=== PATIENT | male | born 1940 | race Caucasian/White ===

== ENCOUNTER 2017-04-27 12:50 | Emergency (ER) | payer MEDICARE ==
[~2017-04-27] VITALS: Ht 177.8 cm; Wt 99.2 kg
[~2017-04-27 12:50] MED LIST: CARV6.252 PO; COQ150CA PO; LORA-392 PO; NIAC50TA PO; PRIL20CA PO; SIMV20 PO; Z.0.COMMODE-3:1; Z.0.CPM; Z.0.WALKERFRONT
[2017-04-27 12:54] VITALS: BP 148/74; PULSE 71; RESP 16; TEMP 98.4; O2SAT 97
[2017-04-27] MEDS ORDERED: PRIL20TA2 PO (13:08)
[2017-04-27] MEDS ORDERED: COQ-30CA2 PO (13:08)
[2017-04-27] MEDS ORDERED: CARV6.252 PO (13:08)
[2017-04-27] MEDS ORDERED: HYDR200T3 PO (13:08)
[2017-04-27] MEDS ORDERED: SIMV20TA PO (13:08)
[2017-04-27] MEDS ORDERED: MILK1TAB PO (13:08)
--- NOTE | 2017-04-27 13:35 | PD ---
HPI Chief Complaint: Musculoskeletal Complaint Time Seen by Provider: 13:00 Travel History International Travel<30 days: No Contact w/Intl Traveler<30days: No Traveled to known affect area: No History of Present Illness HPI 76-year-old male presents to the emergency room for evaluation of left thigh pain and swelling after falling last night. States he believes he pulled a thigh muscle. Patient tripped and fell in his hallway. He denies syncope, loss of consciousness, dizziness, or hitting his head. States he struck his left elbow on the wall and twisted his left hip. He had immediate pain and difficulty standing up. States overnight his pain worsened. He took oxycodone without significant relief in symptoms. It is worsened with ambulation and if he tries to extend his left hip. States he can still squat without significant pain. Patient denies paresthesias. He denies hip and knee pain. PFSH Past Medical History Blood Disorders: Yes (HEMACROMATOSIS) Cancer: Yes (PROSTATE, BASIL CELL SKIN CANCERS,FOLLICULAR LYMPHOMA) Cardiovascular Problems: No High Cholesterol: Yes Diabetes: No Diminished Hearing: No Endocrine: No Gastrointestinal Disorders: Yes (GERD) GERD: Yes Glaucoma: No Genitourinary: Yes (HX RENAL CALC., PROSTATE CANCER) Hepatitis: No Hiatal Hernia: No Hypertension: Yes Immune Disorder: No Medical other: Yes (HX RADIATION FOR PROSTATE CANCER) Musculoskeletal: Yes (ARTHRITIS) Neurologic: No Psychiatric: No Reproductive: No Respiratory: No Immunizations Current: Yes Radiation Therapy: Yes (prostate cancer) Thyroid Disease: No Past Surgical History Abdominal Surgery: Yes (CHOLYCYSTECTOMY) AICD: No Body Medical Devices: LEFT SHOULDER Eye Surgery: Yes (ERNESTO. CATARACT EXTRACTION) Genitourinary Surgery: Yes (RENAL CALCULI EXTRACTION, LITHOTRIPSY) Joint Replacement: Yes (RIGHT KNEE) Neurologic Surgery: Yes (BACK) Pacemaker: No Other Surgery: Yes Social History Alcohol Use: Yes (SOCIALLY) Tobacco Use: No Substance Use: No Allergies-Medications (Allergen,Severity, Reaction): Coded Allergies: Morphine (Verified Allergy, Severe, NAUSEA/VOMITING, 04/27/17) Nonsteroidal Anti-Inflammatory Agts (Verified Allergy, Severe, AFFECTED KIDNEYS, 04/27/17) Voltaren (Verified Allergy, Severe, AFFECTED KIDNEYS, 04/27/17) ALL NSAIDS Sulfa (Verified Allergy, Intermediate, 04/27/17) Reported Meds & Prescriptions Reported Meds & Active Scripts Active Reported Hydroxychloroquine (Hydroxychloroquine Sulfate) 200 Mg Tab 200 Mg PO DAILY Takw with food Liver Complex Tablet (Milk Thistle/Nac/Dandel/Turmer) 1 Each Tablet 1 Tab PO DAILY Coq-10 (Coenzyme Q10 (Ubidecarenone)) 30 Mg Cap Unknown Dose PO DAILY Simvastatin 20 Mg Tab 20 Mg PO HS Carvedilol 6.25 Mg Tab 6.25 Mg PO BID Prilosec (Omeprazole Magnesium) 20 Mg Tab 20 Mg PO BID Review of Systems Except as stated in HPI: all other systems reviewed are Neg Physical Exam Narrative GENERAL: Well-nourished, well-developed male in no acute distress. Afebrile. Ambulatory. SKIN: Focused skin assessment warm/dry. No erythema or ecchymosis. HEAD: Normocephalic. EYES: No scleral icterus. No injection or drainage. NECK: Supple, trachea midline. No JVD or lymphadenopathy. CARDIOVASCULAR: Regular rate and rhythm without murmurs, gallops, or rubs. RESPIRATORY: Breath sounds equal bilaterally. No accessory muscle use. MUSCULOSKELETAL: No cyanosis. Hips stable. 2+ dorsalis pedis pulse. Left thigh is significantly larger than right. No calf tenderness. Full range of motion of the left lower extremity. Pain with active range of motion of the hip. No pain with passive range of motion. Data Data Last Documented VS Vital Signs Date Time Temp Pulse Resp B/P Pulse Ox O2 Delivery O2 Flow Rate FiO2 04/27/17 12:54 98.4 71 16 148/74 97 Orders Femur (Ap & Lat/2vws) (04/27/17 ) [facility] Medical Decision Making Medical Screen Exam Complete: Yes Emergency Medical Condition: Yes Medical Record Reviewed: Yes Differential Diagnosis Muscle strain, groin sprain, fracture Narrative Course 76-year-old male presents to the emergency room for evaluation of left thigh pain after trip and fall last night. Patient denies any pain prior to falling. Patient denies hitting his head or loss of consciousness. He has been ambulatory since onset. Left lower extremity is neurovascularly intact. Patient reports extreme pain with active hip flexion but no pain with passive hip flexion. There is no bony tenderness to palpation. There is point tenderness to palpation to the left quadriceps. X-ray of the femur is negative. This is muscle strain. Patient discharged with prescription for baclofen told to follow-up with his primary care physician or return for worsening symptoms. He understands and agrees to plan. Diagnosis Primary Impression: Muscle strain of left thigh Qualified Code: S76.912A - Muscle strain of left thigh, initial encounter Referrals: Primary Care Physician Patient Instructions: General Instructions, Muscle Strain (ED) Additional Instructions: Rest and drink plenty of fluids. Take Robaxin as directed, as needed for pain. Take Tylenol as directed, as needed for pain. Apply ice to the affected area for 20 minutes at a time, as needed for pain and swelling. Follow-up with a primary care physician. Return to the emergency room for worsening symptoms. Med/Other Pt SpecificInfo: Prescription(s) given Disposition: 01 DISCHARGE HOME Condition: Stable Estelle Garcia Apr 27, 2017 13:35
--- NOTE | 2017-04-27 14:02 | RADRPT ---
EXAM DATE/TIME: 04/27/2017 13:42 [facility] COMPARISON: KNEE LEFT LTD (1 OR 2VWS), December 26, 2015, 14:16. INDICATIONS : Left mid femur pain from fall last night MEDICAL HISTORY : Carcinoma, prostatic. SURGICAL HISTORY : Total knee replacement, left. Total knee replacement, right. ENCOUNTER: Initial ACUITY: 1 day PAIN SCORE: 10/10 LOCATION: Left mid thigh FINDINGS: Total knee arthroplasty is in place. The femoral, tibial, and patellar components appear intact. Th ere are no signs of loosening or fracture. No definite fracture is seen for technique. CONCLUSION: Intact total knee arthroplasty for technique. Awa Patel MD on April 27, 2017 at 14:00 Board Certified Radiologist. This report was verified electronically.
[2017-04-27] MEDS ORDERED: BACL10TA PO (14:16)
== END 2017-04-27 14:29 | disposition home or self-care (01) ==
LOC: PHEFT 12:50
DX: S76.912A Strain of unspecified muscles, fascia and tendons at thigh level, left thigh, initial encounter (principal); I10 Essential (primary) hypertension; E78.00 Pure hypercholesterolemia, unspecified; W01.0XXA Fall on same level from slipping, tripping and stumbling without subsequent striking against object, initial encounter; Y93.89 Activity, other specified; Y92.008 Other place in unspecified non-institutional (private) residence as the place of occurrence of the external cause
CPT/HCPCS: 73552; 99283

== ENCOUNTER 2017-05-15 09:27 | Inpatient (IN) | payer MEDICARE ==
[~2017-05-15] VITALS: Ht 177.8 cm; Wt 108.5 kg
[~2017-05-15 09:27] MED LIST changes: +BACL10TA PO; +COQ-30CA2 PO; -COQ150CA PO; +HYDR200T3 PO; -LORA-392 PO; +MILK1TAB PO; -NIAC50TA PO; -PRIL20CA PO; +PRIL20TA2 PO; -SIMV20 PO; +SIMV20TA PO; -Z.0.COMMODE-3:1; -Z.0.CPM; -Z.0.WALKERFRONT
--- NOTE | 2017-05-15 13:02 | HHI.HP ---
HPI Service [facility] Hospitalists Primary Care Physician Mateusz Teran MD Admission Diagnosis femoral neck fx/hip pain Chief Complaint: hip pain Travel History International Travel<30 Days: No Contact w/Intl Traveler <30 Da: No Traveled to Known Affected Are: No History of Present Illness Pt is 77yo with chronic follicular lymphoma who had elective left tka surgery last year. I was called by his orthopedic physician Dr Lo about direct admit today for left femoral neck fx. Pt slipped and fell back around 04/27 and seen in ED. At that time a femur xray was done and pt sent home with possible muscle strain. He is now wheelchair bound over past week and having alot of pain in the hip. Dr Lo performed an MRI and he believes the pt has femoral neck fx. After walking out of the mri he apparently felt a popping sensation as well when getting into the car. Review of Systems Other left hip pain inability to ambulate Past Family Social History Past Medical History ckd stage 3 H/O prostate cancer (s/p XRT by Dr. Marie. Dr. Sierra following- noted increasing PSA.) Hypertension Inflammatory arthritis Iron overload (HFE negative.) Liver cirrhosis in 2012 Follicular lymphoma (02/11/12. Mediastinal biopsy positive for Follicular lymphoma, grade I. CTPET show disease above and below diaphragm. Last bone marrow biopsy 2005 was negative for lymphoma. Back surgery 2002 sciatica cyst Colonoscopy 2003 Iron overl load Kidney stone removed 1974, lithotripsy 2010 right tka- 2001 -left tka 2016 Left shoulder rotator cuff 2010 Lipoma removed left leg 2010 Lipotripsy - March 01, 2011 and April 19, 2011 Xrt prostate - [address] biopsy in 2011 Reported Medications Allergies: Coded Allergies: Morphine (Verified Allergy, Severe, NAUSEA/VOMITING, 04/27/17) Nonsteroidal Anti-Inflammatory Agts (Verified Allergy, Severe, AFFECTED KIDNEYS, 04/27/17) Voltaren (Verified Allergy, Severe, AFFECTED KIDNEYS, 04/27/17) ALL NSAIDS Sulfa (Verified Allergy, Intermediate, 04/27/17) Physical Exam Vital Signs heart reg lung cta abd s/nt ext left hip tender. trace edema of both ankles. 2plus distal pulses left foot/warm. Assessment and Plan Problem List: (1) Fracture of femoral neck, left Status: Acute Plan: left femoral neck fx from fall 04/27. discussed with dr Lo. MRI left hip 05/14 discussed. xray left hip due to "popping sensation" in left hip yesteday after the mri. hip surgery planned for tomorrow. no contraindications to proceed with planned surgery. pain control with oxycodone.... pt not interested in morphine or dilaudid and will avoid the nsaids/tylenol given hx ckd and cirrhosis. npo after MN with NS. resume his ppi and bp meds. scd's. post op pharmacological dvt prophylaxis and PT. (2) Lymphoma Status: Chronic Plan: follicular lymphoma stable. no rx needed. (3) Chronic kidney disease Status: Chronic Plan: ckd 3. stable. (4) Hypertension Status: Chronic Plan: cont home meds Physician Certification 2 Midnight Certification Type: Admission for Inpatient Services Order for Inpatient Services 3The services are ordered in accordance with Medicare regulations or non- Medicare payer requirements, as applicable. In the case of services not specified as inpatient-only, they are appropriately provided as inpatient services in accordance with the 2-midnight benchmark. Estimated LOS (days): 3 3 days is the estimated time the patient will need to remain in the hospital, assuming treatment plan goals are met and no additional complications. Post-Hospital Plan: Not yet determined Rogerio Syed MD May 15, 2017 13:02 Physician Certification 2 Midnight Certification Type: Admission for Inpatient Services Order for Inpatient Services 3The services are ordered in accordance with Medicare regulations or non- Medicare payer requirements, as applicable. In the case of services not specified as inpatient-only, they are appropriately provided as inpatient services in accordance with the 2-midnight benchmark. Estimated LOS (days): 3 3 days is the estimated time the patient will need to remain in the hospital, assuming treatment plan goals are met and no additional complications. Post-Hospital Plan: Not yet determined Rogerio Syed MD May 15, 2017 13:02
[2017-05-15 14:30] VITALS: BP 153/71; PULSE 66; RESP 18; TEMP 97.6; O2SAT 97
[2017-05-15] MEDS ORDERED: ACETAMINOPHEN/HYDROcodone 325 MG/5 MG TAB PO PRN ×2 (15:00)
--- NOTE | 2017-05-15 15:58 | RADRPT ---
EXAM DATE/TIME: 05/15/2017 15:35 [facility] COMPARISON: FEMUR LEFT (AP & LAT/2VWS), April 27, 2017, 13:42. INDICATIONS : Left hip increasing pain, known hip fracture. MEDICAL HISTORY : None. SURGICAL HISTORY : None. ENCOUNTER: Subsequent ACUITY: 3 weeks PAIN SCORE: 10/10 LOCATION: Left hip. FINDINGS: Examination of the left hip was performed with AP Pelvis. A nondisplaced fracture is identified throu gh the base of the left femoral neck. There is foreshortening of the neck. Femoral head remains well- seated within the acetabulum. CONCLUSION: Nondisplaced fracture of the left femoral neck. Jonatan Maciel MD on May 15, 2017 at 15:54 Board Certified Radiologist. This report was verified electronically.
[2017-05-15] MEDS ORDERED: ONDANSETRON HCL 4 MG/2 ML VIAL IV PUSH PRN (16:00)
[2017-05-15] MEDS ORDERED: TEMAZEPAM 15 MG CAP PO PRN (16:00)
[2017-05-15] MEDS ORDERED: HYDROmorphone HCL PF 1 MG/ML VIAL IV PUSH ONE (16:00)
--- NOTE | 2017-05-15 18:21 | RADRPT ---
EXAM DATE/TIME: 05/15/2017 17:38 [facility] COMPARISON: No previous studies available for comparison. INDICATIONS : Evaluate for fractures,fall three weeks ago RADIATION DOSE: 27.91 CTDIvol (mGy) MEDICAL HISTORY : Hypertension. Renal calculi. Carcinoma, prostate.lymphoma SURGICAL HISTORY : Cholecystectomy. ENCOUNTER: Initial ACUITY: 3 weeks PAIN SCALE: 8/10 LOCATION: Left Hip TECHNIQUE: Volumetric scanning of the hip was performed. Using automated exposure control and adjustment of the mA and/or kV according to patient size, radiation dose was kept as low as reasonably achievable to o btain optimal diagnostic quality images. DICOM format image data is available electronically for rev iew and comparison. FINDINGS: There is a femoral neck fracture with inferior displacement of the femoral head. There is at least 1 cm overlap. There is osteoarthritis of the hip joint. There is a 10.3 cm lipoma in the medial proxima l left thigh. CONCLUSION: 1. Displaced femoral neck fracture. 2. 10.3 cm lipoma in the medial proximal left thigh. Hunter Bautista MD on May 15, 2017 at 18:15 Board Certified Radiologist. This report was verified electronically.
[2017-05-15] MEDS: CARVEDILOL 6.25 MG TAB PO SCH (19:31)
[2017-05-15] MEDS: HYDROmorphone HCL PF 1 MG/ML VIAL IV PUSH PRN ×2 (19:32→23:28)
[2017-05-15 20:00] VITALS: BP 172/84; PULSE 76; RESP 20; TEMP 95.9; O2SAT 95
[2017-05-15 20:58] LABS: AUTOMATED NEUTROPHIL # 4.1 TH/MM3 (1.8-7.7); BASOPHIL % 0.2 % (0.0-2.0); EOSINOPHIL # 0.1 TH/MM3 (0-0.4); EOSINOPHIL % 1.4 % (0.0-4.0); HEMATOCRIT 34.3 % (39.0-51.0); HEMO FLAGS DIFF FINAL; LYMPH % 10.4 % (9.0-44.0); LYMPHOCYTE # 0.5 TH/MM3 (1.0-4.8); MEAN CELL VOLUME 86.2 FL (80.0-100.0); MEAN CORPUSCULAR HEMOGLOBIN 28.3 PG (27.0-34.0); MEAN CORPUSCULAR HGB CONC 32.8 % (32.0-36.0); MONO % 7.2 % (0.0-8.0); NEUT % 80.8 % (16.0-70.0); PLATELET COUNT 135 TH/MM3 (150-450); RED BLOOD COUNT 3.99 MIL/MM3 (4.50-5.90); RED CELL DISTRIBUTION WIDTH 14.6 % (11.6-17.2); WHITE BLOOD COUNT 5.1 TH/MM3 (4.0-11.0)
[2017-05-15 21:07] LABS: APTT (PATIENT) 27.9 SEC (24.3-30.1); INTERNATIONAL NORMALIZED RATIO 1.1 RATIO; PROTHROMBIN TIME - PATIENT 11.8 SEC (9.8-11.6)
[2017-05-15 21:20] LABS: BICARBONATE 29.9 MEQ/L (21.0-32.0); POTASSIUM 3.8 MEQ/L (3.5-5.1)
--- NOTE | 2017-05-15 21:42 | MB ---
cc: Mirta ROQUE M.D. DATE OF CONSULTATION 05/15/2017 REASON FOR CONSULTATION Displaced fracture left femoral neck. Consultation report is as follows. HISTORY OF THE PRESENT ILLNESS A pleasant 77-year-old male well-known to me seen today following a trip and fall several weeks ago for which he was seen originally in the emergency room on 04/27. X-rays and sent home with possible muscle strain. He presented yesterday to the office with severe pain and x-rays revealed a questionable fracture left femoral neck for which he was sent for an MRI. The MRI which was done on 05/14/2017 revealed probable femoral neck fracture, nondisplaced. The patient states when he was getting up from the table after the MRI and getting into the car he felt a definite pop and severe pain ensued. He was admitted to the hospital the next day on today 05/15/2017. X-rays and a CT scan revealed a displaced femoral neck fracture now. The patient is now admitted by medical service and will be undergoing a bipolar versus total hip arthroplasty in the morning. PAST MEDICAL HISTORY Other past history: 1. The patient has a history of chronic follicular lymphoma. 2. He has had a left total knee in the past. 3. And had shoulder surgery as well. 4. He also has hypertension. 5. Inflammatory arthritis. 6. Iron overload with liver cirrhosis in 2012. 7. He has had back surgery and a sciatica cyst removed. 8. Colonoscopy. 9. Kidney stone removal. 10. Right total knee in 2001. 11. Left total knee to 2015. 12. Rotator cuff surgery 2009. 13. Lipoma removed from his leg in 2010. 14. Lithotripsy in 2010. REVIEW OF SYSTEMS Noncontributory. FAMILY HISTORY Noncontributory. SOCIAL HISTORY He does not smoke or drink. ALLERGIES HE IS ALLERGIC TO MORPHINE WHICH GIVES HIM NAUSEA AND VOMITING. AND NSAIDS. HE IS ALSO ALLERGIC TO SULFA. PHYSICAL EXAMINATION GENERAL: We find a 77-year-old male well-developed, well-nourished, alert and oriented times three complaining of pain in his left hip. VITAL SIGNS: Stable and afebrile. EXTREMITIES: Examination of the left lower extremity, his left leg is shortened and externally rotated approximately 1 inch shorter than the right. He is otherwise neurovascularly intact to his toes. CT scan and x-rays done today reveal a completely displaced femoral neck fracture of the left side. IMPRESSION At this time is displaced left femoral neck fracture. The plan is that he is admitted to the medical service and will be undergoing a bipolar arthroplasty of his left hip in a.m. possible total hip. J. MD MICKY Becker/KK /7:14 PM /9:27 PM
[2017-05-15] MEDS: SODIUM CHLOR 0.9% 1000 ML INJ 1,000 ML IV SCH (23:29)
[2017-05-16] VITALS: BP 159/72; PULSE 73; RESP 16; TEMP 98.4; O2SAT 94
[2017-05-16] MEDS: HYDROmorphone HCL PF 1 MG/ML VIAL IV PUSH PRN ×4 (03:23→21:39)
[2017-05-16 04:00] VITALS: BP 148/70; PULSE 70; RESP 18; TEMP 98.8; O2SAT 94
[2017-05-16 08:00] VITALS: BP 158/71; PULSE 80; RESP 17; TEMP 97.7; O2SAT 93
[2017-05-16] MEDS: CARVEDILOL 6.25 MG TAB PO SCH ×2 (08:21→21:38)
[2017-05-16] MEDS ORDERED: SODIUM CHLORIDE 0.9% FLUSH 5 ML FLUSH IVF PRN (09:00)
[2017-05-16] MEDS ORDERED: NALOXONE HCL 0.4 MG/ML AMP IV PRN (09:00)
[2017-05-16] MEDS ORDERED: BISACODYL 10 MG SUPP RECTAL PRN (09:00)
[2017-05-16] MEDS: PANTOPRAZOLE SOD 40 MG DELAYED RELEASE TAB PO SCH (09:00)
[2017-05-16] MEDS ORDERED: Post-op Orders (for Pharmacy) MISC XX ONE (09:00)
[2017-05-16] MEDS: SODIUM CHLORIDE 0.9% FLUSH 5 ML FLUSH IVF SCH ×2 (09:00→21:38)
[2017-05-16] MEDS ORDERED: ACETAMINOPHEN 325 MG TAB PO PRN (09:00)
[2017-05-16] MEDS ORDERED: ACETAMINOPHEN/HYDROcodone 325 MG/7.5 MG TAB PO PRN ×2 (09:00)
[2017-05-16] MEDS ORDERED: MISCELLANEOUS NURSING INFORMATION XX PRN (09:00)
[2017-05-16] MEDS ORDERED: TEMAZEPAM 15 MG CAP PO PRN (09:00)
[2017-05-16] MEDS ORDERED: MAGNESIUM HYDROXIDE SUSP 30 ML CUP PO PRN (09:00)
[2017-05-16] MEDS ORDERED: GENTAMICIN SULFATE 80 MG/2 ML VIAL ONE (09:04)
[2017-05-16] MEDS ORDERED: VANCOMYCIN HCL 1000 MG VIAL ONE (09:26)
[2017-05-16] MEDS ORDERED: ceFAZolin 2 GM PREMIX 50 ML ONE (09:26)
[2017-05-16] MEDS ORDERED: TRANEXAMIC ACID IV SCH ×2 (09:45→13:00)
[2017-05-16] MEDS ORDERED: SODIUM CHLORIDE 0.9% IV SCH ×2 (09:45→13:00)
[2017-05-16] MEDS ORDERED: DO NOT ADM ANY ANTICOAGULANT DRUGS PRN (11:32)
--- NOTE | 2017-05-16 11:38 | HHI.PR ---
Immediate Post Op Note Procedure Date: May 16, 2017 Pre Op Diagnosis: Left hip displaced femoral neck fracture Post Op Diagnosis: Left hip displaced femoral neck fracture Surgeon: Mirta Lo MD Retail Agent(s): Julia DINERO Procedure: Left hip hemiarthroplasty Complications: none Specimen(s) removed: femoral neck/head Estimated blood loss: 250 Anesthesia: General Drains: None IVF Tourniquet time (min at mmHg) none Patient to: PACU Patient Condition: Good Implant/Devices: SEE IMPLANT LOG (if applicable) Date/Time of Procedure: SEE SURGICAL CARE RECORD Julia Dee May 16, 2017 11:38
[2017-05-16] MEDS ORDERED: MIDAZOLAM HCL 2 MG/2 ML VIAL ONE (11:45)
[2017-05-16] MEDS ORDERED: fentaNYL CITRATE 250 MCG/5 ML AMP ONE (11:45)
[2017-05-16] MEDS: LACTATED RINGER'S 1000 ML INJ 1,000 ML IV SCH ×2 (12:00→23:30)
[2017-05-16] MEDS ORDERED: *HYDROmorphone PF 1 MG VIAL PERIprocedural Use ONLY ONE (13:03)
--- NOTE | 2017-05-16 13:35 | RADRPT ---
EXAM DATE/TIME: 05/16/2017 12:37 [facility] COMPARISON: No previous studies available for comparison. INDICATIONS : Post op left hip replacement MEDICAL HISTORY : left hip fracture SURGICAL HISTORY : left hip replaced ENCOUNTER: Subsequent ACUITY: 2 days PAIN SCORE: 5/10 LOCATION: Left hip FINDINGS: Examination of the hip demonstrates postsurgical changes following hip replacement. Acetabular and femoral prosthetic components are well seated and satisfactorily aligned. There is no evidence of acute fracture. CONCLUSION: Satisfactory postoperative appearance of the left hip status post replacement. Jonatan Maciel MD on May 16, 2017 at 13:33 Board Certified Radiologist. This report was verified electronically.
[2017-05-16] MEDS: SODIUM CHLOR 0.9% 1000 ML INJ 1,000 ML IV SCH (14:03)
--- NOTE | 2017-05-16 15:03 | EKG ---
Date Performed: 05/15/2017 Time Performed: 16:22:25 PTAGE: 77 years EKG: Sinus rhythm WITH FIRST DEGREE AV BLOCK OR interval increased from the old tracing. ABNORMAL ECG PREVIOUS TRACING : 06/15/2013 09.42 DOCTOR: Konrad Mcnamara Interpretating Date/Time 05/16/2017 15:02:27
--- NOTE | 2017-05-16 15:41 | HHI.PR ---
Subjective Remarks doing well post op. Objective Vitals heart reg lung cta abd s/nt ext trace edema Vital Signs Date Time Temp Pulse Resp B/P Pulse Ox O2 Delivery O2 Flow Rate FiO2 05/16/17 13:00 65 16 135/61 96 Nasal Cannula 2 05/16/17 12:45 65 16 129/59 94 Nasal Cannula 2 05/16/17 12:30 63 16 129/64 95 Nasal Cannula 2 05/16/17 12:15 66 16 129/63 94 Nasal Cannula 2 05/16/17 12:00 69 16 129/65 95 Nasal Cannula 2 05/16/17 11:45 74 16 131/62 94 Nasal Cannula 2 05/16/17 11:35 99.3 75 16 125/60 95 Nasal Cannula 2 05/16/17 08:00 97.7 80 17 158/71 93 05/16/17 04:00 98.8 70 18 148/70 94 05/16/17 00:00 98.4 73 16 159/72 94 05/15/17 20:00 95.9 76 20 172/84 95 05/15/17 05/15/17 05/16/17 15:00 23:00 07:00 Intake Total 0 ml 240 ml 401 ml Output Total 200 ml 200 ml 450 ml Balance -200 ml 40 ml -49 ml Intake Oral 0 ml 240 ml 0 ml IV Total 401 ml Output Urine Total 200 ml 200 ml 450 ml # Bowel Movements 0 0 0 Result Diagram: 05/15/17200705/15/172007 A/P Problem List: (1) Fracture of femoral neck, left Status: Acute Plan: left femoral neck fx from fall 04/27. s/p bridgett left 05/15 pain control with prn oxycodone and dilaudid dvt prophylaxis PT IS will avoid the nsaids/tylenol given hx ckd and cirrhosis. resume his ppi and bp meds. (2) Lymphoma Status: Chronic Plan: follicular lymphoma stable. no rx needed. (3) Chronic kidney disease Status: Chronic Plan: ckd 3. stable. (4) Hypertension Status: Chronic Plan: cont home meds Rogerio Syed MD May 16, 2017 15:41
[2017-05-16 16:08] VITALS: BP 155/78; PULSE 71; RESP 16; TEMP 96.6; O2SAT 99
[2017-05-16 20:00] VITALS: BP 154/75; PULSE 67; RESP 16; TEMP 96.1; O2SAT 95
[2017-05-16] MEDS ORDERED: CHLORHEXIDINE GLUCONATE 2 % 1 PACK (2 CLOTHS) TOPICAL PRN (23:45)
[2017-05-16] MEDS ORDERED: POVIDONE IODINE 5% (ANTISEPSIS KIT) 4 APPLICATIONS EACH NARE PRN (23:45)
[2017-05-16] MEDS ORDERED: INSULIN HUMAN REGULAR 1,000 UNITS/10 ML VIAL SQ PRN (23:45)
[2017-05-16] MEDS ORDERED: LACTATED RINGER'S 1000 ML IV PRN (23:45)
[2017-05-17] VITALS (9 sets, daily range): BP systolic 137–171; BP diastolic 63–86; PULSE 61–93; RESP 18; TEMP 96.4–98.8; O2SAT 95–97
[2017-05-17] MEDS: HYDROmorphone HCL PF 1 MG/ML VIAL IV PUSH PRN (01:43)
[2017-05-17] MEDS: SODIUM CHLOR 0.9% 1000 ML INJ 1,000 ML IV SCH ×2 (04:21→18:39)
[2017-05-17 06:02] LABS: HEMATOCRIT 31.2 % (39.0-51.0); REVIEW FLAG FINAL
--- NOTE | 2017-05-17 08:31 | PD.ORT.PN ---
Subjective Subjective Remarks pt complaining of gas pains in lower abdomen today. Feels he needs to have a BM. Objective Vitals Vital Signs Date Time Temp Pulse Resp B/P Pulse Ox O2 Delivery O2 Flow Rate FiO2 05/17/17 07:31 18 05/17/17 04:00 97.3 70 18 149/70 95 05/17/17 02:31 18 05/17/17 02:02 Nasal Cannula 2.00 05/17/17 01:13 95 Nasal Cannula 4.00 05/17/17 00:00 96.4 61 18 137/63 96 05/16/17 20:00 96.1 67 16 154/75 95 05/16/17 16:08 96.6 71 16 155/78 99 05/16/17 13:00 65 16 135/61 96 Nasal Cannula 2 05/16/17 12:45 65 16 129/59 94 Nasal Cannula 2 05/16/17 12:30 63 16 129/64 95 Nasal Cannula 2 05/16/17 12:15 66 16 129/63 94 Nasal Cannula 2 05/16/17 12:00 69 16 129/65 95 Nasal Cannula 2 05/16/17 11:45 74 16 131/62 94 Nasal Cannula 2 05/16/17 11:35 99.3 75 16 125/60 95 Nasal Cannula 2 I/O 05/16/17 05/16/17 05/16/17 05/17/17 05/17/17 05/17/17 07:00 15:00 23:00 07:00 15:00 23:00 Intake Total 401 ml 0 ml 1081 ml 763 ml Output Total 450 ml 300 ml 300 ml Balance -49 ml 0 ml 781 ml 463 ml Intake Oral 0 ml 0 ml 480 ml 240 ml IV Total 401 ml 601 ml 523 ml Output Urine Total 450 ml 300 ml 300 ml # Voids 0 # Bowel Movements 0 0 0 0 Result Diagram: 05/17/17 0553 05/15/172007 Imaging Last 24 hours Impressions Hip X-Ray 05/16/17 0856 Signed Impressions: Service Date/Time: May 12:37 - CONCLUSION: Satisfactory postoperative appearance of the left hip status post replacement. Jonatan Maciel MD Objective Remarks NV intact to toes. Dressing intact. Assessment & Plan Ortho Post Op Day #: 1 Problem List: Assessment and Plan Bipolar left hip doing well. OOB, PT, medical management. Home vs SNF soon. Mirta Lo MD May 17, 2017 08:31
--- NOTE | 2017-05-17 08:33 | HHI.FF ---
Face to Face Verification Diagnosis: (1) Fracture of femoral neck, left Physical Therapy Gait training Hip: Hip fracture, Protocol: Left, Posterior hip precautions, Abduction pillow while in bed, Progress to weight bearing Canvas Knee Splint: When in bed & 2 pillows btw thighs Nursing RN: 3 days/week x 2 weeks Nursing: Charlie teaching Dressing Changes: Do not change dressing I have seen patient Jl Adorno on 05/17/17. My clinical findings support the need for the requested home health care services because: Limited ability to care for self High risk of falls I certify that my clinical findings support that this patient is homebound because: Unsteady gait/balance Mirta Lo MD May 17, 2017 08:32
[2017-05-17] MEDS: SODIUM CHLORIDE 0.9% FLUSH 5 ML FLUSH IVF SCH ×2 (09:00→20:10)
--- NOTE | 2017-05-17 09:14 | HHI.PR ---
Subjective Remarks eager to have bm passing gas no vomiting Objective Vitals heart reg kellee gcta abd bs/nt ext no edema Vital Signs Date Time Temp Pulse Resp B/P Pulse Ox O2 Delivery O2 Flow Rate FiO2 05/17/17 08:00 97.8 73 18 162/68 97 05/17/17 07:31 18 05/17/17 04:00 97.3 70 18 149/70 95 05/17/17 02:31 18 05/17/17 02:02 Nasal Cannula 2.00 05/17/17 01:13 95 Nasal Cannula 4.00 05/17/17 00:00 96.4 61 18 137/63 96 05/16/17 20:00 96.1 67 16 154/75 95 05/16/17 16:08 96.6 71 16 155/78 99 05/16/17 13:00 65 16 135/61 96 Nasal Cannula 2 05/16/17 12:45 65 16 129/59 94 Nasal Cannula 2 05/16/17 12:30 63 16 129/64 95 Nasal Cannula 2 05/16/17 12:15 66 16 129/63 94 Nasal Cannula 2 05/16/17 12:00 69 16 129/65 95 Nasal Cannula 2 05/16/17 11:45 74 16 131/62 94 Nasal Cannula 2 05/16/17 11:35 99.3 75 16 125/60 95 Nasal Cannula 2 05/16/17 05/16/17 05/17/17 14:59 22:59 06:59 Intake Total 0 ml 1081 ml 763 ml Output Total 300 ml 300 ml Balance 0 ml 781 ml 463 ml Intake Oral 0 ml 480 ml 240 ml IV Total 601 ml 523 ml Output Urine Total 300 ml 300 ml # Voids 0 # Bowel Movements 0 0 0 Result Diagram: 05/17/17 0553 05/15/172007 A/P Problem List: (1) Fracture of femoral neck, left Status: Acute Plan: left femoral neck fx from fall 04/27. s/p bridgett left 05/15 pain control with prn oxycodone and dilaudid laxatives/supp today. dvt prophylaxis PT IS will avoid the nsaids/tylenol given hx ckd and cirrhosis. resume his ppi and bp meds. (2) Lymphoma Status: Chronic Plan: follicular lymphoma stable. no rx needed. (3) Chronic kidney disease Status: Chronic Plan: ckd 3. stable. (4) Hypertension Status: Chronic Plan: cont home meds Rogerio Syed MD May 17, 2017 09:14
[2017-05-17] MEDS ORDERED: BISACODYL EC 5 MG TABEC PO ONE (09:15)
[2017-05-17] MEDS ORDERED: BISACODYL 10 MG SUPP RECTAL ONE (09:15)
[2017-05-17] MEDS ORDERED: LACTULOSE SYRUP 20 GM/30 ML CUP PO PRN (09:15)
[2017-05-17] MEDS: PANTOPRAZOLE SOD 40 MG DELAYED RELEASE TAB PO SCH (10:16)
[2017-05-17] MEDS: CARVEDILOL 6.25 MG TAB PO SCH ×2 (10:16→20:07)
[2017-05-17] MEDS: ENOXAPARIN SODIUM 30 MG/0.3 ML SYRINGE SQ SCH (10:17)
[2017-05-17] MEDS: ONDANSETRON HCL 4 MG/2 ML VIAL IVP PRN (11:43)
[2017-05-17] MEDS: LACTATED RINGER'S 1000 ML INJ 1,000 ML IV SCH (12:00)
--- NOTE | 2017-05-17 15:26 | MP ---
cc: Mirta ROQUE M.D. DATE OF SURGERY: 05/16/2017 PREOPERATIVE DIAGNOSIS Displaced left femoral neck fracture. POSTOPERATIVE DIAGNOSIS Displaced left femoral neck fracture. SURGERY PERFORMED Left bipolar hemiarthroplasty left hip using Aesculap components, size 54 cup, a short lateralized stem with a size 14 stem, 28-mm head. SURGEON Dr. Roque. PATENT LEGAL ASSISTANT ROSETTE Johnston ANESTHESIA General intubation. PROCEDURE The patient was brought to the Operating Room, where after successful induction of spinal anesthesia was placed on the operating room table in the lateral decubitus position. The hip, thigh and leg were prepped and draped in the usual manner. A posterolateral approach was then utilized by making an incision over the proximal portion of the femur lateral aspect, carried across the greater trochanter, carried posterior in a curved incision toward the buttock. The incision was carried down through the subcutaneous tissue, through the fibers of the tensor fascia rose and gluteus ovidio to expose the greater trochanteric bursa. This was then removed by sharp and blunt dissection. The hip was then internally rotated to expose the insertions of the short external rotators of the hip and were incised at their insertion into the greater trochanter and reflected posterior to protect the sciatic nerve. These were held with a Charnley retractor to better visualize the hip joint. The capsule was identified and removed by sharp dissection. The hip was then dislocated by internal rotation and flexion of the hip. The femoral calcar was then measured using the trial components for the appropriate length cut of the neck using an oscillating saw. After the cut was made the head was removed. The acetabulum was then approached and measured, the acetabulum reamed with the acetabular reamers. Next, the femoral calcar was approached by first inserting a canal finder followed by rigid reamers, followed by a cookie-cutter to the appropriate size, in this case being a #15. The broach was left in place and a planer used to plane the calcar to a smooth finish. The broach was then removed. The trial components were then inserted into place, the hip reduced, found to track smoothly with no evidence of subluxation or dislocation. All trial components were removed. The wound was irrigated copiously with antibiotic solution and Water Pik. The actual components were then inserted and impacted into place using the aforementioned components. No reaming was necessary as this was a bipolar. The hip was reduced, found to track smoothly with no evidence of subluxation or dislocation. The wound was irrigated copiously with antibiotic solution, meticulous hemostasis achieved. The capsule was then approximated using interrupted #1 Vicryl suture. The deep fascia was approximated with running #2 Quill, subcutaneous tissue approximated using interrupted running 2-0 and 3-0 Monocryl suture. Primapore dressing was applied, knee immobilizer, abduction pillow and splint. No drain was utilized. Estimated blood loss was 250 cc. Sponge and suture counts were correct. The patient tolerated the procedure well and left the Operating Room in satisfactory condition. ROSETTE Paiz was present during the entire procedure to include patient positioning and the procedure. The medical necessity of the nurse practitioner special event assistant was indicated in this case due to the surgical complexity of the case itself. During the surgical case the surgical resident was working the back table while my surgical instrument mechanic ROSETTE was directly assisting me. The patient tolerated the procedure well and left the operating room in satisfactory condition. JMD MICKY Garvey/PRANAY /11:47 AM /3:09 PM JENNIFER
[2017-05-17] MEDS: DOCUSATE SODIUM 100 MG CAP PO SCH (20:06)
[2017-05-17] MEDS: MULTIVITAMINS/MINERALS THERAPEUTIC TAB PO SCH (20:07)
[2017-05-18 00:11] VITALS: BP 106/53; PULSE 74; RESP 18; TEMP 98.7; O2SAT 95
[2017-05-18] MEDS: SODIUM CHLOR 0.9% 1000 ML INJ 1,000 ML IV SCH (00:11)
[2017-05-18] MEDS: LACTATED RINGER'S 1000 ML INJ 1,000 ML IV SCH (00:11)
[2017-05-18] MEDS: ENOXAPARIN SODIUM 30 MG/0.3 ML SYRINGE SQ SCH ×2 (00:11→12:15)
[2017-05-18 04:15] VITALS: BP 135/58; PULSE 78; RESP 18; TEMP 99.7; O2SAT 95
[2017-05-18 04:16] LABS: REVIEW FLAG FINAL
[2017-05-18] MEDS: ONDANSETRON HCL 4 MG/2 ML VIAL IVP PRN (06:33)
[2017-05-18 08:00] VITALS: BP 119/60; PULSE 77; RESP 18; TEMP 99.1; O2SAT 92
[2017-05-18] MEDS: CARVEDILOL 6.25 MG TAB PO SCH (08:28)
[2017-05-18] MEDS: DOCUSATE SODIUM 100 MG CAP PO SCH (08:28)
[2017-05-18] MEDS: MULTIVITAMINS/MINERALS THERAPEUTIC TAB PO SCH (08:28)
[2017-05-18] MEDS: PANTOPRAZOLE SOD 40 MG DELAYED RELEASE TAB PO SCH (08:28)
[2017-05-18] MEDS: SODIUM CHLORIDE 0.9% FLUSH 5 ML FLUSH IVF SCH (08:37)
[2017-05-18] MEDS ORDERED: OXYC-395 PO (09:05)
--- NOTE | 2017-05-18 09:08 | PD.ORT.PN ---
Subjective Subjective Remarks pt feeling better with GI and BM today. Still co post op pain. Objective Vitals Vital Signs Date Time Temp Pulse Resp B/P Pulse Ox O2 Delivery O2 Flow Rate FiO2 05/18/17 04:15 99.7 78 18 135/58 95 05/18/17 00:11 98.7 74 18 106/53 95 05/17/17 20:10 98.5 93 18 163/74 95 05/17/17 19:56 96 Nasal Cannula 4.00 05/17/17 19:20 Room Air 05/17/17 16:00 98.8 72 18 147/69 97 05/17/17 12:50 97 Nasal Cannula 2.00 05/17/17 12:00 98.5 70 18 171/86 96 I/O 05/17/17 05/17/17 05/17/17 05/18/17 05/18/17 05/18/17 06:59 14:59 22:59 06:59 14:59 22:59 Intake Total 763 ml 720 ml 240 ml Output Total 300 ml 450 ml 200 ml Balance 463 ml 270 ml 40 ml Intake Oral 240 ml 720 ml 240 ml IV Total 523 ml Output Urine Total 300 ml 450 ml 200 ml # Voids 1 1 # Bowel Movements 0 3 1 Result Diagram: 05/18/17 0354 05/15/172007 Imaging Last 24 hours Impressions Hip X-Ray 05/16/17 0856 Signed Impressions: Service Date/Time: May 12:37 - CONCLUSION: Satisfactory postoperative appearance of the left hip status post replacement. Jonatan Maciel MD Objective Remarks NV intact to toes. Dressing intact. Assessment & Plan Ortho Post Op Day #: 2 Problem List: Assessment and Plan Bipolar left hip doing well. OOB, PT, medical management. Home with [facility] when ok with medical. To office next week. Mirta Lo MD May 18, 2017 09:08
[2017-05-18] MEDS ORDERED: WALKER WHEELS/F1 MIS (09:10)
[2017-05-18] MEDS ORDERED: ADJUSTABLE COMM1 MIS (09:10)
[2017-05-18] MEDS ORDERED: APIX2.5T PO (11:58)
[2017-05-18 12:00] VITALS: BP 139/70; PULSE 73; RESP 18; TEMP 97.2; O2SAT 92
--- NOTE | 2017-05-18 12:01 | HHI.DS ---
Discharge Summary Admission Date May 15, 2017 at 14:21 Discharge Date: May 18, 2017 Admitting Diagnosis femoral neck fx/hip pain (1) Fracture of femoral neck, left Diagnosis: Principal (2) Lymphoma Diagnosis: Secondary (3) Chronic kidney disease Diagnosis: Secondary (4) Hypertension Diagnosis: Secondary Brief History Pt is 77yo with chronic follicular lymphoma who had elective left tka surgery last year. I was called by his orthopedic physician Dr Lo about direct admit today for left femoral neck fx. Pt slipped and fell back around 04/27 and seen in ED. At that time a femur xray was done and pt sent home with possible muscle strain. He is now wheelchair bound over past week and having alot of pain in the hip. Dr Lo performed an MRI and he believes the pt has femoral neck fx. After walking out of the mri he apparently felt a popping sensation as well when getting into the car. CBC/BMP: 05/18/17 0354 05/15/172007 Significant Findings Laboratory Tests Test 05/15/17 05/17/17 05/18/17 20:08 05:53 03:54 Red Blood Count 3.99 MIL/MM3 (4.50-5.90) Hemoglobin 11.3 GM/DL 10.2 GM/DL 9.5 GM/DL (13.0-17.0) (13.0-17.0) (13.0-17.0) Hematocrit 34.3 % 31.2 % 29.0 % (39.0-51.0) (39.0-51.0) (39.0-51.0) Platelet Count 135 TH/MM3 (150-450) Neutrophils (%) (Auto) 80.8 % (16.0-70.0) Lymphocytes # (Auto) 0.5 TH/MM3 (1.0-4.8) Prothrombin Time 11.8 SEC (9.8-11.6) Estimat Glomerular Filtration 83 ML/MIN (>89) Rate Hospital Course (1) Fracture of femoral neck, left Status: Acute Plan: left femoral neck fx from fall 04/27. s/p bridgett left 05/15 pain control with prn oxycodone and dilaudid laxatives/supp ..had bmp prior to d/c dvt prophylaxis. d/c home on eliquis PT and hhc ordered will avoid the nsaids/tylenol given hx ckd and cirrhosis. resume his ppi and bp meds. (2) Lymphoma Status: Chronic Plan: follicular lymphoma has been stable but now he might need chemo per his oncologist. (3) Chronic kidney disease Status: Chronic Plan: ckd 3. stable. (4) Hypertension Status: Chronic Plan: cont home meds Pt Condition on Discharge: Stable Discharge Disposition: Disch w/ Home Health Serv Discharge Instructions DIET: Follow Instructions for: Heart Healthy Diet Activities you can perform: Weight Bearing as Carmencita Follow up Referrals: SNF/KRISTIAN/HH with [facility] New Medications: Adjustable Commode 3-in-1 (Adjustable Commode 3-in-1) 1 Mis Mis 1 EA .ROUTE DIRECTED #1 EA Apixaban (Eliquis) 2.5 Mg Tab 2.5 MG PO BID Blood Clot Prevention Days 14 Ref 0 TAB Walker with Front Wheels (Walker with Front Wheels) 1 Mis Mis 1 EA .ROUTE DIRECTED #1 Ref 0 EA Oxycodone (Oxycodone) 10 Mg Tab 10 MG PO Q4H PRN pain 6-10 #60 TAB Continued Medications: Baclofen (Baclofen) 10 Mg Tab 5 MG PO Q8HR PRN MUSCLE SPASM #10 Ref 0 TAB Carvedilol (Carvedilol) 6.25 Mg Tab 6.25 MG PO BID #60 Ref 0 TAB Coenzyme Q10 (Ubidecarenone) (Coq-10) 30 Mg Cap Unknown Dose PO DAILY Hydroxychloroquine (Hydroxychloroquine) 200 Mg Tab 200 MG PO DAILY Takw with food #30 Ref 0 TAB Milk Thistle/Nac/Dandel/Turmer (Liver Complex Tablet) 1 Each Tablet 1 TAB PO DAILY Omeprazole Magnesium (Prilosec) 20 Mg Tab 20 MG PO BID Simvastatin (Simvastatin) 20 Mg Tab 20 MG PO HS Cholesterol Management #30 Ref 0 TAB Rogerio Syed MD May 18, 2017 12:01
== END 2017-05-18 16:43 | disposition home health service (06) | DRG 470 ==
LOC: N06B 14:21
PROVIDERS: ADMIT Hospitalist; ATTEND Hospitalist
PROC: 0SRS0JA Replacement of Left Hip Joint, Femoral Surface with Synthetic Substitute, Uncemented, Open Approach (ICD-10-PCS; principal; 2017-05-16 09:17)
DX: S72.042A Displaced fracture of base of neck of left femur, initial encounter for closed fracture (principal); C82.90 Follicular lymphoma, unspecified, unspecified site; K74.60 Unspecified cirrhosis of liver; N18.3 Chronic kidney disease, stage 3 (moderate); W01.0XXA Fall on same level from slipping, tripping and stumbling without subsequent striking against object, initial encounter; I12.9 Hypertensive chronic kidney disease with stage 1 through stage 4 chronic kidney disease, or unspecified chronic kidney disease; M06.4 Inflammatory polyarthropathy
CPT/HCPCS: 73501; 73502; 73700; 80048; 85014; 85018; 85025; 85610; 85730; 86850; 86900; 86901; 88305; 88311; 93005; 94150; J0690; J1170; J1580; J1650; J2250; J2405; J3010; J3370; J7030; J7120; L1830

== ENCOUNTER 2017-06-14 07:57 | Day surgery (SDC) | payer MEDICARE ==
[2017-06-13 09:40] VITALS: BP 125/72; PULSE 65; RESP 20; TEMP 98.5; O2SAT 93
[~2017-06-14] VITALS: Ht 175.3 cm; Wt 98.2 kg
[~2017-06-14 07:57] MED LIST changes: +ADJUSTABLE COMM1 MIS; +APIX2.5T PO; +OXYC-395 PO; +WALKER WHEELS/F1 MIS
[2017-06-14 08:22] VITALS: BP 143/80; PULSE 69; RESP 18; TEMP 97.9; O2SAT 96
[2017-06-14] MEDS ORDERED: LIDOCAINE HCL 1% 20 ML VIAL ONE (08:33)
[2017-06-14 08:44] LABS: AUTOMATED NEUTROPHIL # 3.3 TH/MM3 (1.8-7.7); BASOPHIL % 0.5 % (0.0-2.0); EOSINOPHIL # 0.3 TH/MM3 (0-0.4); EOSINOPHIL % 5.7 % (0.0-4.0); HEMATOCRIT 29.6 % (39.0-51.0); HEMO FLAGS DIFF FINAL; LYMPH % 14.8 % (9.0-44.0); LYMPHOCYTE # 0.7 TH/MM3 (1.0-4.8); MEAN CELL VOLUME 84.1 FL (80.0-100.0); MEAN CORPUSCULAR HEMOGLOBIN 27.3 PG (27.0-34.0); MEAN CORPUSCULAR HGB CONC 32.5 % (32.0-36.0); MONO % 7.9 % (0.0-8.0); NEUT % 71.1 % (16.0-70.0); PLATELET COUNT 150 TH/MM3 (150-450); RED BLOOD COUNT 3.52 MIL/MM3 (4.50-5.90); RED CELL DISTRIBUTION WIDTH 14.7 % (11.6-17.2); WHITE BLOOD COUNT 4.6 TH/MM3 (4.0-11.0)
[2017-06-14] MEDS ORDERED: MIDAZOLAM HCL 5 MG/5 ML VIAL ONE (08:49)
[2017-06-14 09:55] VITALS: BP 126/63; PULSE 62; RESP 20; O2SAT 96
[2017-06-14] MEDS ORDERED: SODIUM CHLOR 0.9% 1000 ML IV SCH (10:00)
[2017-06-14 10:25] VITALS: BP 131/78; PULSE 67; RESP 20; O2SAT 97
[2017-06-14 10:35] LABS: BONE MARROW PROCESSING COMPLETE; IRON STAIN DONE; JENNER GIEMSA STAIN DONE
[2017-06-14 10:55] VITALS: BP 134/72; PULSE 67; RESP 20; O2SAT 96
[2017-06-14 11:25] VITALS: BP 129/67; PULSE 70; RESP 18; O2SAT 96
--- NOTE | 2017-06-14 12:35 | RADRPT ---
EXAM DATE/TIME: 06/14/2017 09:05 [facility] COMPARISON: No previous studies available for comparison. INDICATIONS : Lymphoma. SEDATION TIME: 30 minutes BIOPSY SITE: Right iliac MEDICATION(S): 1.) 3 mg midazolam (Versed) IV 2.) 150 mcg fentanyl (Sublimaze) IV DEVICE(S): 1.) 11 gauge Bone marrow biopsy needle MEDICAL HISTORY : Carcinoma, prostate. Hypertension. SURGICAL HISTORY : None. ENCOUNTER: Initial ACUITY: 1 day PAIN SCORE: 0/10 LOCATION: Right pelvis A total of one core specimen(s) were obtained and sent to the laboratory for pathologic evaluation. PROCEDURE: 1. CT guided bone marrow biopsy. 2. Conscious sedation with continuous EKG and oximetry monitoring. Prior to the procedure informed consent was obtained. Any appropriate prior imaging studies were rev iewed. Using automated exposure control and adjustment of the mA and/or kV according to patient size , radiation dose was kept as low as reasonably achievable to obtain optimal diagnostic quality images . DICOM format image data is available electronically for review and comparison. The site was prepped in a sterile fashion. Full sterile technique was used, including cap, mask, abdullahi rile gloves and gown and a large sterile sheet. Hand hygiene and 2% chlorhexidine and/or betadine/al cohol prep was utilized per protocol for cutaneous antisepsis. The skin and subcutaneous tissues wer e infiltrated with local anesthetic solution. With CT guidance the previously identified target was localized. Biopsy was performed using the presc ribed needle as above. Following biopsy marrow aspiration was performed with repeat puncture. Adequa te hemostasis was obtained with compression at the puncture site. Follow-up CT scan reveals no hemorrhage. Conscious sedation was performed with the prescribed dosages and duration as above in the presence of an independent trained radiology nurse to assist in the monitoring of the patient. EKG and oximetry remained stable throughout the procedure. The patient tolerated the procedure well and there were no complications. The patient was sent to Radiology Outpatient Unit in stable condition. CONCLUSION: 1. Uncomplicated CT guided bone marrow aspirate. 2. Uncomplicated CT guided bone marrow biopsy. Jacob Villa MD FACR on June 14, 2017 at 12:34 Board Certified Radiologist. This report was verified electronically.
[2017-06-15] MEDS ORDERED: CLIN1CAP6 PO (13:59)
== END 2017-06-14 11:40 | disposition home or self-care (01) ==
LOC: HRAD 07:57 → HRIP 08:01 → HRAD 11:40
PROVIDERS: ATTEND Internal Medicine Hematology & Oncology
DX: D64.9 Anemia, unspecified (principal); D69.6 Thrombocytopenia, unspecified; I10 Essential (primary) hypertension; E78.00 Pure hypercholesterolemia, unspecified; K21.9 Gastro-esophageal reflux disease without esophagitis; Z85.72 Personal history of non-Hodgkin lymphomas; Z85.46 Personal history of malignant neoplasm of prostate; Z85.828 Personal history of other malignant neoplasm of skin; Z87.442 Personal history of urinary calculi
CPT/HCPCS: 38221; 77012; 85025; 85097; 88305; 88311; 88313; 99152; 99153; C1830; G0364; J2250; J3010

== ENCOUNTER 2017-06-15 09:59 | Emergency (ER) | payer MEDICARE ==
[~2017-06-15] VITALS: Ht 177.8 cm; Wt 95.0 kg
[~2017-06-15 09:59] MED LIST changes: -MILK1TAB PO
[2017-06-15 10:01] VITALS: BP 153/72; PULSE 75; RESP 20; TEMP 97.8; O2SAT 97
[2017-06-15 11:14] LABS: AUTOMATED NEUTROPHIL # 2.4 TH/MM3 (1.8-7.7); BASOPHIL % 0.5 % (0.0-2.0); EOSINOPHIL # 0.2 TH/MM3 (0-0.4); EOSINOPHIL % 5.5 % (0.0-4.0); HEMATOCRIT 27.8 % (39.0-51.0); HEMO FLAGS DIFF FINAL; LYMPH % 18.4 % (9.0-44.0); LYMPHOCYTE # 0.7 TH/MM3 (1.0-4.8); MEAN CELL VOLUME 84.1 FL (80.0-100.0); MEAN CORPUSCULAR HEMOGLOBIN 27.8 PG (27.0-34.0); MEAN CORPUSCULAR HGB CONC 33.1 % (32.0-36.0); MONO % 8.2 % (0.0-8.0); NEUT % 67.4 % (16.0-70.0); PLATELET COUNT 123 TH/MM3 (150-450); RED BLOOD COUNT 3.31 MIL/MM3 (4.50-5.90); RED CELL DISTRIBUTION WIDTH 14.9 % (11.6-17.2); WHITE BLOOD COUNT 3.6 TH/MM3 (4.0-11.0)
[2017-06-15 11:34] LABS: ALT (GPT) 18 U/L (12-78); ANION GAP 7 MEQ/L (5-15); AST (GOT) 20 U/L (15-37); BLOOD UREA NITROGEN 10 MG/DL (7-18); CHLORIDE 105 MEQ/L (98-107); GLOMERULAR FILTRATION RATE 76 ML/MIN (>89); POTASSIUM 3.9 MEQ/L (3.5-5.1); SODIUM (NA) 142 MEQ/L (136-145)
[2017-06-15 11:37] LABS: ALKALINE PHOSPHATASE 96 U/L (45-117); TOTAL BILIRUBIN ADULT 0.4 MG/DL (0.2-1.0)
[2017-06-15] MEDS ORDERED: IOHEXOL 350 MG/ML 10 ML VIAL (for RAD DIAG) IV PUSH ONE (13:22)
--- NOTE | 2017-06-15 13:48 | RADRPT ---
EXAM DATE/TIME: 06/15/2017 13:00 [facility] COMPARISON: No previous studies available for comparison. INDICATIONS : Left neck swelling. IV CONTRAST: 100 cc Omnipaque 350 (iohexol) IV RADIATION DOSE: 15.8 CTDIvol (mGy) MEDICAL HISTORY : Lymphoma. SURGICAL HISTORY : Hip. ENCOUNTER: Initial ACUITY: 1 day PAIN SCALE: 5/10 LOCATION: Left neck TECHNIQUE: Volumetric scanning of the neck was performed. Using automated exposure control and adjustment of th e mA and/or kV according to patient size, radiation dose was kept as low as reasonably achievable to obtain optimal diagnostic quality images. DICOM format image data is available electronically for r eview and comparison. FINDINGS: NASOPHARYNX: The nasopharyngeal airway has a normal configuration. No mucosal thickening or mass is seen. OROPHARYNX: There is some soft tissue fullness and mild mass effect in the region of the left tonsillar pillar. D ental artifact partially obscures this region. LARYNX: The supraglottic, glottic, and infraglottic structures are intact. PARAPHARYNGEAL: The parapharyngeal space is intact. SALIVARY GLANDS: The parotid and submandibular glands are intact. LYMPH NODES: There is a large confluent solid soft tissue mass centered deep to the left sternocleidomastoid muscl e and lateral to the carotid and internal jugular vessels. It measures 8.7 x 5.1 cm. There is no charo r fat plane with the adjacent sternocleidomastoid muscle THYROID: 2.2 cm solid nodule at the posterior margin of the left lobe of the thyroid. BONES: Multilevel degenerative findings of the cervical spine. Mild central canal narrowing at C6-7. CONCLUSION: 1. 9 cm confluent soft tissue mass in the left side of the neck. This finding is highly suspicious fo r malignancy. Most likely etiology would be multiple enlarged confluent matted lymph nodes. 2. Soft tissue fullness and mass effect of the left tonsillar pillar without discretely defined mass. 3. 2 cm nodule at the posterior aspect of the left lobe of the thyroid. 4. Prominent multilevel degenerative findings of the cervical spine. Raul Strong MD on June 15, 2017 at 13:37 Board Certified Radiologist. This report was verified electronically.
[2017-06-15] MEDS ORDERED: CLIN1CAP6 PO (13:59)
[2017-06-15] MEDS ORDERED: CLINDAMYCIN INJ 600 MG in SODIUM CHLORIDE 0.9% INJ 100 ML IV ONE (14:00)
--- NOTE | 2017-06-15 14:00 | PD ---
HPI Chief Complaint: Skin Problem Time Seen by Provider: 10:35 Travel History International Travel<30 days: No Contact w/Intl Traveler<30days: No Traveled to known affect area: No History of Present Illness HPI Patient is a 77-year-old male with history of lymphoma who comes in because there is draining from the swelling on the left side of his neck. He says that it suddenly became larger last week and just in the past day or so has started draining. He was told if it starts draining to come to the emergency department. He denies fever or chills. He says it is very tender to palpation. He is supposed to start chemotherapy on Saturday. He denies any difficulty swallowing or breathing. PFSH Past Medical History Blood Disorders: Yes (HEMACROMATOSIS) Cancer: Yes (PROSTATE, BASIL CELL SKIN CANCERS,FOLLICULAR LYMPHOMA) Cardiovascular Problems: No High Cholesterol: Yes Diabetes: No Diminished Hearing: Yes (HEARING AIDS BOTH ) Endocrine: No Gastrointestinal Disorders: Yes (GERD) GERD: Yes Glaucoma: No Genitourinary: Yes (HX RENAL CALC., PROSTATE CANCER) Hepatitis: No Hiatal Hernia: No Hypertension: Yes Immune Disorder: No Medical other: Yes (HX RADIATION FOR PROSTATE CANCER) Musculoskeletal: Yes (ARTHRITIS) Neurologic: No Psychiatric: No Reproductive: No Respiratory: No Immunizations Current: Yes Radiation Therapy: Yes (prostate cancer) Thyroid Disease: No ?: Not Past Surgical History Abdominal Surgery: Yes (CHOLYCYSTECTOMY) AICD: No Body Medical Devices: LEFT SHOULDER Eye Surgery: Yes (ERNESTO. CATARACT EXTRACTION) Genitourinary Surgery: Yes (RENAL CALCULI EXTRACTION, LITHOTRIPSY) Joint Replacement: Yes (RIGHT KNEE) Neurologic Surgery: Yes (BACK) Pacemaker: No Other Surgery: Yes Social History Alcohol Use: Yes (SOCIALLY) Tobacco Use: No Substance Use: No Allergies-Medications (Allergen,Severity, Reaction): Coded Allergies: diclofenac (Unverified Allergy, Severe, AFFECTED KIDNEYS, 06/15/17) ALL NSAIDS etodolac (Unverified Allergy, Severe, AFFECTED KIDNEYS, 06/15/17) flurbiprofen (Unverified Allergy, Severe, AFFECTED KIDNEYS, 06/15/17) ibuprofen (Unverified Allergy, Severe, AFFECTED KIDNEYS, 06/15/17) indomethacin (Unverified Allergy, Severe, AFFECTED KIDNEYS, 06/15/17) ketoprofen (Unverified Allergy, Severe, AFFECTED KIDNEYS, 06/15/17) ketorolac (Unverified Allergy, Severe, AFFECTED KIDNEYS, 06/15/17) morphine (Unverified Allergy, Severe, NAUSEA/VOMITING, 06/15/17) naproxen (Unverified Allergy, Severe, AFFECTED KIDNEYS, 06/15/17) oxaprozin (Unverified Allergy, Severe, AFFECTED KIDNEYS, 06/15/17) Sulfa (Sulfonamide Antibiotics) (Unverified Allergy, Intermediate, Rash, ) apixaban (Verified Allergy, Intermediate, Hives, 06/15/17) Reported Meds & Prescriptions Reported Meds & Active Scripts Active Clindamycin (Clindamycin HCl) 300 Mg Cap 600 Mg PO Q8H 7 Days Adjustable Commode 3-in-1 (Device) 1 Mis Mis 1 Ea .ROUTE DIRECTED Walker with Front Wheels (Device) 1 Mis Mis 1 Ea .ROUTE DIRECTED Oxycodone (Oxycodone HCl) 10 Mg Tab 10 Mg PO Q4H PRN Reported Coq-10 (Coenzyme Q10 (Ubidecarenone)) 30 Mg Cap Unknown Dose PO DAILY Simvastatin 20 Mg Tab 20 Mg PO HS Carvedilol 6.25 Mg Tab 6.25 Mg PO BID Prilosec (Omeprazole Magnesium) 20 Mg Tab 20 Mg PO BID Review of Systems Except as stated in HPI: all other systems reviewed are Neg General / Constitutional: No: Fever, Chills HENT: No: Headaches, Lightheadedness Cardiovascular: No: Chest Pain or Discomfort Respiratory: No: Shortness of Breath Gastrointestinal: No: Nausea, Vomiting Genitourinary: No: Dysuria Skin: Positive Lesions Neurologic: No: Weakness, Dizziness Physical Exam Narrative GENERAL: Awake and alert, in no acute distress. SKIN: Large mass to the left side of the neck, soft, tender to palpation. Minimal draining of pus. HEAD: Atraumatic. Normocephalic. EYES: Pupils equal and round. No scleral icterus. No injection or drainage. ENT: Mucous membranes pink and moist. NECK: Trachea midline. No JVD. CARDIOVASCULAR: Regular rate and rhythm. No murmur appreciated. RESPIRATORY: No accessory muscle use. Clear to auscultation. Breath sounds equal bilaterally. MUSCULOSKELETAL: No obvious deformities. No clubbing. No cyanosis. No edema. NEUROLOGICAL: Awake and alert. No obvious cranial nerve deficits. Motor grossly within normal limits. Normal speech. PSYCHIATRIC: Appropriate mood and affect; insight and judgment normal. Data Data Last Documented VS Vital Signs Date Time Temp Pulse Resp B/P (MAP) Pulse Ox O2 Delivery O2 Flow Rate FiO2 06/15/17 10:01 97.8 75 20 153/72 (99) 97 Room Air Orders Orders Iv Access Insert/Monitor (06/15/17 10:44) Complete Blood Count With Diff (06/15/17 10:44) Comprehensive Metabolic Panel (06/15/17 10:44) Ct Soft Tiss Neck W Iv Cont (06/15/17 ) Iohexol 350 Inj (Omnipaque 350 Inj) (06/15/17 13:22) Clindamycin Inj (Cleocin Inj) (06/15/17 14:00) Oxycodone (Roxicodone) (06/15/17 14:00) Labs Laboratory Tests Test 06/15/17 10:45 White Blood Count 3.6 TH/MM3 Red Blood Count 3.31 MIL/MM3 Hemoglobin 9.2 GM/DL Hematocrit 27.8 % Mean Corpuscular Volume 84.1 FL Mean Corpuscular Hemoglobin 27.8 PG Mean Corpuscular Hemoglobin Concent 33.1 % Red Cell Distribution Width 14.9 % Platelet Count 123 TH/MM3 Mean Platelet Volume 8.0 FL Neutrophils (%) (Auto) 67.4 % Lymphocytes (%) (Auto) 18.4 % Monocytes (%) (Auto) 8.2 % Eosinophils (%) (Auto) 5.5 % Basophils (%) (Auto) 0.5 % Neutrophils # (Auto) 2.4 TH/MM3 Lymphocytes # (Auto) 0.7 TH/MM3 Monocytes # (Auto) 0.3 TH/MM3 Eosinophils # (Auto) 0.2 TH/MM3 Basophils # (Auto) 0.0 TH/MM3 CBC Comment DIFF FINAL Differential Comment Blood Urea Nitrogen 10 MG/DL Creatinine 0.96 MG/DL Random Glucose 112 MG/DL Total Protein 6.5 GM/DL Albumin 2.8 GM/DL Calcium Level 9.6 MG/DL Alkaline Phosphatase 96 U/L Aspartate Amino Transf (AST/SGOT) 20 U/L Alanine Aminotransferase (ALT/SGPT) 18 U/L Total Bilirubin 0.4 MG/DL Sodium Level 142 MEQ/L Potassium Level 3.9 MEQ/L Chloride Level 105 MEQ/L Carbon Dioxide Level 30.0 MEQ/L Anion Gap 7 MEQ/L Estimat Glomerular Filtration Rate 76 ML/MIN MDM Medical Decision Making Medical Screen Exam Complete: Yes Emergency Medical Condition: Yes Medical Record Reviewed: Yes Differential Diagnosis abscess versus cellulitis versus cancer Narrative Course Patient is a 77-year-old male who comes in because of pain and drainage from the mass in the left side of his neck. Exam shows a soft, tender mass with sanguinous fluid draining from it. IV established, labs sent. Labs show no acute abnormalities other than a hemoglobin of 9.2, which is basically his baseline. CT of the neck shows large mass, suspicious for malignancy. There is no evidence of abscess or fluid collection. Patient given clindamycin for possible overlying infection. He'll be discharged with clindamycin by mouth. She has an appointment with the oncologist this week. He is advised to keep that appointment. Advised to return any time for any worsening symptoms. Diagnosis Primary Impression: Lymphoma Qualified Codes: C85.91 - Non-Hodgkin lymphoma, unspecified, lymph nodes of head, face, and neck Additional Impression: Cellulitis Qualified Codes: L03.221 - Cellulitis of neck Patient Instructions: Cellulitis (ED), General Instructions, Lymphadenopathy ( ED) Scripts Clindamycin (Clindamycin) 300 Mg Cap 600 MG PO Q8H for Infection for 7 Days, CAP 0 Refills Prov: Anu Gómez MD 06/15/17 Disposition: 01 DISCHARGE HOME Condition: Stable Anu Gómez MD Jun 15, 2017 14:00
== END 2017-06-15 15:51 | disposition home or self-care (01) ==
LOC: NEPC 09:59
DX: C85.91 Non-Hodgkin lymphoma, unspecified, lymph nodes of head, face, and neck (principal); L03.221 Cellulitis of neck
CPT/HCPCS: 70491; 80053; 85025; 96365; 99285; Q9967

== ENCOUNTER 2017-09-02 19:43 | Emergency (ER) | payer MEDICARE ==
[~2017-09-02 19:43] MED LIST changes: -APIX2.5T PO; -BACL10TA PO; +CLIN300C5 PO; -HYDR200T3 PO
[2017-09-02 19:45] VITALS: BP 182/88; PULSE 87; RESP 16; TEMP 97.9; O2SAT 96
[2017-09-02] MEDS ORDERED: LIDOCAINE 1%/EPINEPHrine 1:100,000 SOLN 50 ML VIAL INFIL ONE (22:00)
[2017-09-02] MEDS ORDERED: GELATIN 12 MM/7 MM FOAM TOPICAL ONE ×2 (22:15→22:30)
--- NOTE | 2017-09-02 22:36 | PD ---
HPI Chief Complaint: Bleeding Time Seen by Provider: 21:44 Travel History International Travel<30 days: No Contact w/Intl Traveler<30days: No Traveled to known affect area: No History of Present Illness HPI 77-year-old white male presents to emergency Department with complaints of a bleeding metastatic lymph node to the left neck. Patient has a history of follicular lymphoma. The lymph node interrupted to the skin several months ago and the patient has been undergoing chemotherapy since then. The lymph node has considerably shrunk down but is still significant in size. It is very friable and bleeds spontaneously at times. He is been going to wound care and hopes to aid in the healing. He states that he had at least 2 or 3 episodes today of bleeding that was not controlled with direct pressure. He states that it does bleed periodically and is able to be maintained with direct pressure. Patient has had a history of anemia and was concerned that he may have lost a significant amount of blood. Patient also has a history of hemachromatosis and cirrhosis patient denies any direct trauma. He denies any dizziness or focal weakness. Symptoms are moderate. No alleviating factor. PFSH Past Medical History Blood Disorders: Yes (HEMACROMATOSIS) Cancer: Yes (PROSTATE, BASIL CELL SKIN CANCERS,FOLLICULAR LYMPHOMA) Cardiovascular Problems: No High Cholesterol: Yes Chemotherapy: Yes Diabetes: No Diminished Hearing: Yes (HEARING AIDS BOTH ) Endocrine: No Gastrointestinal Disorders: Yes (GERD) GERD: Yes Glaucoma: No Genitourinary: Yes (HX RENAL CALC., PROSTATE CANCER) Hepatitis: No Hiatal Hernia: No Hypertension: Yes Immune Disorder: No Musculoskeletal: Yes (ARTHRITIS) Neurologic: No Psychiatric: No Reproductive: No Respiratory: No Immunizations Current: Yes Radiation Therapy: Yes (prostate cancer) Thyroid Disease: No Past Surgical History Abdominal Surgery: Yes (CHOLYCYSTECTOMY) AICD: No Body Medical Devices: LEFT SHOULDER Eye Surgery: Yes (ERNESTO. CATARACT EXTRACTION) Genitourinary Surgery: Yes (RENAL CALCULI EXTRACTION, LITHOTRIPSY) Joint Replacement: Yes (RIGHT KNEE) Neurologic Surgery: Yes (BACK) Pacemaker: No Other Surgery: Yes Social History Alcohol Use: Yes (SOCIALLY) Tobacco Use: No Substance Use: No Allergies-Medications (Allergen,Severity, Reaction): Coded Allergies: diclofenac (Unverified Allergy, Severe, AFFECTED KIDNEYS, 06/15/17) ALL NSAIDS etodolac (Unverified Allergy, Severe, AFFECTED KIDNEYS, 06/15/17) flurbiprofen (Unverified Allergy, Severe, AFFECTED KIDNEYS, 06/15/17) ibuprofen (Unverified Allergy, Severe, AFFECTED KIDNEYS, 06/15/17) indomethacin (Unverified Allergy, Severe, AFFECTED KIDNEYS, 06/15/17) ketoprofen (Unverified Allergy, Severe, AFFECTED KIDNEYS, 06/15/17) ketorolac (Unverified Allergy, Severe, AFFECTED KIDNEYS, 06/15/17) morphine (Unverified Allergy, Severe, NAUSEA/VOMITING, 06/15/17) naproxen (Unverified Allergy, Severe, AFFECTED KIDNEYS, 06/15/17) oxaprozin (Unverified Allergy, Severe, AFFECTED KIDNEYS, 06/15/17) Sulfa (Sulfonamide Antibiotics) (Unverified Allergy, Intermediate, Rash, ) apixaban (Verified Allergy, Intermediate, Hives, 06/15/17) Reported Meds & Prescriptions Reported Meds & Active Scripts Active Clindamycin (Clindamycin HCl) 300 Mg Cap 600 Mg PO Q8H 7 Days Adjustable Commode 3-in-1 (Device) 1 Mis Mis 1 Ea .ROUTE DIRECTED Walker with Front Wheels (Device) 1 Mis Mis 1 Ea .ROUTE DIRECTED Oxycodone (Oxycodone HCl) 10 Mg Tab 10 Mg PO Q4H PRN Reported Coq-10 (Coenzyme Q10 (Ubidecarenone)) 30 Mg Cap Unknown Dose PO DAILY Simvastatin 20 Mg Tab 20 Mg PO HS Carvedilol 6.25 Mg Tab 6.25 Mg PO BID Prilosec (Omeprazole Magnesium) 20 Mg Tab 20 Mg PO BID Review of Systems General / Constitutional: No: Fever Eyes: No: Visual changes HENT: No: Headaches Cardiovascular: No: Chest Pain or Discomfort Respiratory: No: Shortness of Breath Gastrointestinal: No: Abdominal Pain Genitourinary: No: Dysuria Musculoskeletal: No: Pain Skin: Positive Rash, Positive Lesions (with easy bleeding) Neurologic: No: Weakness Psychiatric: No: Depression Endocrine: No: Polydipsia Hematologic/Lymphatic: No: Easy Bruising Physical Exam Narrative GENERAL: This is a well-nourished, well-developed patient, in no apparent distress. SKIN: No rashes, ecchymoses or lesions. Warm and dry. HEAD: Atraumatic. Normocephalic. EYES: PERRL, EOMI, no discharge or injection. No scleral icterus. EARS: Clear NOSE: Nasal turbinates appear normal. THROAT: Mucosa pink and moist. Airway patent. NECK: Trachea midline. supple, moves head freely. Patient has a large friable mass to the left base of the neck just above the clavicle. This measures approximately 4 x 7 cm. It bleeds easily. LUNGS: Clear to auscultation. CV: Regular in rhythm. ABDOMEN: Soft nontender. EXT: No clubbing cyanosis or edema. Data Data Last Documented VS Vital Signs Date Time Temp Pulse Resp B/P (MAP) Pulse Ox O2 Delivery O2 Flow Rate FiO2 09/02/17 19:45 97.9 87 16 182/88 (119) 96 Room Air Orders Orders Lidocai-Epi 1%-1:100,000 Inj (Xylocaine- (09/02/17 22:00) Gelatin 12 Mm/7 Mm Top (Gelfoam 12 Mm/7 (09/02/17 22:15) Gelatin 12 Mm/7 Mm Top (Gelfoam 12 Mm/7 (09/02/17 22:30) MDM Medical Decision Making Medical Screen Exam Complete: Yes Emergency Medical Condition: Yes Medical Record Reviewed: Yes Interpretation(s) I reviewed the patient's laboratory tests from 08/13/17. He has some mild anemia and some mild low platelets but not significant enough to require intervention. Differential Diagnosis Differential diagnosis: Metastatic follicular lymph node. Arterial bleeding, venous bleeding, anemia, hematoma Narrative Course The patient has a metastatic follicular lymphoma noted to the left neck. It is friable and bleeding. It has bled several times today and has been treated at wound care without success. Patient was advised to come to the ER for definitive care. Patient was also seen by Dr. Gould in the office. At that time it was not bleeding. He advised not to have any interventions until he was done with his chemotherapy. Procedures Procedure Narrative Left neck bleeding lymph node. The area is anesthetized using 1% lidocaine with epinephrine. Chemical hemostat was applied directly to the areas of bleeding. Bleeding has significantly improved. We will apply Gelfoam and a nonadherent pressure dressing. The dressing appears dry. Diagnosis Primary Impression: bleeding left neck lymph node Patient Instructions: General Instructions Additional Instructions: Rest. The dressing intact in place for at least the next 2 days. Follow-up with wound care for dressing change. Return to the ER if bleeding persists. Disposition: 01 DISCHARGE HOME Condition: Stable Hunter Willard Sep 02, 2017 22:36
[2017-09-02 23:26] VITALS: BP 185/82; PULSE 68; RESP 18; O2SAT 98
== END 2017-09-03 00:04 | disposition home or self-care (01) ==
LOC: NEPD 19:43
DX: S11.90XA Unspecified open wound of unspecified part of neck, initial encounter (principal); C82.91 Follicular lymphoma, unspecified, lymph nodes of head, face, and neck; D64.9 Anemia, unspecified; D69.6 Thrombocytopenia, unspecified; E78.00 Pure hypercholesterolemia, unspecified; K21.9 Gastro-esophageal reflux disease without esophagitis; I10 Essential (primary) hypertension; Z79.899 Other long term (current) drug therapy; X58.XXXA Exposure to other specified factors, initial encounter
CPT/HCPCS: 12002

== ENCOUNTER 2017-09-03 08:12 | Emergency (ER) | payer MEDICARE ==
[2017-09-03 08:13] VITALS: BP 175/81; PULSE 71; RESP 17; TEMP 98.1; O2SAT 97
--- NOTE | 2017-09-03 08:52 | PD ---
HPI Chief Complaint: Bleeding Time Seen by Provider: 08:42 Travel History International Travel<30 days: No Contact w/Intl Traveler<30days: No Traveled to known affect area: No History of Present Illness HPI 77-year-old male patient with history of lymphoma and a large friable left neck mass that has been followed by wound care, was seen yesterday for bleeding from the mass, had Surgicel placed in the area, presents back today because he states that it started bleeding overnight. He states that the front of his shirt was all bloody. He denies chest pains, shortness of breath, or any other symptoms. Modifying Factors: None Associated Signs & Symptoms: Bleeding from left neck mass Risk Factors: None PFSH Past Medical History Blood Disorders: Yes (HEMACROMATOSIS) Cancer: Yes (PROSTATE, BASIL CELL SKIN CANCERS,FOLLICULAR LYMPHOMA) Cardiovascular Problems: No High Cholesterol: Yes Chemotherapy: Yes Diabetes: No Diminished Hearing: Yes (HEARING AIDS BOTH ) Endocrine: No Gastrointestinal Disorders: Yes (GERD) GERD: Yes Glaucoma: No Genitourinary: Yes (HX RENAL CALC., PROSTATE CANCER) Hepatitis: No Hiatal Hernia: No Hypertension: Yes Immune Disorder: No Musculoskeletal: Yes (ARTHRITIS) Neurologic: No Psychiatric: No Reproductive: No Respiratory: No Immunizations Current: Yes Radiation Therapy: Yes (prostate cancer) Thyroid Disease: No Past Surgical History Abdominal Surgery: Yes (CHOLYCYSTECTOMY) AICD: No Body Medical Devices: LEFT SHOULDER Eye Surgery: Yes (ERNESTO. CATARACT EXTRACTION) Genitourinary Surgery: Yes (RENAL CALCULI EXTRACTION, LITHOTRIPSY) Joint Replacement: Yes (BILATERAL KNEES, LEFT HIP) Neurologic Surgery: Yes (BACK) Pacemaker: No Other Surgery: Yes Social History Alcohol Use: Yes (SOCIALLY) Tobacco Use: No Substance Use: No Allergies-Medications (Allergen,Severity, Reaction): Coded Allergies: diclofenac (Unverified Allergy, Severe, AFFECTED KIDNEYS, 09/03/17) ALL NSAIDS etodolac (Unverified Allergy, Severe, AFFECTED KIDNEYS, 09/03/17) flurbiprofen (Unverified Allergy, Severe, AFFECTED KIDNEYS, 09/03/17) ibuprofen (Unverified Allergy, Severe, AFFECTED KIDNEYS, 09/03/17) indomethacin (Unverified Allergy, Severe, AFFECTED KIDNEYS, 09/03/17) ketoprofen (Unverified Allergy, Severe, AFFECTED KIDNEYS, 09/03/17) ketorolac (Unverified Allergy, Severe, AFFECTED KIDNEYS, 09/03/17) morphine (Unverified Allergy, Severe, NAUSEA/VOMITING, 09/03/17) naproxen (Unverified Allergy, Severe, AFFECTED KIDNEYS, 09/03/17) oxaprozin (Unverified Allergy, Severe, AFFECTED KIDNEYS, 09/03/17) Sulfa (Sulfonamide Antibiotics) (Unverified Allergy, Intermediate, Rash, 09/03/17) apixaban (Verified Allergy, Intermediate, Hives, 09/03/17) Reported Meds & Prescriptions Reported Meds & Active Scripts Active Oxycodone (Oxycodone HCl) 10 Mg Tab 10 Mg PO Q4H PRN Reported Coq-10 (Coenzyme Q10 (Ubidecarenone)) 30 Mg Cap Unknown Dose PO DAILY Simvastatin 20 Mg Tab 20 Mg PO HS Carvedilol 6.25 Mg Tab 6.25 Mg PO BID Prilosec (Omeprazole Magnesium) 20 Mg Tab 20 Mg PO DAILY PRN Review of Systems Except as stated in HPI: all other systems reviewed are Neg Physical Exam Narrative GENERAL: Well-developed elderly white male patient currently in mild distress. Awake and oriented 3. SKIN: Focused skin assessment warm/dry. There is a large left neck mass with covering bandages, bleeding appears to have stopped currently. HEAD: Atraumatic. Normocephalic. EYES: Pupils equal and round. No scleral icterus. No injection or drainage. ENT: No nasal bleeding or discharge. Mucous membranes pink and moist. NECK: Trachea midline. No JVD. CARDIOVASCULAR: Regular rate and rhythm. No murmur appreciated. RESPIRATORY: No accessory muscle use. Clear to auscultation. Breath sounds equal bilaterally. GASTROINTESTINAL: Abdomen soft, non-tender, nondistended. Hepatic and splenic margins not palpable. MUSCULOSKELETAL: No obvious deformities. No clubbing. No cyanosis. No edema. NEUROLOGICAL: Awake and alert. No obvious cranial nerve deficits. Motor grossly within normal limits. Normal speech. PSYCHIATRIC: Appropriate mood and affect; insight and judgment normal. Data Data Last Documented VS Vital Signs Date Time Temp Pulse Resp B/P (MAP) Pulse Ox O2 Delivery O2 Flow Rate FiO2 09/03/17 08:13 98.1 71 17 175/81 (112) 97 Room Air Orders Orders Complete Blood Count With Diff (09/03/17 08:42) Prothrombin Time / Inr (Pt) (09/03/17 08:42) Act Partial Throm Time (Ptt) (09/03/17 08:42) Type And Screen (09/03/17 08:42) Ed Discharge Order (09/03/17 09:34) Labs Laboratory Tests Test 09/03/17 08:45 White Blood Count 3.7 TH/MM3 Red Blood Count 3.66 MIL/MM3 Hemoglobin 10.5 GM/DL Hematocrit 32.3 % Mean Corpuscular Volume 88.1 FL Mean Corpuscular Hemoglobin 28.7 PG Mean Corpuscular Hemoglobin Concent 32.5 % Red Cell Distribution Width 17.8 % Platelet Count 98 TH/MM3 Mean Platelet Volume 8.1 FL Neutrophils (%) (Auto) 76.8 % Lymphocytes (%) (Auto) 10.5 % Monocytes (%) (Auto) 8.8 % Eosinophils (%) (Auto) 3.6 % Basophils (%) (Auto) 0.3 % Neutrophils # (Auto) 2.9 TH/MM3 Lymphocytes # (Auto) 0.4 TH/MM3 Monocytes # (Auto) 0.3 TH/MM3 Eosinophils # (Auto) 0.1 TH/MM3 Basophils # (Auto) 0.0 TH/MM3 CBC Comment AUTO DIFF Prothrombin Time 11.4 SEC Prothromb Time International Ratio 1.0 RATIO Activated Partial Thromboplast Time 25.5 SEC MDM Medical Decision Making Medical Screen Exam Complete: Yes Emergency Medical Condition: Yes Medical Record Reviewed: Yes Interpretation(s) Laboratory Tests Test 09/03/17 08:45 White Blood Count 3.7 TH/MM3 (4.0-11.0) Red Blood Count 3.66 MIL/MM3 (4.50-5.90) Hemoglobin 10.5 GM/DL (13.0-17.0) Hematocrit 32.3 % (39.0-51.0) Red Cell Distribution Width 17.8 % (11.6-17.2) Platelet Count 98 TH/MM3 (150-450) Neutrophils (%) (Auto) 76.8 % (16.0-70.0) Monocytes (%) (Auto) 8.8 % (0.0-8.0) Lymphocytes # (Auto) 0.4 TH/MM3 (1.0-4.8) Differential Diagnosis Bleeding from left neck mass Narrative Course Considering that the bleeding has stopped currently, I have chosen not to disturb the friable tissues again. Apparently, it bleeds fairly easily. According to the patient, the plan with Dr. Moe, his oncologist, and Dr. Gould, surgeon who had seen him yesterday, was to avoid surgical treatment of the mass until full chemotherapy has been done. Lab work did not indicate any significant anemia. Platelet count is 98. Case was discussed with Dr. Moe who states that she will see him in follow-up. She would not recommend any further treatment at this time. Return for any worsening in bleeding or new symptoms as needed. The plan has been discussed with the patient and he states understanding. Diagnosis Primary Impression: Lymphoma Additional Impressions: Mass of left side of neck Bleeding Additional Instructions: Return for any worsening in bleeding. Follow-up with Dr. Moe. Disposition: 01 DISCHARGE HOME Condition: Stable Kaity Venegas MD Sep 03, 2017 08:52
[2017-09-03 09:03] LABS: AUTOMATED NEUTROPHIL # 2.9 TH/MM3 (1.8-7.7); BASOPHIL % 0.3 % (0.0-2.0); EOSINOPHIL # 0.1 TH/MM3 (0-0.4); EOSINOPHIL % 3.6 % (0.0-4.0); HEMATOCRIT 32.3 % (39.0-51.0); LYMPH % 10.5 % (9.0-44.0); LYMPHOCYTE # 0.4 TH/MM3 (1.0-4.8); MEAN CELL VOLUME 88.1 FL (80.0-100.0); MEAN CORPUSCULAR HEMOGLOBIN 28.7 PG (27.0-34.0); MEAN CORPUSCULAR HGB CONC 32.5 % (32.0-36.0); MONO % 8.8 % (0.0-8.0); NEUT % 76.8 % (16.0-70.0); PLATELET COUNT 98 TH/MM3 (150-450); RED BLOOD COUNT 3.66 MIL/MM3 (4.50-5.90); RED CELL DISTRIBUTION WIDTH 17.8 % (11.6-17.2); WHITE BLOOD COUNT 3.7 TH/MM3 (4.0-11.0)
[2017-09-03 09:04] LABS: HEMO FLAGS AUTO DIFF
[2017-09-03 09:13] LABS: APTT (PATIENT) 25.5 SEC (24.3-30.1); PROTHROMBIN TIME - PATIENT 11.4 SEC (9.8-11.6)
[2017-09-03 09:38] LABS: BANDS 19 % (0-6); NEUTROPHIL # MANUAL DIFF 3.3 TH/MM3 (1.8-7.7); PLATELET ESTIMATE SMEAR LOW (NORMAL); PLATELET MORPHOLOGY NORMAL (NORMAL); POLYS (SEG NEUTROPHILS) 71 % (16-70); SCAN/DIFF FINAL DIFF MANUAL; TOXIC GRANULATION 1+ (NORMAL); WBC DIFF SAMPLE 100
== END 2017-09-03 10:13 | disposition home or self-care (01) ==
LOC: NEPE 08:12
DX: C82.90 Follicular lymphoma, unspecified, unspecified site (principal); R58 Hemorrhage, not elsewhere classified; E78.00 Pure hypercholesterolemia, unspecified; I10 Essential (primary) hypertension; Z79.899 Other long term (current) drug therapy
CPT/HCPCS: 85007; 85027; 85610; 85730; 86850; 86900; 86901; 99284

== ENCOUNTER 2017-09-27 10:26 | Day surgery (SDC) | payer MEDICARE ==
[~2017-09-27] VITALS: Ht 175.3 cm; Wt 99.0 kg
[~2017-09-27 10:26] MED LIST changes: -ADJUSTABLE COMM1 MIS; -CLIN300C5 PO; -WALKER WHEELS/F1 MIS
[2017-09-27 10:40] VITALS: BP 140/76; PULSE 73; RESP 20; TEMP 97.8; O2SAT 97
[2017-09-27] MEDS ORDERED: HYDR200T3 PO (10:47)
[2017-09-27] MEDS ORDERED: SODIUM CHLOR 0.9% 1000 ML IV SCH (11:00)
[2017-09-27 11:14] LABS: APTT (PATIENT) 23.7 SEC (24.3-30.1); INTERNATIONAL NORMALIZED RATIO 1.1 RATIO; PROTHROMBIN TIME - PATIENT 10.8 SEC (9.8-11.6)
[2017-09-27] MEDS ORDERED: MIDAZOLAM HCL 2 MG/2 ML VIAL ONE ×2 (12:25→13:47)
[2017-09-27] MEDS ORDERED: LIDOCAINE HCL 1% 20 ML VIAL ONE (12:33)
[2017-09-27 14:20] VITALS: BP 121/69; PULSE 70; RESP 16; TEMP 97.5; O2SAT 93
--- NOTE | 2017-09-27 14:27 | RADRPT ---
EXAM DATE/TIME: 09/27/2017 12:59 [facility] COMPARISON: No previous studies available for comparison. INDICATIONS : Left neck mass. BIOPSY SITE: Left DEVICE(S): 1.) 18 gauge Temno core biopsy needle MEDICAL HISTORY : Lymphoma. Hypertension. SURGICAL HISTORY : Cholecystectomy ENCOUNTER: Initial ACUITY: 1 day PAIN SCORE: 0/10 LOCATION: Left neck A total of six core specimen(s) were obtained and sent to the laboratory for pathologic evaluation. PROCEDURE: 1. CT guided neck biopsy. I reviewed the patient's prior CT scan of the neck. Prior to the procedure informed consent was obtai bubba. Any appropriate prior imaging studies were reviewed. Using automated exposure control and adjustment of the mA and/or kV according to patient size, radiat ion dose was kept as low as reasonably achievable to obtain optimal diagnostic quality images. DICOM format image data is available electronically for review and comparison. The site was prepped in a sterile fashion. Full sterile technique was used, including cap, mask, abdullahi rile gloves and gown and a large sterile sheet. Hand hygiene and 2% chlorhexidine and/or betadine/al cohol prep was utilized per protocol for cutaneous antisepsis. The skin and subcutaneous tissues wer e infiltrated with local anesthetic solution. With CT guidance the left neck mass was localized. Core biopsy was performed using the prescribed nee dle as above. Samples were placed in formalin as well as RPMI fluid. Adequate hemostasis was obtained with compression at the puncture site. The patient tolerated the procedure well and there were no complications. The patient was returned to the Radiology Outpatient Unit in stable condition. CONCLUSION: Uncomplicated CT guided core biopsy of a large left neck mass. Jones Bailey Jr., MD on September 27, 2017 at 14:23 Board Certified Radiologist. This report was verified electronically.
[2017-09-27 14:35] VITALS: BP 121/69; PULSE 70; RESP 16; O2SAT 93
[2017-09-27 14:37] LABS: BONE MARROW PROCESSING COMPLETE; IRON STAIN DONE; JENNER GIEMSA STAIN DONE
--- NOTE | 2017-09-27 14:41 | RADRPT ---
EXAM DATE/TIME: 09/27/2017 13:37 [facility] COMPARISON: CT NEEDLE BIOPSY BONE MARROW, June 14, 2017, 9:05. INDICATIONS : Lymphoma, bone marrow biopsy. SEDATION TIME: 20 minutes BIOPSY SITE: Left iliac. MEDICATION(S): 1.) 3 mg midazolam (Versed) IV 2.) 150 mcg fentanyl (Sublimaze) IV DEVICE(S): 1.) 11 gauge On-Control needle MEDICAL HISTORY : Hypertension. Lymphoma. SURGICAL HISTORY : Cholecystectomy ENCOUNTER: Initial ACUITY: 1 day PAIN SCORE: 0/10 LOCATION: Left pelvis A total of one core specimen(s) were obtained and sent to the laboratory for pathologic evaluation. PROCEDURE: 1. CT guided pelvic biopsy. 2. Conscious sedation with continuous monitoring. Prior to the procedure informed consent was obtained. Any appropriate prior imaging studies were rev iewed. Using automated exposure control and adjustment of the mA and/or kV according to patient size , radiation dose was kept as low as reasonably achievable to obtain optimal diagnostic quality images . DICOM format image data is available electronically for review and comparison. The site was prepped in a sterile fashion. Full sterile technique was used, including cap, mask, abdullahi rile gloves and gown and a large sterile sheet. Hand hygiene and 2% chlorhexidine and/or betadine/al cohol prep was utilized per protocol for cutaneous antisepsis. The skin and subcutaneous tissues wer e infiltrated with local anesthetic solution. With CT guidance the previously identified target was localized. Biopsy was performed using the presc ribed needle as above. Following biopsy marrow aspiration was performed with repeat puncture. Adequa te hemostasis was obtained with compression at the puncture site. Follow-up CT scan reveals no hemorrhage. Conscious sedation was performed with the prescribed dosages and duration as above in the presence of an independent trained radiology nurse to assist in the monitoring of the patient. EKG and oximetry remained stable throughout the procedure. The patient tolerated the procedure well and there were no complications. The patient was sent to Radiology Outpatient Unit in stable condition. CONCLUSION: 1. Uncomplicated CT guided bone marrow aspirate. 2. Uncomplicated CT guided bone marrow biopsy. Jones Bailey Jr., MD on September 27, 2017 at 14:25 Board Certified Radiologist. This report was verified electronically.
[2017-09-27 14:50] VITALS: BP 121/69; PULSE 70; RESP 16; O2SAT 93
[2017-09-27 15:20] VITALS: BP 129/75; PULSE 70; RESP 16; O2SAT 93
[2017-09-27 16:00] VITALS: BP 123/75; PULSE 75; RESP 16; O2SAT 96
== END 2017-09-27 16:20 | disposition home or self-care (01) ==
LOC: HRAD 10:26 → HRIP 10:30 → HRAD 16:20
PROVIDERS: ATTEND Internal Medicine Hematology & Oncology
DX: R22.1 Localized swelling, mass and lump, neck (principal); C82.90 Follicular lymphoma, unspecified, unspecified site; D61.818 Other pancytopenia; I10 Essential (primary) hypertension
CPT/HCPCS: 38221; 38505; 77012; 85097; 85610; 85730; 88305; 88307; 88311; 88313; 88341; 88342; 99152; 99153; C1830; G0364; J2250; J3010

== ENCOUNTER 2017-10-03 09:43 | Inpatient (IN) | payer MEDICARE ==
[~2017-10-03] VITALS: Ht 176.5 cm; Wt 100.0 kg
[~2017-10-03 09:43] MED LIST changes: +HYDR200T3 PO; -OXYC-395 PO
[2017-10-03] MEDS ORDERED: SODIUM CHLORIDE 0.9% FLUSH 10 ML FLUSH IV FLUSH PRN (11:30)
--- NOTE | 2017-10-03 13:10 | PD.CONS ---
HPI Service [facility] Hospitalists Consult Requested By Dr. Marie Moe Reason for Consult Medical Management Primary Care Physician Mateusz Teran MD Diagnoses: Past Family Social History Past Medical History Follicular lymphoma, dx in 2011 Left hypopharynx mass and supraclavicular LN mass (dx in 04/2017) Hx of prostate cancer s/p XRT with Dr. Marie HTN Inflammatory arthritis Iron deficiency anemia CKD Liver cirrhosis Past Surgical History Kidney stone removal in 1974 Knee surgery in 2001 Back surgery for cyst removal in 2002 Prostate XRT in 2005 Lithotripsy in [address] biopsy in 2011 Reported Medications Hydroxychloroquine (Hydroxychloroquine Sulfate) 200 Mg Tab 200 Mg PO DAILY Take with food Coq-10 (Coenzyme Q10 (Ubidecarenone)) 30 Mg Cap Unknown Dose PO DAILY Simvastatin 20 Mg Tab 20 Mg PO HS Carvedilol 6.25 Mg Tab 6.25 Mg PO BID Prilosec (Omeprazole Magnesium) 20 Mg Tab 20 Mg PO DAILY PRN Allergies: Coded Allergies: diclofenac (Verified Allergy, Severe, AFFECTED KIDNEYS, 09/27/17) ALL NSAIDS etodolac (Verified Allergy, Severe, AFFECTED KIDNEYS, 09/27/17) flurbiprofen (Verified Allergy, Severe, AFFECTED KIDNEYS, 09/27/17) ibuprofen (Verified Allergy, Severe, AFFECTED KIDNEYS, 09/27/17) indomethacin (Verified Allergy, Severe, AFFECTED KIDNEYS, 09/27/17) ketoprofen (Verified Allergy, Severe, AFFECTED KIDNEYS, 09/27/17) ketorolac (Verified Allergy, Severe, AFFECTED KIDNEYS, 09/27/17) morphine (Verified Allergy, Severe, NAUSEA/VOMITING, 09/27/17) naproxen (Verified Allergy, Severe, AFFECTED KIDNEYS, 09/27/17) oxaprozin (Verified Allergy, Severe, AFFECTED KIDNEYS, 09/27/17) Sulfa (Sulfonamide Antibiotics) (Verified Allergy, Intermediate, Rash, ) apixaban (Verified Allergy, Intermediate, Hives, 09/03/17) Physical Exam Physical Exam GENERAL: This is a well-nourished, well-developed patient, in no apparent distress. SKIN: No rashes, ecchymoses or lesions. Cool and dry. HEAD: Atraumatic. Normocephalic. No temporal or scalp tenderness. EYES: Pupils equal round and reactive. Extraocular motions intact. No scleral icterus. No injection or drainage. ENT: Nose without bleeding, purulent drainage or septal hematoma. Throat without erythema, tonsillar hypertrophy or exudate. Uvula midline. Airway patent. NECK: Trachea midline. No JVD or lymphadenopathy. Supple, nontender, no meningeal signs. CARDIOVASCULAR: Regular rate and rhythm without murmurs, gallops, or rubs. RESPIRATORY: Clear to auscultation. Breath sounds equal bilaterally. No wheezes , rales, or rhonchi. GASTROINTESTINAL: Abdomen soft, non-tender, nondistended. No hepato-splenomegaly , or palpable masses. No guarding. MUSCULOSKELETAL: Extremities without clubbing, cyanosis, or edema. No joint tenderness, effusion, or edema noted. No calf tenderness. Negative Homans sign bilaterally. NEUROLOGICAL: Awake and alert. Cranial nerves II through XII intact. Motor and sensory grossly within normal limits. Five out of 5 muscle strength in all muscle groups. Normal speech. Camila Troncoso Oct 03, 2017 13:10
[2017-10-03 13:21] VITALS: BP 125/76; PULSE 67; RESP 16; TEMP 98.5; O2SAT 98
[2017-10-03 13:36] LABS: AUTOMATED NEUTROPHIL # 0.8 TH/MM3 (1.8-7.7); BASOPHIL % 0.5 % (0.0-2.0); EOSINOPHIL # 0.2 TH/MM3 (0-0.4); EOSINOPHIL % 10.1 % (0.0-4.0); HEMATOCRIT 29.9 % (39.0-51.0); LYMPH % 20.7 % (9.0-44.0); LYMPHOCYTE # 0.3 TH/MM3 (1.0-4.8); MEAN CELL VOLUME 87.1 FL (80.0-100.0); MEAN CORPUSCULAR HGB CONC 33.4 % (32.0-36.0); MEAN PLATELET VOLUME 7.8 FL (7.0-11.0); MONO % 15.5 % (0.0-8.0); MONOCYTE # 0.2 TH/MM3 (0-0.9); NEUT % 53.2 % (16.0-70.0); PLATELET COUNT 105 TH/MM3 (150-450); RED BLOOD COUNT 3.43 MIL/MM3 (4.50-5.90); RED CELL DISTRIBUTION WIDTH 14.7 % (11.6-17.2); WHITE BLOOD COUNT 1.5 TH/MM3 (4.0-11.0)
[2017-10-03 13:47] LABS: ALBUMIN 3.1 GM/DL (3.4-5.0); ALT (GPT) 23 U/L (12-78); AST (GOT) 27 U/L (15-37); BICARBONATE 31.4 MEQ/L (21.0-32.0); BLOOD UREA NITROGEN 10 MG/DL (7-18); CALCIUM 10.6 MG/DL (8.5-10.1); CHLORIDE 104 MEQ/L (98-107); CREATININE 0.87 MG/DL (0.60-1.30); GLOMERULAR FILTRATION RATE 85 ML/MIN (>89); GLUCOSE,RANDOM 84 MG/DL (74-106); SODIUM (NA) 142 MEQ/L (136-145)
[2017-10-03 13:49] LABS: INTERNATIONAL NORMALIZED RATIO 1.1 RATIO; PROTHROMBIN TIME - PATIENT 11.2 SEC (9.8-11.6)
[2017-10-03 13:50] LABS: ALKALINE PHOSPHATASE 135 U/L (45-117); LDH SERUM 239 U/L (87-241); TOTAL BILIRUBIN ADULT 0.5 MG/DL (0.2-1.0); TOTAL PROTEIN 6.3 GM/DL (6.4-8.2)
[2017-10-03] MEDS ORDERED: predniSONE 10 MG TAB PO SCH (14:00)
[2017-10-03] MEDS ORDERED: predniSONE 50 MG TAB PO SCH (14:00)
[2017-10-03] MEDS ORDERED: ONDANSETRON INJ 8 MG in DEXTROSE 5% IN WATER INJ 50 ML IV PRN ×2 (14:00)
[2017-10-03] MEDS ORDERED: LORazepam 0.5 MG TAB PO PRN (14:00)
[2017-10-03 14:24] LABS: BANDS 19 % (0-6); BASOPHILS 2 % (0-2); BLASTS 1 % (0-0); CORRECTED NUCLEATED RBC 1 /100 WBC (0-0); LYMPHOCYTES 22 % (9-44); MONOCYTES 15 % (0-8); NEUTROPHIL # MANUAL DIFF 0.8 TH/MM3 (1.8-7.7); NUCLEATED RED BLOOD CELL 1 (0-0); POLYS (SEG NEUTROPHILS) 34 % (16-70)
--- NOTE | 2017-10-03 14:43 | MH ---
cc: ARIN MART M.D. DATE OF ADMISSION: 10/03/2017 1939 ADMISSION DIAGNOSIS Refractory large cell lymphoma. SECONDARY DIAGNOSIS 1. Stage IIIA, grade 1 follicular lymphoma. 2. Left neck wound and ulceration. 3. Chronic renal insufficiency. 4. Inflammatory arthritis. HISTORY OF PRESENT ILLNESS Mr. Tijerina is a 77-year-old man with a grade 1 follicular lymphoma with progressive neck mass which ulcerated. He was started on chemotherapy with Bendamustine and Rituxan with initial response. After his third cycle he developed bleeding of the neck and was seen in the emergency room on 09/03/2017. When he came in for followup the neck mass had increased in size. Repeat bone marrow biopsy evaluation and biopsy of the soft tissue of the neck mass was performed. The left neck mass biopsy showed malignant lymphoma, large cell type on September 27, 2017. The bone marrow biopsy for staging was negative for malignant lymphoma. He had his Rituxan therapy in clinic on October 01. He is admitted for the large cell lymphoma of the left neck. Mr. Tijerina has had increasing symptom in the left neck mass. He denies any radiculopathy. The ulceration bleeds intermittently. He denies any problems swallowing, no fevers, chills or night sweats. No urinary complaints. His CBC on 10/01/2017, white blood cell count is 2.3, hemoglobin 10.1, platelet count 143, ANC of 1300. He was advised to come in for admission for his lymphoma treatment. PAST MEDICAL HISTORY 1. Chronic anemia. 2. Chronic renal insufficiency. 3. Grade 3 follicular lymphoma. 4. Hypertension. 5. Iron overload. 6. Liver cirrhosis. 7. Follicular lymphoma. PAST SURGICAL HISTORY 1. Back surgery. 2. Left hip arthroplasty. 3. Colonoscopy. 4. Lithotripsy. 5. Knee surgery. 6. Left rotator cuff surgery. 7. Lipoma removal left leg. 8. Radiation to prostate. 9. Mediastinoscopy and lymph node biopsy in 2011. ALLERGIES MORPHINE AND SULFASALAZINE. FAMILY HISTORY No family history of cancer. SOCIAL HISTORY He is , lives with his . Denies any tobacco, alcohol or illicit drug use. PHYSICAL EXAMINATION VITAL SIGNS: Temperature 98.5, heart rate 67, respiratory rate 16, blood pressure 124/76, saturation 98%. GENERAL: Mr. Tijerina is a well-developed, well-nourished man, in no acute distress. He has a left neck mass and dry dressing in place. There is a maceration around the skin. LUNGS: Clear. CARDIOVASCULAR: Exam reveals normal rate, rhythm. ABDOMEN: Abdomen is benign. EXTREMITIES: Lower extremity asymmetry left leg, more prominent than the right which is chronic. NEUROLOGIC: Exam is nonfocal. LABORATORY DATA Labs from today shows white blood cell count 1.5, hemoglobin 10.0, platelet count 105,000. Chemistry is normal. LDH is 239. ASSESSMENT AND PLAN Mr. Tijerina is a 77-year-old man with large cell lymphoma transformation follicular lymphoma. He is admitted for EPOCH chemotherapy. Chemotherapy will need to be placed on hold in light of the cytopenias. His ANC is only 800. Chemo will be held. Risks and benefits of EPOCH chemotherapy had been discussed previously and went over again today. Unfortunately, his cytopenias will not allow us to treat him today safely. He is noted to have history of liver cirrhosis and may contribute to the cytopenias. We discussed his case with the hospitalist team to provide their support. Arin Mart MD RAD/TLL /1:50 PM /2:04 PM
--- NOTE | 2017-10-03 16:17 | PD.WCN.NOT ---
Wound Consult Description: Wound consult ordered by for Left neck wound Communicated with: , Recommendation: 1) Cleanse wound with normal saline only 2) Apply Maxsorb ll AG cut to fit wound base 3) Cover with Optifoam gentle boarder Change daily or as needed for exudate management 4) Follow up with outpatient wound care. Additional Information: Patient was seen today on 2ed floor by fha underwriter. present with patient as well as spouse.Dressing removed from left neck to reveal full thickness progressive neck mass which ulcerated wound measuring 5.2cm x 3.1cm x 0.2cm.Wound base is 75% pink tissue 10% beefy red and 15% yellow slough.Large amount of serosanguineous drainage noted.Patient had been dressing wound with gauze and Tegaderm 2-3 times a day due to drainage.Wound cleansed with normal saline skin prep applied to periwound.Maxsorb ll AG cut to fit wound base covered with Optifoam gentle.Patient tolerated wound care well.Patient/spouse verbalized understanding of exudate management. Justo Elkins [facility] Oct 03, 2017 16:17
[2017-10-03] MEDS ORDERED: GRANISETRON HCL 1 MG/ML VIAL IV SCH (16:30)
[2017-10-03] MEDS ORDERED: VINCRISTINE IV SCH (17:00)
[2017-10-03] MEDS ORDERED: [UNRECOGNIZED DRUG - OTHER] IV SCH (17:00)
[2017-10-03] MEDS ORDERED: DOXORUBICIN IV SCH (17:00)
[2017-10-03] MEDS ORDERED: ETOPOSIDE IV SCH (17:00)
[2017-10-03] MEDS ORDERED: TEMAZEPAM 15 MG CAP PO PRN (21:00)
[2017-10-03] MEDS ORDERED: CARVEDILOL 6.25 MG TAB PO SCH (21:00)
[2017-10-03] MEDS ORDERED: PRAVASTATIN SOD 40 MG TAB PO SCH (21:00)
[2017-10-04] MEDS ORDERED: HYDROXYCHLOROQUINE SULFATE 200 MG TAB PO SCH (09:00)
[2017-10-07] MEDS ORDERED: CYCLOPHOSPHAMIDE IV ONE (17:00)
[2017-10-07] MEDS ORDERED: SODIUM CHLORID 0.9% IV ONE (17:00)
== END 2017-10-03 16:00 | disposition home or self-care (01) | DRG 842 ==
LOC: HCIN 09:43
PROVIDERS: ADMIT Internal Medicine Hematology & Oncology; ATTEND Internal Medicine Hematology & Oncology
DX: C82.01 Follicular lymphoma grade I, lymph nodes of head, face, and neck (principal); K74.60 Unspecified cirrhosis of liver; I12.9 Hypertensive chronic kidney disease with stage 1 through stage 4 chronic kidney disease, or unspecified chronic kidney disease; Z53.09 Procedure and treatment not carried out because of other contraindication; N18.9 Chronic kidney disease, unspecified; D50.9 Iron deficiency anemia, unspecified; D75.9 Disease of blood and blood-forming organs, unspecified; M06.4 Inflammatory polyarthropathy; Z96.642 Presence of left artificial hip joint; Z85.46 Personal history of malignant neoplasm of prostate; Z92.3 Personal history of irradiation
CPT/HCPCS: 80053; 83615; 84550; 85007; 85027; 85610; 85730

== ENCOUNTER 2017-10-09 11:07 | Inpatient (IN) | payer MEDICARE ==
[~2017-10-09] VITALS: Ht 175.3 cm; Wt 101.0 kg
[2017-10-09 11:44] VITALS: BP 158/72; PULSE 72; RESP 18; TEMP 97.9; O2SAT 98
[2017-10-09] MEDS ORDERED: ENOXAPARIN SODIUM 40 MG/0.4 ML SYRINGE SQ SCH (13:00)
[2017-10-09] MEDS ORDERED: LORazepam 0.5 MG TAB PO PRN (13:30)
[2017-10-09] MEDS ORDERED: PROCHLORPERAZINE INJ 10 MG/2 ML VIAL IV PUSH PRN (13:30)
[2017-10-09] MEDS ORDERED: ONDANSETRON INJ 8 MG in DEXTROSE 5% IN WATER INJ 50 ML IV PRN ×2 (14:00)
[2017-10-09 14:54] VITALS: PULSE 74
[2017-10-09 17:05] VITALS: BP 160/72; PULSE 70; RESP 18; TEMP 97.9; O2SAT 97
--- NOTE | 2017-10-09 18:26 | RADRPT ---
EXAM DATE/TIME: 10/09/2017 18:05 [place] COMPARISON: No previous studies available for comparison. INDICATIONS : Post PICC line placement MEDICAL HISTORY : Hypertension. Lymphoma SURGICAL HISTORY : None. ENCOUNTER: Initial ACUITY: 1 day PAIN SCORE: 0/10 LOCATION: Bilateral chest FINDINGS: The lungs are clear without infiltrate, nodule, or mass. There is no appreciable pleural effusion fo r technique. Heart and mediastinum are unremarkable. Right subclavian PICC line is present with tip overlapping the expected region of the SVC. CONCLUSION: No acute cardiopulmonary disease. Awa Patel MD on October 09, 2017 at 18:23 Board Certified Radiologist. This report was verified electronically.
--- NOTE | 2017-10-09 18:59 | MH ---
cc: ARIN MART M.D. DATE OF ADMISSION: 10/09/2017 DATE OF : 1940 ADMISSION DIAGNOSIS 1. 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 SECONDARY DIAGNOSIS: 2. Stage III-A follicular lymphoma. 3. Leukopenia / neutropenia. 4. Left neck wound and ulceration. 5. Chronic renal insufficiency. 6. Chronic inflammatory arthritis. 7. Mild thrombocytopenia. 8. Chronic anemia. ASSESSMENT AND PLAN: Mr. Tijerina is a 77 year-old man with a history of grade 1 follicular lymphoma with progressive enlargement of left neck mass that finally ulcerated. He was started on bendamustine and rituxan with initial response. After the third cycle he developed increasing bleeding of the neck mass and ulcer. The mass increased in size and a repeat biopsy of the neck mass was performed that showed a large cell type lymphoma on September 27, 2017. Bone marrow biopsy for staging was negative for malignant lymphoma. He was treated with rituxan October 01, 2017. He was admitted on October 03, 2017, for attempted cycle one of epoch chemotherapy which is infusional. He is high-risk for bleeding in the left neck ulcer. Unfortunately he was too neutropenic. He was sent home. His blood counts were repeated on October 08. His white blood cell count was 2.2. His ANC was only 1300. Admission was deferred, and finally on October 09, 2017, today, his white blood cell count is 2.8. His ANC is 1900. His hemoglobin is improved to 10.6, and platelet count 144,000. He was admitted for infusional epoch chemotherapy. He is scheduled for port placement by Dr. Gould at the end of the week. In light of infusional chemotherapy at present, he will need PICC line which was discussed. Mr. Tijerina is admitted for infusional chemotherapy for his Almodovar's transformation, refractory large cell lymphoma. He denies any fevers, chills or night sweats. He has no acute bleeding in the left neck mass. He is managing better with a new dressing from wound care. He denies any chest pain or shortness of breath. He has chronic inflammatory arthritis. He tries to avoid using NSAIDs since his renal insufficiency. The rest of his review of systems is negative. PAST MEDICAL HISTORY 1. Pancytopenia. 2. Grade 1 follicular lymphoma. 3. Hypertension. 4. Liver cirrhosis. 5. Follicular lymphoma. 6. Left neck ulcer mass. 7. Large cell lymphoma. 8. Almodovar's transformation. PAST SURGICAL HISTORY 1. Back surgery. 2. Left hip arthroplasty. 3. Colonoscopy. 4. Lithotripsy. 5. Knee surgery. 6. Left rotator cuff surgery. 7. Lipoma removal, left leg. 8. Radiation to prostate. 9. Mediastinoscopy. 10. Lymph node biopsy. FAMILY HISTORY: No family history of cancer. SOCIAL HISTORY: He is , lives with his . Denies any alcohol, tobacco or illicit drug use. ALLERGIES: MORPHINE. NSAIDS SULFASALAZINE CURRENT MEDICATIONS: 1. Lorazepam p.r.n. 2. Hydrochlooquin. 3. Simvastatin. 4. Carvedilol 5. Omeprazole 6. CO Q10. PHYSICAL EXAMINATION VITAL SIGNS: Temperature 97.9, heart rate 70, respiratory rate 18, blood pressure 160/72. GENERAL: Mr. Tijerina is a well-developed, well-nourished jovial elderly man. HEENT: Pupils are round, reactive to light and accommodation. Oropharynx is clear. Neck: Supple. There is a left neck mass with a dry dressing in place. Lungs: Lungs were clear. Cardiovascular: Exam reveals normal rate, rhythm. Abdomen: Benign. Lower extremities: No edema. There is mild asymmetry. The left leg is more prominent than the right chronically. Neurological: Exam is nonfocal. LABORATORY DATA Significant for pancytopenia. White blood cell count 2.8, hemoglobin 10.6, platelet count 144, BUN of 10, creatinine 0.98, calcium is 10.3 which is elevated, alkaline phosphatase 243, last LDH was normal at 239. ASSESSMENT/PLAN Mr. Tijerina is a 77 year-old man with history of stage III-A, grade 1 follicular lymphoma with transformation to refractory large cell lymphoma that has progressed while on bendamustine and Rituxan. His course was complicated with a left neck mass that is ulcerated and bleeding. He has had progressive symptoms and pain and discomfort. He is admitted for cycle 1 of epoch infusional chemotherapy. PICC line is requested for infusion and chemotherapy. Ultimately we will refer him for port placement by Dr. Gould. The case was discussed with Dr. Gould. Infusional chemotherapy is scheduled to start at the end of the day when PICC line is placed. The risks and benefits of chemotherapy was discussed. The toxicity is discussed. G-CSF support will be initiated after he is discharged on day five. No specific therapy is required for the pancytopenia. This will be monitored. He has received three cycles of bendamustine, Rituxan previously. Part of the cytopenia is related to that. Bone marrow biopsy shows no involvement with lymphoma. We can see cytopenia is associated with the bendamustine. Baseline echo was requested. [facility] hospitalist has been consulted to manage his medical problems. He has hyperlipidemia, hypertension. We will monitor his glucose, given the use of steroids concurrent with the above regimen. DVT prophylaxis will be initiated after PICC line is placed tomorrow. MAREN rafe is offered. Antiemetic therapy will be coordinated regularly. His questions were answered to his satisfaction. MD ARGENIS Restrepo/KARINE /5:52 PM /6:08 PM
[2017-10-09] MEDS: DEXAMETHASONE INJ 20 MG in SODIUM CHLORIDE 0.9% INJ 50 ML IV SCH (19:10)
[2017-10-09] MEDS: GRANISETRON HCL 1 MG/ML VIAL IV SCH (19:10)
[2017-10-09] MEDS: VINCRISTINE IV SCH (19:49)
[2017-10-09] MEDS: ETOPOSIDE IV SCH (19:49)
[2017-10-09] MEDS: [UNRECOGNIZED DRUG - OTHER] IV SCH (19:49)
[2017-10-09] MEDS: DOXORUBICIN IV SCH (19:49)
[2017-10-09 19:50] VITALS: BP 163/76; PULSE 69; RESP 16; TEMP 98.2; O2SAT 96
[2017-10-09 20:00] VITALS: PULSE 70
[2017-10-09] MEDS: CARVEDILOL 6.25 MG TAB PO SCH (20:09)
[2017-10-09] MEDS: predniSONE 10 MG TAB PO SCH (20:09)
[2017-10-09] MEDS: predniSONE 50 MG TAB PO SCH (20:09)
[2017-10-09] MEDS: PRAVASTATIN SOD 40 MG TAB PO SCH (20:09)
[2017-10-09] MEDS ORDERED: DEXAMETHASONE SOD PHOS 20 MG/5 ML VIAL IV SCH (20:30)
[2017-10-09] MEDS ORDERED: diphenhydrAMINE HCL 25 MG CAP PO ONE (22:30)
[2017-10-10] VITALS (7 sets, daily range): BP systolic 127–171; BP diastolic 58–82; PULSE 63–74; RESP 16–18; TEMP 97–98.3; O2SAT 94–99
[2017-10-10 05:20] LABS: AUTOMATED NEUTROPHIL # 1.1 TH/MM3 (1.8-7.7); BASOPHIL % 0.2 % (0.0-2.0); EOSINOPHIL % 0.1 % (0.0-4.0); HEMATOCRIT 29.8 % (39.0-51.0); HEMOGLOBIN 9.9 GM/DL (13.0-17.0); LYMPH % 18.8 % (9.0-44.0); LYMPHOCYTE # 0.3 TH/MM3 (1.0-4.8); MEAN CORPUSCULAR HEMOGLOBIN 28.6 PG (27.0-34.0); MEAN CORPUSCULAR HGB CONC 33.2 % (32.0-36.0); MONO % 2.8 % (0.0-8.0); NEUT % 78.1 % (16.0-70.0); PLATELET COUNT 72 TH/MM3 (150-450); RED BLOOD COUNT 3.46 MIL/MM3 (4.50-5.90); RED CELL DISTRIBUTION WIDTH 14.1 % (11.6-17.2); WHITE BLOOD COUNT 1.4 TH/MM3 (4.0-11.0)
[2017-10-10 05:46] LABS: BICARBONATE 26.6 MEQ/L (21.0-32.0); CALCIUM 9.8 MG/DL (8.5-10.1); CREATININE 0.81 MG/DL (0.60-1.30)
[2017-10-10 07:07] LABS: BANDS 6 % (0-6); LYMPHOCYTES 21 % (9-44); MONOCYTES 6 % (0-8); POLYS (SEG NEUTROPHILS) 67 % (16-70)
[2017-10-10] MEDS ORDERED: ENOXAPARIN SODIUM 40 MG/0.4 ML SYRINGE SQ SCH (09:00)
[2017-10-10] MEDS: HYDROXYCHLOROQUINE SULFATE 200 MG TAB PO SCH (09:33)
[2017-10-10] MEDS: predniSONE 50 MG TAB PO SCH ×2 (09:33→21:15)
[2017-10-10] MEDS: predniSONE 10 MG TAB PO SCH ×2 (09:33→21:14)
[2017-10-10] MEDS: CARVEDILOL 6.25 MG TAB PO SCH ×2 (09:33→21:25)
[2017-10-10] MEDS: ENOXAPARIN SODIUM 40 MG/0.4 ML SYRINGE SQ SCH (09:34)
--- NOTE | 2017-10-10 09:49 | PD.ONC.PN ---
Subjective Subjective Remarks No bleeding from mass. Feels well, cleaned up this AM. No nausea. Tolerating chemo. Objective Data Date Time Temp Pulse Resp B/P (MAP) Pulse Ox O2 Delivery O2 Flow Rate FiO2 10/10/17 09:24 97.0 70 153/74 (100) 95 10/10/17 04:39 97.6 66 16 140/66 (90) 95 10/10/17 00:57 97.6 73 16 145/68 (93) 94 10/09/17 20:00 70 10/09/17 19:50 98.2 69 16 163/76 (105) 96 10/09/17 17:05 97.9 70 18 160/72 (101) 97 10/09/17 14:54 74 10/09/17 11:44 97.9 72 18 158/72 (100) 98 10/10/17 10/10/17 10/10/17 07:00 15:00 23:00 Intake Total 703 ml Output Total 350 ml Balance 353 ml Result Diagram: 10/10/17 0448 10/10/17 0448 Laboratory Results Laboratory Tests Test 10/10/17 04:48 White Blood Count 1.4 TH/MM3 Red Blood Count 3.46 MIL/MM3 Hemoglobin 9.9 GM/DL Hematocrit 29.8 % Mean Corpuscular Volume 86.0 FL Mean Corpuscular Hemoglobin 28.6 PG Mean Corpuscular Hemoglobin Concent 33.2 % Red Cell Distribution Width 14.1 % Platelet Count 72 TH/MM3 Mean Platelet Volume 8.0 FL Neutrophils (%) (Auto) 78.1 % Lymphocytes (%) (Auto) 18.8 % Monocytes (%) (Auto) 2.8 % Eosinophils (%) (Auto) 0.1 % Basophils (%) (Auto) 0.2 % Neutrophils # (Auto) 1.1 TH/MM3 Lymphocytes # (Auto) 0.3 TH/MM3 Monocytes # (Auto) 0.0 TH/MM3 Eosinophils # (Auto) 0.0 TH/MM3 Basophils # (Auto) 0.0 TH/MM3 CBC Comment AUTO DIFF Differential Total Cells Counted 100 Neutrophils % (Manual) 67 % Band Neutrophils % 6 % Lymphocytes % 21 % Monocytes % 6 % Neutrophils # (Manual) 1.0 TH/MM3 Differential Comment FINAL DIFF MANUAL Platelet Estimate LOW Platelet Morphology Comment NORMAL Red Cell Morphology Comment NORMAL Blood Urea Nitrogen 11 MG/DL Creatinine 0.81 MG/DL Random Glucose 143 MG/DL Calcium Level 9.8 MG/DL Sodium Level 138 MEQ/L Potassium Level 4.1 MEQ/L Chloride Level 105 MEQ/L Carbon Dioxide Level 26.6 MEQ/L Anion Gap 6 MEQ/L Estimat Glomerular Filtration Rate 92 ML/MIN Administered Medications Medications (Trade) Dose Ordered Sig/Jeremi Route PRN Reason Start Time Stop Time Status Last Admin Dose Admin Carvedilol (Coreg) 6.25 mg BID PO 10/09/17 21:00 10/10/17 09:33 Hydroxychloroquine Sulfate (Plaquenil) 200 mg DAILY PO 10/10/17 09:00 10/10/17 09:33 Pravastatin Sodium (Pravachol) 40 mg HS PO 10/09/17 21:00 10/09/17 20:09 Enoxaparin Sodium (Lovenox Inj) 40 mg Q24H SQ 10/10/17 09:00 10/10/17 09:34 Granisetron HCl (Kytril Inj) 1 mg Q24H IV 10/09/17 20:30 10/13/17 20:31 10/09/17 19:10 Prednisone (Deltasone) 100 mg Q12H PO 10/09/17 21:00 10/14/17 09:01 10/10/17 09:33 Prednisone (Deltasone) 30 mg Q12H PO 10/09/17 21:00 10/14/17 09:01 10/10/17 09:33 Etoposide 108 mg/ Doxorubicin HCl 21.6 mg/ Vincristine Sulfate 0.864 mg/ Sodium Chloride 517.064 ml @ 21.544 mls/hr Q24H IV 10/09/17 21:00 10/13/17 20:59 10/09/17 19:49 Dexamethasone Sodium Phosphate 20 mg/Sodium Chloride 55 ml @ 330 mls/hr Q24H IV 10/09/17 20:30 10/12/17 20:39 10/09/17 19:10 Objective Remarks GENERAL: Well-nourished, well-developed patient. SKIN: Warm and dry. L neck mass with dressing, ulcer noted, no bleeding. HEAD: Normocephalic. EYES: No scleral icterus. No injection or drainage. NECK: Supple, trachea midline. No JVD or lymphadenopathy. LYMPHATIC: No adenopathy. CARDIOVASCULAR: Regular rate and rhythm without murmurs. RESPIRATORY: Breath sounds equal bilaterally. No accessory muscle use. GASTROINTESTINAL: Abdomen soft, non-tender, nondistended. EXTREMITIES: No cyanosis, or trace edema, L leg more prominent than R. MUSCULOSKELETAL: Adequate muscle tone. NEUROLOGICAL: No obvious focal deficit. Awake, alert, and oriented x3. PSYCHIATRIC: Appropriate mood and affect; insight and judgment normal. Assessment/Plan Problem List: (1) Skin ulcer of left side of neck ICD Codes: L98.499 - Non-pressure chronic ulcer of skin of other sites with unspecified severity Plan: Wound care consulted. Cont treatment dressing. Monitor for bleeding. (2) Large cell lymphoma ICD Codes: C85.80 - Other specified types of non-Hodgkin lymphoma, unspecified site Plan: Concern about double hit lymphoma. Started on EPOCH- continue. Tolerating D1 well. Monitor for toxicity. No bleeding L neck mass. Noted thrombocytopenia and leukopenia. Will need to adjust dose day 3 and 4. Assessment 77 y/o man with large cell lymphoma and neck ulcer over mass, started on EPOCH Plan 1. Cont chemo as ordered. Dose adjustment. Continuous infusion. Defer labs until Day 5. 2. Benadryl prn. 3. Hospitalist consulted for other medical problems. 4. DVT prophylaxis but monitor for bleeding. 5. Wound care team consulted Marie Moe MD Oct 10, 2017 09:49
--- NOTE | 2017-10-10 10:36 | PD.CONS ---
HPI Service [facility] Hospitalists Consult Requested By Dr. Moe Reason for Consult medical management Primary Care Physician Mateusz Teran MD Diagnoses: History of Present Illness This is a 77 year-old man with a medical history which includes: pancytopenia, grade 1 follicular lymphoma, hypertension, liver cirrhosis, follicular lymphoma , left neck ulcer mass, large cell lymphoma. and Almodovar's transformation. He was admitted for cycle 1 of epoch infusional chemotherapy and we have been consulted to assist with medical management. At this time patient reports he feels well. So far feeling no side effects from chemo started last night. Patient offering no complaints at this time. Review of Systems Constitutional: DENIES: Fatigue, Fever, Chills Eyes: DENIES: Blurred vision, Diplopia, Vision loss Respiratory: DENIES: Cough, Sputum production, Shortness of breath Cardiovascular: DENIES: Chest pain, Palpitations, Dyspnea on Exertion, Lower Extremity Edema Gastrointestinal: DENIES: Abdominal pain, Diarrhea, Nausea, Vomiting Musculoskeletal: DENIES: Joint pain, Stiffness, Back pain Neurologic: DENIES: Abnormal gait, Localized weakness, Speech Problems Psychiatric: DENIES: Anxiety, Confusion, Depression Past Family Social History Past Medical History 1. Pancytopenia. 2. Grade 1 follicular lymphoma. 3. Hypertension. 4. Liver cirrhosis. 5. Follicular lymphoma. 6. Left neck ulcer mass. 7. Large cell lymphoma. 8. Almodovar's transformation. Past Surgical History 1. Back surgery. 2. Left hip arthroplasty. 3. Colonoscopy. 4. Lithotripsy. 5. Knee surgery. 6. Left rotator cuff surgery. 7. Lipoma removal, left leg. 8. Radiation to prostate. 9. Mediastinoscopy. 10. Lymph node biopsy. Reported Medications Hydroxychloroquine (Hydroxychloroquine Sulfate) 200 Mg Tab 200 Mg PO DAILY Takw with food Coq-10 (Coenzyme Q10 (Ubidecarenone)) 30 Mg Cap Unknown Dose PO DAILY Simvastatin 20 Mg Tab 20 Mg PO HS Carvedilol 6.25 Mg Tab 6.25 Mg PO BID Prilosec (Omeprazole Magnesium) 20 Mg Tab 20 Mg PO DAILY PRN Allergies: Coded Allergies: diclofenac (Verified Allergy, Severe, AFFECTED KIDNEYS, 09/27/17) ALL NSAIDS etodolac (Verified Allergy, Severe, AFFECTED KIDNEYS, 09/27/17) flurbiprofen (Verified Allergy, Severe, AFFECTED KIDNEYS, 09/27/17) ibuprofen (Verified Allergy, Severe, AFFECTED KIDNEYS, 09/27/17) indomethacin (Verified Allergy, Severe, AFFECTED KIDNEYS, 09/27/17) ketoprofen (Verified Allergy, Severe, AFFECTED KIDNEYS, 09/27/17) ketorolac (Verified Allergy, Severe, AFFECTED KIDNEYS, 09/27/17) morphine (Verified Allergy, Severe, NAUSEA/VOMITING, 09/27/17) naproxen (Verified Allergy, Severe, AFFECTED KIDNEYS, 09/27/17) oxaprozin (Verified Allergy, Severe, AFFECTED KIDNEYS, 09/27/17) Sulfa (Sulfonamide Antibiotics) (Verified Allergy, Intermediate, Rash, ) apixaban (Verified Allergy, Intermediate, Hives, 09/03/17) Active Ordered Medications Current Medications Medications (Trade) Dose Ordered Sig/Jeremi Route Start Time Stop Time Status Last Admin (Compazine Inj) 10 mg Q4H PRN IV PUSH 10/09/17 13:30 Ondansetron HCl 8 mg/Dextrose 54 ml @ 208 mls/hr Q8H PRN IV 10/09/17 14:00 (Ativan) 0.5 mg DAILY PRN PO 10/09/17 13:30 (Roxicodone) 5 mg Q3H PRN PO 10/09/17 13:30 (Roxicodone) 10 mg Q3H PRN PO 10/09/17 13:30 (Coreg) 6.25 mg BID PO 10/09/17 21:00 10/10/17 09:33 (Plaquenil) 200 mg DAILY PO 10/10/17 09:00 10/10/17 09:33 (Pravachol) 40 mg HS PO 10/09/17 21:00 10/09/17 20:09 (Lovenox Inj) 40 mg Q24H SQ 10/10/17 09:00 10/10/17 09:34 (Kytril Inj) 1 mg Q24H IV 10/09/17 20:30 10/13/17 20:31 10/09/17 19:10 (Deltasone) 100 mg Q12H PO 10/09/17 21:00 10/14/17 09:01 10/10/17 09:33 (Deltasone) 30 mg Q12H PO 10/09/17 21:00 10/14/17 09:01 10/10/17 09:33 Etoposide 108 mg/ Doxorubicin HCl 21.6 mg/ Vincristine Sulfate 0.864 mg/ Sodium Chloride 517.064 ml @ 21.544 mls/hr Q24H IV 10/09/17 21:00 10/13/17 20:59 10/09/17 19:49 Dexamethasone Sodium Phosphate 20 mg/Sodium Chloride 55 ml @ 330 mls/hr Q24H IV 10/09/17 20:30 10/12/17 20:39 10/09/17 19:10 Cyclophosphamide 1620 mg/Sodium Chloride 250 ml @ 500 mls/hr ONCE ONCE IV 10/13/17 21:00 10/13/17 21:29 (Heparin Central Flush) See Protocol DAILY IV FLUSH 10/10/17 09:00 (Heparin Central Flush) See Protocol UNSCH PRN IV FLUSH 10/09/17 18:30 (NS Flush) UNSCH PRN IV FLUSH 10/09/17 18:30 (Benadryl) 25 mg Q6H PRN PO 10/10/17 09:45 (Dakin'S 0.25% Soln) 500 ml DAILY TOPICAL 10/10/17 10:30 UNV (Silver Nitrate Applicators) 1 appl ONCE ONCE TOPICAL 10/10/17 10:45 10/10/17 10:46 UNV Family History No family history of cancer. Social History He is , lives with his . Denies any alcohol, tobacco or illicit drug use. Physical Exam Vital Signs Vital Signs Date Time Temp Pulse Resp B/P (MAP) Pulse Ox O2 Delivery O2 Flow Rate FiO2 10/10/17 09:24 97.0 70 153/74 (100) 95 10/10/17 04:39 97.6 66 16 140/66 (90) 95 10/10/17 00:57 97.6 73 16 145/68 (93) 94 10/09/17 20:00 70 10/09/17 19:50 98.2 69 16 163/76 (105) 96 10/09/17 17:05 97.9 70 18 160/72 (101) 97 10/09/17 14:54 74 10/09/17 11:44 97.9 72 18 158/72 (100) 98 Physical Exam GENERAL: This is a well-nourished, well-developed patient, in no apparent distress. SKIN: bandage on left side of neck dry and intact CARDIOVASCULAR: Regular rate and rhythm without murmurs, gallops, or rubs. RESPIRATORY: Clear to auscultation. Breath sounds equal bilaterally. No wheezes , rales, or rhonchi. GASTROINTESTINAL: Abdomen soft, non-tender, nondistended. MUSCULOSKELETAL: Extremities without clubbing, cyanosis, or edema. No joint tenderness, effusion, or edema noted. No calf tenderness. Negative Homans sign bilaterally. NEUROLOGICAL: Awake and alert. Cranial nerves II through XII intact. Motor and sensory grossly within normal limits. Five out of 5 muscle strength in all muscle groups. Normal speech. Laboratory Laboratory Tests Test 10/10/17 04:48 White Blood Count 1.4 Red Blood Count 3.46 Hemoglobin 9.9 Hematocrit 29.8 Mean Corpuscular Volume 86.0 Mean Corpuscular Hemoglobin 28.6 Mean Corpuscular Hemoglobin Concent 33.2 Red Cell Distribution Width 14.1 Platelet Count 72 Mean Platelet Volume 8.0 Neutrophils (%) (Auto) 78.1 Lymphocytes (%) (Auto) 18.8 Monocytes (%) (Auto) 2.8 Eosinophils (%) (Auto) 0.1 Basophils (%) (Auto) 0.2 Neutrophils # (Auto) 1.1 Lymphocytes # (Auto) 0.3 Monocytes # (Auto) 0.0 Eosinophils # (Auto) 0.0 Basophils # (Auto) 0.0 CBC Comment AUTO DIFF Differential Total Cells Counted 100 Neutrophils % (Manual) 67 Band Neutrophils % 6 Lymphocytes % 21 Monocytes % 6 Neutrophils # (Manual) 1.0 Differential Comment FINAL DIFF MANUAL Platelet Estimate LOW Platelet Morphology Comment NORMAL Red Cell Morphology Comment NORMAL Blood Urea Nitrogen 11 Creatinine 0.81 Random Glucose 143 Calcium Level 9.8 Sodium Level 138 Potassium Level 4.1 Chloride Level 105 Carbon Dioxide Level 26.6 Anion Gap 6 Estimat Glomerular Filtration Rate 92 Result Diagram: 10/10/17 0448 10/10/17 0448 Imaging Last Impressions Chest X-Ray 10/09/17 0000 Signed Impressions: Service Date/Time: Monday, October 09, 2017 18:05 - CONCLUSION: No acute cardiopulmonary disease. Awa Patel MD Assessment and Plan Problem List: (1) Lymphoma ICD Codes: C85.90 - Non-Hodgkin lymphoma, unspecified, unspecified site Status: Chronic Plan: admitted for cycle 1 of epoch infusional chemotherapy Dr. Moe is patient oncologist and is dosing chemo (2) Mass of left side of neck ICD Codes: R22.1 - Localized swelling, mass and lump, neck Plan: Left neck wound followed by Dr. Ocampo (3) Hypertension ICD Codes: I10 - Essential (primary) hypertension Status: Chronic Plan: continue patient's home carvedilol 6.25 monitor BP trend (4) Hyperlipidemia ICD Codes: E78.5 - Hyperlipidemia, unspecified Plan: Continues patient's home Simvastatin Assessment and Plan Patient examined. Assessment and plan formulated with Carmina Cee PA-C. I agree with the above. BP stable, observe. Case d/w Dr. Moe (10/10/16) Carmina Cee Oct 10, 2017 10:36 Shlomo León DO Oct 10, 2017 12:58
[2017-10-10] MEDS ORDERED: SILVER NITR/POTASSIUM NITRATE APPLICATORS TOPICAL ONE (10:45)
--- NOTE | 2017-10-10 16:02 | PD.WCN.NOT ---
Wound Consult Description: Consult received from Doctor Moe by Doctor Ocampo for wound care physician consult for L neck ulceration Communicated with: [facility] Recommendation: See orders written by Doctor Ocampo Additional Information: Patient seen for wound care physician consult for L neck ulceration with Doctor Ocampo. Removed dressing in place to reveal open wound to L neck. Neck wound presents with ~60% granulation tissue, ~20 % facia and ~20% pink tissue. Wound is draining moderate sanguinous drainage that is without odor. Cleansed wound with normal saline. Doctor Ocampo Mechanically debrided patient's wound with saline moistened gauze pad. Pressure held with gauze pad over wound to stop bleeding. Applied 0.25% dakin's solution saoked gauze pad to wound bed and left in place for 5 minutes. Removed gauze pad. Doctor Ocampo applied silver nitrate to bleeding areas in wound bed. Cleansed wound with normal saline and applied Maxorb II (calcium alginate) just over wound bed and covered with optifoam gentle border dressing. Patient tolerated dressing change and wound assessment well. Jamila Kwong [facility] Oct 10, 2017 16:02
--- NOTE | 2017-10-10 16:03 | PD.WOU.CON ---
Patient Intake Chief Complaint Neck Ulcer secondary to Lymphoma Consult Requested by Dr. Marie Moe Reason for Consult Ulcer of neck Primary Care Physician Mateusz Teran MD History of Present Illness Consulted by Oncology for treatment of patient with 5 year history of Lymphoma with neck ulcer that was biopsied and found to be a neoplastic lesion. Patient has been taking care of the wound at home. however recently hospitalized for Decreased ANC. Patient with son at bedside. Denies h/o of tobacco abuse but admits that he drank for 30 years and quit 2 years ago. for over 50 years Coded Allergies: diclofenac (Verified Allergy, Severe, AFFECTED KIDNEYS, 09/27/17) ALL NSAIDS etodolac (Verified Allergy, Severe, AFFECTED KIDNEYS, 09/27/17) flurbiprofen (Verified Allergy, Severe, AFFECTED KIDNEYS, 09/27/17) ibuprofen (Verified Allergy, Severe, AFFECTED KIDNEYS, 09/27/17) indomethacin (Verified Allergy, Severe, AFFECTED KIDNEYS, 09/27/17) ketoprofen (Verified Allergy, Severe, AFFECTED KIDNEYS, 09/27/17) ketorolac (Verified Allergy, Severe, AFFECTED KIDNEYS, 09/27/17) morphine (Verified Allergy, Severe, NAUSEA/VOMITING, 09/27/17) naproxen (Verified Allergy, Severe, AFFECTED KIDNEYS, 09/27/17) oxaprozin (Verified Allergy, Severe, AFFECTED KIDNEYS, 09/27/17) Sulfa (Sulfonamide Antibiotics) (Verified Allergy, Intermediate, Rash, ) apixaban (Verified Allergy, Intermediate, Hives, 09/03/17) Vital Signs Date Time Temp Pulse Resp B/P (MAP) Pulse Ox O2 Delivery O2 Flow Rate FiO2 10/10/17 15:30 97.8 71 18 168/77 (107) 95 10/10/17 11:52 97.1 68 18 127/58 (81) 94 10/10/17 09:24 97.0 70 153/74 (100) 95 10/10/17 07:00 63 10/10/17 04:39 97.6 66 16 140/66 (90) 95 10/10/17 00:57 97.6 73 16 145/68 (93) 94 10/09/17 20:00 70 10/09/17 19:50 98.2 69 16 163/76 (105) 96 10/09/17 17:05 97.9 70 18 160/72 (106) 97 Lab and Radiology Results Radiology Last Impressions Chest X-Ray 10/09/17 0000 Signed Impressions: Service Date/Time: Monday, October 09, 2017 18:05 - CONCLUSION: No acute cardiopulmonary disease. MD Terrence Starkey Karla A. MD Oct 10, 2017 16:03
[2017-10-10] MEDS: SODIUM HYPOCHLORITE 0.25% 500 ML BTL TOPICAL SCH (17:04)
[2017-10-10] MEDS: GRANISETRON HCL 1 MG/ML VIAL IV SCH (21:08)
[2017-10-10] MEDS: DEXAMETHASONE INJ 20 MG in SODIUM CHLORIDE 0.9% INJ 50 ML IV SCH (21:08)
[2017-10-10] MEDS: PRAVASTATIN SOD 40 MG TAB PO SCH (21:25)
[2017-10-10] MEDS: DOXORUBICIN IV SCH (21:39)
[2017-10-10] MEDS: [UNRECOGNIZED DRUG - OTHER] IV SCH (21:39)
[2017-10-10] MEDS: ETOPOSIDE IV SCH (21:39)
[2017-10-10] MEDS: VINCRISTINE IV SCH (21:39)
[2017-10-10] MEDS: diphenhydrAMINE HCL 25 MG CAP PO PRN (22:56)
[2017-10-11] VITALS (7 sets, daily range): BP systolic 148–169; BP diastolic 69–88; PULSE 53–72; RESP 16–20; TEMP 97.6–98.1; O2SAT 96–100
[2017-10-11] MEDS: HYDROXYCHLOROQUINE SULFATE 200 MG TAB PO SCH ×2 (09:00→10:50)
[2017-10-11] MEDS: CARVEDILOL 6.25 MG TAB PO SCH ×2 (10:49→20:07)
[2017-10-11] MEDS: predniSONE 10 MG TAB PO SCH ×2 (10:49→20:08)
[2017-10-11] MEDS: ENOXAPARIN SODIUM 40 MG/0.4 ML SYRINGE SQ SCH (10:49)
[2017-10-11] MEDS: SODIUM HYPOCHLORITE 0.25% 500 ML BTL TOPICAL SCH (10:50)
[2017-10-11] MEDS: predniSONE 50 MG TAB PO SCH ×2 (10:50→20:07)
--- NOTE | 2017-10-11 10:50 | ECHRPT ---
Indication: CONCLUSIONS The left ventricular systolic function is normal with an estimated ejection fraction in the range of 60-65%. Normal left ventricular size. Wall thickness is normal. No regional wall motion abnormalities are present. There is trace tricuspid valve regurgitation. The estimated pulmonary arterial pressure is 23.1 mmHg. BP: / HR: Rhythm: Sinus MEASUREMENTS (Male / Female) Normal Values Technical Quality:Technically difficult study 2D ECHO LVOT Diameter 2.1 cm LV Ejection Fraction MOD 4C 64.7 % LV Ejection Fraction 4C AL 65.4 % M-MODE Aortic Root Diameter MM 3.0 cm AV Cusp Separation MM 1.4 cm DOPPLER AV Peak Velocity 130.0 cm/s AV Peak Gradient 6.8 mmHg LVOT Peak Velocity 130.0 cm/s LVOT Peak Gradient 6.8 mmHg AV Area Cont Eq pk 3.5 cm MV Area PHT 2.3 cm Mitral E Point Velocity 67.6 cm/s Mitral A Point Velocity 92.8 cm/s Mitral E to A Ratio 0.7 LV E' Lateral Velocity 9.4 cm/s Mitral E to LV E' Lateral Ratio 7.2 LV E' Septal Velocity 8.1 cm/s Mitral E to LV E' Septal Ratio 8.4 TR Peak Velocity 181.0 cm/s TR Peak Gradient 13.1 mmHg Right Atrial Pressure 10.0 mmHg Pulmonary Artery Systolic Pressu 23.1 mmHg Right Ventricular Systolic Press 23.1 mmHg PV Peak Velocity 93.7 cm/s PV Peak Gradient 3.5 mmHg FINDINGS LEFT VENTRICLE The left ventricular systolic function is normal with an estimated ejection fraction in the range of 60-65%. Normal left ventricular size. Wall thickness is normal. No regional wall motion abnormalities are present. RIGHT VENTRICLE Normal right ventricular size and systolic function. LEFT ATRIUM The left atrial size is normal. RIGHT ATRIUM The right atrial size is normal. ATRIAL SEPTUM Normal atrial septal thickness without atrial level shunting by limited color doppler interrogation. AORTA The aortic root and proximal ascending aorta are normal in size on limited imaging. MITRAL VALVE Structurally normal mitral valve. No mitral valve stenosis or regurgitation. AORTIC VALVE Trileaflet aortic valve. No aortic valve stenosis or regurgitation. TRICUSPID VALVE Structurally normal tricuspid valve. There is trace tricuspid valve regurgitation. The estimated pulmonary arterial pressure is 23.1 mmHg. PULMONARY VALVE No pulmonary valve regurgitation or stenosis. VESSELS The inferior vena cava is normal in size. PERICARDIUM No pericardial effusion. Derrell Galvez MD (Electronically Signed) Final Date:11 October 2017 10:49
[2017-10-11] MEDS: NYSTAT/DIPHENHY/LIDO MOUTHWASH (Adult) 120ML SWISH-SWAL SCH ×3 (13:07→20:07)
--- NOTE | 2017-10-11 15:10 | PD.ONC.PN ---
Subjective Subjective Remarks Afebrile overnight. Tolerating chemotherapy. Hopeful to go home Saturday night. No nausea or vomiting. No diarrhea. Objective Data Date Time Temp Pulse Resp B/P (MAP) Pulse Ox O2 Delivery O2 Flow Rate FiO2 10/11/17 13:09 98.0 56 18 169/79 (109) 98 10/11/17 08:00 98.0 72 20 154/69 (97) 100 10/11/17 04:11 97.6 66 16 165/84 (111) 96 10/11/17 00:20 97.6 66 16 148/81 (103) 96 10/10/17 21:16 98.3 74 16 171/82 (111) 99 10/10/17 15:30 97.8 71 18 168/77 (107) 95 10/11/17 10/11/17 10/11/17 07:00 15:00 23:00 Intake Total 420 ml Output Total 650 ml Balance -230 ml Result Diagram: 10/10/1744710/10/17447 Culture Results Microbiology Date/Time Source Procedure Growth Status 10/10/17 15:36 Wound Neck Gram Stain - Final Resulted 10/10/17 15:36 Wound Culture - Preliminary Gram Negative [employer] D Enterococcus Resulted Administered Medications Medications (Trade) Dose Ordered Sig/Jeremi Route PRN Reason Start Time Stop Time Status Last Admin Dose Admin Ondansetron HCl 8 mg/Dextrose 54 ml @ 208 mls/hr Q8H PRN IV NAUSEA OR VOMITING 10/09/17 14:00 10/11/17 10:48 Carvedilol (Coreg) 6.25 mg BID PO 10/09/17 21:00 10/11/17 10:49 Hydroxychloroquine Sulfate (Plaquenil) 200 mg DAILY PO 10/10/17 09:00 10/10/17 09:33 Pravastatin Sodium (Pravachol) 40 mg HS PO 10/09/17 21:00 10/10/17 21:25 Enoxaparin Sodium (Lovenox Inj) 40 mg Q24H SQ 10/10/17 09:00 10/11/17 10:49 Granisetron HCl (Kytril Inj) 1 mg Q24H IV 10/09/17 20:30 10/13/17 20:31 10/10/17 21:08 Prednisone (Deltasone) 100 mg Q12H PO 10/09/17 21:00 10/14/17 09:01 10/11/17 10:50 Prednisone (Deltasone) 30 mg Q12H PO 10/09/17 21:00 10/14/17 09:01 10/11/17 10:49 Etoposide 108 mg/ Doxorubicin HCl 21.6 mg/ Vincristine Sulfate 0.864 mg/ Sodium Chloride 517.064 ml @ 21.544 mls/hr Q24H IV 10/09/17 21:00 10/12/17 20:59 10/10/17 21:39 Dexamethasone Sodium Phosphate 20 mg/Sodium Chloride 55 ml @ 330 mls/hr Q24H IV 10/09/17 20:30 10/12/17 20:39 10/10/17 21:08 Diphenhydramine HCl (Benadryl) 25 mg Q6H PRN PO ALLERGIES 10/10/17 09:45 10/10/17 22:56 Sodium Hypochlorite (Dakin'S 0.25% Soln) 500 ml DAILY TOPICAL 10/10/17 12:00 10/11/17 10:50 Multi-Ingredient Mouthwash/Gargle (Magic Mouthwash Adult Liq) 5 ml QID SWISH-SWAL 10/11/17 13:00 10/11/17 13:07 Objective Remarks GENERAL: Pleasant elderly male sitting up in bed [facility]. SKIN: Warm and dry. HEAD: Normocephalic. EYES: No injection or drainage. NECK: Supple, trachea midline. CARDIOVASCULAR: Regular rate and rhythm RESPIRATORY: Breath sounds equal bilaterally. No accessory muscle use. GASTROINTESTINAL: Abdomen soft, non-tender, nondistended. EXTREMITIES: No cyanosis NEUROLOGICAL: awake and alert, normal speech. moving extremities. Assessment/Plan Problem List: (1) Skin ulcer of left side of neck ICD Codes: L98.499 - Non-pressure chronic ulcer of skin of other sites with unspecified severity Plan: Wound care following. --patient with daily wound dressing changes. (2) Large cell lymphoma ICD Codes: C85.80 - Other specified types of non-Hodgkin lymphoma, unspecified site Plan: Concern about double hit lymphoma. Started on EPOCH- continue. Tolerating D1 well. Monitor for toxicity. No bleeding L neck mass. Noted thrombocytopenia and leukopenia. Will need to adjust dose day 3 and 4. 1/5: tolerating D2. D3 to start this evening. Assessment 77 y/o man with large cell lymphoma and neck ulcer over mass, started on EPOCH Plan 1. continue chemotherapy 2. check CBC, CMP, coags today 3. start Protonix for GI prophylaxis Attending Statement The exam, history, and the medical decision-making described in the above note were completed with the assistance of the mid-level provider. I reviewed and agree with the findings presented. I attest that I had a [id number] encounter with the patient on the same day, and personally performed and documented my assessment and findings in the medical record. Pt seen and examined, some blood crusted under dressing. Tolerating chemo well. Discussed with pharmacy dose reduction on Day 4 bag. Discussed with nursing to keep to 24 hour bag /day schedule. Anticipate DC home late Saturday. Discussed risk and benefits and toxicity associated with chemo. Questions answered. Carmen Russo Oct 11, 2017 15:10 Marie Moe MD Oct 11, 2017 20:10
[2017-10-11] MEDS: PANTOPRAZOLE SOD 40 MG DELAYED RELEASE TAB PO SCH (18:03)
[2017-10-11] MEDS: VINCRISTINE IV SCH (20:06)
[2017-10-11] MEDS: DOXORUBICIN IV SCH (20:06)
[2017-10-11] MEDS: ETOPOSIDE IV SCH (20:06)
[2017-10-11] MEDS: DEXAMETHASONE INJ 20 MG in SODIUM CHLORIDE 0.9% INJ 50 ML IV SCH (20:06)
[2017-10-11] MEDS: [UNRECOGNIZED DRUG - OTHER] IV SCH (20:06)
[2017-10-11] MEDS: GRANISETRON HCL 1 MG/ML VIAL IV SCH (20:07)
[2017-10-11] MEDS: PRAVASTATIN SOD 40 MG TAB PO SCH (20:08)
[2017-10-11] MEDS: diphenhydrAMINE HCL 25 MG CAP PO PRN (21:57)
[2017-10-12 04:52] VITALS: BP 163/80; PULSE 52; RESP 18; TEMP 97.6; O2SAT 95
[2017-10-12 05:44] LABS: AUTOMATED NEUTROPHIL # 1.8 TH/MM3 (1.8-7.7); BASOPHIL % 0.1 % (0.0-2.0); HEMATOCRIT 29.1 % (39.0-51.0); HEMOGLOBIN 9.7 GM/DL (13.0-17.0); LYMPH % 4.6 % (9.0-44.0); LYMPHOCYTE # 0.1 TH/MM3 (1.0-4.8); MEAN CELL VOLUME 85.4 FL (80.0-100.0); MEAN CORPUSCULAR HEMOGLOBIN 28.3 PG (27.0-34.0); MEAN CORPUSCULAR HGB CONC 33.2 % (32.0-36.0); MEAN PLATELET VOLUME 8.1 FL (7.0-11.0); MONO % 2.6 % (0.0-8.0); MONOCYTE # 0.1 TH/MM3 (0-0.9); NEUT % 92.7 % (16.0-70.0); PLATELET COUNT 105 TH/MM3 (150-450); RED BLOOD COUNT 3.41 MIL/MM3 (4.50-5.90); RED CELL DISTRIBUTION WIDTH 13.7 % (11.6-17.2); WHITE BLOOD COUNT 1.9 TH/MM3 (4.0-11.0)
[2017-10-12 05:54] LABS: INTERNATIONAL NORMALIZED RATIO 1.1 RATIO; PROTHROMBIN TIME - PATIENT 11.5 SEC (9.8-11.6)
[2017-10-12 06:10] LABS: ALBUMIN 2.8 GM/DL (3.4-5.0); AST (GOT) 18 U/L (15-37); BICARBONATE 26.1 MEQ/L (21.0-32.0); BLOOD UREA NITROGEN 18 MG/DL (7-18); CALCIUM 9.7 MG/DL (8.5-10.1); CHLORIDE 107 MEQ/L (98-107); CREATININE 0.82 MG/DL (0.60-1.30); GLOMERULAR FILTRATION RATE 91 ML/MIN (>89); GLUCOSE,RANDOM 132 MG/DL (74-106); SODIUM (NA) 140 MEQ/L (136-145)
[2017-10-12 06:11] LABS: ALT (GPT) 21 U/L (12-78); LDH SERUM 183 U/L (87-241)
[2017-10-12 06:13] LABS: ALKALINE PHOSPHATASE 214 U/L (45-117); TOTAL BILIRUBIN ADULT 0.4 MG/DL (0.2-1.0); TOTAL PROTEIN 5.7 GM/DL (6.4-8.2)
[2017-10-12 07:52] LABS: BANDS 14 % (0-6); LYMPHOCYTES 3 % (9-44); MONOCYTES 1 % (0-8); NEUTROPHIL # MANUAL DIFF 1.8 TH/MM3 (1.8-7.7); POLYS (SEG NEUTROPHILS) 82 % (16-70)
[2017-10-12] MEDS: SODIUM HYPOCHLORITE 0.25% 500 ML BTL TOPICAL SCH (09:00)
[2017-10-12 09:14] VITALS: BP 160/82; PULSE 53; RESP 16; TEMP 97.7; O2SAT 96
[2017-10-12] MEDS: NYSTAT/DIPHENHY/LIDO MOUTHWASH (Adult) 120ML SWISH-SWAL SCH ×4 (09:21→20:23)
[2017-10-12] MEDS: predniSONE 10 MG TAB PO SCH ×2 (09:22→20:21)
[2017-10-12] MEDS: predniSONE 50 MG TAB PO SCH ×2 (09:22→20:22)
[2017-10-12] MEDS: PANTOPRAZOLE SOD 40 MG DELAYED RELEASE TAB PO SCH (09:23)
[2017-10-12] MEDS: CARVEDILOL 6.25 MG TAB PO SCH ×2 (09:23→20:21)
[2017-10-12] MEDS: ENOXAPARIN SODIUM 40 MG/0.4 ML SYRINGE SQ SCH (09:27)
[2017-10-12] MEDS ORDERED: ONDANSETRON HCL 4 MG/2 ML VIAL IV PUSH PRN (10:00)
--- NOTE | 2017-10-12 11:40 | PD.ONC.PN ---
Subjective Subjective Remarks Afebrile overnight. Patient resting in bed. Tolerating chemotherapy. Denies abdominal pain or mouth pain. ate breakfast. no nausea or vomiting. still wanting to go home after chemotherapy finishes tomorrow night. Objective Data Date Time Temp Pulse Resp B/P (MAP) Pulse Ox O2 Delivery O2 Flow Rate FiO2 10/12/17 09:14 97.7 53 16 160/82 (108) 96 10/12/17 04:52 97.6 52 18 163/80 (107) 95 10/11/17 22:54 97.9 53 16 163/88 (113) 96 10/11/17 20:13 98.1 60 16 162/83 (109) 97 10/11/17 17:58 97.8 59 18 160/79 (106) 98 10/11/17 13:09 98.0 56 18 169/79 (109) 98 10/12/17 10/12/17 10/12/17 07:00 15:00 23:00 Intake Total 480 ml Output Total 800 ml Balance -320 ml Result Diagram: 10/12/17 0504 10/12/17 0504 Laboratory Results Laboratory Tests Test 10/12/17 05:04 White Blood Count 1.9 TH/MM3 Red Blood Count 3.41 MIL/MM3 Hemoglobin 9.7 GM/DL Hematocrit 29.1 % Mean Corpuscular Volume 85.4 FL Mean Corpuscular Hemoglobin 28.3 PG Mean Corpuscular Hemoglobin Concent 33.2 % Red Cell Distribution Width 13.7 % Platelet Count 105 TH/MM3 Mean Platelet Volume 8.1 FL Neutrophils (%) (Auto) 92.7 % Lymphocytes (%) (Auto) 4.6 % Monocytes (%) (Auto) 2.6 % Eosinophils (%) (Auto) 0.0 % Basophils (%) (Auto) 0.1 % Neutrophils # (Auto) 1.8 TH/MM3 Lymphocytes # (Auto) 0.1 TH/MM3 Monocytes # (Auto) 0.1 TH/MM3 Eosinophils # (Auto) 0.0 TH/MM3 Basophils # (Auto) 0.0 TH/MM3 CBC Comment AUTO DIFF Differential Total Cells Counted 100 Neutrophils % (Manual) 82 % Band Neutrophils % 14 % Lymphocytes % 3 % Monocytes % 1 % Neutrophils # (Manual) 1.8 TH/MM3 Differential Comment FINAL DIFF MANUAL Platelet Estimate LOW Platelet Morphology Comment NORMAL Red Cell Morphology Comment NORMAL Prothrombin Time 11.5 SEC Prothromb Time International Ratio 1.1 RATIO Activated Partial Thromboplast Time 22.9 SEC Fibrinogen 291 mg/dL Blood Urea Nitrogen 18 MG/DL Creatinine 0.82 MG/DL Random Glucose 132 MG/DL Total Protein 5.7 GM/DL Albumin 2.8 GM/DL Calcium Level 9.7 MG/DL Uric Acid 6.0 MG/DL Alkaline Phosphatase 214 U/L Aspartate Amino Transf (AST/SGOT) 18 U/L Alanine Aminotransferase (ALT/SGPT) 21 U/L Lactate Dehydrogenase 183 U/L Total Bilirubin 0.4 MG/DL Sodium Level 140 MEQ/L Potassium Level 3.5 MEQ/L Chloride Level 107 MEQ/L Carbon Dioxide Level 26.1 MEQ/L Anion Gap 7 MEQ/L Estimat Glomerular Filtration Rate 91 ML/MIN Culture Results Microbiology Date/Time Source Procedure Growth Status 10/10/17 15:36 Wound Neck Gram Stain - Final Resulted 10/10/17 15:36 Wound Culture - Preliminary Gram Negative [employer] D Enterococcus Resulted Administered Medications Medications (Trade) Dose Ordered Sig/Jeremi Route PRN Reason Start Time Stop Time Status Last Admin Dose Admin Carvedilol (Coreg) 6.25 mg BID PO 10/09/17 21:00 10/12/17 09:23 Hydroxychloroquine Sulfate (Plaquenil) 200 mg DAILY PO 10/10/17 09:00 Future Hold 10/10/17 09:33 Pravastatin Sodium (Pravachol) 40 mg HS PO 10/09/17 21:00 10/11/17 20:08 Enoxaparin Sodium (Lovenox Inj) 40 mg Q24H SQ 10/10/17 09:00 10/12/17 09:27 Granisetron HCl (Kytril Inj) 1 mg Q24H IV 10/09/17 20:30 10/13/17 20:31 10/11/17 20:07 Prednisone (Deltasone) 100 mg Q12H PO 10/09/17 21:00 10/14/17 09:01 10/12/17 09:22 Prednisone (Deltasone) 30 mg Q12H PO 10/09/17 21:00 10/14/17 09:01 10/12/17 09:22 Etoposide 108 mg/ Doxorubicin HCl 21.6 mg/ Vincristine Sulfate 0.864 mg/ Sodium Chloride 517.064 ml @ 21.544 mls/hr Q24H IV 10/09/17 21:00 10/12/17 20:59 10/11/17 20:06 Dexamethasone Sodium Phosphate 20 mg/Sodium Chloride 55 ml @ 330 mls/hr Q24H IV 10/09/17 20:30 10/12/17 20:39 10/11/17 20:06 Diphenhydramine HCl (Benadryl) 25 mg Q6H PRN PO ALLERGIES 10/10/17 09:45 10/11/17 21:57 Sodium Hypochlorite (Dakin'S 0.25% Soln) 500 ml DAILY TOPICAL 10/10/17 12:00 10/12/17 09:00 Multi-Ingredient Mouthwash/Gargle (Magic Mouthwash Adult Liq) 5 ml QID SWISH-SWAL 10/11/17 13:00 10/12/17 09:21 Pantoprazole Sodium (Protonix) 40 mg DAILY PO 10/11/17 15:00 10/12/17 09:23 Objective Remarks GENERAL: Pleasant male upright in bed in nad. at bedside SKIN: Warm and dry. loose dressing over left neck. no sign of infection HEAD: Normocephalic. EYES: No injection or drainage. NECK: Supple, trachea midline. CARDIOVASCULAR: Regular rate and rhythm RESPIRATORY: Breath sounds equal bilaterally. No accessory muscle use. GASTROINTESTINAL: Abdomen soft, non-tender, nondistended. EXTREMITIES: No cyanosis NEUROLOGICAL: awake and alert, normal speech. moving extremities. Assessment/Plan Problem List: (1) Skin ulcer of left side of neck ICD Codes: L98.499 - Non-pressure chronic ulcer of skin of other sites with unspecified severity Plan: Wound care following. no sign of infection (2) Large cell lymphoma ICD Codes: C85.80 - Other specified types of non-Hodgkin lymphoma, unspecified site Plan: Concern about double hit lymphoma. Started on EPOCH- continue. Tolerating D1 well. Monitor for toxicity. No bleeding L neck mass. Noted thrombocytopenia and leukopenia. Will need to adjust dose day 3 and 4. 10/11: tolerating D2. D3 to start this evening. 10/12: D3, D4 to start tonight at 2100. Assessment 77 y/o man with large cell lymphoma and neck ulcer over mass, started on EPOCH Plan 1. continue chemotherapy D3, D4 to start this evening (will be dose reduced) 2. check CBC, CMP, coags today and tomorrow 3. plan for discharge tomorrow evening after all chemotherapy finished. Attending Statement The exam, history, and the medical decision-making described in the above note were completed with the assistance of the mid-level provider. I reviewed and agree with the findings presented. I attest that I had a [id number] encounter with the patient on the same day, and personally performed and documented my assessment and findings in the medical record. Patient seen and examined, vital signs, labs and medications reviewed, chemotherapy orders reviewed as well. Subjectively; patient reports having some nausea, loss of appetite and fatigue. He otherwise reports being well. He has been afebrile and there have been no acute cardiopulmonary events. Physical examination per note outlined above. Plan: Proceed with day 4 cycle 1 EPOCH on 10/13/2017. Clinically Stable. Pt wishes to be [place] home late tomorrow night following completion of chemotherapy. Carmen Russo Oct 12, 2017 11:40 Con Barney MD Oct 12, 2017 17:14
[2017-10-12 13:32] VITALS: BP 135/70; PULSE 60; RESP 20; TEMP 97.7; O2SAT 98
[2017-10-12 16:52] VITALS: BP 145/70; PULSE 67; RESP 16; TEMP 97.8; O2SAT 94
[2017-10-12] MEDS: DEXAMETHASONE INJ 20 MG in SODIUM CHLORIDE 0.9% INJ 50 ML IV SCH (20:20)
[2017-10-12] MEDS: GRANISETRON HCL 1 MG/ML VIAL IV SCH (20:21)
[2017-10-12] MEDS: PRAVASTATIN SOD 40 MG TAB PO SCH (20:22)
[2017-10-12 20:38] VITALS: BP 147/74; PULSE 63; RESP 18; TEMP 97.7; O2SAT 97
[2017-10-12] MEDS ORDERED: VINCRISTINE IV ONE (21:00)
[2017-10-12] MEDS ORDERED: DOXORUBICIN IV ONE (21:00)
[2017-10-12] MEDS ORDERED: ETOPOSIDE IV ONE (21:00)
[2017-10-12] MEDS ORDERED: [UNRECOGNIZED DRUG - OTHER] IV ONE (21:00)
[2017-10-12] MEDS: diphenhydrAMINE HCL 25 MG CAP PO PRN (22:43)
[2017-10-12 23:37] VITALS: BP 152/84; PULSE 58; RESP 17; TEMP 97.8; O2SAT 96
[2017-10-13 05:16] VITALS: BP 153/80; PULSE 64; RESP 18; TEMP 97.6; O2SAT 95
[2017-10-13 05:35] LABS: AUTOMATED NEUTROPHIL # 1.4 TH/MM3 (1.8-7.7); BASOPHIL % 0.2 % (0.0-2.0); HEMATOCRIT 27.4 % (39.0-51.0); HEMOGLOBIN 9.2 GM/DL (13.0-17.0); LYMPH % 3.7 % (9.0-44.0); LYMPHOCYTE # 0.1 TH/MM3 (1.0-4.8); MEAN CELL VOLUME 84.7 FL (80.0-100.0); MEAN CORPUSCULAR HEMOGLOBIN 28.3 PG (27.0-34.0); MEAN CORPUSCULAR HGB CONC 33.4 % (32.0-36.0); MEAN PLATELET VOLUME 7.3 FL (7.0-11.0); MONO % 1.4 % (0.0-8.0); NEUT % 94.7 % (16.0-70.0); PLATELET COUNT 131 TH/MM3 (150-450); RED BLOOD COUNT 3.23 MIL/MM3 (4.50-5.90); RED CELL DISTRIBUTION WIDTH 13.7 % (11.6-17.2); WHITE BLOOD COUNT 1.4 TH/MM3 (4.0-11.0)
[2017-10-13 06:07] LABS: ALBUMIN 2.6 GM/DL (3.4-5.0); ALT (GPT) 28 U/L (12-78); AST (GOT) 22 U/L (15-37); BICARBONATE 27.7 MEQ/L (21.0-32.0); BLOOD UREA NITROGEN 19 MG/DL (7-18); CHLORIDE 109 MEQ/L (98-107); CREATININE 0.78 MG/DL (0.60-1.30); GLOMERULAR FILTRATION RATE 96 ML/MIN (>89); GLUCOSE,RANDOM 142 MG/DL (74-106); SODIUM (NA) 143 MEQ/L (136-145)
[2017-10-13 06:09] LABS: ALKALINE PHOSPHATASE 214 U/L (45-117); TOTAL BILIRUBIN ADULT 0.4 MG/DL (0.2-1.0); TOTAL PROTEIN 5.3 GM/DL (6.4-8.2)
[2017-10-13 06:29] LABS: BANDS 12 % (0-6); LYMPHOCYTES 6 % (9-44); NEUTROPHIL # MANUAL DIFF 1.3 TH/MM3 (1.8-7.7); POLYS (SEG NEUTROPHILS) 82 % (16-70)
[2017-10-13] MEDS: NYSTAT/DIPHENHY/LIDO MOUTHWASH (Adult) 120ML SWISH-SWAL SCH ×3 (09:00→18:00)
[2017-10-13 09:46] VITALS: BP 164/83; PULSE 63; RESP 16; TEMP 97.7; O2SAT 96
[2017-10-13] MEDS: predniSONE 10 MG TAB PO SCH (09:55)
[2017-10-13] MEDS: predniSONE 50 MG TAB PO SCH (09:55)
[2017-10-13] MEDS: PANTOPRAZOLE SOD 40 MG DELAYED RELEASE TAB PO SCH (09:55)
[2017-10-13] MEDS: CARVEDILOL 6.25 MG TAB PO SCH (09:55)
[2017-10-13] MEDS: ENOXAPARIN SODIUM 40 MG/0.4 ML SYRINGE SQ SCH (09:56)
[2017-10-13] MEDS: SODIUM HYPOCHLORITE 0.25% 500 ML BTL TOPICAL SCH (10:14)
--- NOTE | 2017-10-13 11:49 | PD.ONC.PN ---
Subjective Subjective Remarks Afebrile overnight. Patient resting in bed with multiple family members at the bedside. He is in good spirits. "I've had no side effects so far." Denies nausea, vomiting or diarrhea. Had some constipation, but had a BM yesterday. Feels that bump in neck is going down. Patient requesting to go home after chemotherapy finishes late tonight. Objective Data Date Time Temp Pulse Resp B/P (MAP) Pulse Ox O2 Delivery O2 Flow Rate FiO2 10/13/17 09:46 97.7 63 16 164/83 (110) 96 10/13/17 05:16 97.6 64 18 153/80 (104) 95 10/12/17 23:37 97.8 58 17 152/84 (106) 96 10/12/17 20:38 97.7 63 18 147/74 (98) 97 10/12/17 16:52 97.8 67 16 145/70 (95) 94 10/12/17 13:32 97.7 60 20 135/70 (91) 98 10/13/17 10/13/17 10/13/17 07:00 15:00 23:00 Intake Total 240 ml Output Total 575 ml Balance -335 ml Result Diagram: 10/13/17 0525 10/13/17 0525 Laboratory Results Laboratory Tests Test 10/13/17 05:25 White Blood Count 1.4 TH/MM3 Red Blood Count 3.23 MIL/MM3 Hemoglobin 9.2 GM/DL Hematocrit 27.4 % Mean Corpuscular Volume 84.7 FL Mean Corpuscular Hemoglobin 28.3 PG Mean Corpuscular Hemoglobin Concent 33.4 % Red Cell Distribution Width 13.7 % Platelet Count 131 TH/MM3 Mean Platelet Volume 7.3 FL Neutrophils (%) (Auto) 94.7 % Lymphocytes (%) (Auto) 3.7 % Monocytes (%) (Auto) 1.4 % Eosinophils (%) (Auto) 0.0 % Basophils (%) (Auto) 0.2 % Neutrophils # (Auto) 1.4 TH/MM3 Lymphocytes # (Auto) 0.1 TH/MM3 Monocytes # (Auto) 0.0 TH/MM3 Eosinophils # (Auto) 0.0 TH/MM3 Basophils # (Auto) 0.0 TH/MM3 CBC Comment AUTO DIFF Differential Total Cells Counted 100 Neutrophils % (Manual) 82 % Band Neutrophils % 12 % Lymphocytes % 6 % Neutrophils # (Manual) 1.3 TH/MM3 Differential Comment FINAL DIFF MANUAL Platelet Estimate LOW Platelet Morphology Comment NORMAL Red Cell Morphology Comment NORMAL Blood Urea Nitrogen 19 MG/DL Creatinine 0.78 MG/DL Random Glucose 142 MG/DL Total Protein 5.3 GM/DL Albumin 2.6 GM/DL Calcium Level 9.0 MG/DL Uric Acid 6.0 MG/DL Alkaline Phosphatase 214 U/L Aspartate Amino Transf (AST/SGOT) 22 U/L Alanine Aminotransferase (ALT/SGPT) 28 U/L Total Bilirubin 0.4 MG/DL Sodium Level 143 MEQ/L Potassium Level 3.5 MEQ/L Chloride Level 109 MEQ/L Carbon Dioxide Level 27.7 MEQ/L Anion Gap 6 MEQ/L Estimat Glomerular Filtration Rate 96 ML/MIN Culture Results Microbiology Date/Time Source Procedure Growth Status 10/10/17 15:36 Wound Neck Gram Stain - Final Complete 10/10/17 15:36 Wound Culture - Final Klebsiella Oxytoca Enterobacter Cloacae Complete Administered Medications Medications (Trade) Dose Ordered Sig/Jeremi Route PRN Reason Start Time Stop Time Status Last Admin Dose Admin Lorazepam (Ativan) 0.5 mg DAILY PRN PO anxiety or before procedure 10/09/17 13:30 10/12/17 22:43 Carvedilol (Coreg) 6.25 mg BID PO 10/09/17 21:00 10/13/17 09:55 Hydroxychloroquine Sulfate (Plaquenil) 200 mg DAILY PO 10/10/17 09:00 Future Hold 10/10/17 09:33 Pravastatin Sodium (Pravachol) 40 mg HS PO 10/09/17 21:00 10/12/17 20:22 Enoxaparin Sodium (Lovenox Inj) 40 mg Q24H SQ 10/10/17 09:00 10/13/17 09:56 Granisetron HCl (Kytril Inj) 1 mg Q24H IV 10/09/17 20:30 10/13/17 20:31 10/12/17 20:21 Prednisone (Deltasone) 100 mg Q12H PO 10/09/17 21:00 10/14/17 09:01 10/13/17 09:55 Prednisone (Deltasone) 30 mg Q12H PO 10/09/17 21:00 10/14/17 09:01 10/13/17 09:55 Diphenhydramine HCl (Benadryl) 25 mg Q6H PRN PO ALLERGIES 10/10/17 09:45 10/12/17 22:43 Sodium Hypochlorite (Dakin'S 0.25% Soln) 500 ml DAILY TOPICAL 10/10/17 12:00 10/13/17 10:14 Multi-Ingredient Mouthwash/Gargle (Magic Mouthwash Adult Liq) 5 ml QID SWISH-SWAL 10/11/17 13:00 10/12/17 20:23 Etoposide 54 mg/ Doxorubicin HCl 10.8 mg/ Vincristine Sulfate 0.432 mg/ Sodium Chloride 508.532 ml @ 21.189 mls/hr ONCE ONCE IV 10/12/17 21:00 10/13/17 20:59 10/12/17 20:19 Pantoprazole Sodium (Protonix) 40 mg DAILY PO 10/11/17 15:00 10/13/17 09:55 Objective Remarks GENERAL: Pleasant male sitting up in bed in [facility]. SKIN: Warm and dry. dressing over left neck is clean and intact. HEAD: Normocephalic. EYES: No injection or drainage. NECK: Supple, trachea midline. CARDIOVASCULAR: Regular rate and rhythm RESPIRATORY: Breath sounds equal bilaterally. No accessory muscle use. GASTROINTESTINAL: Abdomen soft, non-tender, nondistended. EXTREMITIES: No cyanosis NEUROLOGICAL: awake and alert, normal speech. moving extremities. Assessment/Plan Problem List: (1) Skin ulcer of left side of neck ICD Codes: L98.499 - Non-pressure chronic ulcer of skin of other sites with unspecified severity Plan: Wound care following. 10/13: wound appears clean without sign of infection (2) Large cell lymphoma ICD Codes: C85.80 - Other specified types of non-Hodgkin lymphoma, unspecified site Plan: Concern about double hit lymphoma. Started on EPOCH- continue. Tolerating D1 well. Monitor for toxicity. No bleeding L neck mass. Noted thrombocytopenia and leukopenia. Will need to adjust dose day 3 and 4. 10/11: tolerating D2. D3 to start this evening. 10/12: D3, D4 to start tonight at 2100. 10/13: tolerating chemotherapy. to finish tonight with discharge after Assessment 77 y/o man with large cell lymphoma and neck ulcer over mass, started on EPOCH Plan 1. continue chemotherapy. discharge after chemotherapy complete this evening. 2. discussed discharge plans, and follow up with patient and family members at bedside. advised not to take NSAID's and to watch closely for fever. educated on dangers of neutropenic fever and importance of presenting to hospital if he develops fever. Attending Statement The exam, history, and the medical decision-making described in the above note were completed with the assistance of the mid-level provider. I reviewed and agree with the findings presented. I attest that I had a [id number] encounter with the patient on the same day, and personally performed and documented my assessment and findings in the medical record. Patient seen and examined, vital signs, labs, medications and chemotherapy orders reviewed. Subjectively; he denies acute complaints. There were no fevers or acute cardiopulmonary events overnight. He is eager to leave the hospital later tonight after completion of chemotherapy infusions. He is scheduled to meet with Dr. Dr. Moe early tomorrow morning. Discharge plan is in place. PICC line to be DC'd prior to discharge home. Carmen Russo Oct 13, 2017 11:48 Con Barney MD Oct 13, 2017 15:42
--- NOTE | 2017-10-13 11:50 | HHI.DCPOC ---
Discharge Care Plan Diagnosis: (1) Large cell lymphoma (2) Hypertension Goals to Promote Your Health * To prevent worsening of your condition and complications * To maintain your health at the optimal level Directions to Meet Your Goals Take your medications as prescribed Follow your dietary instruction Follow activity as directed Keep your appointments as scheduled Take your immunizations and boosters as scheduled If your symptoms worsen call your PCP, if no PCP go to Urgent Care Center or Emergency Room Smoking is Dangerous to Your Health. Avoid second hand smoke Call the 24-hour hour crisis hotline for domestic abuse at Carmen Russo Oct 13, 2017 11:50
--- NOTE | 2017-10-13 11:59 | HHI.DS ---
Discharge Summary Admission Date Oct 09, 2017 at 11:07 Discharge Date: Oct 13, 2017 Admitting Diagnosis Large Cell Lymphoma, admitted for chemotherapy with EPOCH regimen. (1) Lymphoma ICD Codes: C85.90 - Non-Hodgkin lymphoma, unspecified, unspecified site Status: Chronic (2) Mass of left side of neck ICD Codes: R22.1 - Localized swelling, mass and lump, neck (3) Hypertension ICD Codes: I10 - Essential (primary) hypertension Status: Chronic (4) Hyperlipidemia ICD Codes: E78.5 - Hyperlipidemia, unspecified Brief History The patient is a 77 year-old gentleman with a history of grade 1 follicular lymphoma who had progressive enlargement of left neck mass which eventually ulcerated. He was started on bendamustine and rituxan with initial response. On September 27, 2017, patient had a repeat biopsy of neck mass which showed large cell type lymphoma. He was treated with Rituxan 10/01/17 and admitted for chemotherapy on October 03. At the time of that admission the patient was too neutropenic and treatment had to be delayed. On October 09, 2017 the patient was readmitted for EPOCH chemotherapy CBC/BMP: 10/13/17 0525 10/13/17 0525 Significant Findings Laboratory Tests Test 10/12/17 05:04 10/13/17 05:25 White Blood Count 1.9 TH/MM3 (4.0-11.0) 1.4 TH/MM3 (4.0-11.0) Red Blood Count 3.41 MIL/MM3 (4.50-5.90) 3.23 MIL/MM3 (4.50-5.90) Hemoglobin 9.7 GM/DL (13.0-17.0) 9.2 GM/DL (13.0-17.0) Hematocrit 29.1 % (39.0-51.0) 27.4 % (39.0-51.0) Platelet Count 105 TH/MM3 (150-450) 131 TH/MM3 (150-450) Neutrophils (%) (Auto) 92.7 % (16.0-70.0) 94.7 % (16.0-70.0) Lymphocytes (%) (Auto) 4.6 % (9.0-44.0) 3.7 % (9.0-44.0) Lymphocytes # (Auto) 0.1 TH/MM3 (1.0-4.8) 0.1 TH/MM3 (1.0-4.8) Neutrophils % (Manual) 82 % (16-70) 82 % (16-70) Band Neutrophils % 14 % (0-6) 12 % (0-6) Lymphocytes % 3 % (9-44) 6 % (9-44) Platelet Estimate LOW (NORMAL) LOW (NORMAL) Activated Partial Thromboplast Time 22.9 SEC (24.3-30.1) Random Glucose 132 MG/DL (74-106) 142 MG/DL (74-106) Total Protein 5.7 GM/DL (6.4-8.2) 5.3 GM/DL (6.4-8.2) Albumin 2.8 GM/DL (3.4-5.0) 2.6 GM/DL (3.4-5.0) Alkaline Phosphatase 214 U/L (45-117) 214 U/L (45-117) Neutrophils # (Auto) 1.4 TH/MM3 (1.8-7.7) Neutrophils # (Manual) 1.3 TH/MM3 (1.8-7.7) Blood Urea Nitrogen 19 MG/DL (7-18) Chloride Level 109 MEQ/L (98-107) Imaging Last Impressions Chest X-Ray 10/09/17 0000 Signed Impressions: Service Date/Time: Monday, October 09, 2017 18:05 - CONCLUSION: No acute cardiopulmonary disease. Awa Patel MD PE at Discharge please see physical exam from progress note on date of discharge Hospital Course Mr. Tijerina was admitted on 10/09/17 for EPOCH chemotherapy. Patient's home medications were resumed. PICC line was placed and echocardiogram was obtained. Chemotherapy was started in the evening. Day four of chemotherapy was dose reduced to accommodate the patient's neutropenia. The patient tolerated chemotherapy without adverse effects. He demonstrated some mild neutropenia and thrombocytopenia which was monitored during his hospitalization. He is being discharged in good condition with instructions for follow up in clinic tomorrow. Pt Condition on Discharge: Good Discharge Disposition: Discharge Home Discharge Instructions DIET: Follow Instructions for: Low Bacteria Diet (until neutropenia has resolved) Activities you can perform: Regular-No Restrictions Carmen Russo Oct 13, 2017 11:59
[2017-10-13 12:43] VITALS: BP 152/76; PULSE 67; RESP 16; TEMP 97.9; O2SAT 96
[2017-10-13 16:20] VITALS: BP 148/76; PULSE 67; RESP 16; TEMP 97.8; O2SAT 97
[2017-10-13] MEDS ORDERED: CYCLOPHOSPHAMIDE IV ONE (21:00)
[2017-10-13] MEDS ORDERED: SODIUM CHLOR 0.9% IV ONE (21:00)
== END 2017-10-13 21:26 | disposition home or self-care (01) | DRG 847 ==
LOC: HCPC 11:07 → HCIN 10-10 20:16
PROVIDERS: ADMIT Internal Medicine Hematology & Oncology; ATTEND Internal Medicine Hematology & Oncology
PROC: 02HV33Z Insertion of Infusion Device into Superior Vena Cava, Percutaneous Approach (ICD-10-PCS; principal; 2017-10-09)
PROC: B548ZZA Ultrasonography of Superior Vena Cava, Guidance (ICD-10-PCS; 2017-10-09)
PROC: 3E04305 Introduction of Other Antineoplastic into Central Vein, Percutaneous Approach (ICD-10-PCS; 2017-10-10)
DX: Z51.11 Encounter for antineoplastic chemotherapy (principal); C83.30 Diffuse large B-cell lymphoma, unspecified site; D69.6 Thrombocytopenia, unspecified; D70.9 Neutropenia, unspecified; D64.9 Anemia, unspecified; M06.4 Inflammatory polyarthropathy; I12.9 Hypertensive chronic kidney disease with stage 1 through stage 4 chronic kidney disease, or unspecified chronic kidney disease; N18.9 Chronic kidney disease, unspecified; Z96.642 Presence of left artificial hip joint; E78.5 Hyperlipidemia, unspecified
CPT/HCPCS: 36415; 36569; 71045; 76937; 80048; 80053; 83615; 84550; 85007; 85025; 85027; 85384; 85610; 85730; 87070; 87077; 87186; 87205; 93306; J1100; J1626; J1650; J2405; J7040; J7512; J9000; J9181; J9370

== ENCOUNTER 2017-10-16 17:50 | Inpatient (IN) | payer MEDICARE ==
[~2017-10-16] VITALS: Ht 175.3 cm; Wt 104.7 kg
[~2017-10-16 17:50] MED LIST changes: -HYDR200T3 PO
[2017-10-16 17:51] VITALS: BP 134/62; PULSE 78; RESP 18; TEMP 101.8; O2SAT 95
[2017-10-16 18:55] VITALS: BP 147/66; PULSE 82; RESP 18; TEMP 101.4; O2SAT 96
--- NOTE | 2017-10-16 19:13 | HHI.HP ---
HPI Service [facility] Hospitalists Primary Care Physician Mateusz Teran MD Admission Diagnosis neutropenic fever Chief Complaint: fever Travel History International Travel<30 Days: No Contact w/Intl Traveler <30 Da: No Traveled to Known Affected Are: No History of Present Illness Patient is 77 yo with 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 He then developed a left neck mass that ulcerated. He was started on bendamustine and rituxan with initial response. 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 He was treated with Rituxan 10/01/17 and admitted for chemotherapy on October 03 but was sent home due to neutropenia before rx. . He was admitted from 10/09 to 10/13/17 for EPOCH chemotherapy. PICC line was placed during the admission and last dose was reduced due to neutropenia. he f/u in office on 10/14 and wbc 4 and given neulasta. This morning began developing the bone pain presumed due to neulasta and general weakness. Then began with fever and sent in by his doctor. son says the left neck wound actually had looked great and shrunk tremendously in size Review of Systems Other fever/weakness Past Family Social History Past Medical History large cell lymphoma left neck mass. s/p epoch chemo 10/09-10/13 ckd stage 3 left femoral neck fx. left total hip arthroplasty 2016 H/O prostate cancer (s/p XRT by Dr. Marie. Dr. Sierra following- noted increasing PSA.) Hypertension Inflammatory arthritis Iron overload (HFE negative.) Liver cirrhosis in 2012 Follicular lymphoma (02/11/12. Mediastinal biopsy positive for Follicular lymphoma, grade I. CTPET show disease above and below diaphragm. Last bone marrow biopsy 2005 was negative for lymphoma. Back surgery 2003 sciatica cyst Colonoscopy 2004 Iron overl load Kidney stone removed 1974, lithotripsy 2010 right tka- 2001 -left tka 2016 Left shoulder rotator cuff 2010 Lipoma removed left leg 2010 Lipotripsy - March 01, 2011 and April 19, 2011 Xrt prostate - [address] biopsy in 2011 Reported Medications Simvastatin 20 Mg Tab 20 Mg PO HS Carvedilol 6.25 Mg Tab 6.25 Mg PO BID Prilosec (Omeprazole Magnesium) 20 Mg Tab 20 Mg PO DAILY PRN Allergies: Coded Allergies: diclofenac (Verified Allergy, Severe, AFFECTED KIDNEYS, 10/16/17) ALL NSAIDS etodolac (Verified Allergy, Severe, AFFECTED KIDNEYS, 10/16/17) flurbiprofen (Verified Allergy, Severe, AFFECTED KIDNEYS, 10/16/17) ibuprofen (Verified Allergy, Severe, AFFECTED KIDNEYS, 10/16/17) indomethacin (Verified Allergy, Severe, AFFECTED KIDNEYS, 10/16/17) ketoprofen (Verified Allergy, Severe, AFFECTED KIDNEYS, 10/16/17) ketorolac (Verified Allergy, Severe, AFFECTED KIDNEYS, 10/16/17) morphine (Verified Allergy, Severe, NAUSEA/VOMITING, 10/16/17) naproxen (Verified Allergy, Severe, AFFECTED KIDNEYS, 10/16/17) oxaprozin (Verified Allergy, Severe, AFFECTED KIDNEYS, 10/16/17) Sulfa (Sulfonamide Antibiotics) (Verified Allergy, Intermediate, Rash, 07/24) apixaban (Verified Allergy, Intermediate, Hives, 10/16/17) Family History nc Social History no etoh/tob Physical Exam Vital Signs nad oriented pale in appearance heart reg lung cta abd s/nt ext no edema left neck large ulcerated wound with 2 tunneling areas that go deeper and no drainage at this time. Vital Signs Date Time Temp Pulse Resp B/P (MAP) Pulse Ox O2 Delivery O2 Flow Rate FiO2 10/16/17 18:55 101.4 82 18 147/66 (93) 96 Room Air 10/16/17 17:51 101.8 78 18 134/62 (86) 95 Room Air Caprini VTE Risk Assessment Caprini VTE Risk Assessment: Mod/High Risk (score >= 2) Caprini Risk Assessment Model Point Value = 1 Point Value = 2 Point Value = 3 Point Value = 5 Age 41-60 Minor surgery BMI > 25 kg/m2 Swollen legs Varicose veins or History of unexplained or recurrent spontaneous Oral contraceptives or hormone replacement Sepsis (< 1 month) Serious lung disease, including pneumonia (< 1 month) Abnormal pulmonary function Acute myocardial infarction Congestive heart failure (< 1 month) History of inflammatory bowel disease Medical patient at bed rest Age 61-74 Arthroscopic surgery Major open surgery (> 45 min) Laparoscopic surgery (> 45 min) Malignancy Confined to bed (> 72 hours) Immobilizing plaster cast Central venous access Age >= 75 History of VTE Family history of VTE Factor V Leiden Prothrombin [id number] Lupus anticoagulant Anticardiolipin antibodies Elevated serum homocysteine Heparin-induced thrombocytopenia Other congenital or acquired thrombophilia Stroke (< 1 month) Elective arthroplasty Hip, pelvis, or leg fracture Acute spinal cord injury (< 1 month) Prophylaxis Regimen Total Risk Factor Score Risk Level Prophylaxis Regimen 0-1 Low Early ambulation 2 Moderate Order ONE of the following: *Sequential Compression Device (SCD) *Heparin 5000 units SQ BID 3-4 Higher Order ONE of the following medications: *Heparin 5000 units SQ TID *Enoxaparin/Lovenox 40 mg SQ daily (WT < 150 kg, CrCl > 30 mL/min) *Enoxaparin/Lovenox 30 mg SQ daily (WT < 150 kg, CrCl > 10-29 mL/min) *Enoxaparin/Lovenox 30 mg SQ BID (WT < 150 kg, CrCl > 30 mL/min) AND/OR *Sequential Compression Device (SCD) 5 or more Highest Order ONE of the following medications: *Heparin 5000 units SQ TID (Preferred with Epidurals) *Enoxaparin/Lovenox 40 mg SQ daily (WT < 150 kg, CrCl > 30 mL/min) *Enoxaparin/Lovenox 30 mg SQ daily (WT < 150 kg, CrCl > 10-29 mL/min) *Enoxaparin/Lovenox 30 mg SQ BID (WT < 150 kg, CrCl > 30 mL/min) AND *Sequential Compression Device (SCD) Assessment and Plan Problem List: (1) Fever ICD Codes: R50.9 - Fever, unspecified Status: Acute Plan: Patient is 77 yo with 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 He then developed a left neck mass that ulcerated. He was started on bendamustine and rituxan with initial response. 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 He was treated with Rituxan 10/01/17 and admitted for chemotherapy on October 03 but was sent home due to neutropenia before rx. . He was admitted from 10/09 to 10/13/17 for EPOCH chemotherapy. PICC line was placed during the admission and last dose was reduced due to neutropenia. he f/u in office on 10/14 and wbc 4 and given neulasta. This morning began developing the bone pain presumed due to neulasta and general weakness. Then began with fever and sent in by his doctor. son says the left neck wound actually had looked great and shrunk tremendously in size. 1. fever concerning for neutropenic fever. large ulcerating/tunneling wound left neck. s/p EPOCH chemo last week. 2. dehydration admission labs pending u/a and cxr ordered. blood cx drawn cover with vanco /cefepime IVF dvt prophylaxis discussed with Dr Moe (2) Skin ulcer of left side of neck ICD Codes: L98.499 - Non-pressure chronic ulcer of skin of other sites with unspecified severity Status: Acute (3) Large cell lymphoma ICD Codes: C85.80 - Other specified types of non-Hodgkin lymphoma, unspecified site Status: Acute (4) History of non-Hodgkin's lymphoma ICD Codes: Z85.72 - Personal history of non-Hodgkin lymphomas Status: Chronic (5) Hypertension ICD Codes: I10 - Essential (primary) hypertension Status: Chronic Physician Certification 2 Midnight Certification Type: Admission for Inpatient Services Order for Inpatient Services 3The services are ordered in accordance with Medicare regulations or non- Medicare payer requirements, as applicable. In the case of services not specified as inpatient-only, they are appropriately provided as inpatient services in accordance with the 2-midnight benchmark. Estimated LOS (days): 3 3 days is the estimated time the patient will need to remain in the hospital, assuming treatment plan goals are met and no additional complications. Post-Hospital Plan: Home Problem Qualifiers (1) Fever: Qualified Codes: R50.9 - Fever, unspecified Rogerio Syed MD Oct 16, 2017 19:13
[2017-10-16] MEDS ORDERED: VANCOMYCIN INJ 200 ML IV ONE (19:15)
[2017-10-16] MEDS ORDERED: CEFEPIME INJ 2,000 MG in SODIUM CHLORIDE 0.9% INJ 100 ML IV ONE (19:15)
--- NOTE | 2017-10-16 19:21 | PD ---
HPI Chief Complaint: Fever Time Seen by Provider: 19:01 Travel History International Travel<30 days: No Contact w/Intl Traveler<30days: No Traveled to known affect area: No History of Present Illness HPI 77-year-old male complains of body ache and fever. Patient has history of non- Hodgkin lymphoma on chemotherapy. Patient states that last chemotherapy was 2 days ago. Patient started having fever this afternoon up to 103. Patient started vomiting this evening and feeling dehydrated. Patient was advised by his oncologist Dr. Moe to the ED for evaluation and possible admission. Patient denies any sore throat coughing congestion. Patient denies abdominal pain. Patient denies any diarrhea. Patient has a left-sided neck mass that the ulcerated. Patient was seen by personal physician and wound culture was done recently. Patient has history hypertension and hyperlipidemia. PFSH Past Medical History Arthritis: Yes Blood Disorders: Yes (HEMACROMATOSIS) Cancer: Yes (PROSTATE, BASIL CELL SKIN CANCERS,FOLLICULAR LYMPHOMA) Cardiovascular Problems: No High Cholesterol: Yes Chemotherapy: Yes Diabetes: No Diminished Hearing: Yes (HEARING AIDS BOTH ) Endocrine: No Gastrointestinal Disorders: Yes (GERD) GERD: Yes Glaucoma: No Genitourinary: Yes (HX RENAL CALCuli) Hepatitis: No Hiatal Hernia: No Hypertension: Yes Immune Disorder: No Medical other: Yes (HX RADIATION FOR PROSTATE CANCER) Musculoskeletal: Yes (ARTHRITIS) Neurologic: No Psychiatric: No Reproductive: No Respiratory: No Immunizations Current: No Radiation Therapy: Yes (prostate cancer) Thyroid Disease: No Tetanus Vaccination: < 5 Years ?: Not Past Surgical History Abdominal Surgery: Yes (CHOLYCYSTECTOMY) AICD: No Body Medical Devices: LEFT SHOULDER Cholecystectomy: Yes Eye Surgery: Yes (ERNESTO. CATARACT EXTRACTION) Genitourinary Surgery: Yes (RENAL CALCULI EXTRACTION, LITHOTRIPSY) Joint Replacement: Yes (BILATERAL KNEES, LEFT HIP) Neurologic Surgery: Yes (BACK) Pacemaker: No Other Surgery: Yes Social History Alcohol Use: No Tobacco Use: No Substance Use: No Allergies-Medications (Allergen,Severity, Reaction): Coded Allergies: diclofenac (Verified Allergy, Severe, AFFECTED KIDNEYS, 10/16/17) ALL NSAIDS etodolac (Verified Allergy, Severe, AFFECTED KIDNEYS, 10/16/17) flurbiprofen (Verified Allergy, Severe, AFFECTED KIDNEYS, 10/16/17) ibuprofen (Verified Allergy, Severe, AFFECTED KIDNEYS, 10/16/17) indomethacin (Verified Allergy, Severe, AFFECTED KIDNEYS, 10/16/17) ketoprofen (Verified Allergy, Severe, AFFECTED KIDNEYS, 10/16/17) ketorolac (Verified Allergy, Severe, AFFECTED KIDNEYS, 10/16/17) morphine (Verified Allergy, Severe, NAUSEA/VOMITING, 10/16/17) naproxen (Verified Allergy, Severe, AFFECTED KIDNEYS, 10/16/17) oxaprozin (Verified Allergy, Severe, AFFECTED KIDNEYS, 10/16/17) Sulfa (Sulfonamide Antibiotics) (Verified Allergy, Intermediate, Rash, 07/24) apixaban (Verified Allergy, Intermediate, Hives, 10/16/17) Reported Meds & Prescriptions Reported Meds & Active Scripts Active Reported Coq-10 (Coenzyme Q10 (Ubidecarenone)) 30 Mg Cap Unknown Dose PO DAILY Simvastatin 20 Mg Tab 20 Mg PO HS Carvedilol 6.25 Mg Tab 6.25 Mg PO BID Prilosec (Omeprazole Magnesium) 20 Mg Tab 20 Mg PO DAILY PRN Review of Systems General / Constitutional: Positive: Fever Eyes: No: Visual changes HENT: No: Headaches Cardiovascular: No: Chest Pain or Discomfort Respiratory: No: Shortness of Breath Gastrointestinal: No: Abdominal Pain Genitourinary: No: Dysuria Musculoskeletal: No: Pain Skin: No Rash Neurologic: No: Weakness Psychiatric: No: Depression Endocrine: No: Polydipsia Hematologic/Lymphatic: No: Easy Bruising Physical Exam Narrative GENERAL: Well-nourished, well-developed patient. SKIN: Focused skin assessment warm/dry. HEAD: Normocephalic. EYES: No scleral icterus. No injection or drainage. NECK: Supple, trachea midline. No JVD or lymphadenopathy. Patient has an ulcer lesion left-sided neck with dressing in place. CARDIOVASCULAR: Regular rate and rhythm without murmurs, gallops, or rubs. RESPIRATORY: Breath sounds equal bilaterally. No accessory muscle use. GASTROINTESTINAL: Abdomen soft, non-tender, nondistended. MUSCULOSKELETAL: No cyanosis, or edema. BACK: Nontender without obvious deformity. No CVA tenderness. Neurologic exam normal. Data Data Last Documented VS Vital Signs Date Time Temp Pulse Resp B/P (MAP) Pulse Ox O2 Delivery O2 Flow Rate FiO2 10/16/17 18:55 101.4 82 18 147/66 (93) 96 Room Air Orders Orders Admit To Inpatient (10/16/17 ) Inpatient Certification (10/16/17 ) Vital Signs (Adult) KI.Q4H (10/16/17 19:13) Activity Oob Ad Nataly (10/16/17 19:13) Diet Regular Basic (10/17/17 Breakfast) Complete Blood Count With Diff (10/17/17 06:00) Basic Metabolic Panel (Bmp) (10/17/17 06:00) Complete Blood Count With Diff (10/16/17 19:12) Comprehensive Metabolic Panel (10/16/17 19:12) Prothrombin Time / Inr (Pt) (10/16/17 19:12) Act Partial Throm Time (Ptt) (10/16/17 19:12) Blood Culture (10/16/17 19:12) Urinalysis - C+S If Indicated (10/16/17 19:12) Chest, Single Ap (10/16/17 19:12) Iv Access Insert/Monitor (10/16/17 19:12) Ecg Monitoring (10/16/17 19:12) Oximetry (10/16/17 19:12) Influenzae A/B Antigen (10/16/17 19:12) Lactic Acid (10/16/17 19:12) Sodium Chlor 0.9% 1000 Ml Inj (Ns 1000 M (10/16/17 19:15) Vancomycin Inj (Vancomycin Inj) (10/16/17 19:15) Cefepime Inj (Maxipime Inj) (10/16/17 19:15) MDM Medical Decision Making Medical Screen Exam Complete: Yes Emergency Medical Condition: Yes Differential Diagnosis Differential diagnosis including fever with neutropenia, cellulitis, sepsis. Narrative Course 77-year-old male with fever. Patient has history of non-Hodgkin lymphoma on chemotherapy. Patient is neutropenic. Patient will be admitted for neutropenic and fever. Cefepime 2 g IV. Vancomycin 1 g IV. Normal saline solution 100 cc an hour. Diagnosis Primary Impression: Fever Qualified Codes: R50.9 - Fever, unspecified Additional Impressions: Neutropenia Qualified Codes: D70.9 - Neutropenia, unspecified History of non-Hodgkin's lymphoma David Figueroa MD Oct 16, 2017 19:21
[2017-10-16] MEDS ORDERED: VANCOMYCIN 1,000 MG/NS 250 ML IV ONE ×4 (19:30→22:00)
[2017-10-16 19:31] VITALS: BP 152/70; PULSE 81; RESP 18; O2SAT 95
[2017-10-16] MEDS: SODIUM CHLOR 0.9% 1000 ML INJ 1,000 ML IV SCH ×2 (19:37→21:17)
[2017-10-16] MEDS ORDERED: ACETAMINOPHEN 325 MG TAB PO PRN (19:45)
[2017-10-16] MEDS ORDERED: Vancomycin Consult Pharmacy 1 EA OTHER SCH (19:45)
--- NOTE | 2017-10-16 20:10 | RADRPT ---
EXAM DATE/TIME: 10/16/2017 19:56 [facility] COMPARISON: CHEST SINGLE AP, October 09, 2017, 18:05. INDICATIONS : Short of breath. MEDICAL HISTORY : Hypertension. Lymphoma. SURGICAL HISTORY : None. ENCOUNTER: Initial ACUITY: 1 day PAIN SCORE: 0/10 LOCATION: Bilateral chest FINDINGS: A single view of the chest demonstrates the lungs to be symmetrically aerated without evidence of mas s, infiltrate or effusion. The cardiomediastinal contours are unremarkable. Osseous structures are intact, status post right shoulder hemiarthroplasty. CONCLUSION: Normal examination. Danilo Charles MD on October 16, 2017 at 20:06 Board Certified Radiologist. This report was verified electronically.
[2017-10-16 20:15] LABS: AUTOMATED NEUTROPHIL # 2.9 TH/MM3 (1.8-7.7); EOSINOPHIL % 1.1 % (0.0-4.0); HEMATOCRIT 26.6 % (39.0-51.0); LYMPH % 1.3 % (9.0-44.0); MEAN CELL VOLUME 85.7 FL (80.0-100.0); MEAN CORPUSCULAR HEMOGLOBIN 29.2 PG (27.0-34.0); MEAN CORPUSCULAR HGB CONC 34.1 % (32.0-36.0); MEAN PLATELET VOLUME 8.5 FL (7.0-11.0); MONO % 0.2 % (0.0-8.0); NEUT % 97.4 % (16.0-70.0); PLATELET COUNT 53 TH/MM3 (150-450); RED CELL DISTRIBUTION WIDTH 14.3 % (11.6-17.2); WHITE BLOOD COUNT 2.9 TH/MM3 (4.0-11.0)
[2017-10-16 20:32] LABS: ALBUMIN 2.7 GM/DL (3.4-5.0); AST (GOT) 29 U/L (15-37); BICARBONATE 28.2 MEQ/L (21.0-32.0); BLOOD UREA NITROGEN 15 MG/DL (7-18); CALCIUM 8.5 MG/DL (8.5-10.1); CHLORIDE 98 MEQ/L (98-107); CREATININE 1.13 MG/DL (0.60-1.30); GLOMERULAR FILTRATION RATE 63 ML/MIN (>89); GLUCOSE,RANDOM 103 MG/DL (74-106); SODIUM (NA) 133 MEQ/L (136-145)
[2017-10-16 20:33] LABS: ALKALINE PHOSPHATASE 265 U/L (45-117); ALT (GPT) 53 U/L (12-78); TOTAL BILIRUBIN ADULT 2.1 MG/DL (0.2-1.0); TOTAL PROTEIN 5.6 GM/DL (6.4-8.2)
[2017-10-16 20:38] LABS: INTERNATIONAL NORMALIZED RATIO 1.2 RATIO; PROTHROMBIN TIME - PATIENT 12.2 SEC (9.8-11.6)
[2017-10-16 21:15] VITALS: BP 144/66; PULSE 75; RESP 18; TEMP 102; O2SAT 95
[2017-10-16] MEDS: CARVEDILOL 6.25 MG TAB PO SCH (21:17)
[2017-10-16] MEDS: PRAVASTATIN SOD 40 MG TAB PO SCH (21:17)
[2017-10-16 21:26] LABS: BANDS 8 % (0-6); LYMPHOCYTES 1 % (9-44); MYELOCYTES 1 % (0-0); NEUTROPHIL # MANUAL DIFF 2.9 TH/MM3 (1.8-7.7); POLYS (SEG NEUTROPHILS) 90 % (16-70)
[2017-10-16] MEDS ORDERED: ACETAMINOPHEN/HYDROcodone 325 MG/5 MG TAB PO PRN (22:00)
[2017-10-16] MEDS ORDERED: NEOMYCIN/POLYMYXIN/BACITRACIN OINT 15 GM TUBE TOPICAL ONE (22:00)
[2017-10-16] MEDS ORDERED: LORazepam 0.5 MG TAB PO ONE (22:00)
[2017-10-16 22:09] LABS: BACTERIA, URINE MOD /hpf; BILIRUBIN, URINE NEG (NEG); BLOOD, URINE NEG (NEG); GLUCOSE,URINE NEG (NEG); KETONE, URINE 10 mg/dL (NEG); MUCUS URINE FEW /lpf (OCC); NITRITE,URINE NEG (NEG); URINE COLOR YELLOW (YELLW/STRAW); URINE LEUKOCYTE ESTERASE NEG (NEG)
[2017-10-16 22:36] VITALS: BP 108/53; PULSE 72; RESP 18; TEMP 98.7; O2SAT 98
[2017-10-16] MEDS ORDERED: VITA100018 PO (22:38)
[2017-10-16] MEDS ORDERED: OXYC-395 PO (22:38)
[2017-10-16] MEDS ORDERED: VITA250T3 PO (22:38)
[2017-10-17] VITALS (8 sets, daily range): BP systolic 115–177; BP diastolic 46–83; PULSE 62–88; RESP 16–20; TEMP 97.6–100.9; O2SAT 91–97
--- NOTE | 2017-10-17 00:32 | RADRPT ---
EXAM DATE/TIME: 10/16/2017 23:38 [facility] COMPARISON: CT SOFT TISSUE NECK W CONTRAST, June 15, 2017, 13:00. INDICATIONS : Left neck ulcerative mass residual, neutropenic fever, MEDICAL HISTORY : Hypertension. Lymphoma cancer. SURGICAL HISTORY : Knee, Hip and Shoulder sx ENCOUNTER: Initial ACUITY: 1 week PAIN SCORE: 7/10 LOCATION: Left lower neck region. TECHNIQUE: Multisequence, multiplanar MRI examination was performed without contrast. FINDINGS: Examination of the skull base demonstrates no evidence of deep infiltrating mucosal lesion. The oroph arynx, hypopharynx, glottic and subglottic airway demonstrate no abnormality. The large necrotic adenopathy at the left neck at level for a significantly decreased in size previou sly measuring 8.7 x 5.1 CM and now measuring 6.3 x 2.0 CM. This significantly narrows the proximal le ft jugular vein but the artery is not encased. No new areas of adenopathy are identified. CONCLUSION: 1. In comparison to prior study the fluid adenopathy the left neck has significantly decreased in siz e as above. No new adenopathy is identified Jl Loo MD on October 17, 2017 at 0:18 Board Certified Radiologist. This report was verified electronically.
--- NOTE | 2017-10-17 00:40 | MB ---
cc: ARIN MART HUNG MD DATE OF CONSULTATION: 10/16/2017 DATE OF : [address] Ronit Figueroa CHIE[address] COMPLAINT [address]. Figueroa requested consultation for Mr. Tijerina with neutropenic fever associated with large cell lymphoma treatment. 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 He has a history of grade 1 follicular lymphoma that progressed and developed a transformation to large cell lymphoma of the neck. He had an ulcerated mass. He was treated recently with R-EPOCH. He had an excellent response. The neck mass has decreased in size, however, it is ulcerated. He was dressing the wounds. He received GCSF support with Neulasta yesterday. He developed some fevers last night and persistent fevers this evening and was referred to the hospital for admission. The case was discussed at length with Dr. Syed, hospitalist, for [facility]. The patient is expected to [place] with platelet count down to 53,000, white blood cell count 2.9, ANC is only 1300, hemoglobin decreased to 9.2. He has had no bleeding in the neck, however, it has evolved to ulcerate. He denies any other fever source. He has no sick contacts. Denies any cough. He is tired and achy. He feels fatigued. He denies any nausea and vomiting. No headache. He had fevers and temperature was 102.1 at the time of the consultation. Antibiotic was initiated as soon as possible with vancomycin. Cefepime was also ordered. PAST MEDICAL HISTORY: 1. Grade 1 follicular lymphoma. 2. Large cell transformation. 3. Left neck ulcerated mass. 4. Liver cirrhosis. 5. Hypertension. 6. Pancytopenia. 7. Neutropenic fever. 8. Left neck wound. PAST SURGICAL HISTORY: 1. Back surgery. 2. Left hip arthroplasty. 3. Colonoscopy. 4. Lithotripsy. 5. Knee surgery. 6. Left rotator cuff surgery. 7. Lipoma removal. 8. Radiation to prostate. 9. Mediastinoscopy. 10. Lymph node biopsy. FAMILY HISTORY: No family history of cancer. SOCIAL HISTORY: He is , lives with his . His son is an etymology professor. Denies any alcohol, tobacco or illicit drug use. ALLERGIES: ALLERGIES TO MORPHINE, NSAIDS, SULFASALAZINE. CURRENT MEDICATIONS Include: 1. Protonix. 2. Cefepime. 3. Carvedilol. 4. Pravachol. 5. Vancomycin. PHYSICAL EXAMINATION VITAL SIGNS: Temperature 102.0, heart rate 75, respiratory rate 18, blood pressure 144/66, saturation 95%. Mr. Tijerina is a well-developed, well-nourished man who looks tired and ill, toxic appearing at the time of the consultation. He is not his cheery upbeat self. HEENT: Pupils equal, round, reactive to light and accommodation. Oropharynx is dry. NECK: Supple. Neck mass has resolved. He has a large ulcer with deep ulceration into the neck. The most distal part is not visible. No axillary adenopathy. LUNGS: Clear. CARDIOVASCULAR: Normal rate and rhythm. ABDOMEN: Benign. LOWER EXTREMITIES: Asymmetry with left leg more prominent than the right. LABORATORY DATA Significant for hyponatremia, lactic acid is elevated to 0.3, total bilirubin is 1.2. The CBC as described above, retic count is decreased. ASSESSMENT/PLAN Mr. Tijerina is a 77-year-old man with follicular lymphoma, multiple medical problems described above. He had a large cell transformation of the left neck lymphoma and was treated with R-EPOCH chemotherapy with significantly good response. He has resolution of the neck mass but is now left with an ulcerated lesion. I discussed the case with Dr. Syed to continue antibiotic therapy with vancomycin and cefepime. In the meantime, will obtain MRI of the soft tissue neck as discussed with radiology to determine the nature of the ulceration. Will decide if there is abscess. The case was discussed with Dr. Gould. We are hopeful that conservative management with antibiotic topical therapy and dry dressing will prevent further exposure. He might need a wound Vac of the neck mass. We will try to avoid debridement in light of his neutropenia and trending down of his blood counts in the upcoming week. He will need supportive treatment with IV fluid hydration, antibiotic therapy, aggressive management of the above. Will monitor closely his fevers. We will follow up the results of the MRI. His questions were answered to his satisfaction. Arin Mart MD RAD/KARINE /9:14 PM /12:02 AM JENNIFER
[2017-10-17] MEDS: SODIUM CHLOR 0.9% 1000 ML INJ 1,000 ML IV SCH ×3 (05:15→21:07)
[2017-10-17 08:56] LABS: AUTOMATED NEUTROPHIL # 0.7 TH/MM3 (1.8-7.7); BASOPHIL % 0.3 % (0.0-2.0); EOSINOPHIL % 2.1 % (0.0-4.0); HEMATOCRIT 24.9 % (39.0-51.0); HEMOGLOBIN 8.3 GM/DL (13.0-17.0); LYMPH % 2.8 % (9.0-44.0); MEAN CELL VOLUME 84.9 FL (80.0-100.0); MEAN CORPUSCULAR HEMOGLOBIN 28.4 PG (27.0-34.0); MEAN CORPUSCULAR HGB CONC 33.4 % (32.0-36.0); MEAN PLATELET VOLUME 8.1 FL (7.0-11.0); MONO % 0.5 % (0.0-8.0); NEUT % 94.3 % (16.0-70.0); PLATELET COUNT 32 TH/MM3 (150-450); RED BLOOD COUNT 2.94 MIL/MM3 (4.50-5.90); WHITE BLOOD COUNT 0.7 TH/MM3 (4.0-11.0)
--- NOTE | 2017-10-17 08:59 | HHI.PR ---
Subjective Remarks unable to sleep last night bone pain Objective Vitals lying in bed left neck ulcerating wound/tunnels heart reg lung cta abd s/nt ext no edema Vital Signs Date Time Temp Pulse Resp B/P (MAP) Pulse Ox O2 Delivery O2 Flow Rate FiO2 10/17/17 04:00 98.2 67 18 127/46 (73) 95 10/17/17 01:09 62 10/17/17 00:36 97.6 68 18 115/59 (77) 97 10/16/17 23:40 10/16/17 22:36 98.7 72 18 108/53 (71) 98 Room Air 10/16/17 21:15 102.0 75 18 144/66 (92) 95 Room Air 10/16/17 19:31 81 18 152/70 (97) 95 Room Air 10/16/17 18:55 101.4 82 18 147/66 (93) 96 Room Air 10/16/17 17:51 101.8 78 18 134/62 (86) 95 Room Air 10/17/17 10/17/17 10/18/17 15:00 23:00 07:00 Intake Total 700 ml Balance 700 ml IV Total 700 ml Result Diagram: 10/16/17192410/16/171924 A/P Problem List: (1) Fever ICD Codes: R50.9 - Fever, unspecified Status: Acute Plan: Patient is 77 yo with 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 He then developed a left neck mass that ulcerated. He was started on bendamustine and rituxan with initial response. 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 He was treated with Rituxan 10/01/17 and admitted for chemotherapy on October 03 but wassent home due to neutropenia before rx. . He was admitted from 10/09 to 10/13/17 for EPOCH chemotherapy. PICC line was placed during the admission and last dose was reduced due to neutropenia. he f/u in office on 10/14 and wbc 4 and given neulasta. This morning began developing the bone pain presumed due to neulasta and general weakness. Then began with fever and sent in by his doctor. son says the left neck wound actually had looked great and shrunk tremendously in size. 1. fever concerning for neutropenic fever. large ulcerating/tunneling wound left neck. s/p EPOCH chemo last week. 2. dehydration discussed with Dr Moe f/u blood cx ivf given cont vanco/cefepime gen surg consult for ulcerating neck ulcer...?wound vac pain control PT dvt prophylaxis (2) Skin ulcer of left side of neck ICD Codes: L98.499 - Non-pressure chronic ulcer of skin of other sites with unspecified severity Status: Acute (3) Large cell lymphoma ICD Codes: C85.80 - Other specified types of non-Hodgkin lymphoma, unspecified site Status: Acute (4) History of non-Hodgkin's lymphoma ICD Codes: Z85.72 - Personal history of non-Hodgkin lymphomas Status: Chronic (5) Hypertension ICD Codes: I10 - Essential (primary) hypertension Status: Chronic Problem Qualifiers (1) Fever: Qualified Codes: R50.9 - Fever, unspecified Rogerio Syed MD Oct 17, 2017 08:59
--- NOTE | 2017-10-17 09:13 | PD.ONC.PN ---
Subjective Subjective Remarks AFebrile overnight. Patient feeling cold and tired. Body aches all over. No cough. No vomiting. Objective Data Date Time Temp Pulse Resp B/P (MAP) Pulse Ox O2 Delivery O2 Flow Rate FiO2 10/17/17 04:00 98.2 67 18 127/46 (73) 95 10/17/17 01:09 62 10/17/17 00:36 97.6 68 18 115/59 (77) 97 10/16/17 23:40 10/16/17 22:36 98.7 72 18 108/53 (71) 98 Room Air 10/16/17 21:15 102.0 75 18 144/66 (92) 95 Room Air 10/16/17 19:31 81 18 152/70 (97) 95 Room Air 10/16/17 18:55 101.4 82 18 147/66 (93) 96 Room Air 10/16/17 17:51 101.8 78 18 134/62 (86) 95 Room Air 10/17/17 10/17/17 10/17/17 07:00 15:00 23:00 Intake Total 100 ml 700 ml Output Total 500 ml Balance -400 ml 700 ml Result Diagram: 10/17/17 0825 10/16/17 1925 Laboratory Results Laboratory Tests Test 10/16/17 19:25 10/16/17 21:50 10/17/17 08:25 White Blood Count 2.9 TH/MM3 0.7 TH/MM3 Red Blood Count 3.10 MIL/MM3 2.94 MIL/MM3 Hemoglobin 9.0 GM/DL 8.3 GM/DL Hematocrit 26.6 % 24.9 % Mean Corpuscular Volume 85.7 FL 84.9 FL Mean Corpuscular Hemoglobin 29.2 PG 28.4 PG Mean Corpuscular Hemoglobin Concent 34.1 % 33.4 % Red Cell Distribution Width 14.3 % 14.0 % Platelet Count 53 TH/MM3 32 TH/MM3 Mean Platelet Volume 8.5 FL 8.1 FL Neutrophils (%) (Auto) 97.4 % 94.3 % Lymphocytes (%) (Auto) 1.3 % 2.8 % Monocytes (%) (Auto) 0.2 % 0.5 % Eosinophils (%) (Auto) 1.1 % 2.1 % Basophils (%) (Auto) 0.0 % 0.3 % Neutrophils # (Auto) 2.9 TH/MM3 0.7 TH/MM3 Lymphocytes # (Auto) 0.0 TH/MM3 0.0 TH/MM3 Monocytes # (Auto) 0.0 TH/MM3 0.0 TH/MM3 Eosinophils # (Auto) 0.0 TH/MM3 0.0 TH/MM3 Basophils # (Auto) 0.0 TH/MM3 0.0 TH/MM3 CBC Comment AUTO DIFF AUTO DIFF Differential Total Cells Counted 100 Neutrophils % (Manual) 90 % Band Neutrophils % 8 % Lymphocytes % 1 % Neutrophils # (Manual) 2.9 TH/MM3 Myelocytes 1 % Differential Comment FINAL DIFF MANUAL Platelet Estimate LOW Platelet Morphology Comment NORMAL Prothrombin Time 12.2 SEC Prothromb Time International Ratio 1.2 RATIO Activated Partial Thromboplast Time 25.7 SEC Blood Urea Nitrogen 15 MG/DL Creatinine 1.13 MG/DL Random Glucose 103 MG/DL Total Protein 5.6 GM/DL Albumin 2.7 GM/DL Calcium Level 8.5 MG/DL Alkaline Phosphatase 265 U/L Aspartate Amino Transf (AST/SGOT) 29 U/L Alanine Aminotransferase (ALT/SGPT) 53 U/L Total Bilirubin 2.1 MG/DL Sodium Level 133 MEQ/L Potassium Level 3.4 MEQ/L Chloride Level 98 MEQ/L Carbon Dioxide Level 28.2 MEQ/L Anion Gap 7 MEQ/L Estimat Glomerular Filtration Rate 63 ML/MIN Lactic Acid Level 2.3 mmol/L Urine Color YELLOW Urine Turbidity CLEAR Urine pH 6.0 Urine Specific [place] 1.014 Urine Protein TRACE mg/dL Urine Glucose (UA) NEG mg/dL Urine Ketones 10 mg/dL Urine Occult Blood NEG Urine Nitrite NEG Urine Bilirubin NEG Urine Urobilinogen 4.0 MG/DL Urine Leukocyte Esterase NEG Urine RBC 1 /hpf Urine WBC 2 /hpf Urine Bacteria MOD /hpf Urine Mucus FEW /lpf Microscopic Urinalysis Comment CULTURE INDICATED Culture Results Microbiology Date/Time Source Procedure Growth Status 10/16/17 19:30 Blood Peripheral Aerobic Blood Culture Pending Received 10/16/17 19:30 Blood Peripheral Anaerobic Blood Culture Pending Received 10/16/17 19:25 Blood Peripheral Aerobic Blood Culture Pending Received 10/16/17 19:25 Blood Peripheral Anaerobic Blood Culture Pending Received 10/16/17 20:45 Nasal Washing Influenza Types A,B Antigen (DEEPTHI) - Final NEGATIVE FOR FLU A AND B ANTIGEN.... Complete 10/16/17 21:50 Urine Random Urine Urine Culture Pending Received Imaging Studies Last Impressions Chest X-Ray 10/16/17 1912 Signed Impressions: Service Date/Time: Monday, October 16, 2017 19:56 - CONCLUSION: Normal examination. Danilo Charles MD Soft Tissue MRI 10/16/17 0000 Signed Impressions: Service Date/Time: Monday, October 16, 2017 23:38 - CONCLUSION: 1. In comparison to prior study the fluid adenopathy the left neck has significantly decreased in size as above. No new adenopathy is identified Jl Loo MD Administered Medications Medications (Trade) Dose Ordered Sig/Jeremi Route PRN Reason Start Time Stop Time Status Last Admin Dose Admin Sodium Chloride 1,000 ml @ 100 mls/hr Q10H IV 10/16/17 19:15 10/16/17 19:37 Sodium Chloride 1,000 ml @ 84 mls/hr [id number] IV 10/16/17 19:45 10/16/17 21:17 Carvedilol (Coreg) 6.25 mg BID PO 10/16/17 21:00 10/16/17 21:17 Pravastatin Sodium (Pravachol) 40 mg HS PO 10/16/17 21:00 10/16/17 21:17 Acetaminophen (Tylenol) 650 mg Q4H PRN PO fever/pain 10/16/17 19:45 10/16/17 21:17 Acetaminophen/ Hydrocodone Bitart (Creole 5-325 Mg) 1 tab Q4H PRN PO pain 3-10 10/16/17 22:00 10/17/17 03:16 Oxycodone HCl (Roxicodone) 5 mg ONCE PRN PO SEE LABEL COMMENTS 10/16/17 22:00 10/17/17 12:00 10/16/17 22:24 Objective Remarks GENERAL: Pleasant elderly male, sitting up on side of bed shivering. SKIN: Warm and dry. ulcerated wound, left neck, bandage in place is clean. HEAD: Normocephalic. EYES: No injection or drainage. NECK: Supple, trachea midline. CARDIOVASCULAR: Regular rate and rhythm RESPIRATORY: Breath sounds equal bilaterally. No accessory muscle use. GASTROINTESTINAL: Abdomen soft, non-tender, nondistended. EXTREMITIES: No cyanosis NEUROLOGICAL: No obvious focal deficit. Awake, alert, and oriented x3. Assessment/Plan Problem List: (1) Neutropenic fever ICD Codes: D70.9 - Neutropenia, unspecified; R50.81 - Fever presenting with conditions classified elsewhere Plan: --BC pending --on Vanco + Cefepime. --ID consulted --likely source is left neck wound. 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 --s/p EPOCH last week. (3) Skin ulcer of left side of neck ICD Codes: L98.499 - Non-pressure chronic ulcer of skin of other sites with unspecified severity Status: Acute Plan: --has resolution of the neck mass but is now left with an ulcerated lesion. --MRI of the soft tissue neck --surgery consulted, patient may need wound vac. --wound care consulted Assessment 77y/o male admitted with neutropenic fever associated with large cell lymphoma treatment. 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 h/o Liver cirrhosis. Hypertension. Pancytopenia. Neutropenic fever. Left neck wound. Plan 1. consult infectious disease for antibiotic recommendations 2. await Dr. Gould's recommendations, ?wound vac placement today? 3. continue IVF, monitor blood cultures. Attending Statement The exam, history, and the medical decision-making described in the above note were completed with the assistance of the mid-level provider. I reviewed and agree with the findings presented. I attest that I had a casq-sh-otgi encounter with the patient on the same day, and personally performed and documented my assessment and findings in the medical record. Pt seen and examined in AM and again in afternoon. Pt feels very achy and tired. Fever went down, BP normal range but pt ill appearing. Discussed case with multiple team members from Dr. Gould, wound care, primary team regarding neck mass, open wound draining after response. Wound appear clean but optimal management being considered by team. Noted that the mass extend further than can be visualized. As discussed with radiologist there is no abscess to drain but residual tumor persist. Continue antibiotic therapy. Manage pain related to Neulasta. Carmen Russo Oct 17, 2017 09:13 Marie Moe MD Oct 17, 2017 15:39
[2017-10-17 09:15] LABS: BICARBONATE 27.2 MEQ/L (21.0-32.0); CALCIUM 8.5 MG/DL (8.5-10.1); CREATININE 0.85 MG/DL (0.60-1.30)
[2017-10-17] MEDS: CARVEDILOL 6.25 MG TAB PO SCH ×2 (09:31→21:06)
[2017-10-17] MEDS: PANTOPRAZOLE SOD 40 MG DELAYED RELEASE TAB PO SCH (09:31)
[2017-10-17] MEDS: VANCOMYCIN 1,000 MG/NS 250 ML IV SCH ×4 (09:39→21:07)
[2017-10-17 10:47] LABS: BANDS 16 % (0-6); LYMPHOCYTES 1 % (9-44); NEUTROPHIL # MANUAL DIFF 0.7 TH/MM3 (1.8-7.7); POLYS (SEG NEUTROPHILS) 80 % (16-70); TOXIC GRANULATION 2+ (NORMAL)
[2017-10-17] MEDS: POTASSIUM CHLORIDE 20 MEQ CONTROLLED RELEASE TAB PO SCH ×2 (11:16→17:15)
--- NOTE | 2017-10-17 11:54 | PD.ID.CON ---
History of Present Illness Service ID Consult Requested By Solange DINERO Reason for Consult neutropenic fever Primary Care Physician Mateusz Teran MD Diagnoses: History of Present Illness 77 yo male with h/o grade 1follicular lymphoma that progressed and developed a transformation to large cell lymphoma of the neck. He had an ulcerated mass since May. He is on chemotherapy and reports the mass has shrunk and ulcer is smaller He presented yesterday with c/o fever and diffuse body aches. Fever was up to 103 He has pancytopenia with progressively decreasing ANC, now 700 Blood cx are negative @ 1 day , flu test negative and lactic acid on presentation borderline up to 2.3 Review of Systems Constitutional: COMPLAINS OF: Fatigue, Fever, Chills Cardiovascular: COMPLAINS OF: Dyspnea on Exertion Gastrointestinal: COMPLAINS OF: Nausea Except as stated in HPI: all other systems reviewed are Neg Past Family Social History Allergies: Coded Allergies: diclofenac (Verified Allergy, Severe, AFFECTED KIDNEYS, 10/16/17) ALL NSAIDS etodolac (Verified Allergy, Severe, AFFECTED KIDNEYS, 10/16/17) flurbiprofen (Verified Allergy, Severe, AFFECTED KIDNEYS, 10/16/17) ibuprofen (Verified Allergy, Severe, AFFECTED KIDNEYS, 10/16/17) indomethacin (Verified Allergy, Severe, AFFECTED KIDNEYS, 10/16/17) ketoprofen (Verified Allergy, Severe, AFFECTED KIDNEYS, 10/16/17) ketorolac (Verified Allergy, Severe, AFFECTED KIDNEYS, 10/16/17) morphine (Verified Allergy, Severe, NAUSEA/VOMITING, 10/16/17) naproxen (Verified Allergy, Severe, AFFECTED KIDNEYS, 10/16/17) oxaprozin (Verified Allergy, Severe, AFFECTED KIDNEYS, 10/16/17) Sulfa (Sulfonamide Antibiotics) (Verified Allergy, Intermediate, Rash, 07/24) apixaban (Verified Allergy, Intermediate, Hives, 10/16/17) Past Medical History 1. Grade 1 follicular lymphoma. 2. Large cell transformation. 3. Left neck ulcerated mass. 4. Liver cirrhosis. 5. Hypertension. 6. Pancytopenia. 7. Neutropenic fever. 8. Left neck wound. Past Surgical History 1. Back surgery. 2. Left hip arthroplasty. 3. Colonoscopy. 4. Lithotripsy. 5. Knee surgery. 6. Left rotator cuff surgery. 7. Lipoma removal. 8. Radiation to prostate. 9. Mediastinoscopy. 10. Lymph node biopsy. Active Ordered Medications Medications where reviewed in EMR Antibiotics Include: cefepime vancomycin Family History No family history of cancer. Social History He is , lives with his . His son is an software lead. Denies any alcohol, tobacco or illicit drug use. Physical Exam Vital Signs Vital Signs Date Time Temp Pulse Resp B/P (MAP) Pulse Ox O2 Delivery O2 Flow Rate FiO2 10/17/17 04:00 98.2 67 18 127/46 (73) 95 10/17/17 01:09 62 10/17/17 00:36 97.6 68 18 115/59 (77) 97 10/16/17 23:40 10/16/17 22:36 98.7 72 18 108/53 (71) 98 Room Air 10/16/17 21:15 102.0 75 18 144/66 (92) 95 Room Air 10/16/17 19:31 81 18 152/70 (97) 95 Room Air 10/16/17 18:55 101.4 82 18 147/66 (93) 96 Room Air 10/16/17 17:51 101.8 78 18 134/62 (86) 95 Room Air Physical Exam CONSTITUTIONAL/GENERAL: This is an obese elderly male patient, in no apparent distress. TUBES/LINES/DRAINS: SKIN: No jaundice, rashes, or lesions. Ecchymoses on upper extremities. No wounds seen anteriorly. Skin temperature appropriate. Not diaphoretic. HEAD: Atraumatic. Normocephalic. EYES: Pupils equal and round and reactive. Extraocular motions intact. No scleral icterus. No injection or drainage. Fundi not examined. ENT: Hearing grossly normal. Nose without bleeding or purulent drainage. Throat without visible erythema, exudates, masses, or lesions. NECK: Trachea midline. Supple, nontender. Large ulceration with serosang d/c on the L base of ateral neck surrounded by ill defined induraion and mass CARDIOVASCULAR: Regular rate and rhythm without murmurs, gallops, or rubs. No JVD. Peripheral pulses symmetric. RESPIRATORY/CHEST: Symmetric, unlabored respirations. Clear to auscultation. Breath sounds equal bilaterally. No wheezes, rales, or rhonchi. GASTROINTESTINAL: Abdomen soft, non-tender, nondistended. No hepato-splenomegaly , or palpable masses. No guarding. Bowel sounds present. GENITOURINARY: Without palpable bladder distension. MUSCULOSKELETAL: Extremities without clubbing, cyanosis, + 1 edema. No joint tenderness or effusion noted. No calf tenderness. No mottling or clubbing. LYMPHATICS: No palpable cervical or supraclavicular adenopathy. NEUROLOGICAL: Awake and alert. Motor and sensory grossly within normal limits. Follows commands. Clear speech. Moves all extremities. PSYCHIATRIC: No obvious anxiety/depression. no apparent hallucinations or other psychotic thought process. Laboratory Laboratory Tests Test 10/16/17 19:25 10/16/17 21:50 10/17/17 08:25 White Blood Count 2.9 0.7 Red Blood Count 3.10 2.94 Hemoglobin 9.0 8.3 Hematocrit 26.6 24.9 Mean Corpuscular Volume 85.7 84.9 Mean Corpuscular Hemoglobin 29.2 28.4 Mean Corpuscular Hemoglobin Concent 34.1 33.4 Red Cell Distribution Width 14.3 14.0 Platelet Count 53 32 Mean Platelet Volume 8.5 8.1 Neutrophils (%) (Auto) 97.4 94.3 Lymphocytes (%) (Auto) 1.3 2.8 Monocytes (%) (Auto) 0.2 0.5 Eosinophils (%) (Auto) 1.1 2.1 Basophils (%) (Auto) 0.0 0.3 Neutrophils # (Auto) 2.9 0.7 Lymphocytes # (Auto) 0.0 0.0 Monocytes # (Auto) 0.0 0.0 Eosinophils # (Auto) 0.0 0.0 Basophils # (Auto) 0.0 0.0 CBC Comment AUTO DIFF AUTO DIFF Differential Total Cells Counted 100 100 Neutrophils % (Manual) 90 80 Band Neutrophils % 8 16 Lymphocytes % 1 1 Neutrophils # (Manual) 2.9 0.7 Myelocytes 1 Differential Comment FINAL DIFF MANUAL FINAL DIFF MANUAL Platelet Estimate LOW LOW Platelet Morphology Comment NORMAL NORMAL Prothrombin Time 12.2 Prothromb Time International Ratio 1.2 Activated Partial Thromboplast Time 25.7 Blood Urea Nitrogen 15 12 Creatinine 1.13 0.85 Random Glucose 103 88 Total Protein 5.6 Albumin 2.7 Calcium Level 8.5 8.5 Alkaline Phosphatase 265 Aspartate Amino Transf (AST/SGOT) 29 Alanine Aminotransferase (ALT/SGPT) 53 Total Bilirubin 2.1 Sodium Level 133 134 Potassium Level 3.4 3.0 Chloride Level 98 99 Carbon Dioxide Level 28.2 27.2 Anion Gap 7 8 Estimat Glomerular Filtration Rate 63 87 Lactic Acid Level 2.3 Urine Color YELLOW Urine Turbidity CLEAR Urine pH 6.0 Urine Specific [place] 1.014 Urine Protein TRACE Urine Glucose (UA) NEG Urine Ketones 10 Urine Occult Blood NEG Urine Nitrite NEG Urine Bilirubin NEG Urine Urobilinogen 4.0 Urine Leukocyte Esterase NEG Urine RBC 1 Urine WBC 2 Urine Bacteria MOD Urine Mucus FEW Microscopic Urinalysis Comment CULTURE INDICATED Eosinophils % 3 Toxic Granulation 2+ Date/Time Source Procedure Growth Status 10/16/17 19:30 Blood Peripheral Aerobic Blood Culture - Preliminary NO GROWTH IN 1 DAY Resulted 10/16/17 19:30 Blood Peripheral Anaerobic Blood Culture - Preliminary NO GROWTH IN 1 DAY Resulted 10/16/17 20:45 Nasal Washing Influenza Types A,B Antigen (DEEPTHI) - Final NEGATIVE FOR FLU A AND B ANTIGEN.... Complete 10/16/17 21:50 Urine Random Urine Urine Culture Pending Received Result Diagram: 10/17/1725 10/17/17 0825 Imaging Last Impressions Chest X-Ray 10/16/17 191 Signed Impressions: Service Date/Time: Monday, October 16, 2017 19:56 - CONCLUSION: Normal examination. Danilo Charles MD Soft Tissue MRI 10/16/17 0000 Signed Impressions: Service Date/Time: Monday, October 16, 2017 23:38 - CONCLUSION: 1. In comparison to prior study the fluid adenopathy the left neck has significantly decreased in size as above. No new adenopathy is identified Jl Loo MD Assessment and Plan Assessment and Plan Large cell lyphoma of the neck with chronic ulceration cw fungating malignant mass Fever ? port of entry likely his ulceration Relative neutropenia, sp chemo, counts going down cont cefepime, vancomycin fu clx fu ANC will chk wound clx Erin Villasenor MD Oct 17, 2017 11:54
[2017-10-17] MEDS: CEFEPIME INJ 2,000 MG in SODIUM CHLORIDE 0.9% INJ 100 ML IV SCH ×2 (12:23→23:15)
[2017-10-17] MEDS ORDERED: HYDROmorphone HCL PF 2 MG/ML VIAL IV PUSH ONE (13:45)
--- NOTE | 2017-10-17 15:23 | PD.WCN.NOT ---
Wound Consult Description: Patient seen for follow up of wound to L neck per consult from Solange GOMEZ for Doctor Moe Communicated with: RN Gabriela oncology and Solange GOMEZ Recommendation: 1.Please cleanse wound with normal saline, or sterile water and pat dry. Apply Optifoam AG gentle border and change dressing every other day or PRN if saturated or dislodged. 2.Possible Plastics evaluation needed for fluid adenopathy pocket beneath wound bed. Additional Information: Patient seen on [facility] for follow up of wound to L neck. Patient last seen on previous admission with Doctor Terrence. Wound drainage has decreased from previous documentation.Wound appears smaller than previously assessed. Wound is without foul odor. Periwound presents with some induration from 12 to 2 o'clock and no erythema. Wound bed presents with ~80% pink tissue and ~20% yellow tissue. Wound has scant sero-sanguinous drainage. Wound measures 3cm x 2.3cm x ~ 0.6cm. Cleansed wound with normal saline and patted dry. Skin prep was applied to periwound. Applied gentle adhesive foam dressing impregnated with AG.Doctor Hamilton infectious disease was in the room and also assessed wound. Jamila Kwong [facility] Oct 17, 2017 15:23
--- NOTE | 2017-10-17 16:15 | PD.WOU.CON ---
Patient Intake Chief Complaint Neck Ulcer Consult Requested by JASON Russo Reason for Consult Neck Ulcer with h/o of neutropenia and lymphoma Primary Care Physician Mateusz Teran MD History of Present Illness Patient has a history of lymphoma and was seen last week for woundcare of his left neck ulcer. His is present in the room with a face mask as patient is neutropenic. Patient reports that he is okay but not at his best and is tying to fight this illness. He was readmited yesterday after having fevers at home. His neck wound has already been dressed by the wound care nurse and he has no other acute concerns at this time. Coded Allergies: diclofenac (Verified Allergy, Severe, AFFECTED KIDNEYS, 10/16/17) ALL NSAIDS etodolac (Verified Allergy, Severe, AFFECTED KIDNEYS, 10/16/17) flurbiprofen (Verified Allergy, Severe, AFFECTED KIDNEYS, 10/16/17) ibuprofen (Verified Allergy, Severe, AFFECTED KIDNEYS, 10/16/17) indomethacin (Verified Allergy, Severe, AFFECTED KIDNEYS, 10/16/17) ketoprofen (Verified Allergy, Severe, AFFECTED KIDNEYS, 10/16/17) ketorolac (Verified Allergy, Severe, AFFECTED KIDNEYS, 10/16/17) morphine (Verified Allergy, Severe, NAUSEA/VOMITING, 10/16/17) naproxen (Verified Allergy, Severe, AFFECTED KIDNEYS, 10/16/17) oxaprozin (Verified Allergy, Severe, AFFECTED KIDNEYS, 10/16/17) Sulfa (Sulfonamide Antibiotics) (Verified Allergy, Intermediate, Rash, 07/24) apixaban (Verified Allergy, Intermediate, Hives, 10/16/17) Vital Signs Date Time Temp Pulse Resp B/P (MAP) Pulse Ox O2 Delivery O2 Flow Rate FiO2 10/17/17 12:34 99.1 71 20 150/74 (99) 95 10/17/17 04:00 98.2 67 18 127/46 (73) 95 10/17/17 01:09 62 10/17/17 00:36 97.6 68 18 115/59 (77) 97 10/16/17 23:40 10/16/17 22:36 98.7 72 18 108/53 (71) 98 Room Air 10/16/17 21:15 102.0 75 18 144/66 (92) 95 Room Air 10/16/17 19:31 81 18 152/70 (97) 95 Room Air 10/16/17 18:55 101.4 82 18 147/66 (93) 96 Room Air 10/16/17 17:51 101.8 78 18 134/62 (86) 95 Room Air Lab and Radiology Results Radiology Last Impressions Chest X-Ray 10/16/17 1912 Signed Impressions: Service Date/Time: Monday, October 16, 2017 19:56 - CONCLUSION: Normal examination. Danilo Charles MD Soft Tissue MRI 10/16/17 0000 Signed Impressions: Service Date/Time: Monday, October 16, 2017 23:38 - CONCLUSION: 1. In comparison to prior study the fluid adenopathy the left neck has significantly decreased in size as above. No new adenopathy is identified Jl Loo MD Assessment/Plan Problem List: (1) Skin ulcer of neck (2) Neutropenia Status: Acute (3) Large cell lymphoma Status: Acute (4) History of non-Hodgkin's lymphoma Status: Chronic Problem Qualifiers (1) Neutropenia: Qualified Codes: D70.9 - Neutropenia, unspecified Mandi Ocampo MD Oct 17, 2017 16:15
[2017-10-17] MEDS: ACETAMINOPHEN 325 MG TAB PO PRN (21:06)
[2017-10-17] MEDS: PRAVASTATIN SOD 40 MG TAB PO SCH (21:06)
[2017-10-18] VITALS (8 sets, daily range): BP systolic 130–170; BP diastolic 63–87; PULSE 63–71; RESP 16–18; TEMP 97.3–99.5; O2SAT 94–97
[2017-10-18] MEDS ORDERED: TEMAZEPAM 15 MG CAP PO ONE (00:05)
[2017-10-18 05:55] LABS: HEMATOCRIT 22.7 % (39.0-51.0); HEMOGLOBIN 7.5 GM/DL (13.0-17.0); MEAN CELL VOLUME 85.5 FL (80.0-100.0); MEAN CORPUSCULAR HGB CONC 32.8 % (32.0-36.0); MEAN PLATELET VOLUME 8.3 FL (7.0-11.0); PLATELET COUNT 20 TH/MM3 (150-450); RED BLOOD COUNT 2.66 MIL/MM3 (4.50-5.90); RED CELL DISTRIBUTION WIDTH 14.2 % (11.6-17.2); WHITE BLOOD COUNT 0.2 TH/MM3 (4.0-11.0)
[2017-10-18 06:23] LABS: BICARBONATE 26.2 MEQ/L (21.0-32.0); CALCIUM 8.6 MG/DL (8.5-10.1); CREATININE 0.76 MG/DL (0.60-1.30); MAGNESIUM 1.8 MG/DL (1.5-2.5)
[2017-10-18] MEDS ORDERED: diphenhydrAMINE HCL 25 MG CAP PO PRN (07:45)
[2017-10-18] MEDS ORDERED: SODIUM CHLOR 0.9% 250 ML INJ 250 ML IV ONE (07:45)
[2017-10-18] MEDS ORDERED: PHARMACY ORDERED LAB ONE (07:45)
[2017-10-18] MEDS ORDERED: ACETAMINOPHEN 325 MG TAB PO PRN (07:45)
[2017-10-18 08:52] LABS: LYMPHOCYTES 20 % (9-44); NEUTROPHIL # MANUAL DIFF 0.1 TH/MM3 (1.8-7.7); POLYS (SEG NEUTROPHILS) 56 % (16-70)
[2017-10-18 08:53] LABS: ROULEAUX PRESENT (NORMAL)
[2017-10-18] MEDS ORDERED: HYDROmorphone HCL PF 2 MG/ML VIAL IV PUSH PRN (09:00)
--- NOTE | 2017-10-18 09:04 | HHI.PR ---
Subjective Remarks alot of bone pain miserable unable to get iv Objective Vitals left neck open wound/tunneling noted heart reg lung cta abd s/nt ext no edema Vital Signs Date Time Temp Pulse Resp B/P (MAP) Pulse Ox O2 Delivery O2 Flow Rate FiO2 10/18/17 04:48 97.7 66 153/81 (105) 94 10/18/17 00:29 98.0 67 18 130/63 (85) 96 10/17/17 21:46 88 10/17/17 21:02 100.9 77 20 177/83 (114) 94 10/17/17 17:18 100.2 77 20 157/81 (106) 91 10/17/17 12:34 99.1 71 20 150/74 (99) 95 10/17/17 09:30 98.2 70 16 150/67 (94) 96 Result Diagram: 10/18/1740910/18/17 041 A/P Problem List: (1) Fever ICD Codes: R50.9 - Fever, unspecified Status: Acute Plan: Patient is 77 yo with 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 He then developed a left neck mass that ulcerated. He was started on bendamustine and rituxan with initial response. 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 He was treated with Rituxan 10/01/17 and admitted for chemotherapy on October 03 but wassent home due to neutropenia before rx. . He was admitted from 10/09 to 10/13/17 for EPOCH chemotherapy. PICC line was placed during the admission and last dose was reduced due to neutropenia. he f/u in office on 10/14 and wbc 4 and given neulasta. This morning began developing the bone pain presumed due to neulasta and general weakness. Then began with fever and sent in by his doctor. son says the left neck wound actually had looked great and shrunk tremendously in size. 1. neutropenic fever. large ulcerating/tunneling wound left neck. s/p EPOCH chemo last week. 2. pancytopenia discussed with Dr Moe f/u blood cx cont vanco/cefepime awaiting surgical input for left neck ulcerating wound pain control increased blood transfusion ordered. PT dvt prophylaxis (2) Skin ulcer of left side of neck ICD Codes: L98.499 - Non-pressure chronic ulcer of skin of other sites with unspecified severity Status: Acute (3) Large cell lymphoma ICD Codes: C85.80 - Other specified types of non-Hodgkin lymphoma, unspecified site Status: Acute (4) History of non-Hodgkin's lymphoma ICD Codes: Z85.72 - Personal history of non-Hodgkin lymphomas Status: Chronic (5) Hypertension ICD Codes: I10 - Essential (primary) hypertension Status: Chronic Problem Qualifiers (1) Fever: Qualified Codes: R50.9 - Fever, unspecified Rogerio Syed MD Oct 18, 2017 09:04
[2017-10-18] MEDS: PANTOPRAZOLE SOD 40 MG DELAYED RELEASE TAB PO SCH (09:46)
[2017-10-18] MEDS: CARVEDILOL 6.25 MG TAB PO SCH ×2 (09:46→21:11)
[2017-10-18] MEDS: VANCOMYCIN 1,000 MG/NS 250 ML IV SCH ×2 (09:49)
[2017-10-18] MEDS: CEFEPIME INJ 2,000 MG in SODIUM CHLORIDE 0.9% INJ 100 ML IV SCH ×2 (11:30→21:11)
--- NOTE | 2017-10-18 12:05 | PD.CONS ---
[facility] Service Urology Consult Requested By Primary Care Physician Mateusz Teran MD Diagnosis: (1) Fever ICD Code: R50.9 - Fever, unspecified (2) Skin ulcer of left side of neck ICD Code: L98.499 - Non-pressure chronic ulcer of skin of other sites with unspecified severity (3) Large cell lymphoma ICD Code: C85.80 - Other specified types of non-Hodgkin lymphoma, unspecified site (4) History of non-Hodgkin's lymphoma ICD Code: Z85.72 - Personal history of non-Hodgkin lymphomas (5) Hypertension ICD Code: I10 - Essential (primary) hypertension History of Present Illness 77 year-old gentleman with history lymphoma and prostate cancer who is now admitted for management of ulceration to his neck mass after being treated with chemotherapy. During the course of present possible rosacea in the patient described urgency symptoms thus prompting a urology consult. The patient reports that he was treated for prostate cancer with radiation therapy greater than 5 years ago under the supervision of Dr. Denis Rivera. He reports having problems with urgency incontinence in the past and was prescribed some type of medication by Dr. Rivera but is unsure of the name. He denies needing to be catheterized since his treatment for the prostate cancer. He denies dysuria or gross hematuria. Urinalysis upon admission failed to demonstrate any significant red cells or white cells. A recent urine culture was submitted which thus far has only grown out 10-25,000 gram-negative rods. Review of Systems Cardiovascular: DENIES: Chest pain Gastrointestinal: DENIES: Abdominal pain Genitourinary: COMPLAINS OF: Urinary frequency, Urgency, DENIES: Hematuria, Dysuria Except as stated in HPI: all other systems reviewed are Neg Past Family Social History Past Medical History Prostate cancer Lymphoma Liver cirrhosis Hypertension Past Surgical History Status post radiation therapy for prostate cancer Status post back surgery Status post shockwave lithotripsy Status post left hip arthroplasty Status post knee surgery Status post left rotator cuff surgery Reported Medications Refer to EMR Allergies: Coded Allergies: diclofenac (Verified Allergy, Severe, AFFECTED KIDNEYS, 10/16/17) ALL NSAIDS etodolac (Verified Allergy, Severe, AFFECTED KIDNEYS, 10/16/17) flurbiprofen (Verified Allergy, Severe, AFFECTED KIDNEYS, 10/16/17) ibuprofen (Verified Allergy, Severe, AFFECTED KIDNEYS, 10/16/17) indomethacin (Verified Allergy, Severe, AFFECTED KIDNEYS, 10/16/17) ketoprofen (Verified Allergy, Severe, AFFECTED KIDNEYS, 10/16/17) ketorolac (Verified Allergy, Severe, AFFECTED KIDNEYS, 10/16/17) morphine (Verified Allergy, Severe, NAUSEA/VOMITING, 10/16/17) naproxen (Verified Allergy, Severe, AFFECTED KIDNEYS, 10/16/17) oxaprozin (Verified Allergy, Severe, AFFECTED KIDNEYS, 10/16/17) Sulfa (Sulfonamide Antibiotics) (Verified Allergy, Intermediate, Rash, 07/24) apixaban (Verified Allergy, Intermediate, Hives, 10/16/17) Active Ordered Medications Refer to EMR Family History Reviewed and noncontributory Social History Denies history tobacco, alcohol or intravenous drug abuse Physical Exam Vital Signs Date Time Temp Pulse Resp B/P (MAP) Pulse Ox O2 Delivery O2 Flow Rate FiO2 10/18/17 09:37 97.9 65 16 153/75 (101) 97 10/18/17 04:48 97.7 66 153/81 (105) 94 10/18/17 00:29 98.0 67 18 130/63 (85) 96 10/17/17 21:46 88 10/17/17 21:02 100.9 77 20 177/83 (114) 94 10/17/17 17:18 100.2 77 20 157/81 (106) 91 10/17/17 12:34 99.1 71 20 150/74 (99) 95 Physical Exam GENERAL: This is a well-nourished, well-developed patient, in no apparent distress. SKIN: No rashes, ecchymoses or lesions. Cool and dry. HEAD: Atraumatic. Normocephalic. No temporal or scalp tenderness. EYES: Pupils equal round and reactive. Extraocular motions intact. No scleral icterus. No injection or drainage. ENT: Nose without bleeding, purulent drainage or septal hematoma. Bandage present on neck. NECK: Trachea midline. No JVD or lymphadenopathy. Supple, nontender, no meningeal signs.i. GASTROINTESTINAL: Abdomen soft, non-tender, nondistended. No hepato-splenomegaly , or palpable masses. No guarding. GENITOURINARY: Bladder not distended. Normal male genitalia MUSCULOSKELETAL: Extremities without clubbing, cyanosis, or edema. No joint tenderness, effusion, or edema noted. No calf tenderness. Negative Homans sign bilaterally. NEUROLOGICAL: Awake and alert. Cranial nerves II through XII intact. Motor and sensory grossly within normal limits. Five out of 5 muscle strength in all muscle groups. Normal speech. Lab results reviewed: Yes Laboratory Tests Test 10/18/17 04:10 10/18/17 10:35 White Blood Count 0.2 Red Blood Count 2.66 Hemoglobin 7.5 Hematocrit 22.7 Mean Corpuscular Volume 85.5 Mean Corpuscular Hemoglobin 28.0 Mean Corpuscular Hemoglobin Concent 32.8 Red Cell Distribution Width 14.2 Platelet Count 20 Mean Platelet Volume 8.3 CBC Comment AUTO DIFF Differential Total Cells Counted 25 Neutrophils % (Manual) 56 Lymphocytes % 20 Eosinophils % 24 Neutrophils # (Manual) 0.1 Differential Comment FINAL DIFF MANUAL Platelet Estimate LOW Platelet Morphology Comment NORMAL Rouleau PRESENT Blood Urea Nitrogen 9 Creatinine 0.76 Random Glucose 90 Calcium Level 8.6 Magnesium Level 1.8 Sodium Level 137 Potassium Level 3.5 Chloride Level 104 Carbon Dioxide Level 26.2 Anion Gap 7 Estimat Glomerular Filtration Rate 99 Date/Time Source Procedure Growth Status 10/16/17 19:30 Blood Peripheral Aerobic Blood Culture - Preliminary NO GROWTH IN 2 DAYS Resulted 10/16/17 19:30 Blood Peripheral Anaerobic Blood Culture - Preliminary NO GROWTH IN 2 DAYS Resulted 10/16/17 20:45 Nasal Washing Influenza Types A,B Antigen (DEEPTHI) - Final NEGATIVE FOR FLU A AND B ANTIGEN.... Complete 10/16/17 21:50 Urine Random Urine Urine Culture - Preliminary Gram Negative Clarence Resulted Result Diagram: 10/18/170 10/18/17 0410 Imaging Last Impressions Chest X-Ray 10/16/17 1912 Signed Impressions: Service Date/Time: Monday, October 16, 2017 19:56 - CONCLUSION: Normal examination. Danilo Charles MD Soft Tissue MRI 10/16/17 0000 Signed Impressions: Service Date/Time: Monday, October 16, 2017 23:38 - CONCLUSION: 1. In comparison to prior study the fluid adenopathy the left neck has significantly decreased in size as above. No new adenopathy is identified Jl Loo MD Assessment and Plan Assessment and Plan Urologic impression: #1 history of prostate cancer status post treatment with radiation therapy #2 urgency symptoms likely related to post radiation changes to the urinary bladder Recommendations: #1 tolterodine LA 4 mg by mouth daily #2 patient will follow up with his established urologist Dr. Rivera after hospital discharge #3 will be available as needed during present hospitalization Problem Qualifiers (1) Fever: Qualified Codes: R50.9 - Fever, unspecified Rian Simms MD Oct 18, 2017 12:05
--- NOTE | 2017-10-18 14:32 | PD.ONC.PN ---
Subjective Subjective Remarks Tmax 100.9 overnight. Patient states "I feel much better today." Neck feels better with new dressing. Resting comfortably with "cat naps" Objective Data Date Time Temp Pulse Resp B/P (MAP) Pulse Ox O2 Delivery O2 Flow Rate FiO2 10/18/17 13:41 98.0 69 16 148/80 97 10/18/17 13:14 97.3 67 18 170/76 96 10/18/17 12:03 97.7 67 16 154/84 (107) 97 10/18/17 09:37 97.9 65 16 153/75 (101) 97 10/18/17 04:48 97.7 66 153/81 (105) 94 10/18/17 00:29 98.0 67 18 130/63 (85) 96 10/17/17 21:46 88 10/17/17 21:02 100.9 77 20 177/83 (114) 94 10/17/17 17:18 100.2 77 20 157/81 (106) 91 10/18/17 10/18/17 10/18/17 07:00 15:00 23:00 Intake Total 1252 ml Output Total 450 ml Balance 802 ml Result Diagram: 10/18/170 10/18/17 0410 Laboratory Results Laboratory Tests Test 10/18/17 04:10 10/18/17 10:35 White Blood Count 0.2 TH/MM3 Red Blood Count 2.66 MIL/MM3 Hemoglobin 7.5 GM/DL Hematocrit 22.7 % Mean Corpuscular Volume 85.5 FL Mean Corpuscular Hemoglobin 28.0 PG Mean Corpuscular Hemoglobin Concent 32.8 % Red Cell Distribution Width 14.2 % Platelet Count 20 TH/MM3 Mean Platelet Volume 8.3 FL CBC Comment AUTO DIFF Differential Total Cells Counted 25 Neutrophils % (Manual) 56 % Lymphocytes % 20 % Eosinophils % 24 % Neutrophils # (Manual) 0.1 TH/MM3 Differential Comment FINAL DIFF MANUAL Platelet Estimate LOW Platelet Morphology Comment NORMAL Rouleau PRESENT Blood Urea Nitrogen 9 MG/DL Creatinine 0.76 MG/DL Random Glucose 90 MG/DL Calcium Level 8.6 MG/DL Magnesium Level 1.8 MG/DL Sodium Level 137 MEQ/L Potassium Level 3.5 MEQ/L Chloride Level 104 MEQ/L Carbon Dioxide Level 26.2 MEQ/L Anion Gap 7 MEQ/L Estimat Glomerular Filtration Rate 99 ML/MIN Vancomycin Level Trough 28.4 MCG/ML Culture Results Microbiology Date/Time Source Procedure Growth Status 10/16/17 19:30 Blood Peripheral Aerobic Blood Culture - Preliminary NO GROWTH IN 2 DAYS Resulted 10/16/17 19:30 Blood Peripheral Anaerobic Blood Culture - Preliminary NO GROWTH IN 2 DAYS Resulted 10/16/17 19:25 Blood Peripheral Aerobic Blood Culture - Preliminary NO GROWTH IN 2 DAYS Resulted 10/16/17 19:25 Blood Peripheral Anaerobic Blood Culture - Preliminary NO GROWTH IN 2 DAYS Resulted 10/16/17 20:45 Nasal Washing Influenza Types A,B Antigen (DEEPTHI) - Final NEGATIVE FOR FLU A AND B ANTIGEN.... Complete 10/16/17 21:50 Urine Random Urine Urine Culture - Preliminary Gram Negative Clarence Resulted Administered Medications Medications (Trade) Dose Ordered Sig/Jeremi Route PRN Reason Start Time Stop Time Status Last Admin Dose Admin Cefepime HCl 2000 mg/Sodium Chloride 100 ml @ 200 mls/hr BID IV 10/17/17 09:00 10/18/17 11:30 Sodium Chloride 1,000 ml @ 84 mls/hr [id number] IV 10/16/17 19:45 10/17/17 21:07 Carvedilol (Coreg) 6.25 mg BID PO 10/16/17 21:00 10/18/17 09:46 Pravastatin Sodium (Pravachol) 40 mg HS PO 10/16/17 21:00 10/17/17 21:06 Pantoprazole Sodium (Protonix) 40 mg DAILY PO 10/17/17 09:00 10/18/17 09:46 Vancomycin HCl 1000 mg/Sodium Chloride 250 ml @ 250 mls/hr Q12H IV 10/17/17 08:00 Future Hold 10/18/17 09:49 Acetaminophen (Tylenol) 650 mg Q4H PRN PO fever>100.4 10/17/17 09:15 10/17/17 21:06 Sodium Chloride 250 ml @ 15 mls/hr ONCE ONCE IV 10/18/17 07:45 10/19/17 00:24 10/18/17 13:24 Acetaminophen (Tylenol) 650 mg Q4H PRN PO SEE LABEL COMMENTS 10/18/17 07:45 10/18/17 23:59 10/18/17 12:02 Diphenhydramine HCl (Benadryl) 25 mg Q4H PRN PO SEE LABEL COMMENTS 10/18/17 07:45 10/18/17 23:59 10/18/17 12:01 Oxycodone HCl (Roxicodone) 10 mg Q4H PRN PO PAIN SCALE 1 TO 10 10/18/17 09:30 10/18/17 09:46 Objective Remarks GENERAL: Pleasant elderly male. He is lying in bed in nad. SKIN: Warm and dry. left neck with bandage in place, c/d/i. HEAD: Normocephalic. EYES: No injection or drainage. NECK: Supple, trachea midline. CARDIOVASCULAR: Regular rate and rhythm RESPIRATORY: anterior hastings clear to auscultation. GASTROINTESTINAL: Abdomen soft, non-tender, nondistended. EXTREMITIES: No cyanosis NEUROLOGICAL: awake, alert, normal speech. able to move extremities. Assessment/Plan Problem List: (1) Neutropenic fever ICD Codes: D70.9 - Neutropenia, unspecified; R50.81 - Fever presenting with conditions classified elsewhere Plan: --BC no growth --UC: GNR --on Vanco + Cefepime. --ID following. --likely source is left neck wound. 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 --s/p EPOCH last week. (3) Skin ulcer of left side of neck ICD Codes: L98.499 - Non-pressure chronic ulcer of skin of other sites with unspecified severity Status: Acute Plan: --has resolution of the neck mass but is now left with an ulcerated lesion. --MRI of the soft tissue neck --surgery consulted, patient may need wound vac. --wound care consulted and recommends Optifoam AG dressing with every other day dressing changes. Assessment 77y/o male admitted with neutropenic fever associated with large cell lymphoma treatment. 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 h/o Liver cirrhosis. Hypertension. Pancytopenia. Neutropenic fever. Left neck wound. Plan 1. continue antibiotics. appreciate ID assistance. 2. give 1 unit pRBC. monitor CBC 3. continue dressing changes per wound care recommendations. Attending Statement The exam, history, and the medical decision-making described in the above note were completed with the assistance of the mid-level provider. I reviewed and agree with the findings presented. I attest that I had a [id number] encounter with the patient on the same day, and personally performed and documented my assessment and findings in the medical record. Pt seen and examined. Need better IV access. c/o urological symptoms. Requesting Dr. Rivera. Discussed plan to continue antibiotic support until neutropenia resolved. ID following. Conservative management of L neck ulcer/tumor. Optimize pain meds next 24 hours due to Neulasta effect. Carmen Russo Oct 18, 2017 14:32 Marie Moe MD Oct 18, 2017 15:51
[2017-10-18] MEDS: TOLTERODINE TARTRATE 4 MG CAP LA PO SCH (17:09)
[2017-10-18] MEDS: SODIUM CHLOR 0.9% 1000 ML INJ 1,000 ML IV SCH (21:11)
[2017-10-18] MEDS: PRAVASTATIN SOD 40 MG TAB PO SCH (21:11)
[2017-10-19] VITALS (9 sets, daily range): BP systolic 142–181; BP diastolic 72–85; PULSE 70–83; RESP 16–20; TEMP 97.9–99.7; O2SAT 94–97
[2017-10-19 04:12] LABS: HEMATOCRIT 23.6 % (39.0-51.0); MEAN CELL VOLUME 84.4 FL (80.0-100.0); MEAN CORPUSCULAR HEMOGLOBIN 28.7 PG (27.0-34.0); MEAN PLATELET VOLUME 8.2 FL (7.0-11.0); RED CELL DISTRIBUTION WIDTH 13.7 % (11.6-17.2); WHITE BLOOD COUNT 0.1 TH/MM3 (4.0-11.0)
[2017-10-19 04:34] LABS: PLATELET COUNT 16 TH/MM3 (150-450)
[2017-10-19 05:27] LABS: LYMPHOCYTES 90 % (9-44)
[2017-10-19 05:34] LABS: ROULEAUX PRESENT (NORMAL)
[2017-10-19] MEDS: PANTOPRAZOLE SOD 40 MG DELAYED RELEASE TAB PO SCH (09:11)
[2017-10-19] MEDS: TOLTERODINE TARTRATE 4 MG CAP LA PO SCH (09:11)
[2017-10-19] MEDS: CARVEDILOL 6.25 MG TAB PO SCH ×2 (09:12→19:59)
[2017-10-19] MEDS: SODIUM CHLOR 0.9% 1000 ML INJ 1,000 ML IV SCH ×2 (09:12→20:05)
[2017-10-19] MEDS: CEFEPIME INJ 2,000 MG in SODIUM CHLORIDE 0.9% INJ 100 ML IV SCH ×2 (09:12→21:10)
--- NOTE | 2017-10-19 10:10 | HHI.PR ---
Subjective Remarks Pain better controlled today. concerned about continued confusion which she attributes to pain medications. Pt ate a good breakfast previously NOT eating well. No BM for several days. At home pt takes MOM roughly q3d. Objective Vitals Vital Signs Date Time Temp Pulse Resp B/P (MAP) Pulse Ox O2 Delivery O2 Flow Rate FiO2 10/19/17 04:49 98.9 70 16 158/83 (108) 95 10/19/17 02:37 163/83 (109) 10/19/17 00:27 98.9 76 17 173/79 (110) 96 10/18/17 21:00 99.5 71 16 163/78 (106) 95 10/18/17 15:26 98.1 63 16 146/87 (106) 95 10/18/17 13:41 98.0 69 16 148/80 97 10/18/17 13:14 97.3 67 18 170/76 96 10/18/17 12:03 97.7 67 16 154/84 (107) 97 Result Diagram: 10/19/17 0330 10/18/17 0410 Imaging Last Impressions Chest X-Ray 10/16/17 1912 Signed Impressions: Service Date/Time: Monday, October 16, 2017 19:56 - CONCLUSION: Normal examination. Danilo Charles MD Soft Tissue MRI 10/16/17 0000 Signed Impressions: Service Date/Time: Monday, October 16, 2017 23:38 - CONCLUSION: 1. In comparison to prior study the fluid adenopathy the left neck has significantly decreased in size as above. No new adenopathy is identified Jl Loo MD Objective Remarks GENERAL: This is a well-nourished, well-developed patient, in no apparent distress. CARDIOVASCULAR: Regular rate and rhythm without murmurs, gallops, or rubs. RESPIRATORY: Clear to auscultation. Breath sounds equal bilaterally. No wheezes , rales, or rhonchi. GASTROINTESTINAL: Abdomen soft, non-tender, nondistended. Normal active bowel sounds MUSCULOSKELETAL: Extremities without clubbing, cyanosis, or edema. NEURO: Alert & Oriented x4 to person, place, time, situation. Moves all ext x4 A/P Problem List: (1) Fever ICD Codes: R50.9 - Fever, unspecified Status: Acute Plan: - comgmt with ID and Oncology Patient is 77 yo with 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 He then developed a left neck mass that ulcerated. He was started on bendamustine and rituxan with initial response. 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 He was treated with Rituxan 10/01/17 and admitted for chemotherapy on October 03 but wassent home due to neutropenia before rx. . He was admitted from 10/09 to 10/13/17 for EPOCH chemotherapy. PICC line was placed during the admission and last dose was reduced due to neutropenia. he f/u in office on 10/14 and wbc 4 and given neulasta. This morning began developing the bone pain presumed due to neulasta and general weakness. Then began with fever and sent in by his doctor. son says the left neck wound actually had looked great and shrunk tremendously in size. 1. neutropenic fever. large ulcerating/tunneling wound left neck. s/p EPOCH chemo last week. 2. pancytopenia - source is likely Left neck wound - Blood cultures (10/16/17) --> NO growth to date - Vancomycin (10/16 - present) - Cefepime (10/16 - present) - Case d/w Dr. Gould (10/19/17) --> Pt is NOT a candidate for surgical treatment of left neck mass/ulceration - Wound VAC can NOT be utilized d/t tumor - roxicodone prn - pt with anemia and thrombocytopenia d/t chemotherapy - Pt received neulasta (10/14) - Pt received one unit PRBCs (10/18) - Hg 9.0 (10/16), 7.5 (10/18), 8.0 (10/19) - Platelet 53 (10/16), 16 (10/19) - repeat CBC 10/20/17 - PT - DVT prophylaxis (2) Skin ulcer of left side of neck ICD Codes: L98.499 - Non-pressure chronic ulcer of skin of other sites with unspecified severity Status: Acute Plan: - has resolution of the neck mass but is now left with an ulcerated lesion. - MRI of the soft tissue neck (10/16) in comparison to prior study the fluid adenopathy the left neck has significantly decreased in size as above. No new adenopathy is identified - Case d/w Dr. Gould (10/19/17) --> Pt is NOT a candidate for surgical treatment of left neck mass/ulceration - Wound VAC can NOT be utilized d/t tumor - wound care consulted and recommends Optifoam AG dressing with every other day dressing changes. (3) Large cell lymphoma ICD Codes: C85.80 - Other specified types of non-Hodgkin lymphoma, unspecified site Status: Acute Plan: - see above (4) History of non-Hodgkin's lymphoma ICD Codes: Z85.72 - Personal history of non-Hodgkin lymphomas Status: Chronic Plan: - see above (5) Hypertension ICD Codes: I10 - Essential (primary) hypertension Status: Chronic Plan: - coreg (6) H/O carcinoma of bladder ICD Codes: Z85.51 - Personal history of malignant neoplasm of bladder Plan: - comgmt with Urology - s/p radiation treatment - detrol - f/u with regular Urologist, Dr. Rivera, outpt Problem Qualifiers (1) Fever: Qualified Codes: R50.9 - Fever, unspecified (2) Skin ulcer of left side of neck: Qualified Codes: L98.499 - Non-pressure chronic ulcer of skin of other sites with unspecified severity (3) Hypertension: Qualified Codes: I10 - Essential (primary) hypertension Shlomo León DO Oct 19, 2017 10:10
[2017-10-19] MEDS ORDERED: MAGNESIUM HYDROXIDE SUSP 30 ML CUP PO PRN (11:00)
[2017-10-19] MEDS: DOCUSATE SODIUM 100 MG CAP PO SCH ×2 (12:52→19:59)
[2017-10-19] MEDS ORDERED: SODIUM CHLOR 0.9% 250 ML INJ 250 ML IV ONE (14:00)
[2017-10-19] MEDS ORDERED: ACETAMINOPHEN 325 MG TAB PO PRN (14:00)
[2017-10-19] MEDS ORDERED: diphenhydrAMINE HCL 25 MG CAP PO PRN (14:00)
--- NOTE | 2017-10-19 15:13 | PD.ONC.PN ---
Subjective Subjective Remarks Afebrile Patient anxious to go home Per spouse he remains slightly confused Complains of pain in his lower back and hips No bleeding Objective Data Date Time Temp Pulse Resp B/P (MAP) Pulse Ox O2 Delivery O2 Flow Rate FiO2 10/19/17 12:45 97.9 70 16 147/81 (103) 96 10/19/17 08:00 99.3 81 16 171/77 (108) 95 10/19/17 04:49 98.9 70 16 158/83 (108) 95 10/19/17 02:37 163/83 (109) 10/19/17 00:27 98.9 76 17 173/79 (110) 96 10/18/17 21:00 99.5 71 16 163/78 (106) 95 10/18/17 15:26 98.1 63 16 146/87 (106) 95 10/19/17 10/19/17 10/19/17 07:00 15:00 23:00 Intake Total 720 ml Output Total 900 ml Balance -180 ml Result Diagram: 10/19/17 0330 10/18/17 0410 Laboratory Results Laboratory Tests Test 10/19/17 03:30 White Blood Count 0.1 TH/MM3 Red Blood Count 2.80 MIL/MM3 Hemoglobin 8.0 GM/DL Hematocrit 23.6 % Mean Corpuscular Volume 84.4 FL Mean Corpuscular Hemoglobin 28.7 PG Mean Corpuscular Hemoglobin Concent 34.0 % Red Cell Distribution Width 13.7 % Platelet Count 16 TH/MM3 Mean Platelet Volume 8.2 FL CBC Comment AUTO DIFF Differential Total Cells Counted 10 Lymphocytes % 90 % Eosinophils % 10 % Neutrophils # (Manual) 0.0 TH/MM3 Differential Comment FINAL DIFF MANUAL Platelet Estimate RARE Platelet Morphology Comment NORMAL Rouleau PRESENT Random Vancomycin Level 8.1 COMMENT Culture Results Microbiology Date/Time Source Procedure Growth Status 10/16/17 19:30 Blood Peripheral Aerobic Blood Culture - Preliminary NO GROWTH IN 3 DAYS Resulted 10/16/17 19:30 Blood Peripheral Anaerobic Blood Culture - Preliminary NO GROWTH IN 3 DAYS Resulted 10/16/17 19:25 Blood Peripheral Aerobic Blood Culture - Preliminary NO GROWTH IN 3 DAYS Resulted 10/16/17 19:25 Blood Peripheral Anaerobic Blood Culture - Preliminary NO GROWTH IN 3 DAYS Resulted 10/16/17 20:45 Nasal Washing Influenza Types A,B Antigen (DEEPTHI) - Final NEGATIVE FOR FLU A AND B ANTIGEN.... Complete 10/16/17 21:50 Urine Random Urine Urine Culture - Preliminary Gram Negative Clarence Resulted Administered Medications Medications (Trade) Dose Ordered Sig/Jeremi Route PRN Reason Start Time Stop Time Status Last Admin Dose Admin Cefepime HCl 2000 mg/Sodium Chloride 100 ml @ 200 mls/hr BID IV 10/17/17 09:00 10/19/17 09:12 Sodium Chloride 1,000 ml @ 84 mls/hr [id number] IV 10/16/17 19:45 10/19/17 09:12 Carvedilol (Coreg) 6.25 mg BID PO 10/16/17 21:00 10/19/17 09:12 Pravastatin Sodium (Pravachol) 40 mg HS PO 10/16/17 21:00 10/18/17 21:11 Pantoprazole Sodium (Protonix) 40 mg DAILY PO 10/17/17 09:00 10/19/17 09:11 Acetaminophen (Tylenol) 650 mg Q4H PRN PO fever>100.4 10/17/17 09:15 10/17/17 21:06 Oxycodone HCl (Roxicodone) 10 mg Q4H PRN PO PAIN SCALE 1 TO 10 10/18/17 09:30 10/19/17 05:45 Tolterodine Tartrate (Detrol La) 4 mg DAILY PO 10/18/17 12:45 10/19/17 09:11 Docusate Sodium (Colace) 100 mg BID PO 10/19/17 11:30 10/19/17 12:52 Magnesium Hydroxide (Milk Of Magnesia Liq) 30 ml DAILY PRN PO CONSTIPATION 10/19/17 11:00 10/19/17 12:52 Objective Remarks GENERAL: Pleasant elderly male. He is lying in bed in [facility]. SKIN: Warm and dry. Dry and intact bandage to left neck HEAD: Normocephalic. EYES: No injection or drainage. NECK: Supple, trachea midline. CARDIOVASCULAR: Regular rate and rhythm RESPIRATORY: Clear anteriorly. Breathing unlabored at rest. GASTROINTESTINAL: Abdomen soft, non-tender, nondistended. EXTREMITIES: No cyanosis NEUROLOGICAL: Moving all extremities. Alert. Normal speech. Assessment/Plan Problem List: (1) Neutropenic fever ICD Codes: D70.9 - Neutropenia, unspecified; R50.81 - Fever presenting with conditions classified elsewhere Plan: --BC no growth --UC: GNR --on Cefepime. --ID following. --likely source is left neck wound. 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 --s/p EPOCH last week. (3) Skin ulcer of left side of neck ICD Codes: L98.499 - Non-pressure chronic ulcer of skin of other sites with unspecified severity Status: Acute Plan: --has resolution of the neck mass but is now left with an ulcerated lesion. --MRI of the soft tissue neck --surgery consulted, patient may need wound vac. --wound care consulted and recommends Optifoam AG dressing with every other day dressing changes. Assessment 77y/o male admitted with neutropenic fever associated with large cell lymphoma treatment. 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 h/o Liver cirrhosis. Hypertension. Pancytopenia. Neutropenic fever. Left neck wound. Plan 1. Transfuse one unit platelets as counts expected to [place] 2. Continue antibiotics per infectious disease 3. Monitor for fevers 4. Monitor blood counts Attending Statement The exam, history, and the medical decision-making described in the above note were completed with the assistance of the mid-level provider. I reviewed and agree with the findings presented. I attest that I had a [id number] encounter with the patient on the same day, and personally performed and documented my assessment and findings in the medical record FL transformed to large cell s/p XRT to neck MRI--good response s/p chemo outpatient neutropenic fever UTI ID folllowing no fever for 24 hours on cefepime Urine culture growing gram negative rods--sensitivities pending ID following Vanco stopped Urine culture growing gram negative rods ID following Vanco stopped ANC 0 s/p neulasta Transfuse platelets today some confusion titrate pain meds d/w rn o/n events reviewed Problem Qualifiers (1) Skin ulcer of left side of neck: Qualified Codes: L98.499 - Non-pressure chronic ulcer of skin of other sites with unspecified severity Natalie Haynes Oct 19, 2017 15:13 Martin Wilder MD Oct 19, 2017 15:50
[2017-10-19] MEDS: PRAVASTATIN SOD 40 MG TAB PO SCH (20:00)
--- NOTE | 2017-10-19 21:44 | HHI.PR ---
Subjective Subjective Notes Patient is well knwn to me...he is somewhat confused, but otherwise no complaints. Objective Vitals/I&O Vital Signs Date Time Temp Pulse Resp B/P (MAP) Pulse Ox O2 Delivery O2 Flow Rate FiO2 10/19/17 20:59 18 10/19/17 19:56 99.7 77 181/75 (110) 97 10/16/17 22:36 Room Air Labs Laboratory Tests Test 10/19/17 03:30 White Blood Count 0.1 Red Blood Count 2.80 Hemoglobin 8.0 Hematocrit 23.6 Mean Corpuscular Volume 84.4 Mean Corpuscular Hemoglobin 28.7 Mean Corpuscular Hemoglobin Concent 34.0 Red Cell Distribution Width 13.7 Platelet Count 16 Mean Platelet Volume 8.2 CBC Comment AUTO DIFF Differential Total Cells Counted 10 Lymphocytes % 90 Eosinophils % 10 Neutrophils # (Manual) 0.0 Differential Comment FINAL DIFF MANUAL Platelet Estimate RARE Platelet Morphology Comment NORMAL Rouleau PRESENT Random Vancomycin Level 8.1 Date/Time Source Procedure Growth Status 10/16/17 19:30 Blood Peripheral Aerobic Blood Culture - Preliminary NO GROWTH IN 3 DAYS Resulted 10/16/17 19:30 Blood Peripheral Anaerobic Blood Culture - Preliminary NO GROWTH IN 3 DAYS Resulted 10/16/17 20:45 Nasal Washing Influenza Types A,B Antigen (DEEPTHI) - Final NEGATIVE FOR FLU A AND B ANTIGEN.... Complete 10/16/17 21:50 Urine Random Urine Urine Culture - Preliminary Gram Negative Clarence Resulted Lungs: Clear Abdomen: Non-distended, Non-tender, BS normal Extremities: No edema Narrative Exam Left neck wound has dressing in place; I have reviewed the MR scan which shows the wound to be limited in depth, but with apparent tumor still present near the jugular vein. The dressing is an absorbant silver based dressing which is anti-bacterial and will allow healing as the tumor continues to regress. A/P Assessment and Plan Impression: Severe neutropenia and open wound Left Neck s/p chemotherapy for lymphoma. Plan: No current need of surgical intervention. Will continue to follow peripherally but would maintain current wound therapy for now. Julito Gould MD Oct 19, 2017 21:44
[2017-10-19] MEDS ORDERED: HYDROmorphone HCL PF 1 MG/ML VIAL IV ONE (22:00)
[2017-10-19] MEDS ORDERED: HYDROmorphone HCL PF 2 MG/ML VIAL IV ONE (22:00)
[2017-10-20 03:58] VITALS: BP 162/83; PULSE 71; RESP 18; TEMP 97.7; O2SAT 97
[2017-10-20 05:32] LABS: HEMATOCRIT 23.3 % (39.0-51.0); MEAN CELL VOLUME 83.9 FL (80.0-100.0); MEAN CORPUSCULAR HEMOGLOBIN 28.7 PG (27.0-34.0); MEAN CORPUSCULAR HGB CONC 34.2 % (32.0-36.0); MEAN PLATELET VOLUME 9.3 FL (7.0-11.0); PLATELET COUNT 23 TH/MM3 (150-450); RED BLOOD COUNT 2.78 MIL/MM3 (4.50-5.90); WHITE BLOOD COUNT 0.1 TH/MM3 (4.0-11.0)
[2017-10-20 08:31] LABS: LYMPHOCYTES 90 % (9-44)
--- NOTE | 2017-10-20 09:03 | HHI.PR ---
Subjective Remarks Pt complains of a lot of "bone pain" this morning Last night he had a one time dose of IV Dilaudid which he reports only lasted about a hour as far as giving him any relief I spoke with the pts this morning and she is ok with being more aggressive with his pain control regardless of confusion that may occur. The family had previously been concerned about the pt being confused on the pain medications but are now more focused on his pain control. Objective Vitals Vital Signs Date Time Temp Pulse Resp B/P (MAP) Pulse Ox O2 Delivery O2 Flow Rate FiO2 10/20/17 04:58 18 10/20/17 03:58 97.7 71 18 162/83 (109) 97 10/19/17 23:44 98.5 83 18 142/72 (95) 94 10/19/17 22:44 16 10/19/17 19:56 99.7 77 20 181/75 (110) 97 10/19/17 16:41 98.7 73 16 162/85 95 10/19/17 16:18 98.3 74 16 169/85 96 10/19/17 12:45 97.9 70 16 147/81 (103) 96 Result Diagram: 10/20/17 0350 10/18/17 0410 Other Results Laboratory Tests Test 10/18/17 10:35 10/19/17 03:30 10/20/17 03:50 Vancomycin Level Trough 28.4 MCG/ML White Blood Count 0.1 TH/MM3 0.1 TH/MM3 Red Blood Count 2.80 MIL/MM3 2.78 MIL/MM3 Hemoglobin 8.0 GM/DL 8.0 GM/DL Hematocrit 23.6 % 23.3 % Mean Corpuscular Volume 84.4 FL 83.9 FL Mean Corpuscular Hemoglobin 28.7 PG 28.7 PG Mean Corpuscular Hemoglobin Concent 34.0 % 34.2 % Red Cell Distribution Width 13.7 % 14.0 % Platelet Count 16 TH/MM3 23 TH/MM3 Mean Platelet Volume 8.2 FL 9.3 FL CBC Comment AUTO DIFF AUTO DIFF Differential Total Cells Counted 10 10 Lymphocytes % 90 % 90 % Eosinophils % 10 % 10 % Neutrophils # (Manual) 0.0 TH/MM3 0.0 TH/MM3 Differential Comment FINAL DIFF MANUAL FINAL DIFF MANUAL Platelet Estimate RARE LOW Platelet Morphology Comment NORMAL NORMAL Rouleau PRESENT Random Vancomycin Level 8.1 COMMENT Imaging Last Impressions Chest X-Ray 10/16/17 1912 Signed Impressions: Service Date/Time: Monday, October 16, 2017 19:56 - CONCLUSION: Normal examination. Danilo Charles MD Soft Tissue MRI 10/16/17 0000 Signed Impressions: Service Date/Time: Monday, October 16, 2017 23:38 - CONCLUSION: 1. In comparison to prior study the fluid adenopathy the left neck has significantly decreased in size as above. No new adenopathy is identified Jl Loo MD Objective Remarks General: NAD, Awake and alert Neck: open wound on left neck Chest: CTA Cardiac: Regular Abd: +BS, soft ND/NT Ext: No edema A/P Problem List: (1) Fever ICD Codes: R50.9 - Fever, unspecified Status: Acute Plan: - comgmt with ID and Oncology - Patient is 77 yo with hx follicular lymphoma followed by Dr Moe. - He then developed a left neck mass that ulcerated. He was started on Bendamustine and Rituxan with initial response. 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 He was treated with Rituxan 10/01/17 and admitted for chemotherapy on October 03 but was sent home due to neutropenia before rx. - He was admitted from 10/09 to 10/13/17 for EPOCH chemotherapy. - PICC line was placed during the admission and last dose was reduced due to neutropenia. He f/u in office on 10/14 and WBC 4 and given Neulasta. The morning of admission he began developing the bone pain presumed due to Neulasta and general weakness. Then began with fever and sent in by his doctor. His son says the left neck wound actually had looked great and shrunk tremendously in size. - Pt was admitted with a fever of 101.8 - source is likely Left neck wound but urine culture is growing gram negative rods, await final cultures and sensitivities - Blood cultures (10/16/17) --> NO growth to date - Case d/w Dr. Gould (10/19/17) --> Pt is NOT a candidate for surgical treatment of left neck mass/ulceration - Wound VAC can NOT be utilized d/t tumor - Vancomycin (10/16 - 10/19) - Cefepime (10/16 - present) - Roxicodone Q4H PRN - Pt with continued "bone pain." He has allergies to Morphine. He tolerated IV Dilaudid last night but this did not being long enough pain relief. - Consider increasing his Oxycodone for better pain control. Will discuss with Hematology - Pt with anemia and thrombocytopenia d/t chemotherapy - Pt received Neulasta (10/14) - Pt received one unit PRBCs (10/18) and one unit of platelets (10/19) - Hg 9.0 (10/16), 7.5 (10/18), 8.0 (10/19), 8.0 (10/20) - Platelet 53 (10/16), 16 (10/19), 23 (10/20) - Monitor labs - PT - DVT prophylaxis (2) Skin ulcer of left side of neck ICD Codes: L98.499 - Non-pressure chronic ulcer of skin of other sites with unspecified severity Status: Acute Plan: - Pt has resolution of the neck mass but is now left with an ulcerated lesion. - MRI of the soft tissue neck (10/16) --> in comparison to prior study the fluid adenopathy the left neck has significantly decreased in size as above. No new adenopathy is identified - Case d/w Dr. Gould (10/19/17) --> Pt is NOT a candidate for surgical treatment of left neck mass/ulceration - Wound VAC can NOT be utilized d/t tumor - wound care consulted and recommends Optifoam AG dressing with every other day dressing changes. (3) Large cell lymphoma ICD Codes: C85.80 - Other specified types of non-Hodgkin lymphoma, unspecified site Status: Acute Plan: - see above (4) History of non-Hodgkin's lymphoma ICD Codes: Z85.72 - Personal history of non-Hodgkin lymphomas Status: Chronic Plan: - see above (5) Hypertension ICD Codes: I10 - Essential (primary) hypertension Status: Chronic Plan: - coreg (6) H/O carcinoma of bladder ICD Codes: Z85.51 - Personal history of malignant neoplasm of bladder Plan: - comgmt with Urology - s/p radiation treatment - detrol - f/u with regular Urologist, Dr. Rivera, outpt Assessment and Plan Patient examined. Assessment and plan formulated with Camila Troncoso PA-C. I agree with the above. Problem Qualifiers (1) Fever: Qualified Codes: R50.9 - Fever, unspecified (2) Skin ulcer of left side of neck: Qualified Codes: L98.499 - Non-pressure chronic ulcer of skin of other sites with unspecified severity (3) Hypertension: Qualified Codes: I10 - Essential (primary) hypertension Camila Troncoso Oct 20, 2017 09:03 Shlomo León DO Oct 21, 2017 21:41
[2017-10-20] MEDS: CEFEPIME INJ 2,000 MG in SODIUM CHLORIDE 0.9% INJ 100 ML IV SCH ×2 (09:34→21:14)
[2017-10-20] MEDS: CARVEDILOL 6.25 MG TAB PO SCH ×2 (09:35→21:13)
[2017-10-20] MEDS: PANTOPRAZOLE SOD 40 MG DELAYED RELEASE TAB PO SCH (09:35)
[2017-10-20] MEDS: TOLTERODINE TARTRATE 4 MG CAP LA PO SCH (09:35)
[2017-10-20] MEDS: DOCUSATE SODIUM 100 MG CAP PO SCH ×2 (09:35→21:13)
[2017-10-20] MEDS: SODIUM CHLOR 0.9% 1000 ML INJ 1,000 ML IV SCH ×2 (09:36→21:22)
--- NOTE | 2017-10-20 10:02 | PD.ONC.PN ---
Subjective Subjective Remarks Tmax 99.7 last night Patient still reports pain in his lower back and hips Still mildly confused per spouse No other acute complaints Objective Data Date Time Temp Pulse Resp B/P (MAP) Pulse Ox O2 Delivery O2 Flow Rate FiO2 10/20/17 04:58 18 10/20/17 03:58 97.7 71 18 162/83 (109) 97 10/19/17 23:44 98.5 83 18 142/72 (95) 94 10/19/17 22:44 16 10/19/17 19:56 99.7 77 20 181/75 (110) 97 10/19/17 16:41 98.7 73 16 162/85 95 10/19/17 16:18 98.3 74 16 169/85 96 10/19/17 12:45 97.9 70 16 147/81 (103) 96 10/20/17 10/20/17 10/20/17 07:00 15:00 23:00 Intake Total 720 ml Output Total 900 ml Balance -180 ml Result Diagram: 10/20/17 0350 10/18/17 0410 Laboratory Results Laboratory Tests Test 10/20/17 03:50 White Blood Count 0.1 TH/MM3 Red Blood Count 2.78 MIL/MM3 Hemoglobin 8.0 GM/DL Hematocrit 23.3 % Mean Corpuscular Volume 83.9 FL Mean Corpuscular Hemoglobin 28.7 PG Mean Corpuscular Hemoglobin Concent 34.2 % Red Cell Distribution Width 14.0 % Platelet Count 23 TH/MM3 Mean Platelet Volume 9.3 FL CBC Comment AUTO DIFF Differential Total Cells Counted 10 Lymphocytes % 90 % Eosinophils % 10 % Neutrophils # (Manual) 0.0 TH/MM3 Differential Comment FINAL DIFF MANUAL Platelet Estimate LOW Platelet Morphology Comment NORMAL Administered Medications Medications (Trade) Dose Ordered Sig/Jeremi Route PRN Reason Start Time Stop Time Status Last Admin Dose Admin Cefepime HCl 2000 mg/Sodium Chloride 100 ml @ 200 mls/hr BID IV 10/17/17 09:00 10/20/17 09:34 Sodium Chloride 1,000 ml @ 84 mls/hr [id number] IV 10/16/17 19:45 10/20/17 09:36 Carvedilol (Coreg) 6.25 mg BID PO 10/16/17 21:00 10/20/17 09:35 Pravastatin Sodium (Pravachol) 40 mg HS PO 10/16/17 21:00 10/19/17 20:00 Pantoprazole Sodium (Protonix) 40 mg DAILY PO 10/17/17 09:00 10/20/17 09:35 Acetaminophen (Tylenol) 650 mg Q4H PRN PO fever>100.4 10/17/17 09:15 10/17/17 21:06 Oxycodone HCl (Roxicodone) 10 mg Q4H PRN PO PAIN SCALE 1 TO 10 10/18/17 09:30 10/20/17 09:35 Tolterodine Tartrate (Detrol La) 4 mg DAILY PO 10/18/17 12:45 10/20/17 09:35 Docusate Sodium (Colace) 100 mg BID PO 10/19/17 11:30 10/20/17 09:35 Magnesium Hydroxide (Milk Of Magnefren Liq) 30 ml DAILY PRN PO CONSTIPATION 10/19/17 11:00 10/19/17 12:52 Objective Remarks GENERAL: Pleasant elderly male sitting up in bed drinking coffee in conversing with his in no acute distress SKIN: Warm and dry. Dry and intact bandage to left neck HEAD: Normocephalic. EYES: No injection or drainage. NECK: Supple, trachea midline. CARDIOVASCULAR: Regular rate and rhythm RESPIRATORY: Clear anteriorly. Breathing unlabored at rest. GASTROINTESTINAL: Abdomen soft, non-tender, nondistended. EXTREMITIES: No cyanosis NEUROLOGICAL: Moving all extremities. Alert. Normal speech. Assessment/Plan Problem List: (1) Neutropenic fever ICD Codes: D70.9 - Neutropenia, unspecified; R50.81 - Fever presenting with conditions classified elsewhere Plan: --BC no growth --UC: GNR --on Cefepime. --ID following. 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 --s/p EPOCH last week. (3) Skin ulcer of left side of neck ICD Codes: L98.499 - Non-pressure chronic ulcer of skin of other sites with unspecified severity Status: Acute Plan: --has resolution of the neck mass but is now left with an ulcerated lesion. --MRI of the soft tissue neck --surgery consulted, patient may need wound vac. --wound care consulted and recommends Optifoam AG dressing with every other day dressing changes. (4) Thrush, oral ICD Codes: B37.0 - Candidal stomatitis Plan: -- Very mild likely due to neutropenia -- Started on oral Diflucan Assessment 77y/o male admitted with neutropenic fever associated with large cell lymphoma treatment. 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 h/o Liver cirrhosis. Hypertension. Pancytopenia. Neutropenic fever. Left neck wound. Plan 1. No transfusion today 2. Continue cefepime 3. Monitor CBC 4. Supportive care Attending Statement The exam, history, and the medical decision-making described in the above note were completed with the assistance of the mid-level provider. I reviewed and agree with the findings presented. I attest that I had a [id number] encounter with the patient on the same day, and personally performed and documented my assessment and findings in the medical record [place] transformed to Large B cell Lymphoma PLTs up after transfusion ANC 0 fever low grade more lucid continue Cefepime Blood culture are negative gram negative rods growing in urine sensitivity pending d/w rn o/n events reviewed Problem Qualifiers (1) Skin ulcer of left side of neck: Qualified Codes: L98.499 - Non-pressure chronic ulcer of skin of other sites with unspecified severity Natalie Haynes Oct 20, 2017 10:02 Martin Wilder MD Oct 20, 2017 12:15
[2017-10-20 11:20] VITALS: BP 186/87; PULSE 78; RESP 16; TEMP 98.7; O2SAT 96
[2017-10-20] MEDS: FLUCONAZOLE 200 MG TAB PO SCH (12:46)
[2017-10-20] MEDS ORDERED: LACTULOSE SYRUP 20 GM/30 ML CUP PO PRN (18:00)
[2017-10-20 18:31] VITALS: BP 178/76; PULSE 72; RESP 18; TEMP 98.9; O2SAT 98
[2017-10-20 20:05] VITALS: BP 170/80; PULSE 79; RESP 16; TEMP 98.5; O2SAT 95
[2017-10-20] MEDS: PRAVASTATIN SOD 40 MG TAB PO SCH (21:13)
[2017-10-20 23:00] VITALS: BP 170/84; PULSE 80; RESP 18; TEMP 99; O2SAT 93
[2017-10-21 03:12] VITALS: BP 157/84; PULSE 88; RESP 18; TEMP 99.3; O2SAT 93
[2017-10-21 08:07] VITALS: BP 149/82; PULSE 88; RESP 16; TEMP 97.9; O2SAT 95
[2017-10-21] MEDS: TOLTERODINE TARTRATE 4 MG CAP LA PO SCH (08:17)
[2017-10-21] MEDS: CARVEDILOL 6.25 MG TAB PO SCH ×2 (08:17→20:57)
[2017-10-21] MEDS: PANTOPRAZOLE SOD 40 MG DELAYED RELEASE TAB PO SCH (08:17)
[2017-10-21] MEDS: DOCUSATE SODIUM 100 MG CAP PO SCH ×2 (08:17→20:57)
[2017-10-21] MEDS: FLUCONAZOLE 200 MG TAB PO SCH (08:18)
[2017-10-21] MEDS: CEFEPIME INJ 2,000 MG in SODIUM CHLORIDE 0.9% INJ 100 ML IV SCH ×2 (08:18→20:57)
[2017-10-21 08:47] LABS: HEMATOCRIT 25.3 % (39.0-51.0); HEMOGLOBIN 8.8 GM/DL (13.0-17.0); MEAN CORPUSCULAR HGB CONC 34.5 % (32.0-36.0); MEAN PLATELET VOLUME 8.7 FL (7.0-11.0); PLATELET COUNT 33 TH/MM3 (150-450); RED BLOOD COUNT 3.02 MIL/MM3 (4.50-5.90); RED CELL DISTRIBUTION WIDTH 14.2 % (11.6-17.2); WHITE BLOOD COUNT 0.4 TH/MM3 (4.0-11.0)
[2017-10-21] MEDS: ONDANSETRON HCL 4 MG/2 ML VIAL IV PUSH PRN (09:31)
[2017-10-21] MEDS: SODIUM CHLOR 0.9% 1000 ML INJ 1,000 ML IV SCH ×2 (09:47→20:57)
--- NOTE | 2017-10-21 10:04 | PD.ONC.PN ---
Subjective Subjective Remarks Afebrile overnight. Patient resting in chair in room. He is feeling very constipated. He has not had a bowel movement in several days. He feels slightly nauseated today. Objective Data Date Time Temp Pulse Resp B/P (MAP) Pulse Ox O2 Delivery O2 Flow Rate FiO2 10/21/17 08:07 97.9 88 16 149/82 (104) 95 10/21/17 03:12 99.3 88 18 157/84 (108) 93 10/20/17 23:00 99.0 80 18 170/84 (112) 93 10/20/17 20:05 98.5 79 16 170/80 (110) 95 10/20/17 18:31 98.9 72 18 178/76 (110) 98 10/20/17 11:20 98.7 78 16 186/87 (120) 96 10/21/17 10/21/17 10/21/17 07:00 15:00 23:00 Intake Total 1520 ml Output Total 650 ml Balance 870 ml Result Diagram: 10/21/17 0825 10/18/17 0410 Laboratory Results Laboratory Tests Test 10/21/17 08:25 White Blood Count 0.4 TH/MM3 Red Blood Count 3.02 MIL/MM3 Hemoglobin 8.8 GM/DL Hematocrit 25.3 % Mean Corpuscular Volume 84.0 FL Mean Corpuscular Hemoglobin 29.0 PG Mean Corpuscular Hemoglobin Concent 34.5 % Red Cell Distribution Width 14.2 % Platelet Count 33 TH/MM3 Mean Platelet Volume 8.7 FL CBC Comment AUTO DIFF Culture Results Microbiology Date/Time Source Procedure Growth Status 10/21/17 03:00 Wound Neck Gram Stain - Final Resulted 10/21/17 03:00 Wound Neck Wound Culture Pending Resulted Administered Medications Medications (Trade) Dose Ordered Sig/Jeremi Route PRN Reason Start Time Stop Time Status Last Admin Dose Admin Cefepime HCl 2000 mg/Sodium Chloride 100 ml @ 200 mls/hr BID IV 10/17/17 09:00 10/21/17 08:18 Sodium Chloride 1,000 ml @ 84 mls/hr [id number] IV 10/16/17 19:45 10/21/17 09:47 Carvedilol (Coreg) 6.25 mg BID PO 10/16/17 21:00 10/21/17 08:17 Pravastatin Sodium (Pravachol) 40 mg HS PO 10/16/17 21:00 10/20/17 21:13 Pantoprazole Sodium (Protonix) 40 mg DAILY PO 10/17/17 09:00 10/21/17 08:17 Ondansetron HCl (Zofran Inj) 4 mg Q6HR PRN IV PUSH n/v 10/16/17 19:45 10/21/17 09:31 Acetaminophen (Tylenol) 650 mg Q4H PRN PO fever>100.4 10/17/17 09:15 10/17/17 21:06 Tolterodine Tartrate (Detrol La) 4 mg DAILY PO 10/18/17 12:45 10/21/17 08:17 Docusate Sodium (Colace) 100 mg BID PO 10/19/17 11:30 10/21/17 08:17 Magnesium Hydroxide (Milk Of Magnesia Liq) 30 ml DAILY PRN PO CONSTIPATION 10/19/17 11:00 10/19/17 12:52 Fluconazole (Diflucan) 200 mg DAILY PO 10/20/17 12:00 10/21/17 08:18 Oxycodone HCl (Roxicodone) 15 mg Q4H PRN PO PAIN SCALE 1 TO 10 10/20/17 13:30 10/21/17 03:17 Lactulose (Lactulose Liq) 30 ml DAILY PRN PO SEVERE CONSITIPATION 10/20/17 18:00 10/21/17 08:17 Objective Remarks GENERAL: Pleasant elderly male sitting up in chair next to bed in [facility]. SKIN: Warm and dry. bandage along left neck is clean. light red macular rash along back. HEAD: Normocephalic. EYES: No injection or drainage. NECK: Supple, trachea midline. CARDIOVASCULAR: Regular rate and rhythm RESPIRATORY: diminished at bases, anterior hastings clear. GASTROINTESTINAL: Abdomen soft, non-tender, nondistended. EXTREMITIES: No cyanosis NEUROLOGICAL: awake, alert, normal speech. able to move extremities. Assessment/Plan Problem List: (1) Neutropenic fever ICD Codes: D70.9 - Neutropenia, unspecified; R50.81 - Fever presenting with conditions classified elsewhere Plan: --BC no growth --UC: +pseudomonas --on Cefepime + Diflucan --ID following. 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 --s/p EPOCH last week. (3) Skin ulcer of left side of neck ICD Codes: L98.499 - Non-pressure chronic ulcer of skin of other sites with unspecified severity Status: Acute Plan: --has resolution of the neck mass but is now left with an ulcerated lesion. --MRI of the soft tissue neck --wound care consulted and recommends Optifoam AG dressing with every other day dressing changes. (4) Thrush, oral ICD Codes: B37.0 - Candidal stomatitis Plan: -- Very mild likely due to neutropenia -- Started on oral Diflucan Assessment 77y/o male admitted with neutropenic fever associated with large cell lymphoma treatment. 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 h/o Liver cirrhosis. Hypertension. Pancytopenia. Neutropenic fever. Left neck wound. Plan 1. continue antibiotics. 2. monitor blood counts, no transfusion needed today 3. continue Lactulose PRN Problem Qualifiers (1) Skin ulcer of left side of neck: Qualified Codes: L98.499 - Non-pressure chronic ulcer of skin of other sites with unspecified severity Carmen Russo Oct 21, 2017 10:04
[2017-10-21 10:20] LABS: BANDS 31 % (0-6); BASOPHILS 1 % (0-2); BLASTS 1 % (0-0); LYMPHOCYTES 6 % (9-44); MONOCYTES 13 % (0-8); NEUTROPHIL # MANUAL DIFF 0.3 TH/MM3 (1.8-7.7); POLYS (SEG NEUTROPHILS) 46 % (16-70)
[2017-10-21 10:21] LABS: ROULEAUX PRESENT (NORMAL)
--- NOTE | 2017-10-21 11:31 | HHI.PR ---
Subjective Remarks Pt with complaints of constipation today Last BM was several days ago Minimal flatus Objective Vitals Vital Signs Date Time Temp Pulse Resp B/P (MAP) Pulse Ox O2 Delivery O2 Flow Rate FiO2 10/21/17 08:07 97.9 88 16 149/82 (104) 95 10/21/17 03:12 99.3 88 18 157/84 (108) 93 10/20/17 23:00 99.0 80 18 170/84 (112) 93 10/20/17 20:05 98.5 79 16 170/80 (110) 95 10/20/17 18:31 98.9 72 18 178/76 (110) 98 Result Diagram: 10/21/17 0825 10/18/17 0410 Other Results Laboratory Tests Test 10/20/17 03:50 10/21/17 08:25 White Blood Count 0.1 TH/MM3 0.4 TH/MM3 Red Blood Count 2.78 MIL/MM3 3.02 MIL/MM3 Hemoglobin 8.0 GM/DL 8.8 GM/DL Hematocrit 23.3 % 25.3 % Mean Corpuscular Volume 83.9 FL 84.0 FL Mean Corpuscular Hemoglobin 28.7 PG 29.0 PG Mean Corpuscular Hemoglobin Concent 34.2 % 34.5 % Red Cell Distribution Width 14.0 % 14.2 % Platelet Count 23 TH/MM3 33 TH/MM3 Mean Platelet Volume 9.3 FL 8.7 FL CBC Comment AUTO DIFF AUTO DIFF Differential Total Cells Counted 10 100 Lymphocytes % 90 % 6 % Eosinophils % 10 % 2 % Neutrophils # (Manual) 0.0 TH/MM3 0.3 TH/MM3 Differential Comment FINAL DIFF MANUAL FINAL DIFF MANUAL Platelet Estimate LOW LOW Platelet Morphology Comment NORMAL NORMAL Neutrophils % (Manual) 46 % Band Neutrophils % 31 % Monocytes % 13 % Basophils % 1 % Blastocytes 1 % Rouleau PRESENT Imaging Last Impressions Chest X-Ray 10/16/17 1912 Signed Impressions: Service Date/Time: Monday, October 16, 2017 19:56 - CONCLUSION: Normal examination. Danilo Charles MD Soft Tissue MRI 10/16/17 0000 Signed Impressions: Service Date/Time: Monday, October 16, 2017 23:38 - CONCLUSION: 1. In comparison to prior study the fluid adenopathy the left neck has significantly decreased in size as above. 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 - He then developed a left neck mass that ulcerated. He was started on Bendamustine and Rituxan with initial response. 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 He was treated with Rituxan 10/01/17 and admitted for chemotherapy on October 03 but was sent home due to neutropenia before rx. - He was admitted from 10/09 to 10/13/17 for EPOCH chemotherapy. - PICC line was placed during the admission and last dose was reduced due to neutropenia. He f/u in office on 10/14 and WBC 4 and given Neulasta. The morning of admission he began developing the bone pain presumed due to Neulasta and general weakness. Then began with fever and sent in by his doctor. His son says the left neck wound actually had looked great and shrunk tremendously in size. - Pt was admitted with a fever of 101.8 - source is likely Left neck wound but urine culture is growing gram negative rods, await final cultures and sensitivities - Blood cultures (10/16/17) --> NO growth to date - Case d/w Dr. Gould (10/19/17) --> Pt is NOT a candidate for surgical treatment of left neck mass/ulceration - Wound VAC can NOT be utilized d/t tumor - Vancomycin (10/16 - 10/19) - Cefepime (10/16 - present) - Last low grade temp was 99.7 on 10/19 - Pt with continued "bone pain." He has allergies to Morphine. He tolerated IV Dilaudid last night but this did not being long enough pain relief. - Roxicodone was increased to 15mg Q4H PRN for better pain control on 10/20 - Pt with complaints of constipation as well. He is on Colace, MOM PRN and Lactulose PRN (received a dose on 10/20) - Pt may have an ileus with his narcotic use and has not been moving much. - KUB today - Pt with anemia and thrombocytopenia d/t chemotherapy - Pt received Neulasta (10/14) - Pt received one unit PRBCs (10/18) and one unit of platelets (10/19) - Hg 9.0 (10/16), 7.5 (10/18), 8.0 (10/19), 8.0 (10/20), 8.8 (10/21) - Platelet 53 (10/16), 16 (10/19), 23 (10/20), 33 (10/21) - Monitor labs - PT - DVT prophylaxis (2) Skin ulcer of left side of neck ICD Codes: L98.499 - Non-pressure chronic ulcer of skin of other sites with unspecified severity Status: Acute Plan: - Pt has resolution of the neck mass but is now left with an ulcerated lesion. - MRI of the soft tissue neck (10/16) --> in comparison to prior study the fluid adenopathy the left neck has significantly decreased in size as above. No new adenopathy is identified - Case d/w Dr. Gould (10/19/17) --> Pt is NOT a candidate for surgical treatment of left neck mass/ulceration - Wound VAC can NOT be utilized d/t tumor - wound care consulted and recommends Optifoam AG dressing with every other day dressing changes. 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 Coreg - BP likely elevated related to pain - Clonidine PRN (6) H/O carcinoma of bladder ICD Codes: Z85.51 - Personal history of malignant neoplasm of bladder Plan: - comgmt with Urology - s/p radiation treatment - detrol - f/u with regular Urologist, Dr. Rivera, outpt Assessment and Plan Patient examined. Assessment and plan formulated with Camila Troncoso PA-C. I agree with the above. Pt less painful today. Confusion improved. Pt's labs are improving Pt c/o abdominal distension. on PE pt's abdomen is distended and tympanic with decreased bowel sounds. findings c/w ileus KUB (10/21) --> NO acute findings continue lactulose Consider relistor. Problem Qualifiers (1) Fever: Qualified Codes: R50.9 - Fever, unspecified (2) Skin ulcer of left side of neck: Qualified Codes: L98.499 - Non-pressure chronic ulcer of skin of other sites with unspecified severity (3) Hypertension: Qualified Codes: I10 - Essential (primary) hypertension Camila Troncoso Oct 21, 2017 11:31 Shlomo León DO Oct 21, 2017 21:44
[2017-10-21 13:15] VITALS: BP 156/81; PULSE 79; RESP 16; TEMP 97.7; O2SAT 95
--- NOTE | 2017-10-21 13:27 | RADRPT ---
EXAM DATE/TIME: 10/21/2017 12:39 [facility] COMPARISON: No previous studies available for comparison. INDICATIONS : Distention. MEDICAL HISTORY : Hypertension. Lymphoma. SURGICAL HISTORY : ORIF left hip. ENCOUNTER: Initial ACUITY: 1 day PAIN SCORE: 2/10 LOCATION: Abdomen. FINDINGS: Lung bases are clear. There is a probable clip in the right upper quadrant suggesting prior cholecyst ectomy and there is a left hip arthroplasty in place. Air is noted throughout the colon and in loops of small bowel which is not disproportionate. CONCLUSION: Nonspecific bowel gas pattern. Left hip arthroplasty in place and probable clip right upper quadrant suggesting prior cholecystectomy. Kael Hutson MD on October 21, 2017 at 13:23 Board Certified Radiologist. This report was verified electronically.
[2017-10-21 16:24] VITALS: BP 151/86; PULSE 79; RESP 16; TEMP 98.2; O2SAT 93
[2017-10-21] MEDS: LACTULOSE SYRUP 20 GM/30 ML CUP PO PRN (16:25)
[2017-10-21 20:47] VITALS: BP 154/82; PULSE 80; RESP 18; TEMP 98.5; O2SAT 95
[2017-10-21] MEDS: PRAVASTATIN SOD 40 MG TAB PO SCH (20:57)
[2017-10-21] MEDS ORDERED: ZOLPIDEM TARTRATE 10 MG TAB PO PRN (23:15)
[2017-10-22] VITALS (7 sets, daily range): BP systolic 148–185; BP diastolic 77–92; PULSE 69–92; RESP 16–18; TEMP 98–99; O2SAT 92–96
[2017-10-22] MEDS: SODIUM CHLOR 0.9% 1000 ML INJ 1,000 ML IV SCH (04:54)
[2017-10-22 07:39] LABS: HEMATOCRIT 27.4 % (39.0-51.0); HEMOGLOBIN 9.3 GM/DL (13.0-17.0); MEAN CELL VOLUME 84.4 FL (80.0-100.0); MEAN CORPUSCULAR HEMOGLOBIN 28.6 PG (27.0-34.0); MEAN PLATELET VOLUME 9.6 FL (7.0-11.0); PLATELET COUNT 48 TH/MM3 (150-450); RED BLOOD COUNT 3.25 MIL/MM3 (4.50-5.90); RED CELL DISTRIBUTION WIDTH 13.9 % (11.6-17.2); WHITE BLOOD COUNT 2.2 TH/MM3 (4.0-11.0)
[2017-10-22 07:45] LABS: ALBUMIN 2.4 GM/DL (3.4-5.0); AST (GOT) 15 U/L (15-37); BICARBONATE 26.8 MEQ/L (21.0-32.0); BLOOD UREA NITROGEN 6 MG/DL (7-18); CALCIUM 9.4 MG/DL (8.5-10.1); CHLORIDE 101 MEQ/L (98-107); CREATININE 0.83 MG/DL (0.60-1.30); GLOMERULAR FILTRATION RATE 90 ML/MIN (>89); GLUCOSE,RANDOM 94 MG/DL (74-106); SODIUM (NA) 136 MEQ/L (136-145)
[2017-10-22 07:48] LABS: ALKALINE PHOSPHATASE 182 U/L (45-117); ALT (GPT) 25 U/L (12-78); TOTAL BILIRUBIN ADULT 1.1 MG/DL (0.2-1.0); TOTAL PROTEIN 5.8 GM/DL (6.4-8.2)
[2017-10-22] MEDS: FLUCONAZOLE 200 MG TAB PO SCH (08:45)
[2017-10-22] MEDS: CARVEDILOL 6.25 MG TAB PO SCH ×2 (08:45→20:23)
[2017-10-22] MEDS: LACTULOSE SYRUP 20 GM/30 ML CUP PO PRN ×2 (08:45→14:59)
[2017-10-22] MEDS: DOCUSATE SODIUM 100 MG CAP PO SCH ×2 (08:45→20:23)
[2017-10-22] MEDS: TOLTERODINE TARTRATE 4 MG CAP LA PO SCH (08:45)
[2017-10-22] MEDS: PANTOPRAZOLE SOD 40 MG DELAYED RELEASE TAB PO SCH (08:45)
[2017-10-22 09:12] LABS: BANDS 44 % (0-6); LYMPHOCYTES 5 % (9-44); METAMYELOCYTES 1 % (0-1); MONOCYTES 8 % (0-8); MYELOCYTES 2 % (0-0); NEUTROPHIL # MANUAL DIFF 1.9 TH/MM3 (1.8-7.7); POLYS (SEG NEUTROPHILS) 39 % (16-70); ROULEAUX PRESENT (NORMAL); TOXIC GRANULATION 2+ (NORMAL); TOXIC VACUOLATION PRESENT (NONE SEEN)
--- NOTE | 2017-10-22 09:13 | PD.ONC.PN ---
Subjective Subjective Remarks Afebrile overnight. Patient resting in room. Patient fell onto left elbow last night per nursing staff. No head injury. Rash on back a bit improved today. Objective Data Date Time Temp Pulse Resp B/P (MAP) Pulse Ox O2 Delivery O2 Flow Rate FiO2 10/22/17 07:43 98.4 92 18 185/83 (117) 96 10/22/17 06:00 92 17 179/92 (121) 94 10/22/17 04:54 98.9 69 17 162/78 (106) 94 10/22/17 00:19 99.0 76 16 153/79 (103) 93 10/21/17 20:47 98.5 80 18 154/82 (106) 95 10/21/17 16:24 98.2 79 16 151/86 (107) 93 10/21/17 13:15 97.7 79 16 156/81 (106) 95 10/22/17 10/22/17 10/22/17 07:00 15:00 23:00 Output Total 100 ml Balance -100 ml Result Diagram: 10/22/17 0645 10/22/17 0645 Laboratory Results Laboratory Tests Test 10/22/17 06:45 White Blood Count 2.2 TH/MM3 Red Blood Count 3.25 MIL/MM3 Hemoglobin 9.3 GM/DL Hematocrit 27.4 % Mean Corpuscular Volume 84.4 FL Mean Corpuscular Hemoglobin 28.6 PG Mean Corpuscular Hemoglobin Concent 34.0 % Red Cell Distribution Width 13.9 % Platelet Count 48 TH/MM3 Mean Platelet Volume 9.6 FL CBC Comment AUTO DIFF Blood Urea Nitrogen 6 MG/DL Creatinine 0.83 MG/DL Random Glucose 94 MG/DL Total Protein 5.8 GM/DL Albumin 2.4 GM/DL Calcium Level 9.4 MG/DL Alkaline Phosphatase 182 U/L Aspartate Amino Transf (AST/SGOT) 15 U/L Alanine Aminotransferase (ALT/SGPT) 25 U/L Total Bilirubin 1.1 MG/DL Sodium Level 136 MEQ/L Potassium Level 3.1 MEQ/L Chloride Level 101 MEQ/L Carbon Dioxide Level 26.8 MEQ/L Anion Gap 8 MEQ/L Estimat Glomerular Filtration Rate 90 ML/MIN Culture Results Microbiology Date/Time Source Procedure Growth Status 10/21/17 03:00 Wound Neck Gram Stain - Final Resulted 10/21/17 03:00 Wound Neck Wound Culture Pending Resulted Imaging Studies Last 24 hours Impressions Abdomen X-Ray 10/21/17 1235 Signed Impressions: Service Date/Time: Saturday, October 21, 2017 12:39 - CONCLUSION: Nonspecific bowel gas pattern. Left hip arthroplasty in place and probable clip right upper quadrant suggesting prior cholecystectomy. Kael Hutson MD Administered Medications Medications (Trade) Dose Ordered Sig/Jeremi Route PRN Reason Start Time Stop Time Status Last Admin Dose Admin Cefepime HCl 2000 mg/Sodium Chloride 100 ml @ 200 mls/hr BID IV 10/17/17 09:00 10/21/17 20:57 Sodium Chloride 1,000 ml @ 84 mls/hr [id number] IV 10/16/17 19:45 10/22/17 04:54 Carvedilol (Coreg) 6.25 mg BID PO 10/16/17 21:00 10/22/17 08:45 Pravastatin Sodium (Pravachol) 40 mg HS PO 10/16/17 21:00 10/21/17 20:57 Pantoprazole Sodium (Protonix) 40 mg DAILY PO 10/17/17 09:00 10/22/17 08:45 Ondansetron HCl (Zofran Inj) 4 mg Q6HR PRN IV PUSH n/v 10/16/17 19:45 10/21/17 09:31 Acetaminophen (Tylenol) 650 mg Q4H PRN PO fever>100.4 10/17/17 09:15 10/17/17 21:06 Tolterodine Tartrate (Detrol La) 4 mg DAILY PO 10/18/17 12:45 10/22/17 08:45 Docusate Sodium (Colace) 100 mg BID PO 10/19/17 11:30 10/22/17 08:45 Magnesium Hydroxide (Milk Of Magnesia Liq) 30 ml DAILY PRN PO CONSTIPATION 10/19/17 11:00 10/19/17 12:52 Fluconazole (Diflucan) 200 mg DAILY PO 10/20/17 12:00 10/22/17 08:45 Oxycodone HCl (Roxicodone) 15 mg Q4H PRN PO PAIN SCALE 1 TO 10 10/20/17 13:30 10/21/17 21:05 Lactulose (Lactulose Liq) 30 ml QID PRN PO SEVERE CONSITIPATION 10/21/17 13:00 10/22/17 08:45 Zolpidem Tartrate (Ambien) 10 mg HS PRN PO INSOMNIA 10/21/17 23:15 10/22/17 00:21 Objective Remarks GENERAL: Pleasant elderly male upright in chair in nad. SKIN: Warm and dry. clean bandage, left neck. HEAD: Normocephalic. EYES: No injection or drainage. NECK: Supple, trachea midline. CARDIOVASCULAR: Regular rate and rhythm RESPIRATORY: clear to auscultation. GASTROINTESTINAL: Abdomen soft, non-tender, nondistended. EXTREMITIES: No cyanosis NEUROLOGICAL: awake, alert. able to move all extremities. Assessment/Plan Problem List: (1) Neutropenic fever ICD Codes: D70.9 - Neutropenia, unspecified; R50.81 - Fever presenting with conditions classified elsewhere Plan: --BC no growth --UC: +pseudomonas --on Cefepime + Diflucan --ID following. 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 --s/p EPOCH the week prior to admission (3) Skin ulcer of left side of neck ICD Codes: L98.499 - Non-pressure chronic ulcer of skin of other sites with unspecified severity Status: Acute Plan: --has resolution of the neck mass but is now left with an ulcerated lesion. --MRI of the soft tissue neck --wound care consulted and recommends Optifoam AG dressing with every other day dressing changes. (4) Thrush, oral ICD Codes: B37.0 - Candidal stomatitis Plan: on PO Diflucan Assessment 77y/o male admitted with neutropenic fever associated with large cell lymphoma treatment. 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 h/o Liver cirrhosis. Hypertension. Pancytopenia. Neutropenic fever. Left neck wound. Plan 1. await differential--WBC has likely recovered 2. continue antibiotics. 3. continue Lactulose as needed for constipation. Attending Statement The exam, history, and the medical decision-making described in the above note were completed with the assistance of the mid-level provider. I reviewed and agree with the findings presented. I attest that I had a [id number] encounter with the patient on the same day, and personally performed and documented my assessment and findings in the medical record. Afebrile. Awake alert and cooperative. Encouraged to work with PT to prevent falls. Pending evaluation by PT to continue rehab vs. out pt PT. Platelets continue to recover and he's no longer neutropenic. Anticipate switch to oral antibiotic at some point. Chemotherapy cycles planned to continue as out patient. Dressing L neck wound dry. Problem Qualifiers (1) Skin ulcer of left side of neck: Qualified Codes: L98.499 - Non-pressure chronic ulcer of skin of other sites with unspecified severity Carmen Russo Oct 22, 2017 09:13 Marie Moe MD Oct 22, 2017 20:11
--- NOTE | 2017-10-22 09:56 | HHI.PR ---
Subjective Remarks Pt still with no BM Nursing staff reports that the pt fell early this morning when he got out of bed by himself and did not use his walker He sustained a skin tear to the elbow but there was no head injury or LOC. Pt not eating much Objective Vitals Vital Signs Date Time Temp Pulse Resp B/P (MAP) Pulse Ox O2 Delivery O2 Flow Rate FiO2 10/22/17 07:43 98.4 92 18 185/83 (117) 96 10/22/17 06:00 92 17 179/92 (121) 94 10/22/17 04:54 98.9 69 17 162/78 (106) 94 10/22/17 00:19 99.0 76 16 153/79 (103) 93 10/21/17 20:47 98.5 80 18 154/82 (106) 95 10/21/17 16:24 98.2 79 16 151/86 (107) 93 10/21/17 13:15 97.7 79 16 156/81 (106) 95 10/22/17 10/22/17 10/23/17 15:00 23:00 07:00 # Voids 1 Result Diagram: 10/22/17 0645 10/22/17 0645 Other Results Laboratory Tests Test 10/21/17 08:25 10/22/17 06:45 White Blood Count 0.4 TH/MM3 2.2 TH/MM3 Red Blood Count 3.02 MIL/MM3 3.25 MIL/MM3 Hemoglobin 8.8 GM/DL 9.3 GM/DL Hematocrit 25.3 % 27.4 % Mean Corpuscular Volume 84.0 FL 84.4 FL Mean Corpuscular Hemoglobin 29.0 PG 28.6 PG Mean Corpuscular Hemoglobin Concent 34.5 % 34.0 % Red Cell Distribution Width 14.2 % 13.9 % Platelet Count 33 TH/MM3 48 TH/MM3 Mean Platelet Volume 8.7 FL 9.6 FL CBC Comment AUTO DIFF AUTO DIFF Differential Total Cells Counted 100 100 Neutrophils % (Manual) 46 % 39 % Band Neutrophils % 31 % 44 % Lymphocytes % 6 % 5 % Monocytes % 13 % 8 % Eosinophils % 2 % 1 % Basophils % 1 % Neutrophils # (Manual) 0.3 TH/MM3 1.9 TH/MM3 Differential Comment FINAL DIFF MANUAL FINAL DIFF MANUAL Blastocytes 1 % Platelet Estimate LOW LOW Platelet Morphology Comment NORMAL NORMAL Rouleau PRESENT PRESENT Metamyelocytes 1 % Myelocytes 2 % Toxic Granulation 2+ Toxic Vacuolation PRESENT Blood Urea Nitrogen 6 MG/DL Creatinine 0.83 MG/DL Random Glucose 94 MG/DL Total Protein 5.8 GM/DL Albumin 2.4 GM/DL Calcium Level 9.4 MG/DL Alkaline Phosphatase 182 U/L Aspartate Amino Transf (AST/SGOT) 15 U/L Alanine Aminotransferase (ALT/SGPT) 25 U/L Total Bilirubin 1.1 MG/DL Sodium Level 136 MEQ/L Potassium Level 3.1 MEQ/L Chloride Level 101 MEQ/L Carbon Dioxide Level 26.8 MEQ/L Anion Gap 8 MEQ/L Estimat Glomerular Filtration Rate 90 ML/MIN Imaging Last Impressions Abdomen X-Ray 10/21/17 1235 Signed Impressions: Service Date/Time: Saturday, October 21, 2017 12:39 - CONCLUSION: Nonspecific bowel gas pattern. Left hip arthroplasty in place and probable clip right upper quadrant suggesting prior cholecystectomy. Kael Hutson MD Chest X-Ray 10/16/171911 Signed Impressions: Service Date/Time: Monday, October 16, 2017 19:56 - CONCLUSION: Normal examination. Danilo Charles MD Soft Tissue MRI 10/16/17 0000 Signed Impressions: Service Date/Time: Monday, October 16, 2017 23:38 - CONCLUSION: 1. In comparison to prior study the fluid adenopathy the left neck has significantly decreased in size as above. No new adenopathy is identified Jl Loo MD Last Impressions Chest X-Ray 10/16/171911 Signed Impressions: Service Date/Time: Monday, October 16, 2017 19:56 - CONCLUSION: Normal examination. Danilo Charles MD Soft Tissue MRI 10/16/17 0000 Signed Impressions: Service Date/Time: Monday, October 16, 2017 23:38 - CONCLUSION: 1. In comparison to prior study the fluid adenopathy the left neck has significantly decreased in size as above. 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 - He then developed a left neck mass that ulcerated. He was started on Bendamustine and Rituxan with initial response. 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 He was treated with Rituxan 10/01/17 and admitted for chemotherapy on October 03 but was sent home due to neutropenia before rx. - He was admitted from 10/09 to 10/13/17 for EPOCH chemotherapy. - PICC line was placed during the admission and last dose was reduced due to neutropenia. He f/u in office on 10/14 and WBC 4 and given Neulasta. The morning of admission he began developing the bone pain presumed due to Neulasta and general weakness. Then began with fever and sent in by his doctor. His son says the left neck wound actually had looked great and shrunk tremendously in size. - Pt was admitted with a fever of 101.8 - source is likely Left neck wound but urine culture is growing gram negative rods, await final cultures and sensitivities - Blood cultures (10/16/17) --> NO growth to date - Case d/w Dr. Gould (10/19/17) --> Pt is NOT a candidate for surgical treatment of left neck mass/ulceration - Wound VAC can NOT be utilized d/t tumor - Vancomycin (10/16 - 10/19) - Cefepime (10/16 - present) - Last low grade temp was 99.7 on 10/19 - Pt with continued "bone pain." He has allergies to Morphine. He tolerated IV Dilaudid last night but this did not being long enough pain relief. - Roxicodone was increased to 15mg Q4H PRN for better pain control on 10/20 - Pt with complaints of constipation as well. He is on Colace, MOM PRN and Lactulose PRN (received a dose on 10/20) - Pt may have an ileus with his narcotic use and has not been moving much. - KUB (10/21) --> Nonspecific bowel gas pattern. Left hip arthroplasty in place and probable clip right upper quadrant suggesting prior cholecystectomy. - We will give a dose of Relistor on 10/22 - Pt with anemia and thrombocytopenia d/t chemotherapy - Pt received Neulasta (10/14), WBC increased to 2.2 (10/22) and neutrophils 1.9 - Pt received one unit PRBCs (10/18) and one unit of platelets (10/19) - Hg 9.0 (10/16), 7.5 (10/18), 8.0 (10/19), 8.0 (10/20), 8.8 (10/21), 9/3 (10/22) - Platelet 53 (10/16), 16 (10/19), 23 (10/20), 33 (10/21), 48 (10/22) - Monitor labs - PT - DVT prophylaxis (2) Skin ulcer of left side of neck ICD Codes: L98.499 - Non-pressure chronic ulcer of skin of other sites with unspecified severity Status: Acute Plan: - Pt has resolution of the neck mass but is now left with an ulcerated lesion. - MRI of the soft tissue neck (10/16) --> in comparison to prior study the fluid adenopathy the left neck has significantly decreased in size as above. No new adenopathy is identified - Case d/w Dr. Gould (10/19/17) --> Pt is NOT a candidate for surgical treatment of left neck mass/ulceration - Wound VAC can NOT be utilized d/t tumor - wound care consulted and recommends Optifoam AG dressing with every other day dressing changes. 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 Coreg - BP likely elevated related to pain - Clonidine PRN (6) H/O carcinoma of bladder ICD Codes: Z85.51 - Personal history of malignant neoplasm of bladder Plan: - comgmt with Urology - s/p radiation treatment - detrol - f/u with regular Urologist, Dr. Rivera, outpt Assessment and Plan Patient examined. Assessment and plan formulated with Camila Troncoso PA-C. I agree with the above. Problem Qualifiers (1) Fever: Qualified Codes: R50.9 - Fever, unspecified (2) Skin ulcer of left side of neck: Qualified Codes: L98.499 - Non-pressure chronic ulcer of skin of other sites with unspecified severity (3) Hypertension: Qualified Codes: I10 - Essential (primary) hypertension Camila Troncoso Oct 22, 2017 09:56 Shlomo León DO Oct 24, 2017 22:49
[2017-10-22] MEDS ORDERED: POTASSIUM CHLORIDE 10 MEQ CONTROLLED RELEASE TAB PO ONE (10:00)
[2017-10-22] MEDS ORDERED: METHYLNALTREXONE BROMIDE 12 MG/0.6 ML VIAL SQ ONE (10:00)
[2017-10-22] MEDS: CEFEPIME INJ 2,000 MG in SODIUM CHLORIDE 0.9% INJ 100 ML IV SCH (10:59)
--- NOTE | 2017-10-22 14:40 | RADRPT ---
EXAM DATE/TIME: 10/22/2017 14:25 [facility] COMPARISON: No previous studies available for comparison. INDICATIONS : AMS . RADIATION DOSE: 38.08 CTDIvol (mGy) MEDICAL HISTORY : Hypertension. Carcinoma, prostate. Lymphoma. SURGICAL HISTORY : None. ENCOUNTER: Initial ACUITY: 1 day PAIN SCALE: 0/10 LOCATION: Bilateral cranial TECHNIQUE: Multiple contiguous axial images were obtained of the head. Using automated exposure control and adj ustment of the mA and/or kV according to patient size, radiation dose was kept as low as reasonably a chievable to obtain optimal diagnostic quality images. DICOM format image data is available electro nically for review and comparison. FINDINGS: CEREBRUM: The ventricles are normal for age. No evidence of midline shift, mass lesion, hemorrhage or acute in farction. No extra-axial fluid collections are seen. POSTERIOR FOSSA: The cerebellum and brainstem are intact. The 4th ventricle is midline. The cerebellopontine angle i s unremarkable. EXTRACRANIAL: The visualized portion of the orbits is intact. SKULL: The calvaria is intact. No evidence of skull fracture. CONCLUSION: Normal examination for a patient of this age. Kael Hutson MD on October 22, 2017 at 14:37 Board Certified Radiologist. This report was verified electronically.
--- NOTE | 2017-10-22 16:16 | HHI.IDPN ---
Subjective Subjective Remarks non neutropenic no fever doing better PSAE in urine clx blood clx negative - final co constipation Antibiotics fluconazol zosyn Allergies: Coded Allergies: diclofenac (Verified Allergy, Severe, AFFECTED KIDNEYS, 10/16/17) ALL NSAIDS etodolac (Verified Allergy, Severe, AFFECTED KIDNEYS, 10/16/17) flurbiprofen (Verified Allergy, Severe, AFFECTED KIDNEYS, 10/16/17) ibuprofen (Verified Allergy, Severe, AFFECTED KIDNEYS, 10/16/17) indomethacin (Verified Allergy, Severe, AFFECTED KIDNEYS, 10/16/17) ketoprofen (Verified Allergy, Severe, AFFECTED KIDNEYS, 10/16/17) ketorolac (Verified Allergy, Severe, AFFECTED KIDNEYS, 10/16/17) morphine (Verified Allergy, Severe, NAUSEA/VOMITING, 10/16/17) naproxen (Verified Allergy, Severe, AFFECTED KIDNEYS, 10/16/17) oxaprozin (Verified Allergy, Severe, AFFECTED KIDNEYS, 10/16/17) Sulfa (Sulfonamide Antibiotics) (Verified Allergy, Intermediate, Rash, 07/24) apixaban (Verified Allergy, Intermediate, Hives, 10/16/17) Objective . Vital Signs Date Time Temp Pulse Resp B/P (MAP) Pulse Ox O2 Delivery O2 Flow Rate FiO2 10/22/17 15:03 98.2 75 18 180/85 (116) 96 175/88 (117) 10/22/17 11:03 98.0 82 18 148/77 (100) 92 10/22/17 07:43 98.4 92 18 185/83 (117) 96 10/22/17 06:00 92 17 179/92 (121) 94 10/22/17 04:54 98.9 69 17 162/78 (106) 94 10/22/17 00:19 99.0 76 16 153/79 (103) 93 10/21/17 20:47 98.5 80 18 154/82 (106) 95 10/21/17 16:24 98.2 79 16 151/86 (107) 93 10/22/17 10/22/17 10/23/17 15:00 23:00 07:00 # Voids 1 . Laboratory Tests Test 10/21/17 08:25 10/22/17 06:45 White Blood Count 0.4 TH/MM3 2.2 TH/MM3 Red Blood Count 3.02 MIL/MM3 3.25 MIL/MM3 Hemoglobin 8.8 GM/DL 9.3 GM/DL Hematocrit 25.3 % 27.4 % Mean Corpuscular Volume 84.0 FL 84.4 FL Mean Corpuscular Hemoglobin 29.0 PG 28.6 PG Mean Corpuscular Hemoglobin Concent 34.5 % 34.0 % Red Cell Distribution Width 14.2 % 13.9 % Platelet Count 33 TH/MM3 48 TH/MM3 Mean Platelet Volume 8.7 FL 9.6 FL CBC Comment AUTO DIFF AUTO DIFF Differential Total Cells Counted 100 100 Neutrophils % (Manual) 46 % 39 % Band Neutrophils % 31 % 44 % Lymphocytes % 6 % 5 % Monocytes % 13 % 8 % Eosinophils % 2 % 1 % Basophils % 1 % Neutrophils # (Manual) 0.3 TH/MM3 1.9 TH/MM3 Differential Comment FINAL DIFF MANUAL FINAL DIFF MANUAL Blastocytes 1 % Platelet Estimate LOW LOW Platelet Morphology Comment NORMAL NORMAL Rouleau PRESENT PRESENT Metamyelocytes 1 % Myelocytes 2 % Toxic Granulation 2+ Toxic Vacuolation PRESENT Laboratory Tests Test 10/22/17 06:45 10/22/17 12:30 Blood Urea Nitrogen 6 MG/DL Creatinine 0.83 MG/DL Random Glucose 94 MG/DL Total Protein 5.8 GM/DL Albumin 2.4 GM/DL Calcium Level 9.4 MG/DL Alkaline Phosphatase 182 U/L Aspartate Amino Transf (AST/SGOT) 15 U/L Alanine Aminotransferase (ALT/SGPT) 25 U/L Total Bilirubin 1.1 MG/DL Sodium Level 136 MEQ/L Potassium Level 3.1 MEQ/L Chloride Level 101 MEQ/L Carbon Dioxide Level 26.8 MEQ/L Anion Gap 8 MEQ/L Estimat Glomerular Filtration Rate 90 ML/MIN Ammonia 18 MCMOL/L Microbiology Date/Time Source Procedure Growth Status 10/21/17 03:00 Wound Neck Gram Stain - Final Resulted 10/21/17 03:00 Wound Neck Wound Culture Pending Resulted Imaging Last Impressions Head CT 10/22/17 0000 Signed Impressions: Service Date/Time: Sunday, October 22, 2017 14:25 - CONCLUSION: Normal examination for a patient of this age. Kael Hutson MD Abdomen X-Ray 10/21/17 1235 Signed Impressions: Service Date/Time: Saturday, October 21, 2017 12:39 - CONCLUSION: Nonspecific bowel gas pattern. Left hip arthroplasty in place and probable clip right upper quadrant suggesting prior cholecystectomy. Kael Hutson MD Chest X-Ray 10/16/17 1912 Signed Impressions: Service Date/Time: Monday, October 16, 2017 19:56 - CONCLUSION: Normal examination. Danilo Charles MD Soft Tissue MRI 10/16/17 0000 Signed Impressions: Service Date/Time: Monday, October 16, 2017 23:38 - CONCLUSION: 1. In comparison to prior study the fluid adenopathy the left neck has significantly decreased in size as above. No new adenopathy is identified Jl Loo MD Physical Exam CONSTITUTIONAL/GENERAL: This is an obese elderly male patient, in no apparent distress. TUBES/LINES/DRAINS: SKIN: No jaundice, rashes, or lesions. Skin temperature appropriate. Not diaphoretic. HEAD: Atraumatic. Normocephalic. EYES: Pupils equal and round and reactive. Extraocular motions intact. No scleral icterus. No injection or drainage. Fundi not examined. ENT: Hearing grossly normal. Nose without bleeding or purulent drainage. Throat without visible erythema, exudates, masses, or lesions. NECK: ulceration on the L base and ill defined induraion and mass both look smaller minimal d/c CARDIOVASCULAR: Regular rate and rhythm without murmurs, gallops, or rubs. No JVD. Peripheral pulses symmetric. RESPIRATORY/CHEST: Symmetric, unlabored respirations. Clear to auscultation. Breath sounds equal bilaterally. No wheezes, rales, or rhonchi. GASTROINTESTINAL: Abdomen soft, non-tender, nondistended. No hepato-splenomegaly , or palpable masses. No guarding. Bowel sounds present. GENITOURINARY: Without palpable bladder distension. MUSCULOSKELETAL: Extremities without clubbing, cyanosis, + 1-2 edema. No joint tenderness or effusion noted. No calf tenderness. No mottling or clubbing. LYMPHATICS: No palpable cervical or supraclavicular adenopathy. NEUROLOGICAL: Awake and alert. Motor and sensory grossly within normal limits. Follows commands. Clear speech. Moves all extremities. 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 port of entry likely his ulceration Febrile neutropenia - resolved UTI cunha S PSAE dc cefepime dc vancomycin Erin Villasenor MD Oct 22, 2017 16:16
[2017-10-22] MEDS: LEVOFLOXACIN 750 MG TAB PO SCH (18:29)
[2017-10-22] MEDS: PRAVASTATIN SOD 40 MG TAB PO SCH (20:23)
[2017-10-22] MEDS ORDERED: GLYCERIN ADULT 2 GM SUPP RECTAL ONE (20:45)
[2017-10-23] VITALS (8 sets, daily range): BP systolic 125–167; BP diastolic 72–97; PULSE 70–78; RESP 16–24; TEMP 98–99.1; O2SAT 93–97
[2017-10-23] MEDS: ONDANSETRON HCL 4 MG/2 ML VIAL IV PUSH PRN ×3 (00:14→14:26)
--- NOTE | 2017-10-23 05:19 | RADRPT ---
EXAM DATE/TIME: 10/23/2017 04:15 [facility] COMPARISON: ABDOMEN KUB ONLY, October 21, 2017, 12:39. INDICATIONS : Distention. MEDICAL HISTORY : Hypertension. Lymphoma. SURGICAL HISTORY : None. ENCOUNTER: Subsequent ACUITY: 1 week PAIN SCORE: 0/10 LOCATION: Bilateral abdomen FINDINGS: Air is seen within distended bowel. Some degree of ileus or obstruction can be considered. Free air i s not seen. There is a left hip prosthesis in place. CONCLUSION: Distended bowel. Sebas Treadwell MD on October 23, 2017 at 5:15 Board Certified Radiologist. This report was verified electronically.
[2017-10-23] MEDS: DOCUSATE SODIUM 100 MG CAP PO SCH ×2 (09:00→20:46)
[2017-10-23] MEDS: PANTOPRAZOLE SOD 40 MG DELAYED RELEASE TAB PO SCH (09:00)
[2017-10-23] MEDS: FLUCONAZOLE 200 MG TAB PO SCH (09:00)
[2017-10-23] MEDS: TOLTERODINE TARTRATE 4 MG CAP LA PO SCH (09:03)
[2017-10-23] MEDS: CARVEDILOL 6.25 MG TAB PO SCH ×2 (09:03→20:45)
--- NOTE | 2017-10-23 09:48 | PD.ONC.PN ---
Subjective Subjective Remarks Afebrile Patient resting in bed with at bedside He complains of abdominal pain Has not yet had a bowel movement Abdominal x-ray shows distended bowels Objective Data Date Time Temp Pulse Resp B/P (MAP) Pulse Ox O2 Delivery O2 Flow Rate FiO2 10/23/17 09:12 94 Nasal Cannula 3.50 10/23/17 04:37 98.4 76 18 162/77 (105) 94 10/23/17 00:24 78 18 167/84 (111) 96 10/22/17 20:06 98.5 85 18 166/92 (116) 95 10/22/17 15:03 98.2 75 18 180/85 (116) 96 175/88 (117) 10/22/17 11:03 98.0 82 18 148/77 (100) 92 10/23/17 10/23/17 10/23/17 07:00 15:00 23:00 Output Total 150 ml Balance -150 ml Result Diagram: 10/22/17 0645 10/22/17 0645 Laboratory Results Laboratory Tests Test 10/22/17 12:30 Ammonia 18 MCMOL/L Culture Results Microbiology Date/Time Source Procedure Growth Status 10/21/17 03:00 Wound Neck Gram Stain - Final Resulted 10/21/17 03:00 Wound Neck Wound Culture - Preliminary HEAVY GROWTH NORMAL SKIN KASSIE AT 24HRS Resulted Imaging Studies Last 24 hours Impressions Abdomen X-Ray 10/23/17 0600 Signed Impressions: Service Date/Time: Monday, October 23, 2017 04:15 - CONCLUSION: Distended bowel. Sebas Treadwell MD Administered Medications Medications (Trade) Dose Ordered Sig/Jeremi Route PRN Reason Start Time Stop Time Status Last Admin Dose Admin Carvedilol (Coreg) 6.25 mg BID PO 10/16/17 21:00 10/23/17 09:03 Pravastatin Sodium (Pravachol) 40 mg HS PO 10/16/17 21:00 10/22/17 20:23 Pantoprazole Sodium (Protonix) 40 mg DAILY PO 10/17/17 09:00 10/22/17 08:45 Ondansetron HCl (Zofran Inj) 4 mg Q6HR PRN IV PUSH n/v 10/16/17 19:45 10/23/17 07:11 Acetaminophen (Tylenol) 650 mg Q4H PRN PO fever>100.4 10/17/17 09:15 10/17/17 21:06 Tolterodine Tartrate (Detrol La) 4 mg DAILY PO 10/18/17 12:45 10/23/17 09:03 Docusate Sodium (Colace) 100 mg BID PO 10/19/17 11:30 10/22/17 20:23 Magnesium Hydroxide (Milk Of Magnesia Liq) 30 ml DAILY PRN PO MILD-MODERATE CONSTIPATION 10/19/17 11:00 10/19/17 12:52 Fluconazole (Diflucan) 200 mg DAILY PO 10/20/17 12:00 10/22/17 08:45 Lactulose (Lactulose Liq) 30 ml QID PRN PO SEVERE CONSITIPATION 10/21/17 13:00 10/22/17 14:59 Levofloxacin (Levaquin) 750 mg Q24H PO 10/22/17 17:00 10/29/17 16:59 10/22/17 18:29 Objective Remarks GENERAL: Elderly male resting supine in bed. He appears uncomfortable and grimaces occasionally throughout exam SKIN: Warm and dry. Dry and intact bandage to left neck HEAD: Normocephalic. EYES: No injection or drainage. NECK: Supple, trachea midline. CARDIOVASCULAR: Regular rate and rhythm RESPIRATORY: Clear anteriorly. Breathing unlabored at rest. GASTROINTESTINAL: Abdomen distended. Tender. EXTREMITIES: No cyanosis NEUROLOGICAL: Moving all extremities. Alert. Normal speech. Assessment/Plan Problem List: (1) Neutropenic fever ICD Codes: D70.9 - Neutropenia, unspecified; R50.81 - Fever presenting with conditions classified elsewhere Plan: --BC no growth --UC: +pseudomonas --on Levaquin + Diflucan --ID following. 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 --s/p EPOCH the week prior to admission (3) Skin ulcer of left side of neck ICD Codes: L98.499 - Non-pressure chronic ulcer of skin of other sites with unspecified severity Status: Acute Plan: --has resolution of the neck mass but is now left with an ulcerated lesion. --MRI of the soft tissue neck --wound care consulted and recommends Optifoam AG dressing with every other day dressing changes. (4) Thrush, oral ICD Codes: B37.0 - Candidal stomatitis Plan: on PO Diflucan Assessment 77y/o male admitted with neutropenic fever associated with large cell lymphoma treatment. 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 h/o Liver cirrhosis. Hypertension. Pancytopenia. Neutropenic fever. Left neck wound. Plan 1. Place PICC line 2. Consult invasive radiology for placement of NG tube due to previous nasal surgery and difficult placement 3. Monitor CBC Attending Statement The exam, history, and the medical decision-making described in the above note were completed with the assistance of the mid-level provider. I reviewed and agree with the findings presented. I attest that I had a [id number] encounter with the patient on the same day, and personally performed and documented my assessment and findings in the medical record. Pt seen and examined in AM. Per pt's request spoke to his son Se at length yesterday. Noted no BM over night, increase discomfort, NGT attempted at bedside several times and failed. Referred to IR for NGT->GT decompression, conservative management ileus. Noted recovery of bone marrow. L neck ulcer dressed. Continue support. Afebrile now. Problem Qualifiers (1) Skin ulcer of left side of neck: Qualified Codes: L98.499 - Non-pressure chronic ulcer of skin of other sites with unspecified severity Natalie Haynes Oct 23, 2017 09:48 Marie Moe MD Oct 23, 2017 20:20
[2017-10-23 10:55] LABS: AUTOMATED NEUTROPHIL # 6.3 TH/MM3 (1.8-7.7); BASOPHIL % 0.2 % (0.0-2.0); EOSINOPHIL % 0.1 % (0.0-4.0); HEMATOCRIT 25.6 % (39.0-51.0); HEMOGLOBIN 8.8 GM/DL (13.0-17.0); LYMPHOCYTE # 0.1 TH/MM3 (1.0-4.8); MEAN CELL VOLUME 83.4 FL (80.0-100.0); MEAN CORPUSCULAR HEMOGLOBIN 28.7 PG (27.0-34.0); MEAN CORPUSCULAR HGB CONC 34.4 % (32.0-36.0); MEAN PLATELET VOLUME 8.3 FL (7.0-11.0); MONO % 7.2 % (0.0-8.0); MONOCYTE # 0.5 TH/MM3 (0-0.9); NEUT % 90.5 % (16.0-70.0); PLATELET COUNT 64 TH/MM3 (150-450); RED BLOOD COUNT 3.07 MIL/MM3 (4.50-5.90); RED CELL DISTRIBUTION WIDTH 14.3 % (11.6-17.2); WHITE BLOOD COUNT 6.9 TH/MM3 (4.0-11.0)
[2017-10-23 11:26] LABS: BICARBONATE 29.8 MEQ/L (21.0-32.0); CALCIUM 9.3 MG/DL (8.5-10.1); CREATININE 0.75 MG/DL (0.60-1.30); MAGNESIUM 1.6 MG/DL (1.5-2.5)
[2017-10-23 11:59] LABS: BANDS 25 % (0-6); LYMPHOCYTES 8 % (9-44); MONOCYTES 10 % (0-8); MYELOCYTES 1 % (0-0); NEUTROPHIL # MANUAL DIFF 5.7 TH/MM3 (1.8-7.7); POLYS (SEG NEUTROPHILS) 56 % (16-70)
[2017-10-23 12:00] LABS: TOXIC GRANULATION 1+ (NORMAL)
[2017-10-23] MEDS ORDERED: MAGNESIUM SULFATE 1 GM PREMIX 100 ML IV ONE (12:00)
[2017-10-23] MEDS: POTASSIUM CHLOR 20 MEQ PREMIX 100 ML IV SCH ×2 (12:00→14:00)
[2017-10-23] MEDS: LEVOFLOXACIN 750 MG TAB PO SCH (17:00)
--- NOTE | 2017-10-23 17:26 | PD.RAD ---
Post Procedure Progress Note Pre Procedure Diagnosis: (1) Bowel obstruction Post Procedure Diagnosis: (1) Bowel obstruction Procedure Date: Oct 23, 2017 Supervising Radiologist: David Villa Anesthesia: Local Plan of Activity Patient to Unit: Nursing Unit Patient Condition: Poor Additional Comments: Oral gastric tube placed secondary to multiple previous nasal fractures 2Liters of bilious fluid removed from the stomach. full dictated report to follow See PACS Report for procedural detail/treatment David Villa MD Oct 23, 2017 17:26
--- NOTE | 2017-10-23 17:48 | HHI.PR ---
Subjective Remarks Patient s/p OG tube placement by IR Denies BM, denies flatus feeling very anxious with OG tube in place Objective Vitals Vital Signs Date Time Temp Pulse Resp B/P (MAP) Pulse Ox O2 Delivery O2 Flow Rate FiO2 10/23/17 12:24 98.0 70 20 156/72 (100) 96 10/23/17 09:12 94 Nasal Cannula 3.50 10/23/17 09:00 98.8 71 24 151/97 (115) 97 10/23/17 04:37 98.4 76 18 162/77 (105) 94 10/23/17 00:24 78 18 167/84 (111) 96 10/22/17 20:06 98.5 85 18 166/92 (116) 95 10/23/17 10/23/17 10/24/17 15:00 23:00 07:00 Intake Total 200 ml Balance 200 ml IV Total 200 ml Result Diagram: 10/23/17 1045 10/23/17 1045 Other Results Laboratory Tests Test 10/21/17 08:25 10/22/17 06:45 10/22/17 12:30 10/23/17 10:45 White Blood Count 0.4 TH/MM3 2.2 TH/MM3 6.9 TH/MM3 Red Blood Count 3.02 MIL/MM3 3.25 MIL/MM3 3.07 MIL/MM3 Hemoglobin 8.8 GM/DL 9.3 GM/DL 8.8 GM/DL Hematocrit 25.3 % 27.4 % 25.6 % Mean Corpuscular Volume 84.0 FL 84.4 FL 83.4 FL Mean Corpuscular Hemoglobin 29.0 PG 28.6 PG 28.7 PG Mean Corpuscular Hemoglobin Concent 34.5 % 34.0 % 34.4 % Red Cell Distribution Width 14.2 % 13.9 % 14.3 % Platelet Count 33 TH/MM3 48 TH/MM3 64 TH/MM3 Mean Platelet Volume 8.7 FL 9.6 FL 8.3 FL CBC Comment AUTO DIFF AUTO DIFF AUTO DIFF Differential Total Cells Counted 100 100 100 Neutrophils % (Manual) 46 % 39 % 56 % Band Neutrophils % 31 % 44 % 25 % Lymphocytes % 6 % 5 % 8 % Monocytes % 13 % 8 % 10 % Eosinophils % 2 % 1 % Basophils % 1 % Neutrophils # (Manual) 0.3 TH/MM3 1.9 TH/MM3 5.7 TH/MM3 Differential Comment FINAL DIFF MANUAL FINAL DIFF MANUAL FINAL DIFF MANUAL Blastocytes 1 % Platelet Estimate LOW LOW LOW Platelet Morphology Comment NORMAL NORMAL NORMAL Rouleau PRESENT PRESENT Metamyelocytes 1 % Myelocytes 2 % 1 % Toxic Granulation 2+ 1+ Toxic Vacuolation PRESENT Blood Urea Nitrogen 6 MG/DL 6 MG/DL Creatinine 0.83 MG/DL 0.75 MG/DL Random Glucose 94 MG/DL 112 MG/DL Total Protein 5.8 GM/DL Albumin 2.4 GM/DL Calcium Level 9.4 MG/DL 9.3 MG/DL Alkaline Phosphatase 182 U/L Aspartate Amino Transf (AST/SGOT) 15 U/L Alanine Aminotransferase (ALT/SGPT) 25 U/L Total Bilirubin 1.1 MG/DL Sodium Level 136 MEQ/L 138 MEQ/L Potassium Level 3.1 MEQ/L 2.9 MEQ/L Chloride Level 101 MEQ/L 101 MEQ/L Carbon Dioxide Level 26.8 MEQ/L 29.8 MEQ/L Anion Gap 8 MEQ/L 7 MEQ/L Estimat Glomerular Filtration Rate 90 ML/MIN 101 ML/MIN Ammonia 18 MCMOL/L Neutrophils (%) (Auto) 90.5 % Lymphocytes (%) (Auto) 2.0 % Monocytes (%) (Auto) 7.2 % Eosinophils (%) (Auto) 0.1 % Basophils (%) (Auto) 0.2 % Neutrophils # (Auto) 6.3 TH/MM3 Lymphocytes # (Auto) 0.1 TH/MM3 Monocytes # (Auto) 0.5 TH/MM3 Eosinophils # (Auto) 0.0 TH/MM3 Basophils # (Auto) 0.0 TH/MM3 Magnesium Level 1.6 MG/DL Imaging Last Impressions Abdomen X-Ray 10/21/17 1235 Signed Impressions: Service Date/Time: Saturday, October 21, 2017 12:39 - CONCLUSION: Nonspecific bowel gas pattern. Left hip arthroplasty in place and probable clip right upper quadrant suggesting prior cholecystectomy. Kael Hutson MD Chest X-Ray 10/16/17 1912 Signed Impressions: Service Date/Time: Monday, October 16, 2017 19:56 - CONCLUSION: Normal examination. Danilo Charles MD Soft Tissue MRI 10/16/17 0000 Signed Impressions: Service Date/Time: Monday, October 16, 2017 23:38 - CONCLUSION: 1. In comparison to prior study the fluid adenopathy the left neck has significantly decreased in size as above. No new adenopathy is identified Jl Loo MD Last Impressions Chest X-Ray 10/16/17 191 Signed Impressions: Service Date/Time: Monday, October 16, 2017 19:56 - CONCLUSION: Normal examination. Danilo Charles MD Soft Tissue MRI 10/16/17 0000 Signed Impressions: Service Date/Time: Monday, October 16, 2017 23:38 - CONCLUSION: 1. In comparison to prior study the fluid adenopathy the left neck has significantly decreased in size as above. No new adenopathy is identified Jl Loo MD Objective Remarks General: NAD, Awake and alert Neck: open wound on left neck Chest: CTA Cardiac: Regular Abd: Rare BS, soft, distended, nontender. OG in place to LIWS Ext: No edema A/P Problem List: (1) Fever ICD Codes: R50.9 - Fever, unspecified Status: Acute Plan: - comgmt with ID and Oncology - Patient is 77 yo with hx follicular lymphoma followed by Dr Moe. - He then developed a left neck mass that ulcerated. He was started on Bendamustine and Rituxan with initial response. 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 He was treated with Rituxan 10/01/17 and admitted for chemotherapy on October 03 but was sent home due to neutropenia before rx. - He was admitted from 10/09 to 10/13/17 for EPOCH chemotherapy. - PICC line was placed during the admission and last dose was reduced due to neutropenia. He f/u in office on 10/14 and WBC 4 and given Neulasta. The morning of admission he began developing the bone pain presumed due to Neulasta and general weakness. Then began with fever and sent in by his doctor. His son says the left neck wound actually had looked great and shrunk tremendously in size. - Pt was admitted with a fever of 101.8 - source is likely Left neck wound but urine culture is growing gram negative rods, await final cultures and sensitivities - Blood cultures (10/16/17) --> NO growth to date - Case d/w Dr. Gould (10/19/17) --> Pt is NOT a candidate for surgical treatment of left neck mass/ulceration - Wound VAC can NOT be utilized d/t tumor - Vancomycin (10/16 - 10/19) - Cefepime (10/16 - 10/22) - Levaquin IV (10/22 - present) urine culture reveals Pseudomonas aeruginosa sensitive to Levaquin abx per ID - Last low grade temp was 99.7 on 10/19 - Pt with continued "bone pain." He has allergies to Morphine. He tolerated IV Dilaudid last night but this did not being long enough pain relief. - Roxicodone was increased to 15mg Q4H PRN for better pain control on 10/20 - Pt with complaints of constipation as well. He is on Colace, MOM PRN and Lactulose PRN (received a dose on 10/20) - Pt may have an ileus with his narcotic use and has not been moving much. - KUB (10/21) --> Nonspecific bowel gas pattern. Left hip arthroplasty in place and probable clip right upper quadrant suggesting prior cholecystectomy. - We will give a dose of Relistor on 10/22 - Pt with anemia and thrombocytopenia d/t chemotherapy - Pt received Neulasta (10/14), WBC increased to 2.2 (10/22) and neutrophils 1.9 - Pt received one unit PRBCs (10/18) and one unit of platelets (10/19) - Hg 9.0 (10/16), 7.5 (10/18), 8.0 (10/19), 8.0 (10/20), 8.8 (10/21), 9.3 (10/22). 8.8 (10/23) - Platelet 53 (10/16), 16 (10/19), 23 (10/20), 33 (10/21), 48 (10/22). 63 (10/23) - Monitor labs - PT - DVT prophylaxis (2) Skin ulcer of left side of neck ICD Codes: L98.499 - Non-pressure chronic ulcer of skin of other sites with unspecified severity Status: Acute Plan: - Pt has resolution of the neck mass but is now left with an ulcerated lesion. - MRI of the soft tissue neck (10/16) --> in comparison to prior study the fluid adenopathy the left neck has significantly decreased in size as above. No new adenopathy is identified - Case d/w Dr. Gould (10/19/17) --> Pt is NOT a candidate for surgical treatment of left neck mass/ulceration - Wound VAC can NOT be utilized d/t tumor - wound care consulted and recommends Optifoam AG dressing with every other day dressing changes. 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 Coreg - BP likely elevated related to pain - Clonidine PRN (6) H/O carcinoma of bladder ICD Codes: Z85.51 - Personal history of malignant neoplasm of bladder Plan: - comgmt with Urology - s/p radiation treatment - detrol - f/u with regular Urologist, Dr. Rivera, outpt (7) Ileus ICD Codes: K56.7 - Ileus, unspecified Status: Acute Plan: KUB (10/23) reveals distended bowel consistent with some degree of ileus or obstruction patient NPO IV fluids for hydration unable to place NG tube due to previous nasal fractures and surgery OG placed by IR with 2 L returned, continue LIWS plan to use sedation to place NG tube in AM ativan as needed (8) Hypokalemia ICD Codes: E87.6 - Hypokalemia Plan: potassium 2.9 replaced recheck in AM Assessment and Plan Patient examined. Assessment and plan formulated with Carmina Cee PA-C. I agree with the above. Problem Qualifiers (1) Fever: Qualified Codes: R50.9 - Fever, unspecified (2) Skin ulcer of left side of neck: Qualified Codes: L98.499 - Non-pressure chronic ulcer of skin of other sites with unspecified severity (3) Hypertension: Qualified Codes: I10 - Essential (primary) hypertension Carmina Cee Oct 23, 2017 17:48 Shlomo León DO Oct 24, 2017 22:50
[2017-10-23] MEDS ORDERED: POTASSIUM CHLOR 20 MEQ PREMIX 100 ML ONE (18:21)
[2017-10-23] MEDS: LORazepam 2 MG/ML VIAL IV PUSH PRN ×2 (19:38→23:37)
[2017-10-23] MEDS: LEVOFLOXACIN 750 MG PREMIX INJ 150 ML IV SCH (20:45)
[2017-10-23] MEDS: PRAVASTATIN SOD 40 MG TAB PO SCH (20:46)
[2017-10-23] MEDS: NS + KCL 20 MEQ INJ 1,000 ML IV SCH (20:46)
[2017-10-24 06:15] VITALS: BP 164/80; PULSE 76; RESP 20; TEMP 98.3; O2SAT 94
[2017-10-24 07:00] LABS: HEMATOCRIT 24.2 % (39.0-51.0); HEMOGLOBIN 8.2 GM/DL (13.0-17.0); MEAN CELL VOLUME 83.6 FL (80.0-100.0); MEAN CORPUSCULAR HEMOGLOBIN 28.5 PG (27.0-34.0); MEAN PLATELET VOLUME 9.2 FL (7.0-11.0); PLATELET COUNT 80 TH/MM3 (150-450); RED CELL DISTRIBUTION WIDTH 14.2 % (11.6-17.2); WHITE BLOOD COUNT 5.8 TH/MM3 (4.0-11.0)
[2017-10-24 08:31] LABS: BANDS 20 % (0-6); DOHLE BODIES PRESENT (NONE SEEN); MONOCYTES 6 % (0-8); NEUTROPHIL # MANUAL DIFF 5.5 TH/MM3 (1.8-7.7); POLYS (SEG NEUTROPHILS) 74 % (16-70); TOXIC GRANULATION 2+ (NORMAL)
[2017-10-24 08:41] VITALS: BP 160/76; PULSE 73; RESP 14; TEMP 98.9; O2SAT 95
[2017-10-24] MEDS: DOCUSATE SODIUM 100 MG CAP PO SCH ×2 (09:35→21:29)
[2017-10-24] MEDS: PANTOPRAZOLE SOD 40 MG DELAYED RELEASE TAB PO SCH (09:35)
[2017-10-24] MEDS: CARVEDILOL 6.25 MG TAB PO SCH ×2 (09:35→21:29)
[2017-10-24] MEDS: FLUCONAZOLE 200 MG TAB PO SCH (09:35)
[2017-10-24] MEDS: NS + KCL 20 MEQ INJ 1,000 ML IV SCH (09:36)
[2017-10-24] MEDS: TOLTERODINE TARTRATE 4 MG CAP LA PO SCH (09:36)
--- NOTE | 2017-10-24 09:39 | RADRPT ---
EXAM DATE/TIME: 10/23/2017 18:17 [facility] COMPARISON: No previous studies available for comparison. INDICATIONS : Patient with bowel obstruction in need of oral gastric tube placement. MEDICAL HISTORY : Large cell lymphoma, Left neck mass, CKD Stage 3, Prostate cancer, HTN, Liver cirrhosis, Follicular l ymphoma, HLD SURGICAL HISTORY : Bone marrow biopsy, Colonoscopy, Lithotripsy, Mediastinal biopsy ENCOUNTER: Initial ACUITY: 1 week PAIN SCORE: 0/10 FLUORO TIME: 2.3 minutes IMAGE SERIES: 0 DEVICE(S): 1.) [id number]'' nasogastric sump tube PROCEDURE : 1. Fluoroscopically guided NG tube placement. Multiple attempts were made on the floor to place an NG tube. These were unsuccessful. The patient baez s a history of multiple nasal fractures. The risks, benefits and alternatives to the procedure were explained and verbal and written consent w as obtained. An attempt was made to pass an NG tube for the right nose. The patient was unable to tolerate this an d had an episode of emesis while on the table. The decision was made to place the tube orally. A 0.035 angle Glidewire was advanced from the mouth down to the stomach. A nasogastric tube was [place] over the wire. There was immediate removal of approximately 2-3 L of bilious fluid from the stoma ch. If the patient is unable to tolerate the oral placement of the tube we will have him return once the gastric content has been suctioned for approximately 12 hours. At this point we can sedate the patien t and place the tube through the nostril. CONCLUSION: Successful oral gastric tube placement. Please see above discussion. David Villa MD on October 24, 2017 at 9:34 Board Certified Radiologist. This report was verified electronically.
[2017-10-24] MEDS ORDERED: PANTOPRAZOLE SODIUM 40 MG VIAL IV PUSH SCH (10:00)
--- NOTE | 2017-10-24 11:10 | PD.ONC.PN ---
Subjective Subjective Remarks Afebrile overnight Patient resting in bed with spouse at bedside He reports his abdominal pain is much improved from yesterday Per RN he pulled out his IV and OG tube overnight Objective Data Date Time Temp Pulse Resp B/P (MAP) Pulse Ox O2 Delivery O2 Flow Rate FiO2 10/24/17 08:41 98.9 73 14 160/76 (104) 95 10/24/17 06:15 98.3 76 20 164/80 (108) 94 10/23/17 23:40 99.0 75 162/84 (110) 93 10/23/17 20:26 99.1 76 16 152/81 (104) 94 10/23/17 18:52 98.8 74 18 125/78 (94) 94 10/23/17 12:24 98.0 70 20 156/72 (100) 96 10/24/17 10/24/17 10/24/17 07:00 15:00 23:00 Output Total 1000 ml Balance -1000 ml Result Diagram: 10/24/17 0613 10/23/17 1045 Laboratory Results Laboratory Tests Test 10/24/17 06:13 White Blood Count 5.8 TH/MM3 Red Blood Count 2.90 MIL/MM3 Hemoglobin 8.2 GM/DL Hematocrit 24.2 % Mean Corpuscular Volume 83.6 FL Mean Corpuscular Hemoglobin 28.5 PG Mean Corpuscular Hemoglobin Concent 34.0 % Red Cell Distribution Width 14.2 % Platelet Count 80 TH/MM3 Mean Platelet Volume 9.2 FL CBC Comment AUTO DIFF Differential Total Cells Counted 100 Neutrophils % (Manual) 74 % Band Neutrophils % 20 % Monocytes % 6 % Neutrophils # (Manual) 5.5 TH/MM3 Differential Comment FINAL DIFF MANUAL Toxic Granulation 2+ Dohle Bodies PRESENT Platelet Estimate LOW Platelet Morphology Comment NORMAL Administered Medications Medications (Trade) Dose Ordered Sig/Jeremi Route PRN Reason Start Time Stop Time Status Last Admin Dose Admin Carvedilol (Coreg) 6.25 mg BID PO 10/16/17 21:00 10/24/17 09:35 Pravastatin Sodium (Pravachol) 40 mg HS PO 10/16/17 21:00 10/23/17 20:46 Ondansetron HCl (Zofran Inj) 4 mg Q6HR PRN IV PUSH n/v 10/16/17 19:45 10/23/17 14:26 Acetaminophen (Tylenol) 650 mg Q4H PRN PO fever>100.4 10/17/17 09:15 10/17/17 21:06 Tolterodine Tartrate (Detrol La) 4 mg DAILY PO 10/18/17 12:45 10/24/17 09:36 Docusate Sodium (Colace) 100 mg BID PO 10/19/17 11:30 10/24/17 09:35 Magnesium Hydroxide (Milk Of Magnesia Liq) 30 ml DAILY PRN PO MILD-MODERATE CONSTIPATION 10/19/17 11:00 10/19/17 12:52 Lactulose (Lactulose Liq) 30 ml QID PRN PO SEVERE CONSITIPATION 10/21/17 13:00 10/22/17 14:59 Oxycodone HCl (Roxicodone) 15 mg Q8H PRN PO PAIN SCALE 1 TO 10 10/22/17 10:30 10/23/17 15:31 Levofloxacin (Levaquin) 750 mg Q24H PO 10/22/17 17:00 10/29/17 16:59 Future Hold 10/22/17 18:29 Potassium Chloride/Sodium Chloride 1,000 ml @ 50 mls/hr Q20H IV 10/23/17 12:00 10/24/17 09:36 Lorazepam (Ativan Inj) 0.5 mg Q4H PRN IV PUSH agitation 10/23/17 18:30 10/23/17 23:37 Levofloxacin/ Dextrose 150 ml @ 100 mls/hr Q24H IV 10/23/17 18:30 10/23/17 20:45 Objective Remarks GENERAL: Elderly male resting supine in bed. He appears much more comfortable today than previously SKIN: Warm and dry. Dry and intact bandage to left neck HEAD: Normocephalic. EYES: No injection or drainage. NECK: Supple, trachea midline. CARDIOVASCULAR: Regular rate and rhythm RESPIRATORY: Clear anteriorly. Breathing unlabored at rest. GASTROINTESTINAL: Abdomen distended but much softer today than yesterday. Remains tender to palpation EXTREMITIES: No cyanosis NEUROLOGICAL: Moving all extremities. Alert. Normal speech. 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 --s/p EPOCH the week prior to admission (3) Skin ulcer of left side of neck ICD Codes: L98.499 - Non-pressure chronic ulcer of skin of other sites with unspecified severity Status: Acute Plan: --has resolution of the neck mass but is now left with an ulcerated lesion. --MRI of the soft tissue neck --wound care consulted and recommends Optifoam AG dressing with every other day dressing changes. (4) Ileus ICD Codes: K56.7 - Ileus, unspecified Status: Acute Plan: -- NG tube placement difficult due to previous nasal fractures -- OG tube was placed on 10/23 with immediate removal of approximately 2-3 L bilious fluid but unfortunately the patient pulled out overnight -- Medical team managing Assessment 77y/o male admitted with neutropenic fever associated with large cell lymphoma treatment. 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 h/o Liver cirrhosis. Hypertension. Pancytopenia. Neutropenic fever. Left neck wound. Plan 1. Discussed with specials; will attempt to place NG tube again today 2. Repeat abdominal x-ray ordered to reevaluate ileus 3. Monitor CBC and BMP Attending Statement The exam, history, and the medical decision-making described in the above note were completed with the assistance of the mid-level provider. I reviewed and agree with the findings presented. I attest that I had a [id number] encounter with the patient on the same day, and personally performed and documented my assessment and findings in the medical record. Pt seen and examined post NGT placement, mildly confused, concern about pulling out NGT. 2pt restraints and nursing called pt's family. Blood counts continue to recover. Ileus unchanged. Oral tube yesterday pulled out by pt. CT abd/pelvis ordered. Pending consultation by . Continue conservative tx. L neck ulcer healing. Dressings changed twice daily. No sign of infection. BC neg x 5 days. Problem Qualifiers (1) Skin ulcer of left side of neck: Qualified Codes: L98.499 - Non-pressure chronic ulcer of skin of other sites with unspecified severity Natalie Haynes Oct 24, 2017 11:10 Marie Moe MD Oct 24, 2017 16:16
--- NOTE | 2017-10-24 12:06 | HHI.PR ---
Subjective Remarks Patient resting in bed reports positive flatus earlier today denies BM patient removed his OG tube and IV sites around midnight last night Objective Vitals Vital Signs Date Time Temp Pulse Resp B/P (MAP) Pulse Ox O2 Delivery O2 Flow Rate FiO2 10/24/17 08:41 98.9 73 14 160/76 (104) 95 10/24/17 06:15 98.3 76 20 164/80 (108) 94 10/23/17 23:40 99.0 75 162/84 (110) 93 10/23/17 20:26 99.1 76 16 152/81 (104) 94 10/23/17 18:52 98.8 74 18 125/78 (94) 94 10/23/17 12:24 98.0 70 20 156/72 (100) 96 Result Diagram: 10/24/17 0613 10/23/17 1045 Other Results Laboratory Tests Test 10/22/17 06:45 10/22/17 12:30 10/23/17 10:45 10/24/17 06:13 White Blood Count 2.2 TH/MM3 6.9 TH/MM3 5.8 TH/MM3 Red Blood Count 3.25 MIL/MM3 3.07 MIL/MM3 2.90 MIL/MM3 Hemoglobin 9.3 GM/DL 8.8 GM/DL 8.2 GM/DL Hematocrit 27.4 % 25.6 % 24.2 % Mean Corpuscular Volume 84.4 FL 83.4 FL 83.6 FL Mean Corpuscular Hemoglobin 28.6 PG 28.7 PG 28.5 PG Mean Corpuscular Hemoglobin Concent 34.0 % 34.4 % 34.0 % Red Cell Distribution Width 13.9 % 14.3 % 14.2 % Platelet Count 48 TH/MM3 64 TH/MM3 80 TH/MM3 Mean Platelet Volume 9.6 FL 8.3 FL 9.2 FL CBC Comment AUTO DIFF AUTO DIFF AUTO DIFF Differential Total Cells Counted 100 100 100 Neutrophils % (Manual) 39 % 56 % 74 % Band Neutrophils % 44 % 25 % 20 % Lymphocytes % 5 % 8 % Monocytes % 8 % 10 % 6 % Eosinophils % 1 % Neutrophils # (Manual) 1.9 TH/MM3 5.7 TH/MM3 5.5 TH/MM3 Metamyelocytes 1 % Myelocytes 2 % 1 % Differential Comment FINAL DIFF MANUAL FINAL DIFF MANUAL FINAL DIFF MANUAL Toxic Granulation 2+ 1+ 2+ Toxic Vacuolation PRESENT Platelet Estimate LOW LOW LOW Platelet Morphology Comment NORMAL NORMAL NORMAL Rouleau PRESENT Blood Urea Nitrogen 6 MG/DL 6 MG/DL Creatinine 0.83 MG/DL 0.75 MG/DL Random Glucose 94 MG/DL 112 MG/DL Total Protein 5.8 GM/DL Albumin 2.4 GM/DL Calcium Level 9.4 MG/DL 9.3 MG/DL Alkaline Phosphatase 182 U/L Aspartate Amino Transf (AST/SGOT) 15 U/L Alanine Aminotransferase (ALT/SGPT) 25 U/L Total Bilirubin 1.1 MG/DL Sodium Level 136 MEQ/L 138 MEQ/L Potassium Level 3.1 MEQ/L 2.9 MEQ/L Chloride Level 101 MEQ/L 101 MEQ/L Carbon Dioxide Level 26.8 MEQ/L 29.8 MEQ/L Anion Gap 8 MEQ/L 7 MEQ/L Estimat Glomerular Filtration Rate 90 ML/MIN 101 ML/MIN Ammonia 18 MCMOL/L Neutrophils (%) (Auto) 90.5 % Lymphocytes (%) (Auto) 2.0 % Monocytes (%) (Auto) 7.2 % Eosinophils (%) (Auto) 0.1 % Basophils (%) (Auto) 0.2 % Neutrophils # (Auto) 6.3 TH/MM3 Lymphocytes # (Auto) 0.1 TH/MM3 Monocytes # (Auto) 0.5 TH/MM3 Eosinophils # (Auto) 0.0 TH/MM3 Basophils # (Auto) 0.0 TH/MM3 Magnesium Level 1.6 MG/DL Dohle Bodies PRESENT Imaging Last Impressions Abdomen X-Ray 10/21/17 1235 Signed Impressions: Service Date/Time: Saturday, October 21, 2017 12:39 - CONCLUSION: Nonspecific bowel gas pattern. Left hip arthroplasty in place and probable clip right upper quadrant suggesting prior cholecystectomy. Kael Hutson MD Chest X-Ray 10/16/17 1912 Signed Impressions: Service Date/Time: Monday, October 16, 2017 19:56 - CONCLUSION: Normal examination. Danilo Charles MD Soft Tissue MRI 10/16/17 0000 Signed Impressions: Service Date/Time: Monday, October 16, 2017 23:38 - CONCLUSION: 1. In comparison to prior study the fluid adenopathy the left neck has significantly decreased in size as above. No new adenopathy is identified Jl Loo MD Last Impressions Chest X-Ray 10/16/17 1912 Signed Impressions: Service Date/Time: Monday, October 16, 2017 19:56 - CONCLUSION: Normal examination. Danilo Charles MD Soft Tissue MRI 10/16/17 0000 Signed Impressions: Service Date/Time: Monday, October 16, 2017 23:38 - CONCLUSION: 1. In comparison to prior study the fluid adenopathy the left neck has significantly decreased in size as above. No new adenopathy is identified Jl Loo MD Objective Remarks General: NAD, Awake and alert Neck: open wound on left neck Chest: CTA Cardiac: Regular Abd: Absent BS, soft, distended, nontender. Ext: No edema A/P Problem List: (1) Fever ICD Codes: R50.9 - Fever, unspecified Status: Acute Plan: - comgmt with ID and Oncology - Patient is 77 yo with hx follicular lymphoma followed by Dr Moe. - He then developed a left neck mass that ulcerated. He was started on Bendamustine and Rituxan with initial response. 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 He was treated with Rituxan 10/01/17 and admitted for chemotherapy on October 03 but was sent home due to neutropenia before rx. - He was admitted from 10/09 to 10/13/17 for EPOCH chemotherapy. - PICC line was placed during the admission and last dose was reduced due to neutropenia. He f/u in office on 10/14 and WBC 4 and given Neulasta. The morning of admission he began developing the bone pain presumed due to Neulasta and general weakness. Then began with fever and sent in by his doctor. His son says the left neck wound actually had looked great and shrunk tremendously in size. - Pt was admitted with a fever of 101.8 - source is likely Left neck wound but urine culture is growing gram negative rods, await final cultures and sensitivities - Blood cultures (10/16/17) --> NO growth to date - Case d/w Dr. Gould (10/19/17) --> Pt is NOT a candidate for surgical treatment of left neck mass/ulceration - Wound VAC can NOT be utilized d/t tumor - Vancomycin (10/16 - 10/19) - Cefepime (10/16 - 10/22) - Levaquin IV (10/22 - present) urine culture reveals Pseudomonas aeruginosa sensitive to Levaquin abx per ID - Last low grade temp was 99.7 on 10/19 - Pt with continued "bone pain." He has allergies to Morphine. He tolerated IV Dilaudid last night but this did not being long enough pain relief. - Roxicodone was increased to 15mg Q4H PRN for better pain control on 10/20 - Pt with complaints of constipation as well. He is on Colace, MOM PRN and Lactulose PRN (received a dose on 10/20) - Pt may have an ileus with his narcotic use and has not been moving much. - KUB (10/21) --> Nonspecific bowel gas pattern. Left hip arthroplasty in place and probable clip right upper quadrant suggesting prior cholecystectomy. - We will give a dose of Relistor on 10/22 - Pt with anemia and thrombocytopenia d/t chemotherapy - Pt received Neulasta (10/14), WBC increased to 2.2 (10/22) and neutrophils 1.9 - Pt received one unit PRBCs (10/18) and one unit of platelets (10/19) - Hg 9.0 (10/16), 7.5 (10/18), 8.0 (10/19), 8.0 (10/20), 8.8 (10/21), 9.3 (10/22), 8.8 (10/23), 8.2 (10/24) - Platelet 53 (10/16), 16 (10/19), 23 (10/20), 33 (10/21), 48 (10/22), 64 (10/23), 80 (10/24) - Monitor labs - PT - DVT prophylaxis (2) Skin ulcer of left side of neck ICD Codes: L98.499 - Non-pressure chronic ulcer of skin of other sites with unspecified severity Status: Acute Plan: - Pt has resolution of the neck mass but is now left with an ulcerated lesion. - MRI of the soft tissue neck (10/16) --> in comparison to prior study the fluid adenopathy the left neck has significantly decreased in size as above. No new adenopathy is identified - Case d/w Dr. Gould (10/19/17) --> Pt is NOT a candidate for surgical treatment of left neck mass/ulceration - Wound VAC can NOT be utilized d/t tumor - wound care consulted and recommends Optifoam AG dressing with every other day dressing changes. 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 Coreg - BP likely elevated related to pain - Clonidine PRN (6) H/O carcinoma of bladder ICD Codes: Z85.51 - Personal history of malignant neoplasm of bladder Plan: - comgmt with Urology - s/p radiation treatment - detrol - f/u with regular Urologist, Dr. Rivera, outpt (7) Ileus ICD Codes: K56.7 - Ileus, unspecified Status: Acute Plan: KUB (10/23) reveals distended bowel consistent with some degree of ileus or obstruction patient NPO IV fluids for hydration unable to place NG tube due to previous nasal fractures and surgery OG placed by IR with 2 L returned, Patient removed OG tube 10/24 0000 plan for IR to place NG tube today ativan as needed (8) Hypokalemia ICD Codes: E87.6 - Hypokalemia Plan: potassium 2.9 replaced repeat BMP for today pending Assessment and Plan Patient examined. Assessment and plan formulated with Carmina Cee PA-C. I agree with the above. - counts improved - Dobhoff placed by IR - CT A/P ordered by ID - levquin stopped - repeat CBC, BMP, Mag in AM Problem Qualifiers (1) Fever: Qualified Codes: R50.9 - Fever, unspecified (2) Skin ulcer of left side of neck: Qualified Codes: L98.499 - Non-pressure chronic ulcer of skin of other sites with unspecified severity (3) Hypertension: Qualified Codes: I10 - Essential (primary) hypertension Carmina Cee Oct 24, 2017 12:06 Shlomo León DO Oct 24, 2017 22:53
[2017-10-24 12:53] VITALS: BP 177/85; PULSE 72; RESP 14; TEMP 98.7; O2SAT 95
[2017-10-24 13:26] LABS: BICARBONATE 28.4 MEQ/L (21.0-32.0); CALCIUM 8.9 MG/DL (8.5-10.1); CREATININE 0.64 MG/DL (0.60-1.30)
[2017-10-24] MEDS ORDERED: POTASSIUM CHLOR 20 MEQ PREMIX 100 ML IV ONE (15:30)
--- NOTE | 2017-10-24 15:35 | HHI.IDPN ---
Subjective Subjective Remarks sp OG placement by IR (h/o naseal fx precluding NG placement) non neutropenic bandemia noted of 20%, no neupogen no fever apparently pt developped abd pain and hoda Antibiotics fluconazol zosyn Allergies: Coded Allergies: diclofenac (Verified Allergy, Severe, AFFECTED KIDNEYS, 10/16/17) ALL NSAIDS etodolac (Verified Allergy, Severe, AFFECTED KIDNEYS, 10/16/17) flurbiprofen (Verified Allergy, Severe, AFFECTED KIDNEYS, 10/16/17) ibuprofen (Verified Allergy, Severe, AFFECTED KIDNEYS, 10/16/17) indomethacin (Verified Allergy, Severe, AFFECTED KIDNEYS, 10/16/17) ketoprofen (Verified Allergy, Severe, AFFECTED KIDNEYS, 10/16/17) ketorolac (Verified Allergy, Severe, AFFECTED KIDNEYS, 10/16/17) morphine (Verified Allergy, Severe, NAUSEA/VOMITING, 10/16/17) naproxen (Verified Allergy, Severe, AFFECTED KIDNEYS, 10/16/17) oxaprozin (Verified Allergy, Severe, AFFECTED KIDNEYS, 10/16/17) Sulfa (Sulfonamide Antibiotics) (Verified Allergy, Intermediate, Rash, 07/24) apixaban (Verified Allergy, Intermediate, Hives, 10/16/17) Objective . Vital Signs Date Time Temp Pulse Resp B/P (MAP) Pulse Ox O2 Delivery O2 Flow Rate FiO2 10/24/17 12:53 98.7 72 14 177/85 (115) 95 10/24/17 08:41 98.9 73 14 160/76 (104) 95 10/24/17 06:15 98.3 76 20 164/80 (108) 94 10/23/17 23:40 99.0 75 162/84 (110) 93 10/23/17 20:26 99.1 76 16 152/81 (104) 94 10/23/17 18:52 98.8 74 18 125/78 (94) 94 . Laboratory Tests Test 10/23/17 10:45 10/24/17 06:13 White Blood Count 6.9 TH/MM3 5.8 TH/MM3 Red Blood Count 3.07 MIL/MM3 2.90 MIL/MM3 Hemoglobin 8.8 GM/DL 8.2 GM/DL Hematocrit 25.6 % 24.2 % Mean Corpuscular Volume 83.4 FL 83.6 FL Mean Corpuscular Hemoglobin 28.7 PG 28.5 PG Mean Corpuscular Hemoglobin Concent 34.4 % 34.0 % Red Cell Distribution Width 14.3 % 14.2 % Platelet Count 64 TH/MM3 80 TH/MM3 Mean Platelet Volume 8.3 FL 9.2 FL Neutrophils (%) (Auto) 90.5 % Lymphocytes (%) (Auto) 2.0 % Monocytes (%) (Auto) 7.2 % Eosinophils (%) (Auto) 0.1 % Basophils (%) (Auto) 0.2 % Neutrophils # (Auto) 6.3 TH/MM3 Lymphocytes # (Auto) 0.1 TH/MM3 Monocytes # (Auto) 0.5 TH/MM3 Eosinophils # (Auto) 0.0 TH/MM3 Basophils # (Auto) 0.0 TH/MM3 CBC Comment AUTO DIFF AUTO DIFF Differential Total Cells Counted 100 100 Neutrophils % (Manual) 56 % 74 % Band Neutrophils % 25 % 20 % Lymphocytes % 8 % Monocytes % 10 % 6 % Neutrophils # (Manual) 5.7 TH/MM3 5.5 TH/MM3 Myelocytes 1 % Differential Comment FINAL DIFF MANUAL FINAL DIFF MANUAL Toxic Granulation 1+ 2+ Platelet Estimate LOW LOW Platelet Morphology Comment NORMAL NORMAL Dohle Bodies PRESENT Laboratory Tests Test 10/23/17 10:45 10/24/17 12:27 Blood Urea Nitrogen 6 MG/DL 6 MG/DL Creatinine 0.75 MG/DL 0.64 MG/DL Random Glucose 112 MG/DL 82 MG/DL Calcium Level 9.3 MG/DL 8.9 MG/DL Magnesium Level 1.6 MG/DL Sodium Level 138 MEQ/L 139 MEQ/L Potassium Level 2.9 MEQ/L 2.9 MEQ/L Chloride Level 101 MEQ/L 104 MEQ/L Carbon Dioxide Level 29.8 MEQ/L 28.4 MEQ/L Anion Gap 7 MEQ/L 7 MEQ/L Estimat Glomerular Filtration Rate 101 ML/MIN 121 ML/MIN Imaging Last Impressions Abdomen X-Ray 10/23/17 0600 Signed Impressions: Service Date/Time: Monday, October 23, 2017 04:15 - CONCLUSION: Distended bowel. Sebas Treadwell MD Abdomen Fluoroscopy 10/23/17 0000 Signed Impressions: Service Date/Time: Monday, October 23, 2017 18:17 - CONCLUSION: Successful oral gastric tube placement. Please see above discussion. David Villa MD Head CT 10/22/17 0000 Signed Impressions: Service Date/Time: Sunday, October 22, 2017 14:25 - CONCLUSION: Normal examination for a patient of this age. Kael Hutson MD Chest X-Ray 10/16/17 1912 Signed Impressions: Service Date/Time: Monday, October 16, 2017 19:56 - CONCLUSION: Normal examination. Danilo Charles MD Soft Tissue MRI 10/16/17 0000 Signed Impressions: Service Date/Time: Monday, October 16, 2017 23:38 - CONCLUSION: 1. In comparison to prior study the fluid adenopathy the left neck has significantly decreased in size as above. No new adenopathy is identified Jl Loo MD Physical Exam CONSTITUTIONAL/GENERAL: This is an obese elderly male patient, in no apparent distress. TUBES/LINES/DRAINS: SKIN: No jaundice, rashes, or lesions. Skin temperature appropriate. Not diaphoretic. HEAD: Atraumatic. Normocephalic. EYES: Pupils equal and round and reactive. Extraocular motions intact. No scleral icterus. No injection or drainage. Fundi not examined. ENT: Hearing grossly normal. Nose without bleeding or purulent drainage. Throat without visible erythema, exudates, masses, or lesions. NECK: ulceration on the L base and ill defined induraion and mass both look smaller minimal d/c CARDIOVASCULAR: Regular rate and rhythm without murmurs, gallops, or rubs. No JVD. Peripheral pulses symmetric. RESPIRATORY/CHEST: Symmetric, unlabored respirations. Clear to auscultation. Breath sounds equal bilaterally. No wheezes, rales, or rhonchi. GASTROINTESTINAL: Abdomen + tender, markedly distended. No hepato-splenomegaly, or palpable masses. No guarding. Bowel sounds present. GENITOURINARY: Without palpable bladder distension. MUSCULOSKELETAL: Extremities without clubbing, cyanosis, + 1-2 edema. No joint tenderness or effusion noted. No calf tenderness. No mottling or clubbing. LYMPHATICS: No palpable cervical or supraclavicular adenopathy. NEUROLOGICAL: Quite lethargic after procedure PSYCHIATRIC: unable to assess Assessment & Plan Remarks Large cell lyphoma of the neck with chronic ulceration cw fungating malignant mass: mass improving p chemo Fever: resolved ? port of entry likely his ulceration Febrile neutropenia - resolved UTI cunha S PSAE New ileus , can not exclude C.diff - risk factors include abx exposure CT abd/pel dc levaquine stool for C.diff fu WBC Erin Villasenor MD Oct 24, 2017 15:35
--- NOTE | 2017-10-24 15:40 | HHI.PR ---
Addendum to Inpatient Note Additional Information RN- pt is not going to tolerate oral contrast at all will change to IV/ no po contrast study Erin Villasenor MD Oct 24, 2017 15:40
--- NOTE | 2017-10-24 16:39 | RADRPT ---
EXAM DATE/TIME: 10/24/2017 13:53 [facility] COMPARISON: FLUORO GUIDED NG TUBE PLACEMENT, October 23, 2017, 18:17. INDICATIONS : Patient with bowel obstruction in need of nasogastric tube placement. MEDICAL HISTORY : Large cell lymphoma, Left neck mass, CKD Stage 3, Prostate cancer, HTN, Liver cirrhosis, Follicular l ymphoma, HLD SURGICAL HISTORY : Bone marrow biopsy, Colonoscopy, Lithotripsy, Mediastinal biopsy ENCOUNTER: Subsequent ACUITY: 1 week PAIN SCORE: 0/10 FLUORO TIME: 4.4 minutes IMAGE SERIES: 1 SEDATION TIME: 30 minutes MEDICATION(S): 1.) 1.5 mg lorazepam (Ativan) IV DEVICE(S): 1.) 14 F Nasogastric tube PROCEDURE : 1. Fluoroscopically guided enteric feeding tube placement. The risks, benefits and alternatives to the procedure were explained and verbal and written consent w as obtained. A 0.035 angled Glidewire and Berenstein catheter was advanced from the right nose down t o the stomach. With fluoroscopic guidance a nasogastric tube was passed over the 0.035 Glidewire, th rough the nasal cavity into the stomach. The stomach was partially insufflated with air and the tube was navigated into the distal stomach CONCLUSION: Uncomplicated Dobbhoff tube placement as above. David Villa MD on October 24, 2017 at 16:36 Board Certified Radiologist. This report was verified electronically.
--- NOTE | 2017-10-24 17:09 | RADRPT ---
EXAM DATE/TIME: 10/24/2017 16:39 [facility] COMPARISON: ABDOMEN KUB ONLY, October 23, 2017, 4:15. INDICATIONS : Abdominal distention. Rule our ileus. MEDICAL HISTORY : Hypertension. Lymphoma. SURGICAL HISTORY : None. ENCOUNTER: Subsequent ACUITY: 2 days PAIN SCORE: Non-responsive. LOCATION: Abdomen FINDINGS: NG tube terminates in the stomach. There is persistent moderate gaseous distention of the colon. Ther e is slight gaseous distention of occasional small bowel loops which appears slightly improved. There is scoliosis and degenerative changes in the spine, right total hip arthroplasty and mild degenerati ve change in the left hip. Surgical clips in right upper quadrant from previous cholecystectomy. CONCLUSION: Slight improvement in bowel gas pattern eSbas Patel MD on October 24, 2017 at 17:00 Board Certified Radiologist. This report was verified electronically.
[2017-10-24] MEDS: LEVOFLOXACIN 750 MG PREMIX INJ 150 ML IV SCH (18:30)
[2017-10-24 20:01] VITALS: BP 190/87; PULSE 76; RESP 17; TEMP 98.2; O2SAT 97
[2017-10-24] MEDS: PRAVASTATIN SOD 40 MG TAB PO SCH (21:00)
[2017-10-24] MEDS ORDERED: IOHEXOL 350 MG/ML 10 ML VIAL (for RAD DIAG) IVCONTRAST ONE (23:09)
--- NOTE | 2017-10-24 23:24 | RADRPT ---
EXAM DATE/TIME: 10/24/2017 22:54 [facility] COMPARISON: No previous studies available for comparison. INDICATIONS : Abdominal distention. IV CONTRAST: 100 cc Omnipaque 350 (iohexol) IV ORAL CONTRAST: No oral contrast ingested. RADIATION DOSE: 21.18 CTDIvol (mGy) MEDICAL HISTORY : Carcinoma, prostate. Hypertension. Gastroesophageal reflux disease.Lymphoma. SURGICAL HISTORY : Cholecystectomy. ENCOUNTER: Subsequent ACUITY: 3 days PAIN SCALE: Non-responsive LOCATION: Abdomen. TECHNIQUE: Volumetric scanning of the abdomen and pelvis was performed. Using automated exposure control and ad justment of the mA and/or kV according to patient size, radiation dose was kept as low as reasonably achievable to obtain optimal diagnostic quality images. DICOM format image data is available electro nically for review and comparison. FINDINGS: LOWER LUNGS: Small bilateral pleural effusions at the lung bases with associated mild airspace disease, likely ate lectasis. LIVER: Small cirrhotic appearing liver without evidence for focal mass. Gallbladder is surgically absent wit h subtle central intrahepatic ductal dilatation, likely reservoir effect. SPLEEN: Spleen is enlarged measuring up to 14.5 cm without focal lesion. PANCREAS: Within normal limits. KIDNEYS: Kidneys appear lobulated in contour bilaterally without evidence for a radiopaque renal calculi. Ther e is moderate right-sided hydronephrosis extending to the UPJ without a focal abnormality noted. The right ureter is decompressed throughout its course. There is a 2.3 cm cyst in the posterior inferior pole of the left kidney. ADRENAL GLANDS: Right adrenal calcifications likely secondary to prior adrenal injury/hemorrhage. VASCULAR: There is no aortic aneurysm. BOWEL/MESENTERY: Moderate sigmoid diverticulosis. There is mild perisigmoid inflammatory stranding and prominent vasa recti concerning for mild diverticulitis. No pneumatosis or free air. Fluid is seen in the multiple l oops of nondistended small bowel. There is a small amount of ascites with fluid primarily along the i nferior margins of the liver and spleen. ABDOMINAL WALL: There is an NGT in the stomach. RETROPERITONEUM: Splenorenal collaterals are noted primarily along the left side. No significant adenopathy. BLADDER: No wall thickening or mass. REPRODUCTIVE: Within normal limits. INGUINAL: There is no lymphadenopathy or hernia. MUSCULOSKELETAL: Degenerative spondylosis of the lumbar spine. Left hip arthroplasty in place. No abnormal lytic or bl astic bony lesions. Partially imaged suspected left thigh lipoma versus muscular atrophy. CONCLUSION: 1. Findings concerning for mild sigmoid diverticulitis without evidence of perforation or abscess. 2. Cirrhotic appearing liver with evidence for portal hypertension and very small amount of ascites. 3. Moderate right-sided hydronephrosis extending to the right UPJ of uncertain etiology. No evidence for radiopaque renal calculus at the right UPJ. 4. Small bilateral effusions with compressive atelectasis at the lung bases. 5. Incidental findings, as above. Jacinto Moreno MD on October 24, 2017 at 23:12 Board Certified Radiologist. This report was verified electronically.
[2017-10-25 00:08] VITALS: BP 176/87; PULSE 76; RESP 21; TEMP 97.7; O2SAT 95
[2017-10-25] MEDS: NS + KCL 20 MEQ INJ 1,000 ML IV SCH ×2 (04:00→20:28)
[2017-10-25 05:55] VITALS: BP 172/83; PULSE 78; RESP 18; TEMP 97.5; O2SAT 96
[2017-10-25] MEDS ORDERED: metroNIDAZOLE 500 MG TAB PO SCH (06:00)
[2017-10-25 07:03] LABS: BICARBONATE 27.6 MEQ/L (21.0-32.0); CALCIUM 8.7 MG/DL (8.5-10.1); CREATININE 0.59 MG/DL (0.60-1.30); HEMATOCRIT 24.7 % (39.0-51.0); HEMOGLOBIN 8.4 GM/DL (13.0-17.0); MAGNESIUM 1.7 MG/DL (1.5-2.5); MEAN CELL VOLUME 84.1 FL (80.0-100.0); MEAN CORPUSCULAR HEMOGLOBIN 28.7 PG (27.0-34.0); MEAN CORPUSCULAR HGB CONC 34.2 % (32.0-36.0); MEAN PLATELET VOLUME 9.2 FL (7.0-11.0); PLATELET COUNT 83 TH/MM3 (150-450); RED BLOOD COUNT 2.93 MIL/MM3 (4.50-5.90); RED CELL DISTRIBUTION WIDTH 14.3 % (11.6-17.2); WHITE BLOOD COUNT 4.8 TH/MM3 (4.0-11.0)
[2017-10-25 07:50] LABS: BANDS 23 % (0-6); MONOCYTES 4 % (0-8); MYELOCYTES 1 % (0-0); NEUTROPHIL # MANUAL DIFF 4.6 TH/MM3 (1.8-7.7); POLYS (SEG NEUTROPHILS) 71 % (16-70); PROMYELOCYTES 1 % (0-0)
[2017-10-25 07:52] LABS: TOXIC GRANULATION 2+ (NORMAL)
[2017-10-25] MEDS: TOLTERODINE TARTRATE 4 MG CAP LA PO SCH (08:05)
[2017-10-25] MEDS: CARVEDILOL 6.25 MG TAB PO SCH ×2 (08:05→20:27)
[2017-10-25] MEDS: PANTOPRAZOLE SODIUM 40 MG VIAL IV PUSH SCH (08:05)
[2017-10-25] MEDS: DOCUSATE SODIUM 100 MG CAP PO SCH (08:06)
[2017-10-25 08:08] VITALS: BP 151/72; PULSE 75; RESP 20; TEMP 98.4; O2SAT 96
[2017-10-25] MEDS ORDERED: POTASSIUM CHLOR 20 MEQ PREMIX 100 ML IV SCH (09:30)
--- NOTE | 2017-10-25 10:05 | PD.ONC.PN ---
Subjective Subjective Remarks Afebrile overnight. Patient resting in bed. Per , patient less confused today. Patient asking to have NGT removed. Had three bowel movements overnight. Objective Data Date Time Temp Pulse Resp B/P (MAP) Pulse Ox O2 Delivery O2 Flow Rate FiO2 10/25/17 08:08 98.4 75 20 151/72 (98) 96 10/25/17 05:55 97.5 78 18 172/83 (112) 96 10/25/17 00:08 97.7 76 21 176/87 (116) 95 10/24/17 20:01 98.2 76 17 190/87 (121) 97 10/24/17 12:53 98.7 72 14 177/85 (115) 95 10/25/17 10/25/17 10/25/17 07:00 15:00 23:00 Output Total 200 ml 150 ml Balance -200 ml -150 ml Result Diagram: 10/25/17 0611 10/25/17 0611 Laboratory Results Laboratory Tests Test 10/24/17 12:27 10/25/17 01:24 10/25/17 06:11 Blood Urea Nitrogen 6 MG/DL 6 MG/DL Creatinine 0.64 MG/DL 0.59 MG/DL Random Glucose 82 MG/DL 77 MG/DL Calcium Level 8.9 MG/DL 8.7 MG/DL Sodium Level 139 MEQ/L 141 MEQ/L Potassium Level 2.9 MEQ/L 2.9 MEQ/L Chloride Level 104 MEQ/L 105 MEQ/L Carbon Dioxide Level 28.4 MEQ/L 27.6 MEQ/L Anion Gap 7 MEQ/L 8 MEQ/L Estimat Glomerular Filtration Rate 121 ML/MIN 133 ML/MIN Stool C. difficile Toxin (PCR) POSITIVE Stl C. difficile Toxin Epiderm 027 PRESUMPTIVE NEGATIVE White Blood Count 4.8 TH/MM3 Red Blood Count 2.93 MIL/MM3 Hemoglobin 8.4 GM/DL Hematocrit 24.7 % Mean Corpuscular Volume 84.1 FL Mean Corpuscular Hemoglobin 28.7 PG Mean Corpuscular Hemoglobin Concent 34.2 % Red Cell Distribution Width 14.3 % Platelet Count 83 TH/MM3 Mean Platelet Volume 9.2 FL CBC Comment AUTO DIFF Differential Total Cells Counted 100 Neutrophils % (Manual) 71 % Band Neutrophils % 23 % Monocytes % 4 % Neutrophils # (Manual) 4.6 TH/MM3 Myelocytes 1 % Promyelocytes 1 % Differential Comment FINAL DIFF MANUAL Toxic Granulation 2+ Platelet Estimate LOW Platelet Morphology Comment ENLARGED Magnesium Level 1.7 MG/DL Imaging Studies Last 24 hours Impressions Abdomen/Pelvis CT 10/24/17 1540 Signed Impressions: Service Date/Time: October 22:54 - CONCLUSION: 1. Findings concerning for mild sigmoid diverticulitis without evidence of perforation or abscess. 2. Cirrhotic appearing liver with evidence for portal hypertension and very small amount of ascites. 3. Moderate right-sided hydronephrosis extending to the right UPJ of uncertain etiology. No evidence for radiopaque renal calculus at the right UPJ. 4. Small bilateral effusions with compressive atelectasis at the lung bases. 5. Incidental findings, as above. Jacinto Moreno MD Administered Medications Medications (Trade) Dose Ordered Sig/Jeremi Route PRN Reason Start Time Stop Time Status Last Admin Dose Admin Carvedilol (Coreg) 6.25 mg BID PO 10/16/17 21:00 10/25/17 08:05 Pravastatin Sodium (Pravachol) 40 mg HS PO 10/16/17 21:00 10/23/17 20:46 Ondansetron HCl (Zofran Inj) 4 mg Q6HR PRN IV PUSH n/v 10/16/17 19:45 10/23/17 14:26 Acetaminophen (Tylenol) 650 mg Q4H PRN PO fever>100.4 10/17/17 09:15 10/17/17 21:06 Tolterodine Tartrate (Detrol La) 4 mg DAILY PO 10/18/17 12:45 10/25/17 08:05 Docusate Sodium (Colace) 100 mg BID PO 10/19/17 11:30 10/24/17 21:29 Magnesium Hydroxide (Milk Of Magnesia Liq) 30 ml DAILY PRN PO MILD-MODERATE CONSTIPATION 10/19/17 11:00 10/19/17 12:52 Lactulose (Lactulose Liq) 30 ml QID PRN PO SEVERE CONSITIPATION 10/21/17 13:00 10/22/17 14:59 Oxycodone HCl (Roxicodone) 15 mg Q8H PRN PO PAIN SCALE 1 TO 10 10/22/17 10:30 10/23/17 15:31 Levofloxacin (Levaquin) 750 mg Q24H PO 10/22/17 17:00 10/29/17 16:59 Future Hold 10/22/17 18:29 Potassium Chloride/Sodium Chloride 1,000 ml @ 50 mls/hr Q20H IV 10/23/17 12:00 10/24/17 09:36 Lorazepam (Ativan Inj) 0.5 mg Q4H PRN IV PUSH agitation 10/23/17 18:30 10/23/17 23:37 Pantoprazole Sodium (Protonix Inj) 40 mg Q24H IV PUSH 10/25/17 09:00 10/25/17 08:05 Objective Remarks GENERAL: Disheveled elderly male, sitting up in bed, right hand in restraints. left hand free. He drifts off to sleep quickly during the exam. SKIN: Warm and dry. HEAD: Normocephalic. NGT in place. EYES: No injection or drainage. NECK: Supple, trachea midline. CARDIOVASCULAR: Regular rate and rhythm RESPIRATORY: diminished at bases, scattered rhonchi. GASTROINTESTINAL: Abdomen soft, non-tender, nondistended. EXTREMITIES: No cyanosis NEUROLOGICAL: awake. answering questions, tracks with eyes. oriented to place and self. 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 --s/p EPOCH the week prior to admission (2) Skin ulcer of left side of neck ICD Codes: L98.499 - Non-pressure chronic ulcer of skin of other sites with unspecified severity Status: Acute Plan: --continue dressing changes as recommended by wound care. --wound care consulted and recommends Optifoam AG dressing with every other day dressing changes. (3) C. difficile diarrhea ICD Codes: A04.72 - Enterocolitis due to Clostridium difficile, not specified as recurrent Plan: --on PO Vanco + IV Flagyl Assessment 77y/o male admitted with neutropenic fever associated with large cell lymphoma treatment. 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 h/o Liver cirrhosis. Hypertension. Pancytopenia. Neutropenic fever. Left neck wound. Plan 1. clamp NGT 2. replace potassium 3. agree with PO Vanco + IV Flagyl for C. diff. Attending Statement The exam, history, and the medical decision-making described in the above note were completed with the assistance of the mid-level provider. I reviewed and agree with the findings presented. I attest that I had a [id number] encounter with the patient on the same day, and personally performed and documented my assessment and findings in the medical record. More alert, tolerating clears. NGT in place to suction. Diarrhea x 5, Flagyl and vancomycin tx for C-diff. KCL replacement continue. L neck dressing in place. Problem Qualifiers (1) Skin ulcer of left side of neck: Qualified Codes: L98.499 - Non-pressure chronic ulcer of skin of other sites with unspecified severity Carmen Russo Oct 25, 2017 10:05 Marie Moe MD Oct 25, 2017 19:29
--- NOTE | 2017-10-25 10:41 | RADRPT ---
EXAM DATE/TIME: 10/25/2017 09:18 [facility] COMPARISON: CT ABDOMEN & PELVIS W CONTRAST, October 24, 2017, 22:54. EXTERNAL COMPARISON : [facility], CT ABDOMEN & PELVIS W/O CONTRAST, November 12, 2012[facility], CT ABDOME N W/CONTRAST, January 09, 2012. [facility], CT ABDOMEN & PELVIS W/O CONTRAST, September 13, 2011. [facility], CT ABDOMEN & PELVIS W/O CONTRAST, January 25, 2011. [facility], CT ABDOM EN & PELVIS W/ CONTRAST, November 03, 2009. INDICATIONS : Hydronephrosis. MEDICAL HISTORY : Hypercholesterolemia. Hypertension. Gastroesophageal reflux disease. Large cell lymphoma. Non Hodgkin 's lymphoma. hearing loss. renal disease. arthritis. hemochromatosis. skin cancer. prostate cancer. c hemotherapy. radiation therapy. kidney stones. SURGICAL HISTORY : Cholecystectomy. Bilateral cataract removal. Lithotripsy. Bilateral knee replacements. Left hip r eplacement. Sciatic nerve cystectomy. Left shoulder surgery. ENCOUNTER: Initial ACUITY: 1 day PAIN SCORE: 2/10 LOCATION: Bilateral flank MEASUREMENTS: RIGHT KIDNEY: 12.7 x 6.6 x 6.5 cm LEFT KIDNEY: 9.1 x 6.5 x 5.9 cm FINDINGS: RIGHT KIDNEY: Renal cortex is normal in thickness and echotexture. No stone, or mass. There is distention of the renal pelvis and extrarenal pelvis. Prior CT demonstrated a 3 mm nonobstructing stone in the lower po le collecting system. This is not visible on ultrasound. LEFT KIDNEY: Renal cortex is normal in thickness and echotexture. No hydronephrosis, stone, or mass. BLADDER: Within normal limits given the degree of distension. There is a small volume of free fluid in the abdomen. CONCLUSION: 1. Distention of the right extrarenal pelvis, stable from the CT scan from yesterday. 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 Correlating with prior studies dating back to 2014 [facility] stra no significant change. 2. Small volume of free fluid is present in the abdomen. Sebas Butler MD on October 25, 2017 at 10:29 Board Certified Radiologist. This report was verified electronically.
[2017-10-25] MEDS: VANCOMYCIN 500 MG VIAL (FOR ORAL USE ONLY) PO SCH ×3 (13:50→20:26)
[2017-10-25] MEDS: POTASSIUM CHLOR 20 MEQ PREMIX 100 ML IV SCH ×2 (13:54→18:06)
[2017-10-25] MEDS: VANCOMYCIN INJ 500 MG in SODIUM CHLORIDE 0.9% IRR BTL 250 ML IRRIGATION SCH ×2 (13:55→16:54)
[2017-10-25] MEDS: metroNIDAZOLE 500 MG INJ 100 ML IV SCH ×2 (14:00→22:47)
[2017-10-25 14:05] VITALS: BP 159/85; PULSE 80; RESP 20; TEMP 98.4; O2SAT 97
--- NOTE | 2017-10-25 17:05 | HHI.PR ---
Subjective Remarks Pt with several episodes of diarrhea. Pt continues to have periods of confusion Objective Vitals Vital Signs Date Time Temp Pulse Resp B/P (MAP) Pulse Ox O2 Delivery O2 Flow Rate FiO2 10/25/17 14:05 98.4 80 20 159/85 (109) 97 10/25/17 08:08 98.4 75 20 151/72 (98) 96 10/25/17 05:55 97.5 78 18 172/83 (112) 96 10/25/17 00:08 97.7 76 21 176/87 (116) 95 10/24/17 20:01 98.2 76 17 190/87 (121) 97 10/25/17 10/25/17 10/26/17 15:00 23:00 07:00 Output Total 150 ml Balance -150 ml Gastric Drainage Total 150 ml # Bowel Movements 1 Result Diagram: 10/25/17 0611 10/25/17 0611 Imaging Last Impressions Renal Ultrasound 10/25/17 0000 Signed Impressions: Service Date/Time: Wednesday, October 25, 2017 09:18 - CONCLUSION: 1. Distention of the right extrarenal pelvis, stable from the CT scan from yesterday. 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 Correlating with prior studies dating back to 2014 demonstrate no significant change. 2. Small volume of free fluid is present in the abdomen. Sebas Butler MD Abdomen/Pelvis CT 10/24/17 1540 Signed Impressions: Service Date/Time: October 22:54 - CONCLUSION: 1. Findings concerning for mild sigmoid diverticulitis without evidence of perforation or abscess. 2. Cirrhotic appearing liver with evidence for portal hypertension and very small amount of ascites. 3. Moderate right-sided hydronephrosis extending to the right UPJ of uncertain etiology. No evidence for radiopaque renal calculus at the right UPJ. 4. Small bilateral effusions with compressive atelectasis at the lung bases. 5. Incidental findings, as above. Jacinto Moreno MD Abdomen X-Ray 10/24/17 0000 Signed Impressions: Service Date/Time: October 16:39 - CONCLUSION: Slight improvement in bowel gas pattern Sebas Patel MD Abdomen Fluoroscopy 10/24/17 0000 Signed Impressions: Service Date/Time: October 13:53 - CONCLUSION: Uncomplicated Dobbhoff tube placement as above. David Villa MD Head CT 10/22/17 0000 Signed Impressions: Service Date/Time: Sunday, October 22, 2017 14:25 - CONCLUSION: Normal examination for a patient of this age. Kael Hutson MD Chest X-Ray 10/16/17 191 Signed Impressions: Service Date/Time: Monday, October 16, 2017 19:56 - CONCLUSION: Normal examination. Danilo Charles MD Soft Tissue MRI 10/16/17 0000 Signed Impressions: Service Date/Time: Monday, October 16, 2017 23:38 - CONCLUSION: 1. In comparison to prior study the fluid adenopathy the left neck has significantly decreased in size as above. No new adenopathy is identified Jl Loo MD Objective Remarks General: NAD, Awake and alert Neck: open wound on left neck Chest: CTA Cardiac: Regular Abd: Absent BS, soft, distended, nontender. Ext: No edema A/P Problem List: (1) C. difficile diarrhea ICD Codes: A04.72 - Enterocolitis due to Clostridium difficile, not specified as recurrent Status: Acute Plan: - comgmt with ID - Case d/w Dr. Villasenor (10/25) - CT A/P (10/25) - changes c/w colitis including rectal and sigmoid mucosal thickening - moderate right hydronephrosis (chronic) - IV flagyl (10/25 - present) - PO Vanco (10/25 - present) - Vanco enema q6h (10/25 - present) - IVFs - repeat BMP/Mg/CBC in AM - Case d/w Dr. Villasenor (10/25/17) - supportive care (2) Hypokalemia ICD Codes: E87.6 - Hypokalemia Status: Acute Plan: - potassium 2.9, aga - Pt repeating IV KCL, with burning - consider central line - repeat BMP/Mag 10/26 (3) Ileus ICD Codes: K56.7 - Ileus, unspecified Status: Acute Plan: - KUB (10/23) reveals distended bowel consistent with some degree of ileus or obstruction - Pt again defecating 10/25, diarrhea - Pt had OG placed by IR with 2 L returned, Patient removed OG tube 10/24 0000 - Pt pulled OG around 12AM 10/24 - NGT placed by IR 10/25, now clamped - Pt tolerating a small amount of clear liquid PO intake - clinically, pt with some continued abdominal distension - will likely remove NGT 10/26 (4) Fever ICD Codes: R50.9 - Fever, unspecified Status: Acute Plan: - comgmt with ID and Oncology - Patient is 77 yo with hx follicular lymphoma followed by Dr Moe. - He then developed a left neck mass that ulcerated. He was started on Bendamustine and Rituxan with initial response. 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 He was treated with Rituxan 10/01/17 and admitted for chemotherapy on October 03 but was sent home due to neutropenia before rx. - He was admitted from 10/09 to 10/13/17 for EPOCH chemotherapy. - PICC line was placed during the admission and last dose was reduced due to neutropenia. He f/u in office on 10/14 and WBC 4 and given Neulasta. The morning of admission he began developing the bone pain presumed due to Neulasta and general weakness. Then began with fever and sent in by his doctor. His son says the left neck wound actually had looked great and shrunk tremendously in size. - Pt was admitted with a fever of 101.8 - source is likely Left neck wound but urine culture is growing gram negative rods, await final cultures and sensitivities - Blood cultures (10/16/17) --> NO growth - Case d/w Dr. Gould (10/19/17) --> Pt is NOT a candidate for surgical treatment of left neck mass/ulceration - Wound VAC can NOT be utilized d/t tumor - Vancomycin (10/16 - 10/19) - Cefepime (10/16 - 10/22) - Levaquin IV (10/22 - 10/25) urine culture reveals Pseudomonas aeruginosa sensitive to Levaquin abx per ID - Last low grade temp was 99.7 on 10/19 - Pt was painful during most of the first week of his admission - pt received morphine/dilaudid/roxicodone prn - Pt subsequently developed an ileus - We will give a dose of Relistor on 10/22 - Pt with anemia and thrombocytopenia d/t chemotherapy - Pt received Neulasta (10/14), WBC increased to 2.2 (10/22) and neutrophils 1.9 - Pt received one unit PRBCs (10/18) and one unit of platelets (10/19) - Hg 9.0 (10/16), 7.5 (10/18), 8.0 (10/19), 8.0 (10/20), 8.8 (10/21), 9.3 (10/22), 8.8 (10/23), 8.2 (10/24), 8.4 (10/25) - Platelet 53 (10/16), 16 (10/19), 23 (10/20), 33 (10/21), 48 (10/22), 64 (10/23), 80 (10/24), 83 (10/25) - Case d/w Oncology service (10/25) - If continued aggressive treatment, then likely repeat EPOCH treatment at lower dose - seems risk of pt again developing neutropenic fever which would again lead to aggressive antibiotic treatment and then the risk of recurrent C. Dif - Palliative Consult for clarification of goals? - Monitor labs - PT - DVT prophylaxis (5) Skin ulcer of left side of neck ICD Codes: L98.499 - Non-pressure chronic ulcer of skin of other sites with unspecified severity Status: Acute Plan: - Pt has resolution of the neck mass but is now left with an ulcerated lesion. - MRI of the soft tissue neck (10/16) --> in comparison to prior study the fluid adenopathy the left neck has significantly decreased in size as above. No new adenopathy is identified - Case d/w Dr. Gould (10/19/17) --> Pt is NOT a candidate for surgical treatment of left neck mass/ulceration - Wound VAC can NOT be utilized d/t tumor - wound care consulted and recommends Optifoam AG dressing with every other day dressing changes. (6) Large cell lymphoma ICD Codes: C85.80 - Other specified types of non-Hodgkin lymphoma, unspecified site Status: Acute Plan: - see above (7) History of non-Hodgkin's lymphoma ICD Codes: Z85.72 - Personal history of non-Hodgkin lymphomas Status: Chronic Plan: - see above (8) Hypertension ICD Codes: I10 - Essential (primary) hypertension Status: Chronic Plan: - Cont. Coreg - BP likely elevated related to pain - Clonidine PRN (9) H/O carcinoma of bladder ICD Codes: Z85.51 - Personal history of malignant neoplasm of bladder Plan: - comgmt with Urology - s/p radiation treatment - detrol - f/u with regular Urologist, Dr. Rivera, outpt Problem Qualifiers (1) Fever: Qualified Codes: R50.9 - Fever, unspecified (2) Skin ulcer of left side of neck: Qualified Codes: L98.499 - Non-pressure chronic ulcer of skin of other sites with unspecified severity (3) Hypertension: Qualified Codes: I10 - Essential (primary) hypertension Shlomo León DO Oct 25, 2017 17:05
[2017-10-25 18:10] VITALS: BP 182/90; PULSE 80; RESP 20; TEMP 97.8; O2SAT 90
--- NOTE | 2017-10-25 18:20 | HHI.IDPN ---
Subjective Subjective Remarks C.diff was +, non [address] abd/pel result noted and dw Dr Shea over the phone: changes cw colitis including rectal and sigmoing mucosae thickening and he has moderate hydro R Overall pt is better today, more awake, though confused, but more interactive He is having diarrheal stools He is having bandemia Antibiotics vanco po flagyl IV Allergies: Coded Allergies: diclofenac (Verified Allergy, Severe, AFFECTED KIDNEYS, 10/16/17) ALL NSAIDS etodolac (Verified Allergy, Severe, AFFECTED KIDNEYS, 10/16/17) flurbiprofen (Verified Allergy, Severe, AFFECTED KIDNEYS, 10/16/17) ibuprofen (Verified Allergy, Severe, AFFECTED KIDNEYS, 10/16/17) indomethacin (Verified Allergy, Severe, AFFECTED KIDNEYS, 10/16/17) ketoprofen (Verified Allergy, Severe, AFFECTED KIDNEYS, 10/16/17) ketorolac (Verified Allergy, Severe, AFFECTED KIDNEYS, 10/16/17) morphine (Verified Allergy, Severe, NAUSEA/VOMITING, 10/16/17) naproxen (Verified Allergy, Severe, AFFECTED KIDNEYS, 10/16/17) oxaprozin (Verified Allergy, Severe, AFFECTED KIDNEYS, 10/16/17) Sulfa (Sulfonamide Antibiotics) (Verified Allergy, Intermediate, Rash, 07/24) apixaban (Verified Allergy, Intermediate, Hives, 10/16/17) Objective . Vital Signs Date Time Temp Pulse Resp B/P (MAP) Pulse Ox O2 Delivery O2 Flow Rate FiO2 10/25/17 14:05 98.4 80 20 159/85 (109) 97 10/25/17 08:08 98.4 75 20 151/72 (98) 96 10/25/17 05:55 97.5 78 18 172/83 (112) 96 10/25/17 00:08 97.7 76 21 176/87 (116) 95 10/24/17 20:01 98.2 76 17 190/87 (121) 97 10/25/17 10/25/17 10/26/17 15:00 23:00 07:00 Output Total 150 ml Balance -150 ml Gastric Drainage Total 150 ml # Bowel Movements 1 . Laboratory Tests Test 10/24/17 06:13 10/25/17 06:11 White Blood Count 5.8 TH/MM3 4.8 TH/MM3 Red Blood Count 2.90 MIL/MM3 2.93 MIL/MM3 Hemoglobin 8.2 GM/DL 8.4 GM/DL Hematocrit 24.2 % 24.7 % Mean Corpuscular Volume 83.6 FL 84.1 FL Mean Corpuscular Hemoglobin 28.5 PG 28.7 PG Mean Corpuscular Hemoglobin Concent 34.0 % 34.2 % Red Cell Distribution Width 14.2 % 14.3 % Platelet Count 80 TH/MM3 83 TH/MM3 Mean Platelet Volume 9.2 FL 9.2 FL CBC Comment AUTO DIFF AUTO DIFF Differential Total Cells Counted 100 100 Neutrophils % (Manual) 74 % 71 % Band Neutrophils % 20 % 23 % Monocytes % 6 % 4 % Neutrophils # (Manual) 5.5 TH/MM3 4.6 TH/MM3 Differential Comment FINAL DIFF MANUAL FINAL DIFF MANUAL Toxic Granulation 2+ 2+ Dohle Bodies PRESENT Platelet Estimate LOW LOW Platelet Morphology Comment NORMAL ENLARGED Myelocytes 1 % Promyelocytes 1 % Laboratory Tests Test 10/24/17 12:27 10/25/17 06:11 Blood Urea Nitrogen 6 MG/DL 6 MG/DL Creatinine 0.64 MG/DL 0.59 MG/DL Random Glucose 82 MG/DL 77 MG/DL Calcium Level 8.9 MG/DL 8.7 MG/DL Sodium Level 139 MEQ/L 141 MEQ/L Potassium Level 2.9 MEQ/L 2.9 MEQ/L Chloride Level 104 MEQ/L 105 MEQ/L Carbon Dioxide Level 28.4 MEQ/L 27.6 MEQ/L Anion Gap 7 MEQ/L 8 MEQ/L Estimat Glomerular Filtration Rate 121 ML/MIN 133 ML/MIN Magnesium Level 1.7 MG/DL Imaging Last Impressions Renal Ultrasound 10/25/17 0000 Signed Impressions: Service Date/Time: Wednesday, October 25, 2017 09:18 - CONCLUSION: 1. Distention of the right extrarenal pelvis, stable from the CT scan from yesterday. 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 Correlating with prior studies dating back to 2015 demonstrate no significant change. 2. Small volume of free fluid is present in the abdomen. Sebas Butler MD Abdomen/Pelvis CT 10/24/17 1540 Signed Impressions: Service Date/Time: October 22:54 - CONCLUSION: 1. Findings concerning for mild sigmoid diverticulitis without evidence of perforation or abscess. 2. Cirrhotic appearing liver with evidence for portal hypertension and very small amount of ascites. 3. Moderate right-sided hydronephrosis extending to the right UPJ of uncertain etiology. No evidence for radiopaque renal calculus at the right UPJ. 4. Small bilateral effusions with compressive atelectasis at the lung bases. 5. Incidental findings, as above. Jacinto Moreno MD Abdomen X-Ray 10/24/17 0000 Signed Impressions: Service Date/Time: October 16:39 - CONCLUSION: Slight improvement in bowel gas pattern Sebas Patel MD Abdomen Fluoroscopy 10/24/17 0000 Signed Impressions: Service Date/Time: October 13:53 - CONCLUSION: Uncomplicated Dobbhoff tube placement as above. David Villa MD Head CT 10/22/17 0000 Signed Impressions: Service Date/Time: Sunday, October 22, 2017 14:25 - CONCLUSION: Normal examination for a patient of this age. Kael Hutson MD Chest X-Ray 10/16/171911 Signed Impressions: Service Date/Time: Monday, October 16, 2017 19:56 - CONCLUSION: Normal examination. Danilo Charles MD Soft Tissue MRI 10/16/17 0000 Signed Impressions: Service Date/Time: Monday, October 16, 2017 23:38 - CONCLUSION: 1. In comparison to prior study the fluid adenopathy the left neck has significantly decreased in size as above. No new adenopathy is identified Jl Loo MD Physical Exam CONSTITUTIONAL/GENERAL: This is an obese elderly male patient, in no apparent distress. TUBES/LINES/DRAINS: SKIN: No jaundice, rashes, or lesions. Skin temperature appropriate. Not diaphoretic. HEAD: Atraumatic. Normocephalic. EYES: Pupils equal and round and reactive. Extraocular motions intact. No scleral icterus. No injection or drainage. Fundi not examined. ENT: Hearing grossly normal. Nose without bleeding or purulent drainage. Throat without visible erythema, exudates, masses, or lesions. NECK: dressing in place CARDIOVASCULAR: Regular rate and rhythm without murmurs, gallops, or rubs. No JVD. Peripheral pulses symmetric. RESPIRATORY/CHEST: Symmetric, unlabored respirations. Clear to auscultation. Breath sounds equal bilaterally. No wheezes, rales, or rhonchi. GASTROINTESTINAL: Abdomen less tender, less distended. No hepato-splenomegaly, or palpable masses. No guarding. Bowel sounds present. GENITOURINARY: Without palpable bladder distension. MUSCULOSKELETAL: Extremities without clubbing, cyanosis, + 1-2 edema. No joint tenderness or effusion noted. No calf tenderness. No mottling or clubbing. 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 port of entry likely his ulceration Febrile neutropenia - resolved UTI cunha S PSAE C.diff colitis - new Chronic appearing moderated hydronephrosis cont tx for C.diff avoid systemic abx Monse Justin RN dw son @ b/s Erin Villasenor MD Oct 25, 2017 18:18
[2017-10-25] MEDS ORDERED: D5-NS + KCL 40 MEQ INJ 1,000 ML IV SCH (19:30)
[2017-10-25] MEDS: ENOXAPARIN SODIUM 40 MG/0.4 ML SYRINGE SQ SCH (20:27)
[2017-10-25] MEDS: PRAVASTATIN SOD 40 MG TAB PO SCH (20:27)
[2017-10-25 20:44] VITALS: BP 189/88; PULSE 77; RESP 22; TEMP 97.7; O2SAT 98
[2017-10-25] MEDS: ACETAMINOPHEN 325 MG TAB PO PRN (20:53)
[2017-10-26 00:59] VITALS: BP 169/82; PULSE 69; RESP 16; TEMP 97.5; O2SAT 97
[2017-10-26] MEDS: VANCOMYCIN INJ 500 MG in SODIUM CHLORIDE 0.9% IRR BTL 250 ML IRRIGATION SCH ×3 (00:59→13:39)
[2017-10-26 06:01] VITALS: BP 177/90; PULSE 65; RESP 20; TEMP 97.7; O2SAT 96
[2017-10-26] MEDS: metroNIDAZOLE 500 MG INJ 100 ML IV SCH ×2 (06:07→13:39)
[2017-10-26 07:55] VITALS: BP 183/85; PULSE 71; RESP 18; TEMP 97.3; O2SAT 97
[2017-10-26 08:31] LABS: ALBUMIN 2.4 GM/DL (3.4-5.0); ALT (GPT) 23 U/L (12-78); AST (GOT) 28 U/L (15-37); BICARBONATE 26.5 MEQ/L (21.0-32.0); BLOOD UREA NITROGEN 5 MG/DL (7-18); CALCIUM 8.8 MG/DL (8.5-10.1); CHLORIDE 107 MEQ/L (98-107); GLOMERULAR FILTRATION RATE 130 ML/MIN (>89); GLUCOSE,RANDOM 81 MG/DL (74-106); MAGNESIUM 1.7 MG/DL (1.5-2.5); SODIUM (NA) 142 MEQ/L (136-145)
[2017-10-26 08:34] LABS: ALKALINE PHOSPHATASE 173 U/L (45-117); TOTAL BILIRUBIN ADULT 0.8 MG/DL (0.2-1.0); TOTAL PROTEIN 5.1 GM/DL (6.4-8.2)
--- NOTE | 2017-10-26 09:12 | PD.ONC.PN ---
Subjective Subjective Remarks Afebrile overnight. Patient resting in bed. at bedside. Had multiple loose stools in the last 24 hours. Had an episode of stool incontinence as well. Still has intermittent confusion, although feels it is improving. Objective Data Date Time Temp Pulse Resp B/P (MAP) Pulse Ox O2 Delivery O2 Flow Rate FiO2 10/26/17 08:03 97 Room Air 10/26/17 07:55 97.3 71 18 183/85 (117) 97 10/26/17 06:01 97.7 65 20 177/90 (119) 96 10/26/17 00:59 97.5 69 16 169/82 (111) 97 10/25/17 23:04 Room Air 10/25/17 21:53 18 10/25/17 20:44 97.7 77 22 189/88 (121) 98 10/25/17 19:40 Room Air 10/25/17 18:10 97.8 80 20 182/90 (120) 90 10/25/17 14:05 98.4 80 20 159/85 (109) 97 10/26/17 10/26/17 10/26/17 07:00 15:00 23:00 Intake Total 377 ml Balance 377 ml Result Diagram: 10/25/17 0611 10/26/17 0645 Laboratory Results Laboratory Tests Test 10/26/17 06:45 Blood Urea Nitrogen 5 MG/DL Creatinine 0.60 MG/DL Random Glucose 81 MG/DL Total Protein 5.1 GM/DL Albumin 2.4 GM/DL Calcium Level 8.8 MG/DL Magnesium Level 1.7 MG/DL Alkaline Phosphatase 173 U/L Aspartate Amino Transf (AST/SGOT) 28 U/L Alanine Aminotransferase (ALT/SGPT) 23 U/L Total Bilirubin 0.8 MG/DL Sodium Level 142 MEQ/L Potassium Level 3.0 MEQ/L Chloride Level 107 MEQ/L Carbon Dioxide Level 26.5 MEQ/L Anion Gap 9 MEQ/L Estimat Glomerular Filtration Rate 130 ML/MIN Administered Medications Medications (Trade) Dose Ordered Sig/Jeremi Route PRN Reason Start Time Stop Time Status Last Admin Dose Admin Carvedilol (Coreg) 6.25 mg BID PO 10/16/17 21:00 10/25/17 20:27 Pravastatin Sodium (Pravachol) 40 mg HS PO 10/16/17 21:00 10/25/17 20:27 Ondansetron HCl (Zofran Inj) 4 mg Q6HR PRN IV PUSH n/v 10/16/17 19:45 10/23/17 14:26 Acetaminophen (Tylenol) 650 mg Q4H PRN PO PAIN 1-4 OR TEMP >100.4F 10/17/17 09:15 10/25/17 20:53 Tolterodine Tartrate (Detrol La) 4 mg DAILY PO 10/18/17 12:45 10/25/17 08:05 Docusate Sodium (Colace) 100 mg BID PO 10/19/17 11:30 Future Hold 10/24/17 21:29 Magnesium Hydroxide (Milk Of Magnesia Liq) 30 ml DAILY PRN PO MILD-MODERATE CONSTIPATION 10/19/17 11:00 Future Hold 10/19/17 12:52 Lactulose (Lactulose Liq) 30 ml QID PRN PO SEVERE CONSITIPATION 10/21/17 13:00 Future Hold 10/22/17 14:59 Oxycodone HCl (Roxicodone) 15 mg Q8H PRN PO PAIN SCALE 1 TO 10 10/22/17 10:30 10/23/17 15:31 Levofloxacin (Levaquin) 750 mg Q24H PO 10/22/17 17:00 10/29/17 16:59 Future Hold 10/22/17 18:29 Lorazepam (Ativan Inj) 0.5 mg Q4H PRN IV PUSH agitation 10/23/17 18:30 10/23/17 23:37 Pantoprazole Sodium (Protonix Inj) 40 mg Q24H IV PUSH 10/25/17 09:00 10/25/17 08:05 Vancomycin HCl (VANCOMYCIN for oral use only) 125 mg Q6H PO 10/25/17 09:00 10/25/17 20:26 Metronidazole 100 ml @ 100 mls/hr Q8H IV 10/25/17 14:00 10/26/17 06:07 Vancomycin HCl 500 mg/Sodium Chloride 250 ml @ 0 mls/hr Q6HR IRRIGATION 10/25/17 12:00 10/26/17 06:07 Enoxaparin Sodium (Lovenox Inj) 40 mg Q24H SQ 10/25/17 20:00 10/25/17 20:27 Objective Remarks GENERAL: Elderly male, lying left lateral decubitus position. SKIN: Warm and dry. HEAD: Normocephalic. NGT clamped. EYES: No injection or drainage. NECK: Supple, trachea midline. CARDIOVASCULAR: Regular rate and rhythm RESPIRATORY: occasional rhonchi. GASTROINTESTINAL: Abdomen soft, non-tender, nondistended. EXTREMITIES: No cyanosis NEUROLOGICAL: awake. answering questions. following commands. 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 --s/p EPOCH the week prior to admission --plan to dose reduce the next cycle. (2) Skin ulcer of left side of neck ICD Codes: L98.499 - Non-pressure chronic ulcer of skin of other sites with unspecified severity Status: Acute Plan: --continue dressing changes as recommended by wound care. --wound care consulted and recommends Optifoam AG dressing with every other day dressing changes. (3) C. difficile diarrhea ICD Codes: A04.72 - Enterocolitis due to Clostridium difficile, not specified as recurrent Status: Acute Plan: --on PO Vanco + IV Flagyl Assessment 77y/o male admitted with neutropenic fever associated with large cell lymphoma treatment. 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 h/o Liver cirrhosis. Hypertension. Pancytopenia. Neutropenic fever. Left neck wound. Plan 1. continue PO Vanco 2. advance diet as tolerated. 3. add PRN Vasotec for elevated blood pressure. Attending Statement 77 yoM with follicular lymphoma transformed to DLBCL. s/p EPOCH chemotherapy with good response. Admitted with Cdiff infection and neutropenic fever. Resolved ileus s/p removal of NG tube. Will continue to follow vital signs and counts. Problem Qualifiers (1) Skin ulcer of left side of neck: Qualified Codes: L98.499 - Non-pressure chronic ulcer of skin of other sites with unspecified severity Carmen Russo Oct 26, 2017 09:12 Carissa Rodriguez MD Oct 26, 2017 12:51
[2017-10-26] MEDS: PANTOPRAZOLE SODIUM 40 MG VIAL IV PUSH SCH (09:35)
[2017-10-26] MEDS: ENALAPRILAT 1.25 MG/ML VIAL IV PUSH PRN (09:36)
[2017-10-26] MEDS: VANCOMYCIN 500 MG VIAL (FOR ORAL USE ONLY) PO SCH ×3 (09:36→20:21)
[2017-10-26] MEDS: TOLTERODINE TARTRATE 4 MG CAP LA PO SCH (09:36)
[2017-10-26] MEDS: CARVEDILOL 6.25 MG TAB PO SCH ×2 (09:36→20:21)
[2017-10-26 10:28] LABS: HEMATOCRIT 29.5 % (39.0-51.0); HEMOGLOBIN 9.9 GM/DL (13.0-17.0); MEAN CELL VOLUME 86.7 FL (80.0-100.0); MEAN CORPUSCULAR HEMOGLOBIN 29.2 PG (27.0-34.0); MEAN CORPUSCULAR HGB CONC 33.6 % (32.0-36.0); MEAN PLATELET VOLUME 9.1 FL (7.0-11.0); PLATELET COUNT 118 TH/MM3 (150-450); RED CELL DISTRIBUTION WIDTH 14.6 % (11.6-17.2); WHITE BLOOD COUNT 7.2 TH/MM3 (4.0-11.0)
[2017-10-26 10:51] LABS: BANDS 11 % (0-6); DOHLE BODIES PRESENT (NONE SEEN); LYMPHOCYTES 4 % (9-44); METAMYELOCYTES 7 % (0-1); MONOCYTES 8 % (0-8); NEUTROPHIL # MANUAL DIFF 6.3 TH/MM3 (1.8-7.7); POLYS (SEG NEUTROPHILS) 70 % (16-70); TOXIC GRANULATION 2+ (NORMAL)
[2017-10-26 11:50] VITALS: BP 156/89; PULSE 67; RESP 18; TEMP 97.7; O2SAT 95
[2017-10-26 15:41] VITALS: BP_SYST 164; BP_SYST 165; BP_DIAS 77; BP_DIAS 80; PULSE 73; RESP 18; TEMP 98.2; O2SAT 97
--- NOTE | 2017-10-26 16:56 | HHI.PR ---
Subjective Patient symptoms today Patient of Dr. Rivera. Met with patient and family, discussed CT findings of right hydronephrosis. Patient has a known right extrarenal pelvis. No pain, normal renal function. Patient has been seen by Dr. Simms while admitted. No Urological intervention indicated at this time. Follow-up with Dr. Rivera after discharge. Please call with questions Objective Vital Signs Vital Signs Date Time Temp Pulse Resp B/P (MAP) Pulse Ox O2 Delivery O2 Flow Rate FiO2 10/26/17 15:41 98.2 73 18 165/80 (108) 97 164/77 (106) 10/26/17 11:50 97.7 67 18 156/89 (111) 95 10/26/17 08:03 97 Room Air 10/26/17 07:55 97.3 71 18 183/85 (117) 97 10/26/17 06:01 97.7 65 20 177/90 (119) 96 10/26/17 00:59 97.5 69 16 169/82 (111) 97 10/25/17 23:04 Room Air 10/25/17 21:53 18 10/25/17 20:44 97.7 77 22 189/88 (121) 98 10/25/17 19:40 Room Air 10/25/17 18:10 97.8 80 20 182/90 (120) 90 Intake & Output 10/26/17 10/26/17 07:00 19:00 Intake Total 577 ml Balance 577 ml IV Total 577 ml # Voids 1 # Bowel Movements 2 Result Diagram: 10/26/17 0925 10/26/17 0645 Medications and IVs Current Medications Medications (Trade) Dose Ordered Sig/Jeremi Route Start Time Stop Time Status Last Admin (Coreg) 6.25 mg BID PO 10/16/17 21:00 10/26/17 09:36 (Pravachol) 40 mg HS PO 10/16/17 21:00 10/25/17 20:27 (Zofran Inj) 4 mg Q6HR PRN IV PUSH 10/16/17 19:45 10/23/17 14:26 (Tylenol) 650 mg Q4H PRN PO 10/17/17 09:15 10/25/17 20:53 (Detrol La) 4 mg DAILY PO 10/18/17 12:45 10/26/17 09:36 (Colace) 100 mg BID PO 10/19/17 11:30 Future Hold 10/24/17 21:29 (Milk Of Magnesia Liq) 30 ml DAILY PRN PO 10/19/17 11:00 Future Hold 10/19/17 12:52 (Lactulose Liq) 30 ml QID PRN PO 10/21/17 13:00 Future Hold 10/22/17 14:59 (Roxicodone) 15 mg Q8H PRN PO 10/22/17 10:30 10/23/17 15:31 (Levaquin) 750 mg Q24H PO 10/22/17 17:00 10/29/17 16:59 Future Hold 10/22/17 18:29 (Ativan Inj) 0.5 mg Q4H PRN IV PUSH 10/23/17 18:30 10/23/17 23:37 (Protonix Inj) 40 mg Q24H IV PUSH 10/25/17 09:00 10/26/17 09:35 (VANCOMYCIN for oral use only) 125 mg Q6H PO 10/25/17 09:00 10/26/17 15:43 Metronidazole 100 ml @ 100 mls/hr Q8H IV 10/25/17 14:00 10/26/17 13:39 Vancomycin HCl 500 mg/Sodium Chloride 250 ml @ 0 mls/hr Q6HR IRRIGATION 10/25/17 12:00 10/26/17 13:39 (Lovenox Inj) 40 mg Q24H SQ 10/25/17 20:00 10/25/17 20:27 (Vasotec Inj) 1.25 mg Q6H PRN IV PUSH 10/26/17 08:15 10/26/17 09:36 Roby Patino MD Oct 26, 2017 16:56
--- NOTE | 2017-10-26 17:28 | HHI.PR ---
Subjective Remarks Pt is tolerating PO intake. Objective Vitals Vital Signs Date Time Temp Pulse Resp B/P (MAP) Pulse Ox O2 Delivery O2 Flow Rate FiO2 10/26/17 15:41 98.2 73 18 165/80 (108) 97 164/77 (106) 10/26/17 11:50 97.7 67 18 156/89 (111) 95 10/26/17 08:03 97 Room Air 10/26/17 07:55 97.3 71 18 183/85 (117) 97 10/26/17 06:01 97.7 65 20 177/90 (119) 96 10/26/17 00:59 97.5 69 16 169/82 (111) 97 10/25/17 23:04 Room Air 10/25/17 21:53 18 10/25/17 20:44 97.7 77 22 189/88 (121) 98 10/25/17 19:40 Room Air 10/25/17 18:10 97.8 80 20 182/90 (120) 90 10/26/17 10/26/17 10/27/17 15:00 23:00 07:00 Intake Total 300 ml Balance 300 ml IV Total 300 ml Result Diagram: 10/26/17 0925 10/26/17 0645 Imaging Last Impressions Renal Ultrasound 10/25/17 0000 Signed Impressions: Service Date/Time: Wednesday, October 25, 2017 09:18 - CONCLUSION: 1. Distention of the right extrarenal pelvis, stable from the CT scan from yesterday. 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 Correlating with prior studies dating back to 2015 demonstrate no significant change. 2. Small volume of free fluid is present in the abdomen. Sebas Butler MD Abdomen/Pelvis CT 10/24/17 1540 Signed Impressions: Service Date/Time: October 22:54 - CONCLUSION: 1. Findings concerning for mild sigmoid diverticulitis without evidence of perforation or abscess. 2. Cirrhotic appearing liver with evidence for portal hypertension and very small amount of ascites. 3. Moderate right-sided hydronephrosis extending to the right UPJ of uncertain etiology. No evidence for radiopaque renal calculus at the right UPJ. 4. Small bilateral effusions with compressive atelectasis at the lung bases. 5. Incidental findings, as above. Jacinto Moreno MD Abdomen X-Ray 10/24/17 0000 Signed Impressions: Service Date/Time: October 16:39 - CONCLUSION: Slight improvement in bowel gas pattern Sebas Patel MD Abdomen Fluoroscopy 10/24/17 0000 Signed Impressions: Service Date/Time: October 13:53 - CONCLUSION: Uncomplicated Dobbhoff tube placement as above. David Villa MD Head CT 10/22/17 0000 Signed Impressions: Service Date/Time: Sunday, October 22, 2017 14:25 - CONCLUSION: Normal examination for a patient of this age. Kael Hutson MD Chest X-Ray 10/16/171911 Signed Impressions: Service Date/Time: Monday, October 16, 2017 19:56 - CONCLUSION: Normal examination. Danilo Charles MD Soft Tissue MRI 10/16/17 0000 Signed Impressions: Service Date/Time: Monday, October 16, 2017 23:38 - CONCLUSION: 1. In comparison to prior study the fluid adenopathy the left neck has significantly decreased in size as above. No new adenopathy is identified Jl Loo MD Objective Remarks General: NAD, Awake and alert Neck: open wound on left neck Chest: CTA Cardiac: Regular Abd: Absent BS, soft, distended, nontender. Ext: No edema A/P Problem List: (1) C. difficile diarrhea ICD Codes: A04.72 - Enterocolitis due to Clostridium difficile, not specified as recurrent Status: Acute Plan: - comgmt with ID - Case d/w Dr. Villasenor (10/26) - CT A/P (10/25) - changes c/w colitis including rectal and sigmoid mucosal thickening - moderate right hydronephrosis (chronic) - IV flagyl (10/25 - 10/26) - PO flagyl (10/26 - present) - PO Vanco (10/25 - present) - Vanco enema q6h (10/25 - 10/26) - IVFs - repeat BMP/Mg/CBC in AM - supportive care (2) Hypokalemia ICD Codes: E87.6 - Hypokalemia Status: Acute Plan: - Potassium 3.0 (10/26) - oral repletion - repeat BMP in AM (3) Ileus ICD Codes: K56.7 - Ileus, unspecified Status: Resolved Plan: - KUB (10/23) reveals distended bowel consistent with some degree of ileus or obstruction - Pt again defecating 10/25, diarrhea - Pt had OG placed by IR with 2 L returned, Patient removed OG tube 10/24 0000 - Pt pulled OG around 12AM 10/24 - NGT placed by IR 10/25, removed 10/26 - tolerating PO intake (+) BM (4) Fever ICD Codes: R50.9 - Fever, unspecified Status: Acute Plan: - comgmt with ID and Oncology - Patient is 77 yo with hx follicular lymphoma followed by Dr Moe. - He then developed a left neck mass that ulcerated. He was started on Bendamustine and Rituxan with initial response. 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 He was treated with Rituxan 10/01/17 and admitted for chemotherapy on October 03 but was sent home due to neutropenia before rx. - He was admitted from 10/09 to 10/13/17 for EPOCH chemotherapy. - PICC line was placed during the admission and last dose was reduced due to neutropenia. He f/u in office on 10/14 and WBC 4 and given Neulasta. The morning of admission he began developing the bone pain presumed due to Neulasta and general weakness. Then began with fever and sent in by his doctor. His son says the left neck wound actually had looked great and shrunk tremendously in size. - Pt was admitted with a fever of 101.8 - source is likely Left neck wound but urine culture is growing gram negative rods, await final cultures and sensitivities - Blood cultures (10/16/17) --> NO growth - Case d/w Dr. Gould (10/19/17) --> Pt is NOT a candidate for surgical treatment of left neck mass/ulceration - Wound VAC can NOT be utilized d/t tumor - Vancomycin (10/16 - 10/19) - Cefepime (10/16 - 10/22) - Levaquin IV (10/22 - 10/25) urine culture reveals Pseudomonas aeruginosa sensitive to Levaquin abx per ID - Last low grade temp was 99.7 on 10/19 - Pt was painful during most of the first week of his admission - pt received morphine/dilaudid/roxicodone prn - Pt subsequently developed an ileus - We given a dose of Relistor on 10/22 - Pt with anemia and thrombocytopenia d/t chemotherapy - Pt received Neulasta (10/14), WBC increased to 2.2 (10/22) and neutrophils 1.9 - Pt received one unit PRBCs (10/18) and one unit of platelets (10/19) - Hg 9.0 (10/16), 7.5 (10/18), 8.0 (10/19), 8.0 (10/20), 8.8 (10/21), 9.3 (10/22), 8.8 (10/23), 8.2 (10/24), 8.4 (10/25), 9.9 (10/26) - Platelet 53 (10/16), 16 (10/19), 23 (10/20), 33 (10/21), 48 (10/22), 64 (10/23), 80 (10/24), 83 (10/25), 118 (10/26) - Case d/w Oncology service (10/25) - If continued aggressive treatment, then likely repeat EPOCH treatment at lower dose - seems risk of pt again developing neutropenic fever which would again lead to aggressive antibiotic treatment and then the risk of recurrent C. Dif - Palliative Consult for clarification of goals? - Monitor labs - PT - DVT prophylaxis (5) Skin ulcer of left side of neck ICD Codes: L98.499 - Non-pressure chronic ulcer of skin of other sites with unspecified severity Status: Acute Plan: - Pt has resolution of the neck mass but is now left with an ulcerated lesion. - MRI of the soft tissue neck (10/16) --> in comparison to prior study the fluid adenopathy the left neck has significantly decreased in size as above. No new adenopathy is identified - Case d/w Dr. Gould (10/19/17) --> Pt is NOT a candidate for surgical treatment of left neck mass/ulceration - Wound VAC can NOT be utilized d/t tumor - wound care consulted and recommends Optifoam AG dressing with every other day dressing changes. (6) Large cell lymphoma ICD Codes: C85.80 - Other specified types of non-Hodgkin lymphoma, unspecified site Status: Acute Plan: - see above (7) History of non-Hodgkin's lymphoma ICD Codes: Z85.72 - Personal history of non-Hodgkin lymphomas Status: Chronic Plan: - see above (8) Hypertension ICD Codes: I10 - Essential (primary) hypertension Status: Chronic Plan: - Cont. Coreg - BP likely elevated related to pain - Clonidine PRN (9) H/O carcinoma of bladder ICD Codes: Z85.51 - Personal history of malignant neoplasm of bladder Plan: - comgmt with Urology - s/p radiation treatment - detrol - f/u with regular Urologist, Dr. Rivera, outpt Problem Qualifiers (1) Fever: Qualified Codes: R50.9 - Fever, unspecified (2) Skin ulcer of left side of neck: Qualified Codes: L98.499 - Non-pressure chronic ulcer of skin of other sites with unspecified severity (3) Hypertension: Qualified Codes: I10 - Essential (primary) hypertension Shlomo León DO Oct 26, 2017 17:27
[2017-10-26] MEDS: POTASSIUM CHLORIDE 20 MEQ CONTROLLED RELEASE TAB PO SCH ×2 (18:09→22:06)
[2017-10-26] MEDS: ENOXAPARIN SODIUM 40 MG/0.4 ML SYRINGE SQ SCH (20:21)
[2017-10-26] MEDS: PRAVASTATIN SOD 40 MG TAB PO SCH (20:21)
[2017-10-26] MEDS: metroNIDAZOLE 500 MG TAB PO SCH (22:05)
[2017-10-27 00:28] VITALS: BP 161/84; PULSE 79; RESP 16; TEMP 98.7; O2SAT 97
[2017-10-27] MEDS: VANCOMYCIN 500 MG VIAL (FOR ORAL USE ONLY) PO SCH ×4 (03:16→23:31)
[2017-10-27 04:17] VITALS: BP 158/84; PULSE 75; RESP 16; TEMP 98.6; O2SAT 96
[2017-10-27] MEDS: metroNIDAZOLE 500 MG TAB PO SCH ×3 (06:14→23:32)
--- NOTE | 2017-10-27 09:18 | PD.ONC.PN ---
Subjective Subjective Remarks Afebrile overnight. Had several loose stools this AM. Much less confused today. Feeling better with NGT out. Tolerating a regular diet. Objective Data Date Time Temp Pulse Resp B/P (MAP) Pulse Ox O2 Delivery O2 Flow Rate FiO2 10/27/17 04:17 98.6 75 16 158/84 (108) 96 10/27/17 03:00 96 Room Air 10/27/17 00:28 98.7 79 16 161/84 (109) 97 10/26/17 23:00 Room Air 10/26/17 20:00 95 Room Air 10/26/17 15:41 98.2 73 18 165/80 (108) 97 164/77 (106) 10/26/17 11:50 97.7 67 18 156/89 (111) 95 10/27/17 10/27/17 10/27/17 07:00 15:00 23:00 Intake Total 480 ml Balance 480 ml Result Diagram: 10/26/17 0925 10/26/17 0645 Laboratory Results Laboratory Tests Test 10/26/17 09:25 White Blood Count 7.2 TH/MM3 Red Blood Count 3.40 MIL/MM3 Hemoglobin 9.9 GM/DL Hematocrit 29.5 % Mean Corpuscular Volume 86.7 FL Mean Corpuscular Hemoglobin 29.2 PG Mean Corpuscular Hemoglobin Concent 33.6 % Red Cell Distribution Width 14.6 % Platelet Count 118 TH/MM3 Mean Platelet Volume 9.1 FL CBC Comment AUTO DIFF Differential Total Cells Counted 100 Neutrophils % (Manual) 70 % Band Neutrophils % 11 % Lymphocytes % 4 % Monocytes % 8 % Neutrophils # (Manual) 6.3 TH/MM3 Metamyelocytes 7 % Differential Comment FINAL DIFF MANUAL Toxic Granulation 2+ Dohle Bodies PRESENT Platelet Estimate LOW Platelet Morphology Comment NORMAL Administered Medications Medications (Trade) Dose Ordered Sig/Jeremi Route PRN Reason Start Time Stop Time Status Last Admin Dose Admin Carvedilol (Coreg) 6.25 mg BID PO 10/16/17 21:00 10/26/17 20:21 Pravastatin Sodium (Pravachol) 40 mg HS PO 10/16/17 21:00 10/26/17 20:21 Ondansetron HCl (Zofran Inj) 4 mg Q6HR PRN IV PUSH n/v 10/16/17 19:45 10/23/17 14:26 Acetaminophen (Tylenol) 650 mg Q4H PRN PO PAIN 1-4 OR TEMP >100.4F 10/17/17 09:15 10/25/17 20:53 Tolterodine Tartrate (Detrol La) 4 mg DAILY PO 10/18/17 12:45 10/26/17 09:36 Docusate Sodium (Colace) 100 mg BID PO 10/19/17 11:30 Future Hold 10/24/17 21:29 Magnesium Hydroxide (Milk Of Magnesia Liq) 30 ml DAILY PRN PO MILD-MODERATE CONSTIPATION 10/19/17 11:00 Future Hold 10/19/17 12:52 Lactulose (Lactulose Liq) 30 ml QID PRN PO SEVERE CONSITIPATION 10/21/17 13:00 Future Hold 10/22/17 14:59 Oxycodone HCl (Roxicodone) 15 mg Q8H PRN PO PAIN SCALE 1 TO 10 10/22/17 10:30 10/23/17 15:31 Levofloxacin (Levaquin) 750 mg Q24H PO 10/22/17 17:00 10/29/17 16:59 Future Hold 10/22/17 18:29 Lorazepam (Ativan Inj) 0.5 mg Q4H PRN IV PUSH agitation 10/23/17 18:30 10/23/17 23:37 Pantoprazole Sodium (Protonix Inj) 40 mg Q24H IV PUSH 10/25/17 09:00 10/26/17 09:35 Vancomycin HCl (VANCOMYCIN for oral use only) 125 mg Q6H PO 10/25/17 09:00 10/27/17 03:16 Enoxaparin Sodium (Lovenox Inj) 40 mg Q24H SQ 10/25/17 20:00 10/26/17 20:21 Enalaprilat (Vasotec Inj) 1.25 mg Q6H PRN IV PUSH SEE LABEL COMMENTS 10/26/17 08:15 10/26/17 09:36 Metronidazole (Flagyl) 500 mg Q8HR PO 10/26/17 22:00 10/27/17 06:14 Objective Remarks GENERAL: Elderly male, sitting up in bed in nad. SKIN: Warm and dry. HEAD: Normocephalic. NGT clamped. EYES: No injection or drainage. NECK: Supple, trachea midline. CARDIOVASCULAR: Regular rate and rhythm RESPIRATORY: occasional rhonchi. GASTROINTESTINAL: Abdomen soft, non-tender, nondistended. EXTREMITIES: No cyanosis NEUROLOGICAL: awake and alert. normal speech. able to ambulate with walker. 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 --s/p EPOCH the week prior to admission --plan to dose reduce the next cycle. (2) Skin ulcer of left side of neck ICD Codes: L98.499 - Non-pressure chronic ulcer of skin of other sites with unspecified severity Status: Acute Plan: --continue dressing changes as recommended by wound care. --wound care consulted and recommends Optifoam AG dressing with every other day dressing changes. (3) C. difficile diarrhea ICD Codes: A04.72 - Enterocolitis due to Clostridium difficile, not specified as recurrent Status: Acute Plan: --on PO Vanco + PO Flagyl Assessment 77y/o male admitted with neutropenic fever associated with large cell lymphoma treatment. 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 h/o Liver cirrhosis. Hypertension. Pancytopenia. Neutropenic fever. Left neck wound. Plan 1. continue PO Vanco + PO Flagyl 2. continue regular diet. 3. monitor CBC, electrolytes Attending Statement The exam, history, and the medical decision-making described in the above note were completed with the assistance of the mid-level provider. I reviewed and agree with the findings presented. I attest that I had a [id number] encounter with the patient on the same day, and personally performed and documented my assessment and findings in the medical record. 77 yoM with follicular lymphoma transformed to DLBCL s/p EPOCH with good response. Admitted with NF. Found to have Cdiff on vancomycin and flagyl. Deconditioning. Will likely need rehab vs home health. Problem Qualifiers (1) Skin ulcer of left side of neck: Qualified Codes: L98.499 - Non-pressure chronic ulcer of skin of other sites with unspecified severity Carmen Russo Oct 27, 2017 09:18 Carissa Rodriguez MD Oct 27, 2017 12:56
[2017-10-27 09:20] VITALS: BP 179/89; PULSE 81; RESP 24; TEMP 97.8; O2SAT 98
[2017-10-27] MEDS: TOLTERODINE TARTRATE 4 MG CAP LA PO SCH (09:24)
[2017-10-27] MEDS: PANTOPRAZOLE SODIUM 40 MG VIAL IV PUSH SCH (09:24)
[2017-10-27] MEDS: CARVEDILOL 6.25 MG TAB PO SCH ×2 (09:24→23:32)
[2017-10-27] MEDS: ENALAPRILAT 1.25 MG/ML VIAL IV PUSH PRN (09:24)
[2017-10-27 11:02] LABS: AUTOMATED NEUTROPHIL # 5.8 TH/MM3 (1.8-7.7); BASOPHIL # 0.1 TH/MM3 (0-0.2); BASOPHIL % 1.1 % (0.0-2.0); EOSINOPHIL % 0.1 % (0.0-4.0); HEMATOCRIT 28.2 % (39.0-51.0); HEMOGLOBIN 9.3 GM/DL (13.0-17.0); LYMPH % 3.3 % (9.0-44.0); LYMPHOCYTE # 0.2 TH/MM3 (1.0-4.8); MEAN CELL VOLUME 85.5 FL (80.0-100.0); MEAN CORPUSCULAR HEMOGLOBIN 28.2 PG (27.0-34.0); MEAN PLATELET VOLUME 8.4 FL (7.0-11.0); MONO % 9.7 % (0.0-8.0); MONOCYTE # 0.7 TH/MM3 (0-0.9); NEUT % 85.8 % (16.0-70.0); PLATELET COUNT 138 TH/MM3 (150-450); RED BLOOD COUNT 3.29 MIL/MM3 (4.50-5.90); RED CELL DISTRIBUTION WIDTH 15.4 % (11.6-17.2); WHITE BLOOD COUNT 6.8 TH/MM3 (4.0-11.0)
[2017-10-27 11:14] LABS: BICARBONATE 25.7 MEQ/L (21.0-32.0); CALCIUM 8.5 MG/DL (8.5-10.1); CREATININE 0.81 MG/DL (0.60-1.30)
--- NOTE | 2017-10-27 11:22 | HHI.PR ---
Subjective Remarks Patient more alert today multiple loose BMs today 3 BMs so far tolerating diet Objective Vitals Vital Signs Date Time Temp Pulse Resp B/P (MAP) Pulse Ox O2 Delivery O2 Flow Rate FiO2 10/27/17 09:37 98 Room Air 10/27/17 09:20 97.8 81 24 179/89 (119) 98 10/27/17 04:17 98.6 75 16 158/84 (108) 96 10/27/17 03:00 96 Room Air 10/27/17 00:28 98.7 79 16 161/84 (109) 97 10/26/17 23:00 Room Air 10/26/17 20:00 95 Room Air 10/26/17 15:41 98.2 73 18 165/80 (108) 97 164/77 (106) 10/26/17 11:50 97.7 67 18 156/89 (111) 95 Result Diagram: 10/27/17 1043 10/27/17 1043 Other Results Laboratory Tests Test 10/24/17 12:27 10/25/17 01:24 10/25/17 06:11 10/26/17 06:45 Blood Urea Nitrogen 6 MG/DL 6 MG/DL 5 MG/DL Creatinine 0.64 MG/DL 0.59 MG/DL 0.60 MG/DL Random Glucose 82 MG/DL 77 MG/DL 81 MG/DL Calcium Level 8.9 MG/DL 8.7 MG/DL 8.8 MG/DL Sodium Level 139 MEQ/L 141 MEQ/L 142 MEQ/L Potassium Level 2.9 MEQ/L 2.9 MEQ/L 3.0 MEQ/L Chloride Level 104 MEQ/L 105 MEQ/L 107 MEQ/L Carbon Dioxide Level 28.4 MEQ/L 27.6 MEQ/L 26.5 MEQ/L Anion Gap 7 MEQ/L 8 MEQ/L 9 MEQ/L Estimat Glomerular Filtration Rate 121 ML/MIN 133 ML/MIN 130 ML/MIN Stool C. difficile Toxin (PCR) POSITIVE Stl C. difficile Toxin Epiderm 027 PRESUMPTIVE NEGATIVE White Blood Count 4.8 TH/MM3 Red Blood Count 2.93 MIL/MM3 Hemoglobin 8.4 GM/DL Hematocrit 24.7 % Mean Corpuscular Volume 84.1 FL Mean Corpuscular Hemoglobin 28.7 PG Mean Corpuscular Hemoglobin Concent 34.2 % Red Cell Distribution Width 14.3 % Platelet Count 83 TH/MM3 Mean Platelet Volume 9.2 FL CBC Comment AUTO DIFF Differential Total Cells Counted 100 Neutrophils % (Manual) 71 % Band Neutrophils % 23 % Monocytes % 4 % Neutrophils # (Manual) 4.6 TH/MM3 Myelocytes 1 % Promyelocytes 1 % Differential Comment FINAL DIFF MANUAL Toxic Granulation 2+ Platelet Estimate LOW Platelet Morphology Comment ENLARGED Magnesium Level 1.7 MG/DL 1.7 MG/DL Total Protein 5.1 GM/DL Albumin 2.4 GM/DL Alkaline Phosphatase 173 U/L Aspartate Amino Transf (AST/SGOT) 28 U/L Alanine Aminotransferase (ALT/SGPT) 23 U/L Total Bilirubin 0.8 MG/DL Test 10/26/17 09:25 10/27/17 10:43 White Blood Count 7.2 TH/MM3 6.8 TH/MM3 Red Blood Count 3.40 MIL/MM3 3.29 MIL/MM3 Hemoglobin 9.9 GM/DL 9.3 GM/DL Hematocrit 29.5 % 28.2 % Mean Corpuscular Volume 86.7 FL 85.5 FL Mean Corpuscular Hemoglobin 29.2 PG 28.2 PG Mean Corpuscular Hemoglobin Concent 33.6 % 33.0 % Red Cell Distribution Width 14.6 % 15.4 % Platelet Count 118 TH/MM3 138 TH/MM3 Mean Platelet Volume 9.1 FL 8.4 FL CBC Comment AUTO DIFF AUTO DIFF Differential Total Cells Counted 100 Neutrophils % (Manual) 70 % Band Neutrophils % 11 % Lymphocytes % 4 % Monocytes % 8 % Neutrophils # (Manual) 6.3 TH/MM3 Metamyelocytes 7 % Differential Comment FINAL DIFF MANUAL Toxic Granulation 2+ Dohle Bodies PRESENT Platelet Estimate LOW Platelet Morphology Comment NORMAL Neutrophils (%) (Auto) 85.8 % Lymphocytes (%) (Auto) 3.3 % Monocytes (%) (Auto) 9.7 % Eosinophils (%) (Auto) 0.1 % Basophils (%) (Auto) 1.1 % Neutrophils # (Auto) 5.8 TH/MM3 Lymphocytes # (Auto) 0.2 TH/MM3 Monocytes # (Auto) 0.7 TH/MM3 Eosinophils # (Auto) 0.0 TH/MM3 Basophils # (Auto) 0.1 TH/MM3 Blood Urea Nitrogen 4 MG/DL Creatinine 0.81 MG/DL Random Glucose 108 MG/DL Calcium Level 8.5 MG/DL Sodium Level 142 MEQ/L Potassium Level 3.0 MEQ/L Chloride Level 109 MEQ/L Carbon Dioxide Level 25.7 MEQ/L Anion Gap 7 MEQ/L Estimat Glomerular Filtration Rate 92 ML/MIN Imaging Last Impressions Renal Ultrasound 10/25/17 0000 Signed Impressions: Service Date/Time: Wednesday, October 25, 2017 09:18 - CONCLUSION: 1. Distention of the right extrarenal pelvis, stable from the CT scan from yesterday. 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 Correlating with prior studies dating back to 2015 demonstrate no significant change. 2. Small volume of free fluid is present in the abdomen. Sebas Butler MD Abdomen/Pelvis CT 10/24/17 1540 Signed Impressions: Service Date/Time: October 22:54 - CONCLUSION: 1. Findings concerning for mild sigmoid diverticulitis without evidence of perforation or abscess. 2. Cirrhotic appearing liver with evidence for portal hypertension and very small amount of ascites. 3. Moderate right-sided hydronephrosis extending to the right UPJ of uncertain etiology. No evidence for radiopaque renal calculus at the right UPJ. 4. Small bilateral effusions with compressive atelectasis at the lung bases. 5. Incidental findings, as above. Jacinto Moreno MD Abdomen X-Ray 10/24/17 0000 Signed Impressions: Service Date/Time: October 16:39 - CONCLUSION: Slight improvement in bowel gas pattern Sebas Patel MD Abdomen Fluoroscopy 10/24/17 0000 Signed Impressions: Service Date/Time: October 13:53 - CONCLUSION: Uncomplicated Dobbhoff tube placement as above. David Villa MD Head CT 10/22/17 0000 Signed Impressions: Service Date/Time: Sunday, October 22, 2017 14:25 - CONCLUSION: Normal examination for a patient of this age. aKel Hutson MD Chest X-Ray 10/16/17 1912 Signed Impressions: Service Date/Time: Monday, October 16, 2017 19:56 - CONCLUSION: Normal examination. Danilo Charles MD Soft Tissue MRI 10/16/17 0000 Signed Impressions: Service Date/Time: Monday, October 16, 2017 23:38 - CONCLUSION: 1. In comparison to prior study the fluid adenopathy the left neck has significantly decreased in size as above. No new adenopathy is identified Jl Loo MD Objective Remarks General: NAD, Awake and alert Neck: open wound on left neck Chest: CTA Cardiac: Regular Abd: Absent BS, soft, distended, nontender. Ext: No edema A/P Problem List: (1) C. difficile diarrhea ICD Codes: A04.72 - Enterocolitis due to Clostridium difficile, not specified as recurrent Status: Acute Plan: - comgmt with ID - Case d/w Dr. Villasenor (10/26) - CT A/P (10/25) - changes c/w colitis including rectal and sigmoid mucosal thickening - moderate right hydronephrosis (chronic) - IV flagyl (10/25 - 10/26) - PO flagyl (10/26 - present) - PO Vanco (10/25 - present) - Vanco enema q6h (10/25 - 10/26) - IVFs - repeat BMP/Mg/CBC in AM - supportive care (2) Hypokalemia ICD Codes: E87.6 - Hypokalemia Status: Acute Plan: - Potassium 3.0 (10/26) - oral repletion - repeat BMP in AM pending (3) Ileus ICD Codes: K56.7 - Ileus, unspecified Status: Resolved Plan: - KUB (10/23) reveals distended bowel consistent with some degree of ileus or obstruction - Pt again defecating 10/25, diarrhea - Pt had OG placed by IR with 2 L returned, Patient removed OG tube 10/24 0000 - Pt pulled OG around 12AM 10/24 - NGT placed by IR 10/25, removed 10/26 - tolerating PO intake (+) BM (4) Fever ICD Codes: R50.9 - Fever, unspecified Status: Acute Plan: - comgmt with ID and Oncology - Patient is 77 yo with hx follicular lymphoma followed by Dr Moe. - He then developed a left neck mass that ulcerated. He was started on Bendamustine and Rituxan with initial response. 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 He was treated with Rituxan 10/01/17 and admitted for chemotherapy on October 03 but was sent home due to neutropenia before rx. - He was admitted from 10/09 to 10/13/17 for EPOCH chemotherapy. - PICC line was placed during the admission and last dose was reduced due to neutropenia. He f/u in office on 10/14 and WBC 4 and given Neulasta. The morning of admission he began developing the bone pain presumed due to Neulasta and general weakness. Then began with fever and sent in by his doctor. His son says the left neck wound actually had looked great and shrunk tremendously in size. - Pt was admitted with a fever of 101.8 - source is likely Left neck wound but urine culture is growing gram negative rods, await final cultures and sensitivities - Blood cultures (10/16/17) --> NO growth - Case d/w Dr. Gould (10/19/17) --> Pt is NOT a candidate for surgical treatment of left neck mass/ulceration - Wound VAC can NOT be utilized d/t tumor - Vancomycin (10/16 - 10/19) - Cefepime (10/16 - 10/22) - Levaquin IV (10/22 - 10/25) urine culture reveals Pseudomonas aeruginosa sensitive to Levaquin abx per ID - Last low grade temp was 99.7 on 10/19 - Pt was painful during most of the first week of his admission - pt received morphine/dilaudid/roxicodone prn - Pt subsequently developed an ileus - We given a dose of Relistor on 10/22 - Pt with anemia and thrombocytopenia d/t chemotherapy - Pt received Neulasta (10/14), WBC increased to 2.2 (10/22) and neutrophils 1.9 - Pt received one unit PRBCs (10/18) and one unit of platelets (10/19) - Hg 9.0 (10/16), 7.5 (10/18), 8.0 (10/19), 8.0 (10/20), 8.8 (10/21), 9.3 (10/22), 8.8 (10/23), 8.2 (10/24), 8.4 (10/25), 9.9 (10/26) - Platelet 53 (10/16), 16 (10/19), 23 (10/20), 33 (10/21), 48 (10/22), 64 (10/23), 80 (10/24), 83 (10/25), 118 (10/26) - Case d/w Oncology service (10/25) - If continued aggressive treatment, then likely repeat EPOCH treatment at lower dose - seems risk of pt again developing neutropenic fever which would again lead to aggressive antibiotic treatment and then the risk of recurrent C. Dif - Palliative Consult for clarification of goals? - Monitor labs - PT - DVT prophylaxis (5) Skin ulcer of left side of neck ICD Codes: L98.499 - Non-pressure chronic ulcer of skin of other sites with unspecified severity Status: Acute Plan: - Pt has resolution of the neck mass but is now left with an ulcerated lesion. - MRI of the soft tissue neck (10/16) --> in comparison to prior study the fluid adenopathy the left neck has significantly decreased in size as above. No new adenopathy is identified - Case d/w Dr. Gould (10/19/17) --> Pt is NOT a candidate for surgical treatment of left neck mass/ulceration - Wound VAC can NOT be utilized d/t tumor - wound care consulted and recommends Optifoam AG dressing with every other day dressing changes. (6) Large cell lymphoma ICD Codes: C85.80 - Other specified types of non-Hodgkin lymphoma, unspecified site Status: Acute Plan: - see above (7) History of non-Hodgkin's lymphoma ICD Codes: Z85.72 - Personal history of non-Hodgkin lymphomas Status: Chronic Plan: - see above (8) Hypertension ICD Codes: I10 - Essential (primary) hypertension Status: Chronic Plan: - Cont. home Coreg 6.25 mg PO daily - BP remains elevated and patient tolerating PO intake - add lisinopril 10 PO BID (10/27) - monitor BP (9) H/O carcinoma of bladder ICD Codes: Z85.51 - Personal history of malignant neoplasm of bladder Plan: - comgmt with Urology - s/p radiation treatment - detrol - f/u with regular Urologist, Dr. Rivera, outpt (10) Fall ICD Codes: W19.XXXA - Unspecified fall, initial encounter Plan: Patient had a fall early this AM he was assisted to the ground by RN patient denies injuries and was able to ambulate after the fall recommend patient be DC to SNF at time of DC for rehab and strengthening case management consulted Assessment and Plan Patient examined. Assessment and plan formulated with Carmina Cee PA-C. I agree with the above. Problem Qualifiers (1) Fever: Qualified Codes: R50.9 - Fever, unspecified (2) Skin ulcer of left side of neck: Qualified Codes: L98.499 - Non-pressure chronic ulcer of skin of other sites with unspecified severity (3) Hypertension: Qualified Codes: I10 - Essential (primary) hypertension Carmina Cee Oct 27, 2017 11:22 Shlomo León DO Oct 30, 2017 22:30
[2017-10-27 11:34] LABS: BANDS 8 % (0-6); LYMPHOCYTES 2 % (9-44); METAMYELOCYTES 4 % (0-1); MONOCYTES 5 % (0-8); MYELOCYTES 1 % (0-0); NEUTROPHIL # MANUAL DIFF 6.3 TH/MM3 (1.8-7.7); POLYS (SEG NEUTROPHILS) 80 % (16-70); TOXIC GRANULATION 1+ (NORMAL)
[2017-10-27 11:44] VITALS: BP 168/86; PULSE 85; RESP 18; TEMP 97.4; O2SAT 97
[2017-10-27] MEDS: POTASSIUM CHLORIDE 20 MEQ CONTROLLED RELEASE TAB PO SCH ×2 (11:54→16:09)
[2017-10-27] MEDS: LISINOPRIL 10 MG TAB PO SCH ×2 (11:56→23:31)
[2017-10-27 16:01] VITALS: BP 148/77; PULSE 78; RESP 18; TEMP 98; O2SAT 97
[2017-10-27 20:00] VITALS: BP 196/91; PULSE 75; RESP 20; TEMP 98.4; O2SAT 95
[2017-10-27] MEDS: ENOXAPARIN SODIUM 40 MG/0.4 ML SYRINGE SQ SCH (20:00)
[2017-10-27] MEDS: PRAVASTATIN SOD 40 MG TAB PO SCH (23:32)
[2017-10-28 01:45] VITALS: PULSE 74; RESP 18; O2SAT 95
[2017-10-28 05:00] VITALS: PULSE 78
[2017-10-28] MEDS: metroNIDAZOLE 500 MG TAB PO SCH ×2 (05:44→14:40)
[2017-10-28] MEDS: ACETAMINOPHEN 325 MG TAB PO PRN (05:45)
[2017-10-28] MEDS: VANCOMYCIN 500 MG VIAL (FOR ORAL USE ONLY) PO SCH ×3 (05:45→14:40)
[2017-10-28 08:43] VITALS: BP 179/90; PULSE 76; RESP 18; TEMP 97.5; O2SAT 98
[2017-10-28] MEDS: PANTOPRAZOLE SODIUM 40 MG VIAL IV PUSH SCH (08:46)
[2017-10-28] MEDS: TOLTERODINE TARTRATE 4 MG CAP LA PO SCH (08:46)
[2017-10-28] MEDS: CARVEDILOL 6.25 MG TAB PO SCH (08:47)
[2017-10-28] MEDS: LISINOPRIL 10 MG TAB PO SCH (08:47)
[2017-10-28] MEDS ORDERED: METR-1 PO (09:42)
[2017-10-28] MEDS ORDERED: DETR4CAP PO (09:42)
[2017-10-28] MEDS ORDERED: OXYC-392 PO ×2 (09:42→14:12)
[2017-10-28] MEDS ORDERED: LISI10TA3 PO (09:42)
[2017-10-28] MEDS ORDERED: VANC500I3 PO (09:42)
--- NOTE | 2017-10-28 09:42 | HHI.DCPOC ---
Discharge Care Plan Diagnosis: (1) Large cell lymphoma (2) Neutropenic fever (3) C. difficile diarrhea (4) Ileus (5) Skin ulcer of left side of neck Goals to Promote Your Health * To prevent worsening of your condition and complications * To maintain your health at the optimal level Directions to Meet Your Goals Take your medications as prescribed Follow your dietary instruction Follow activity as directed Keep your appointments as scheduled Take your immunizations and boosters as scheduled If your symptoms worsen call your PCP, if no PCP go to Urgent Care Center or Emergency Room Smoking is Dangerous to Your Health. Avoid second hand smoke Call the 24-hour hour crisis hotline for domestic abuse at Rogerio Syed MD Oct 28, 2017 09:42
--- NOTE | 2017-10-28 09:45 | HHI.FF ---
Face to Face Verification Diagnosis: (1) Large cell lymphoma (2) Skin ulcer of left side of neck (3) Neutropenic fever (4) Hypokalemia (5) C. difficile diarrhea (6) Ileus Physical Therapy Order: Evaluate and Treat, Improve ambulation Home Health Nursing Order: Medical education Signs/symptoms of disease process Medication education-adverse effect Wound care and dressing changes Nursing assessment with vital signs Instructions: Please cleanse wound to L side of neck with normal saline, or sterile water and pat dry. Apply Optifoam AG gentle border and change dressing every other day or PRN if saturated or dislodged. I have seen patient Jl Adorno on 10/28/17. My clinical findings support the need for the requested home health care services because: Ltd mobility - disease progression High risk of falls I certify that my clinical findings support that this patient is homebound because: Unsteady gait/balance Unsafe to leave home unassisted Rogerio Syed MD Oct 28, 2017 09:45
--- NOTE | 2017-10-28 09:55 | HHI.DS ---
Discharge Summary Admission Date Oct 16, 2017 at 19:23 Discharge Date: Oct 28, 2017 Admitting Diagnosis neutropenic fever (1) Large cell lymphoma Diagnosis: Principal ICD Codes: C85.80 - Other specified types of non-Hodgkin lymphoma, unspecified site Status: Acute (2) C. difficile diarrhea Diagnosis: Principal ICD Codes: A04.72 - Enterocolitis due to Clostridium difficile, not specified as recurrent Status: Acute (3) Hypokalemia Diagnosis: Principal ICD Codes: E87.6 - Hypokalemia Status: Acute (4) Ileus Diagnosis: Principal ICD Codes: K56.7 - Ileus, unspecified Status: Resolved (5) Fever Diagnosis: Principal ICD Codes: R50.9 - Fever, unspecified Status: Acute (6) Skin ulcer of left side of neck Diagnosis: Principal ICD Codes: L98.499 - Non-pressure chronic ulcer of skin of other sites with unspecified severity Status: Acute (7) History of non-Hodgkin's lymphoma Diagnosis: Secondary ICD Codes: Z85.72 - Personal history of non-Hodgkin lymphomas Status: Chronic (8) Hypertension ICD Codes: I10 - Essential (primary) hypertension Status: Chronic (9) H/O carcinoma of bladder Diagnosis: Secondary ICD Codes: Z85.51 - Personal history of malignant neoplasm of bladder (10) Fall Diagnosis: Secondary ICD Codes: W19.XXXA - Unspecified fall, initial encounter Brief History Patient is 77 yo with 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 He then developed a left neck mass that ulcerated. He was started on bendamustine and rituxan with initial response. 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 He was treated with Rituxan 10/01/17 and admitted for chemotherapy on October 03 but was sent home due to neutropenia before rx. . He was admitted from 10/09 to 10/13/17 for EPOCH chemotherapy. PICC line was placed during the admission and last dose was reduced due to neutropenia. he f/u in office on 10/14 and wbc 4 and given neulasta. This morning began developing the bone pain presumed due to neulasta and general weakness. Then began with fever and sent in by his doctor. son says the left neck wound actually had looked great and shrunk tremendously in size CBC/BMP: 10/27/17 1043 10/27/17 1043 Significant Findings Laboratory Tests Test 10/26/17 06:45 10/26/17 09:25 10/27/17 10:43 Blood Urea Nitrogen 5 MG/DL (7-18) 4 MG/DL (7-18) Total Protein 5.1 GM/DL (6.4-8.2) Albumin 2.4 GM/DL (3.4-5.0) Alkaline Phosphatase 173 U/L (45-117) Potassium Level 3.0 MEQ/L (3.5-5.1) 3.0 MEQ/L (3.5-5.1) Red Blood Count 3.40 MIL/MM3 (4.50-5.90) 3.29 MIL/MM3 (4.50-5.90) Hemoglobin 9.9 GM/DL (13.0-17.0) 9.3 GM/DL (13.0-17.0) Hematocrit 29.5 % (39.0-51.0) 28.2 % (39.0-51.0) Platelet Count 118 TH/MM3 (150-450) 138 TH/MM3 (150-450) Band Neutrophils % 11 % (0-6) 8 % (0-6) Lymphocytes % 4 % (9-44) 2 % (9-44) Metamyelocytes 7 % (0-1) 4 % (0-1) Toxic Granulation 2+ (NORMAL) 1+ (NORMAL) Dohle Bodies PRESENT (NONE SEEN) Platelet Estimate LOW (NORMAL) LOW (NORMAL) Neutrophils (%) (Auto) 85.8 % (16.0-70.0) Lymphocytes (%) (Auto) 3.3 % (9.0-44.0) Monocytes (%) (Auto) 9.7 % (0.0-8.0) Lymphocytes # (Auto) 0.2 TH/MM3 (1.0-4.8) Neutrophils % (Manual) 80 % (16-70) Myelocytes 1 % (0-0) Random Glucose 108 MG/DL (74-106) Chloride Level 109 MEQ/L (98-107) Hospital Course (1) C. difficile diarrhea - CT A/P (10/25) - changes c/w colitis including rectal and sigmoid mucosal thickening - moderate right hydronephrosis (chronic) - IV flagyl (10/25 - 10/26) - PO flagyl (10/26 - present) - PO Vanco (10/25 - present) - Vanco enema q6h (10/25 - 10/26) d/c home with vanc/flagyl to complete 14days (2) Hypokalemia supplement ordered. f/u lab pending. (3) Ileus - KUB (10/23) reveals distended bowel consistent with some degree of ileus or obstruction - Pt again defecating 10/25, diarrhea - Pt had OG placed by IR with 2 L returned, Patient removed OG tube 10/24 0000 - Pt pulled OG around 12AM 10/24 - NGT placed by IR 10/25, removed 10/26 - tolerating PO intake (+) BM (4) Fever - Patient is 77 yo with hx follicular lymphoma followed by Dr Moe. - He then developed a left neck mass that ulcerated. He was started on Bendamustine and Rituxan with initial response. 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 He was treated with Rituxan 10/01/17 and admitted for chemotherapy on October 03 but was sent home due to neutropenia before rx. - He was admitted from 10/09 to 10/13/17 for EPOCH chemotherapy. - PICC line was placed during the admission and last dose was reduced due to neutropenia. He f/u in office on 10/14 and WBC 4 and given Neulasta. The morning of admission he began developing the bone pain presumed due to Neulasta and general weakness. Then began with fever and sent in by his doctor. His son says the left neck wound actually had looked great and shrunk tremendously in size. - Pt was admitted with a fever of 101.8 - source is likely Left neck wound but urine culture is growing gram negative rods, await final cultures and sensitivities - Blood cultures (10/16/17) --> NO growth - Case d/w Dr. Gould (10/19/17) --> Pt is NOT a candidate for surgical treatment of left neck mass/ulceration - Wound VAC can NOT be utilized d/t tumor - Vancomycin (10/16 - 10/19) - Cefepime (10/16 - 10/22) - Levaquin IV (10/22 - 10/25) urine culture reveals Pseudomonas aeruginosa sensitive to Levaquin abx per ID - Last low grade temp was 99.7 on 10/19 - Pt was painful during most of the first week of his admission - pt received morphine/dilaudid/roxicodone prn - Pt subsequently developed an ileus -dose of Relistor on 10/22 - Pt with anemia and thrombocytopenia d/t chemotherapy - Pt received Neulasta (10/14), WBC increased to 2.2 (10/22) and neutrophils 1.9 - Pt received one unit PRBCs (10/18) and one unit of platelets (10/19) - Hg 9.0 (10/16), 7.5 (10/18), 8.0 (10/19), 8.0 (10/20), 8.8 (10/21), 9.3 (10/22), 8.8 (10/23), 8.2 (10/24), 8.4 (10/25), 9.9 (10/26) - Platelet 53 (10/16), 16 (10/19), 23 (10/20), 33 (10/21), 48 (10/22), 64 (10/23), 80 (10/24), 83 (10/25), 118 (10/26) - Case d/w Oncology service (10/25) - If continued aggressive treatment, then likely repeat EPOCH treatment at lower dose - seems risk of pt again developing neutropenic fever which would again lead to aggressive antibiotic treatment and then the risk of recurrent C. Dif (5) Skin ulcer of left side of neck ICD Codes: L98.499 - Non-pressure chronic ulcer of skin of other sites with unspecified severity Status: Acute Plan: - Pt has resolution of the neck mass but is now left with an ulcerated lesion. - MRI of the soft tissue neck (10/16) --> in comparison to prior study the fluid adenopathy the left neck has significantly decreased in size as above. No new adenopathy is identified - Case d/w Dr. Gould (10/19/17) --> Pt is NOT a candidate for surgical treatment of left neck mass/ulceration - Wound VAC can NOT be utilized d/t tumor - wound care consulted and recommends Optifoam AG dressing with every other day dressing changes. (6) Large cell lymphoma ICD Codes: C85.80 - Other specified types of non-Hodgkin lymphoma, unspecified site (7) History of non-Hodgkin's lymphoma ICD Codes: Z85.72 - Personal history of non-Hodgkin lymphomas (8) Hypertension ICD Codes: I10 - Essential (primary) hypertension - Cont. home Coreg 6.25 mg PO daily - BP remains elevated and patient tolerating PO intake - added lisinopril 10 PO BID (10/27) - monitor BP (9) H/O carcinoma of bladder ICD Codes: Z85.51 - Personal history of malignant neoplasm of bladder Plan: - comgmt with Urology - s/p radiation treatment - detrol - f/u with regular Urologist, Dr. Warren, outpt (10) Fall ICD Codes: W19.XXXA - Unspecified fall, initial encounter Plan: Patient had a fall he was assisted to the ground by RN patient denies injuries and was able to ambulate after the fall recommend patient be DC to SNF at time of DC for rehab and strengthening case management consulted but now pt and want home with hhc/pt Pt Condition on Discharge: Stable Discharge Disposition: Disch w/ Home Health Serv Discharge Instructions DIET: Follow Instructions for: As Tolerated, No Restrictions Activities you can perform: Regular-No Restrictions Follow up Referrals: Oncology/Hematology - 1 Week with Marie Moe MD PCP Follow-up - [address] rodarte Urology - [address] warren [facility] - 1 Week with cp wound care/dr Gould New Medications: Lisinopril (Lisinopril) 10 Mg Tab 10 MG PO Q12HR for Blood Pressure Management, #60 TAB Metronidazole (Flagyl) 500 Mg Tab 500 MG PO Q8HR for Infection for 12 Days, TAB Oxycodone (Oxycodone) 5 Mg Tab 15 MG PO Q8H PRN for pain, #60 TAB Tolterodine ER (Detrol LA) 4 Mg Cap 4 MG PO DAILY for bladder, #30 CAP 3 Refills Vancomycin Inj (Vancomycin Inj) 500 Mg Inj 125 MG PO Q6H for Infection for 12 Days, INJECTION Continued Medications: Ascorbic Acid (Vitamin C) 250 Mg Tab 250 MG PO for Nutritional Supplement, TAB 0 Refills Carvedilol (Carvedilol) 6.25 Mg Tab 6.25 MG PO BID, #60 TAB 0 Refills Cholecalciferol (Vitamin D3) 1,000 Unit Tab 1000 UNITS PO DAILY for Nutritional Supplement, #1 BOTTLE 0 Refills Coenzyme Q10 (Ubidecarenone) (Coq-10) 30 Mg Cap Unknown Dose PO DAILY Omeprazole Magnesium (Prilosec) 20 Mg Tab 20 MG PO DAILY PRN for acid Simvastatin (Simvastatin) 20 Mg Tab 20 MG PO HS for Cholesterol Management, #30 TAB 0 Refills Discontinued Medications: Oxycodone (Oxycodone) 10 Mg Tab 10 MG PO Q6H PRN for PAIN, TAB 0 Refills Rogerio Syed MD Oct 28, 2017 09:55
[2017-10-28 11:18] VITALS: BP 157/80; PULSE 79; RESP 20; TEMP 98.3; O2SAT 96
[2017-10-28] MEDS ORDERED: OXYC1CAP PO (12:23)
--- NOTE | 2017-10-28 12:30 | PD.ONC.PN ---
Subjective Subjective Remarks Afebrile overnight. Patient resting in room. He is very eager to go home. Slept ok overnight. No falls overnight. at bedside also feels patient is ready to go home. Still having loose stools. Objective Data Date Time Temp Pulse Resp B/P (MAP) Pulse Ox O2 Delivery O2 Flow Rate FiO2 10/28/17 11:18 98.3 79 20 157/80 (105) 96 10/28/17 09:11 98 Room Air 10/28/17 08:43 97.5 76 18 179/90 (119) 98 10/28/17 06:45 16 10/28/17 05:00 78 10/28/17 03:27 Room Air 21 10/28/17 01:45 74 18 95 10/27/17 23:00 Room Air 21 10/27/17 22:00 Room Air 21 10/27/17 20:00 98.4 75 20 196/91 (126) 95 10/27/17 16:01 98.0 78 18 148/77 (100) 97 10/28/17 10/28/17 10/28/17 07:00 15:00 23:00 Intake Total 500 ml Output Total 675 ml Balance -175 ml Result Diagram: 10/27/17 1043 10/27/17 1043 Administered Medications Medications (Trade) Dose Ordered Sig/Jeremi Route PRN Reason Start Time Stop Time Status Last Admin Dose Admin Carvedilol (Coreg) 6.25 mg BID PO 10/16/17 21:00 10/28/17 08:47 Pravastatin Sodium (Pravachol) 40 mg HS PO 10/16/17 21:00 10/27/17 23:32 Ondansetron HCl (Zofran Inj) 4 mg Q6HR PRN IV PUSH n/v 10/16/17 19:45 10/23/17 14:26 Acetaminophen (Tylenol) 650 mg Q4H PRN PO PAIN 1-4 OR TEMP >100.4F 10/17/17 09:15 10/28/17 05:45 Tolterodine Tartrate (Detrol La) 4 mg DAILY PO 10/18/17 12:45 10/28/17 08:46 Docusate Sodium (Colace) 100 mg BID PO 10/19/17 11:30 Future Hold 10/24/17 21:29 Magnesium Hydroxide (Milk Of Magnesia Liq) 30 ml DAILY PRN PO MILD-MODERATE CONSTIPATION 10/19/17 11:00 Future Hold 10/19/17 12:52 Lactulose (Lactulose Liq) 30 ml QID PRN PO SEVERE CONSITIPATION 10/21/17 13:00 Future Hold 10/22/17 14:59 Oxycodone HCl (Roxicodone) 15 mg Q8H PRN PO PAIN SCALE 1 TO 10 10/22/17 10:30 10/23/17 15:31 Levofloxacin (Levaquin) 750 mg Q24H PO 10/22/17 17:00 10/29/17 16:59 Future Hold 10/22/17 18:29 Lorazepam (Ativan Inj) 0.5 mg Q4H PRN IV PUSH agitation 10/23/17 18:30 10/23/17 23:37 Pantoprazole Sodium (Protonix Inj) 40 mg Q24H IV PUSH 10/25/17 09:00 10/28/17 08:46 Vancomycin HCl (VANCOMYCIN for oral use only) 125 mg Q6H PO 10/25/17 09:00 10/28/17 08:47 Enoxaparin Sodium (Lovenox Inj) 40 mg Q24H SQ 10/25/17 20:00 10/26/17 20:21 Enalaprilat (Vasotec Inj) 1.25 mg Q6H PRN IV PUSH SEE LABEL COMMENTS 10/26/17 08:15 10/27/17 09:24 Metronidazole (Flagyl) 500 mg Q8HR PO 10/26/17 22:00 10/28/17 05:44 Lisinopril (Prinivil) 10 mg Q12HR PO 10/27/17 11:45 10/28/17 08:47 Objective Remarks GENERAL: Elderly male, supine in bed resting. SKIN: Warm and dry. HEAD: Normocephalic. EYES: No injection or drainage. NECK: Supple, trachea midline. CARDIOVASCULAR: Regular rate and rhythm RESPIRATORY: anterior hastings with scattered rhonchi. GASTROINTESTINAL: Abdomen soft, non-tender, nondistended. EXTREMITIES: No cyanosis NEUROLOGICAL: awake, alert. normal speech. moving all extremities. 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 --s/p EPOCH the week prior to admission --plan to dose reduce the next cycle. (2) Skin ulcer of left side of neck ICD Codes: L98.499 - Non-pressure chronic ulcer of skin of other sites with unspecified severity Status: Acute Plan: --continue dressing changes as recommended by wound care. --wound care consulted and recommends Optifoam AG dressing with every other day dressing changes. (3) C. difficile diarrhea ICD Codes: A04.72 - Enterocolitis due to Clostridium difficile, not specified as recurrent Status: Acute Plan: --on PO Vanco + PO Flagyl Assessment 77y/o male admitted with neutropenic fever associated with large cell lymphoma treatment. 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 h/o Liver cirrhosis. Hypertension. Pancytopenia. Neutropenic fever. Left neck wound. Plan 1. clear for discharge from oncology perspective 2. follow up in clinic within one week. 3. continue regular diet. Attending Statement Plan discussed. Pt DC before could be seen. FU as out pt. Cont tx for Cdiff. Coordinate port when free of infection. Problem Qualifiers (1) Skin ulcer of left side of neck: Qualified Codes: L98.499 - Non-pressure chronic ulcer of skin of other sites with unspecified severity Carmen Russo Oct 28, 2017 12:30 Marie Moe MD Oct 28, 2017 16:27
[2017-10-28 13:30] LABS: BICARBONATE 27.4 MEQ/L (21.0-32.0); CREATININE 0.76 MG/DL (0.60-1.30); MAGNESIUM 1.5 MG/DL (1.5-2.5)
== END 2017-10-28 14:52 | disposition home health service (06) | DRG 809 ==
LOC: NEPE 17:50 → NEDA 19:23 → HCIN 10-17 00:30
PROVIDERS: ADMIT Hospitalist; ATTEND Hospitalist
PROC: 30233N1 Transfusion of Nonautologous Red Blood Cells into Peripheral Vein, Percutaneous Approach (ICD-10-PCS; principal; 2017-10-18)
PROC: 6A550Z2 Pheresis of Platelets, Single (ICD-10-PCS; 2017-10-19)
PROC: 0D9670Z Drainage of Stomach with Drainage Device, Via Natural or Artificial Opening (ICD-10-PCS; 2017-10-23)
DX: D70.9 Neutropenia, unspecified (principal); A04.72 Enterocolitis due to Clostridium difficile, not specified as recurrent; B37.0 Candidal stomatitis; D69.59 Other secondary thrombocytopenia; C83.30 Diffuse large B-cell lymphoma, unspecified site; N18.3 Chronic kidney disease, stage 3 (moderate); E87.1 Hypo-osmolality and hyponatremia; L98.498 Non-pressure chronic ulcer of skin of other sites with other specified severity; N39.0 Urinary tract infection, site not specified; K56.7 Ileus, unspecified; N13.30 Unspecified hydronephrosis; K74.60 Unspecified cirrhosis of liver; E86.0 Dehydration; R50.81 Fever presenting with conditions classified elsewhere; Z87.442 Personal history of urinary calculi; Z92.3 Personal history of irradiation; Z96.642 Presence of left artificial hip joint; Z96.653 Presence of artificial knee joint, bilateral; Z85.51 Personal history of malignant neoplasm of bladder; Z85.46 Personal history of malignant neoplasm of prostate; E78.5 Hyperlipidemia, unspecified; H91.93 Unspecified hearing loss, bilateral; M19.90 Unspecified osteoarthritis, unspecified site; I12.9 Hypertensive chronic kidney disease with stage 1 through stage 4 chronic kidney disease, or unspecified chronic kidney disease; K21.9 Gastro-esophageal reflux disease without esophagitis; Z85.828 Personal history of other malignant neoplasm of skin; M89.8X9 Other specified disorders of bone, unspecified site; T45.8X5A Adverse effect of other primarily systemic and hematological agents, initial encounter; Y84.2 Radiological procedure and radiotherapy as the cause of abnormal reaction of the patient, or of later complication, without mention of misadventure at the time of the procedure; T45.1X5A Adverse effect of antineoplastic and immunosuppressive drugs, initial encounter; R21 Rash and other nonspecific skin eruption; B96.5 Pseudomonas (aeruginosa) (mallei) (pseudomallei) as the cause of diseases classified elsewhere; E87.6 Hypokalemia; R15.9 Full incontinence of feces
CPT/HCPCS: 36430; 43752; 44500; 70450; 70540; 71045; 74018; 74177; 76775; 76937; 80048; 80053; 80202; 81001; 82140; 83605; 83615; 83735; 84153; 85007; 85025; 85027; 85044; 85610; 85730; 86403; 86850; 86900; 86901; 86920; 87040; 87070; 87077; 87086; 87186; 87205; 87493; 87804; 96372; 99215; 99285; C1769; C1887; C9113; G0463; J0692; J1170; J1642; J1650; J1956; J2060; J2212; J2405; J2505; J3370; J3475; J3480; J7030; J7050; P9016; P9035; Q9967

== ENCOUNTER 2017-11-08 12:45 | Day surgery (SDC) | payer MEDICARE ==
[~2017-11-08 12:45] MED LIST changes: +DETR4CAP PO; +LISI10TA3 PO; +METR-1 PO; +OXYC-392 PO; +VANC500I3 PO; +VITA100018 PO; +VITA250T3 PO
[2017-11-08 12:58] VITALS: BP 140/82; PULSE 74; RESP 20; TEMP 97.6; O2SAT 97
--- NOTE | 2017-11-08 14:28 | PD.RAD ---
Radiology Post PICC Prog Note Pre Procedure Diagnosis: (1) Lymphoma Post Procedure Diagnosis: (1) Lymphoma Procedure Date: Nov 08, 2017 Supervising Radiologist Jones Bailey JR Proceduralist/Assist: Colleen Lozada, RT(R)(), Fede Courtney, RT(R) Device Side: Right Maldivian: 4 single lumen cm: 39 Catheter: Power PICC Plan of Activity Patient to Unit: ROPU Patient Condition: Good PICC line can be used immediately Jr. Leo,Jones Prakash MD Nov 08, 2017 14:28
[2017-11-08 14:30] VITALS: BP 163/98; PULSE 77; RESP 18; O2SAT 97
[2017-11-08] MEDS ORDERED: SODIUM CHLORIDE 0.9% FLUSH 10 ML FLUSH IVF PRN ×2 (14:30)
--- NOTE | 2017-11-08 15:00 | RADRPT ---
EXAM DATE/TIME: 11/08/2017 15:20 [facility] COMPARISON: No previous studies available for comparison. INDICATIONS : Patient presents with follicular lymphoma in need of peripherally inserted central venous catheter fo r treatment. MEDICAL HISTORY : Anemia (Iron deficiancy anemia 05/27/15 Hgb 13.2- NL) (Treated) Chronic renal insufficiency H/O prostate cancer (s/p XRT by Dr. Marie. Dr. Sierra following- noted increasing PSA.) Hypertension (Treated) Inflammatory arthritis (Trial Medrol 4mg- good response.) Iron overload (HFE negative.) L Hypopharynx mass and supraclavicular LN (04/19/17. CT soft tissue neck. L Hypopharynx mass 3.0x1.7cm and L supraclavicular mass 4.0x5.1x6.3cm) in 2016 Liver cirrhosis in 2012 Follicular lymphoma (02/11/12. Mediastinal biopsy positive for Follicular lymphoma, grade I. CTPET show disease above and below diaphragm. Last bone marrow biopsy 2005 was negative for lymphoma. SURGICAL HISTORY : Back surgery 2002 sciatica cyst Colonoscopy 2003 Iron overl load Kidney stone removed 1974, lithotripsy 2010 Knee surgery - 2001 Left shoulder rotator cuff 2010 Lipoma removed left leg 2010 Lipotripsy - March 01, 2011 and April 19, 2011 Xrt prostate - [address] biopsy in 2011 ENCOUNTER: Initial ACUITY: > 1 year PAIN SCORE: 0/10 LOCATION: N/A FLUORO TIME: 0.26 minutes IMAGE SERIES: ACCESS: Right basilic vein DEVICE(S): 1.) 4 Wolof single lumen 39 cm Xcela Power PICC PROCEDURE : 1. Ultrasound guidance for venous catheterization. 2. Fluoroscopic guidance. 3. Ultrasound & fluoroscopic guided central venous Power PICC line placement. The risks, benefits and alternatives to the procedure were explained and verbal and written consent w as obtained. The site was prepped in sterile fashion. Full sterile technique was used, including ca p, mask, sterile gloves and gown and a large sterile sheet. Hand hygiene and 2% chlorhexidine prep w as utilized per protocol for cutaneous antisepsis with appropriate dry time for site. Sterile gel a nd sterile probe cover were utilized for ultrasound guidance. The skin and subcutaneous tissues wer e infiltrated with local anesthetic solution. Under direct ultrasound guidance, a suitable vein was accessed and a measuring guidewire was introduc ed and positioned in the central venous system. The ultrasound images depicting access guidance were saved and stored to PACS for permanent record. A Power Injectable PICC line was cut to prescribed length and introduced, positioned with tip at the cavoatrial junction level. The line was flushed and secured per protocol. CONCLUSION: 1. Uncomplicated central venous Power PICC line placement. 2. The PICC line can be used immediately. Jones Bailey Jr., MD on November 08, 2017 at 14:57 Board Certified Radiologist. This report was verified electronically.
[2017-11-09] MEDS ORDERED: SODIUM CHLORIDE 0.9% FLUSH 10 ML FLUSH IVF SCH (09:00)
== END 2017-11-08 14:40 | disposition home or self-care (01) ==
LOC: HROP 12:45 → HRIP 12:48 → HROP 14:40
PROVIDERS: ATTEND Internal Medicine Hematology & Oncology
DX: C82.90 Follicular lymphoma, unspecified, unspecified site (principal); I12.9 Hypertensive chronic kidney disease with stage 1 through stage 4 chronic kidney disease, or unspecified chronic kidney disease; N18.9 Chronic kidney disease, unspecified; K74.60 Unspecified cirrhosis of liver; M06.4 Inflammatory polyarthropathy; D63.1 Anemia in chronic kidney disease; Z85.46 Personal history of malignant neoplasm of prostate
CPT/HCPCS: 36569; 76937; 77001; C1751; J1642

== ENCOUNTER → 2017-11-26 | Day surgery (SDC) | payer MEDICARE ==
[~2017-11-26] VITALS: Ht 175.3 cm; Wt 93.0 kg
[~2017-11-26] MED LIST changes: +ACETAMINOPHEN 1000 MG/100 ML 100 ML IV SCH; +BUPIVACAINE/EPINEPHRINE 0.25% 50 ML VIAL ONE; +CHLORHEXIDINE GLUCONATE 2 % 1 PACK (2 CLOTHS) TOPICAL PRN; -COQ-30CA2 PO; +COQ150CA PO; -DETR4CAP PO; +HEPARIN SODIUM - IV 10,000 UNITS/10 ML VIAL ONE; +LACTATED RINGER'S 1000 ML IV PRN; -LISI10TA3 PO; +METOPROLOL TARTRATE 25 MG TAB PO PRN; -METR-1 PO; +PHENYLEPH/NS 1000 MCG/10 ML SYR IV ONE; +POTA10TA2 PO; +POVIDONE IODINE 5% (ANTISEPSIS KIT) 4 APPLICATIONS EACH NARE PRN; +PROC10TA PO; +PROPOFOL 500 MG/50 ML INJ 50 ML ONE; +SODIUM CHLORID 0.9% 500 ML IV PRN; +SODIUM CHLORIDE 0.9% 20 ML VIAL ONE; -VANC500I3 PO; +ZOFR8TAB PO; +ceFAZolin INJ 1,000 MG VIAL IV ONE
[2017-11-26 13:30] VITALS: BP 98/45; PULSE 68; RESP 18; O2SAT 98
--- NOTE | 2017-11-26 13:36 | PD.OP ---
cc: Julito Gould MD; Marie Moe MD Operative Report Date of Surgery: Nov 26, 2017 Preoperative Diagnosis: Lymphoma Postoperative Diagnosis: Lymphoma Procedure: Placement of left subclavian Xkrboa-[id number] Anesthesia: Local/MAC Surgeon: Julito Gould Layout Designer(s): Mel Ragland MS 3 Operation and Findings: Operative procedure: The patient was brought to the operating room and after satisfactory sedation by anesthesia was achieved, the left upper chest was prepped and draped in the usual sterile fashion. 0.25% Marcaine with epinephrine was used to infiltrate the skin for local anesthesia. A large-bore needle was used to cannulate the left subclavian vein without problem. A guidewire was inserted into the superior vena cava with placement confirmed on fluoroscopy. A skin incision was made medial to the guidewire and a subcutaneous pocket fashion for the [place]. The port was placed within the pocket and the catheter cut to the appropriate length. Dilator and introducer were placed over the guidewire and the catheter was inserted into the superior vena cava, with placement again confirmed on fluoroscopy. The port was affixed to the pectoralis fascia with a 3-0 Vicryl suture. The port was then aspirated easily and flushed with heparinized saline. The area was checked for hemostasis which was seen to be satisfactory. The subcutaneous tissue and skin were closed with interrupted 4-0 PDS subcutaneous stitches. Steri-Strips were applied and the patient was then awakened and taken from the operating room, in satisfactory condition, having tolerated the procedure without problem. Estimated blood loss was less than 10 mL's. The instrument, sponge, needle counts were reported as being correct 2 at the end of procedure. Julito Gould MD Nov 26, 2017 13:36
--- NOTE | 2017-11-26 14:46 | RADRPT ---
EXAM DATE/TIME: 11/26/2017 12:50 [facility] COMPARISON: No previous studies available for comparison. INDICATIONS : Infusaport placement. FLUORO TIME: .45 minutes IMAGE COUNT: 1 MEDICAL HISTORY : Carcinoma, prostate. Hypertension. Gastroesophageal reflux disease.Lymphoma SURGICAL HISTORY : Cholecystectomy. ENCOUNTER: Initial ACUITY: 1 day PAIN SCORE: Non-responsive. LOCATION: Left upper chest FINDINGS: Left chest [id number] is present in good position with catheter tip extending to the SVC. Nothing to suggest complication of the procedure. CONCLUSION: Satisfactory appearance post port Sebas Patel MD on November 26, 2017 at 14:43 Board Certified Radiologist. This report was verified electronically.
== END | disposition home or self-care (01) ==
LOC: HSDC 08:56
PROVIDERS: ATTEND Surgery
DX: C82.00 Follicular lymphoma grade I, unspecified site (principal); K21.9 Gastro-esophageal reflux disease without esophagitis; K74.60 Unspecified cirrhosis of liver; K73.9 Chronic hepatitis, unspecified; D69.6 Thrombocytopenia, unspecified; I12.9 Hypertensive chronic kidney disease with stage 1 through stage 4 chronic kidney disease, or unspecified chronic kidney disease; N18.3 Chronic kidney disease, stage 3 (moderate); R55 Syncope and collapse; R60.9 Edema, unspecified; E78.5 Hyperlipidemia, unspecified; Z85.46 Personal history of malignant neoplasm of prostate; M54.16 Radiculopathy, lumbar region; N20.0 Calculus of kidney; E55.9 Vitamin D deficiency, unspecified; M25.50 Pain in unspecified joint; M41.9 Scoliosis, unspecified; R06.2 Wheezing; M62.838 Other muscle spasm; M06.4 Inflammatory polyarthropathy
CPT/HCPCS: 00532; 36561; C1788; J0690; J1644; J2370; J3010

== ENCOUNTER 2017-12-05 06:26 | Day surgery (SDC) | payer MEDICARE ==
[~2017-12-05] VITALS: Ht 175.3 cm; Wt 90.9 kg
[~2017-12-05 06:26] MED LIST changes: -ACETAMINOPHEN 1000 MG/100 ML 100 ML IV SCH; -BUPIVACAINE/EPINEPHRINE 0.25% 50 ML VIAL ONE; -CHLORHEXIDINE GLUCONATE 2 % 1 PACK (2 CLOTHS) TOPICAL PRN; -HEPARIN SODIUM - IV 10,000 UNITS/10 ML VIAL ONE; -LACTATED RINGER'S 1000 ML IV PRN; -METOPROLOL TARTRATE 25 MG TAB PO PRN; -PHENYLEPH/NS 1000 MCG/10 ML SYR IV ONE; -POVIDONE IODINE 5% (ANTISEPSIS KIT) 4 APPLICATIONS EACH NARE PRN; -PROPOFOL 500 MG/50 ML INJ 50 ML ONE; -SODIUM CHLORID 0.9% 500 ML IV PRN; -SODIUM CHLORIDE 0.9% 20 ML VIAL ONE; -ceFAZolin INJ 1,000 MG VIAL IV ONE
[2017-12-05 06:57] VITALS: BP 126/74; PULSE 80; RESP 17; TEMP 97.9; O2SAT 99
[2017-12-05] MEDS ORDERED: SODIUM CHLORIDE 0.9% 1000 ML IV SCH (07:00)
[2017-12-05] MEDS ORDERED: CHLORHEXIDINE GLUCONATE 2 % 1 PACK (2 CLOTHS) TOPICAL SCH (07:00)
[2017-12-05] MEDS ORDERED: POVIDONE IODINE 5% (ANTISEPSIS KIT) 4 APPLICATIONS EACH NARE SCH (07:00)
[2017-12-05] MEDS ORDERED: ceFAZolin 2 GM PREMIX 50 ML - implanted port/tunneled catheter insertion IV SCH (07:00)
[2017-12-05] MEDS ORDERED: VANCOMYCIN 1000 MG/NS 250 ML - implanted port/tunneled catheter IV SCH ×2 (07:00)
[2017-12-05 07:37] LABS: INTERNATIONAL NORMALIZED RATIO 1.1 RATIO; PROTHROMBIN TIME - PATIENT 11.1 SEC (9.8-11.6)
[2017-12-05] MEDS ORDERED: IOHEXOL 350 MG/ML 50 ML BTL (for RAD DIAG) OTHER ONE (08:12)
[2017-12-05 08:20] VITALS: BP 122/74; PULSE 74; RESP 18; O2SAT 96
--- NOTE | 2017-12-05 08:38 | RADRPT ---
EXAM DATE/TIME: 12/05/2017 09:17 [facility] COMPARISON: No previous studies available for comparison. INDICATIONS : Patient with history of large cell follicular lymphoma in need of port evaluation. MEDICAL HISTORY : HTN, Left neck mass, Anemia, Chronic renal insufficiency, HLD, Prostate cancer, Liver cirrhosis, Thro mbocytopenia, Kidney stones SURGICAL HISTORY : Left port placement, Colonoscopy, Lithotripsy ENCOUNTER: Initial ACUITY: 1 week PAIN SCORE: 0/10 FLUORO TIME: 0.2 minutes IMAGE SERIES: 1 MEDICATION(S): 1.) 500 units Heparin IV PROCEDURE : 1. Access of Fzagmd-[id number]-juxz. 2. Port patency injection. The risks, benefits and alternatives to the procedure were explained and verbal and written consent w as obtained. The patient was placed supine. The port was prepped in sterile fashion. Full sterile t echnique was used, including cap, mask, sterile gloves and gown, and a large sterile sheet. Hand hyg iene and 2% chlorhexidine prep was utilized per protocol for cutaneous antisepsis with appropriate dr y time for site. The previously placed port was accessed and positive contrast was injected for evaluation. Injection demonstrates intact views report with the ability for injection as well as aspiration. CONCLUSION: 1. Patent [id number] Jl Loo MD on December 05, 2017 at 8:36 Board Certified Radiologist. This report was verified electronically.
== END 2017-12-05 08:41 | disposition home or self-care (01) ==
LOC: HROP 06:26 → HRIP 06:27 → HROP 08:41
PROVIDERS: ATTEND Internal Medicine Hematology & Oncology
DX: Z45.2 Encounter for adjustment and management of vascular access device (principal); C82.00 Follicular lymphoma grade I, unspecified site; I10 Essential (primary) hypertension
CPT/HCPCS: 36598; 85610; 85730; J1642; J7030; Q9967

== ENCOUNTER 2018-01-03 10:17 | Observation (INO) | payer MEDICARE ==
[~2018-01-03] VITALS: Ht 175.3 cm; Wt 93.0 kg
[~2018-01-03 10:17] MED LIST changes: -PROC10TA PO
[2018-01-03 12:00] VITALS: BP 151/93; PULSE 68; RESP 18; TEMP 97.5; O2SAT 100
[2018-01-03 12:08] VITALS: PULSE 64
--- NOTE | 2018-01-03 12:15 | MH ---
cc: Marie Moe MD DATE OF ADMISSION: 01/03/2018 ADMISSION DIAGNOSES: 1. Chemotherapy for transformed large cell lymphoma, left neck. 2. Peripheral neuropathy. 3. Fatigue. HISTORY OF PRESENT ILLNESS: Mr. 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 He is cycle 4 Rituxan, EPOCH day 5 today. Clinic is closed. He is here for his day 5 pump removal, administration of Cytoxan and on-body injector. Mr. Tijerina's main complaint is peripheral neuropathy. He is starting to have annoying symptoms such as trouble buttoning buttons. He also has trouble with walking. He uses a walker partly from recent hip surgery, but he is also starting to feel the effect of the peripheral neuropathy. He denies any fever, chills or night sweats. His appetite is apparently good. He is able to drink well. His workup continues as an outpatient. He has a staging PET scan pending. The rest of his review of systems is negative. PAST MEDICAL HISTORY: Anemia of chronic renal insufficiency, history of prostate cancer, hypertension, inflammatory arthritis, supraclavicular lymph node Almodovar's transformation, follicular lymphoma. PAST SURGICAL HISTORY: Back surgery, colonoscopy, lithotripsy, knee surgery, left rotator cuff surgery, lipoma removal, radiation, prostate cancer, lymph node biopsy. ALLERGIES: MORPHINE. FAMILY HISTORY: Both parents are . No significant family history of cancer. 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 He never smoked. He drinks occasionally. Denies any illicit drug use. He is , lives with his . MEDICATIONS: 1. Carvedilol. 2. Prilosec. 2. Simvastatin. 3. Multivitamins. PHYSICAL EXAMINATION: VITAL SIGNS: Temperature afebrile. Blood pressure 122. GENERAL: Mr. Tijerina is a well-developed, well-nourished man with alopecia. HEENT: His pupils are round, reactive to light and accommodation. Oropharynx is clear. NECK: Supple. The left neck mass has resolved. The skin is healed over. There is a small scab. LUNGS: Clear to auscultation. CARDIOVASCULAR: Reveals normal rate and rhythm. ABDOMEN: Soft, benign. MUSCULOSKELETAL: Lower extremities with no edema. Port site is clear. Peripheral neuropathy with a grade III/II neuropathy. LABORATORY DATA: Labs from 12/30/2017, white blood cell count 2.9; hemoglobin 9.8; platelet count 120,000. Glucose 112. Alkaline phosphatase decreased to 220. Albumin 2.7. ASSESSMENT AND PLAN: Mr. Tijerina is a 77-year-old man with large cell lymphoma transformation from follicular lymphoma. He is receiving R-EPOCH. He is here for day 5, removal of the pump, cytoxan administration and on-body injector placement. He has a followup appointment in a week's time to check CBC. He was offered hydration on a p.r.n. basis. We discussed watching his peripheral neuropathy. We will be unable to proceed with the next cycle until his peripheral neuropathy goes down to a grade I or grade II. He is advised to monitor this. We will monitor for fevers. He developed cytopenias before and has a dose reduction on his chemotherapy now. I anticipate he is being discharged later today after completion of his chemotherapy and on-body injector placement. MD KASI Restrepo/LASHANDA , 11:45 AM , 12:13 PM
--- NOTE | 2018-01-03 12:17 | HHI.DCPOC ---
Discharge Care Plan Diagnosis: (1) Large cell lymphoma Goals to Promote Your Health * To prevent worsening of your condition and complications * To maintain your health at the optimal level Directions to Meet Your Goals Take your medications as prescribed Follow your dietary instruction Follow activity as directed Keep your appointments as scheduled Take your immunizations and boosters as scheduled If your symptoms worsen call your PCP, if no PCP go to Urgent Care Center or Emergency Room Smoking is Dangerous to Your Health. Avoid second hand smoke Call the 24-hour hour crisis hotline for domestic abuse at Carmen Russo Jan 03, 2018 12:17
[2018-01-03] MEDS ORDERED: PEGFILGRASTIM 6 MG/0.6 ML SQ SCH (12:30)
[2018-01-03] MEDS ORDERED: ONDANSETRON HCL 4 MG/2 ML VIAL IV PUSH PRN (12:30)
[2018-01-03] MEDS ORDERED: SODIUM CHLORIDE 0.9% FLUSH 10 ML FLUSH IV FLUSH PRN (13:45)
[2018-01-03] MEDS ORDERED: CYCLOPHOSPHAMIDE IV ONE (15:00)
[2018-01-03] MEDS ORDERED: SODIUM CHLOR 0.9% IV ONE (15:00)
[2018-01-03 16:25] VITALS: BP 144/84; PULSE 71; RESP 18; TEMP 97.8; O2SAT 100
== END 2018-01-03 18:12 | disposition home or self-care (01) ==
LOC: HBDO 10:17 → HCIN 10:41
PROVIDERS: ADMIT Internal Medicine Hematology & Oncology; ATTEND Internal Medicine Hematology & Oncology
DX: C83.30 Diffuse large B-cell lymphoma, unspecified site (principal); C82.90 Follicular lymphoma, unspecified, unspecified site; G62.9 Polyneuropathy, unspecified; R53.83 Other fatigue; I12.9 Hypertensive chronic kidney disease with stage 1 through stage 4 chronic kidney disease, or unspecified chronic kidney disease; N18.9 Chronic kidney disease, unspecified; D63.1 Anemia in chronic kidney disease; Z85.46 Personal history of malignant neoplasm of prostate
CPT/HCPCS: 96365; 96372; G0378; J1642; J7050; J2505; J9070

== ENCOUNTER 2018-01-09 23:26 | Inpatient (IN) | payer MEDICARE ==
[~2018-01-09] VITALS: Ht 182.9 cm; Wt 87.6 kg
[2018-01-09 23:49] VITALS: BP 139/59; PULSE 94; RESP 20; TEMP 99.8; O2SAT 96
[2018-01-10] VITALS (14 sets, daily range): BP systolic 107–139; BP diastolic 60–68; PULSE 74–90; RESP 16–18; TEMP 98.9–101; O2SAT 96–98
[2018-01-10] MEDS ORDERED: SODIUM CHLOR 0.9% 1000 ML INJ 1,000 ML IV ONE (00:10)
[2018-01-10] MEDS ORDERED: CEFEPIME INJ 2,000 MG in SODIUM CHLORIDE 0.9% INJ 100 ML IV ONE (00:15)
[2018-01-10] MEDS ORDERED: ACETAMINOPHEN 325 MG TAB PO ONE (00:15)
--- NOTE | 2018-01-10 00:27 | PD ---
HPI Chief Complaint: Fever Time Seen by Provider: 00:03 Travel History International Travel<30 days: No Contact w/Intl Traveler<30days: No Traveled to known affect area: No History of Present Illness HPI 77-year-old male with history of large B-cell lymphoma, follicular lymphoma, last chemotherapy last week, sent in by his oncologist Dr. Barney for neutropenic fever. Patient's likely source is a UTI as he has had these in the past and is having dysuria and increased frequency. He had lab work done today that shows WBC 0.2 with 0.1 neutrophils as well as a UA that is suggestive of UTI. He is complaining of generalized joint pains. No abdominal pain. He was given aspirin by his family members for his fever which was as high as 102F today. PFSH Past Medical History Arthritis: Yes Asthma: No Blood Disorders: Yes (HEMACROMATOSIS) Anxiety: No Depression: No Heart Rhythm Problems: No Cancer: Yes (PROSTATE, BASIL CELL SKIN CANCERS,FOLLICULAR LYMPHOMA) Cardiovascular Problems: No High Cholesterol: Yes Chemotherapy: Yes (10/13/17) Chest Pain: No Congestive Heart Failure: No COPD: No Diabetes: No Diminished Hearing: Yes (HEARING AIDS BOTH ) Endocrine: No Gastrointestinal Disorders: Yes (GERD) GERD: Yes Glaucoma: No Genitourinary: Yes (hx of kidney stones) Hepatitis: No Hiatal Hernia: No Hypertension: Yes Immune Disorder: No Musculoskeletal: Yes (ARTHRITIS) Neurologic: Yes (neuropathy hands and feet) Psychiatric: No Reproductive: No Respiratory: No Immunizations Current: No Radiation Therapy: Yes (prostate cancer) Sleep Apnea: No Thyroid Disease: No Past Surgical History Abdominal Surgery: Yes (CHOLYCYSTECTOMY) AICD: No Body Medical Devices: port left chest LEFT SHOULDER Cardiac Surgery: No Cholecystectomy: Yes Ear Surgery: No Endocrine Surgery: No Eye Surgery: Yes (ERNESTO. CATARACT EXTRACTION) Genitourinary Surgery: Yes (kidney stone EXTRACTION, LITHOTRIPSY) Gynecologic Surgery: No Joint Replacement: Yes (BILATERAL KNEES, LEFT HIP) Neurologic Surgery: Yes (BACK) Oral Surgery: No Pacemaker: No Thoracic Surgery: Yes (port insertion) Other Surgery: Yes Social History Alcohol Use: No Tobacco Use: No Substance Use: No Allergies-Medications (Allergen,Severity, Reaction): Coded Allergies: diclofenac (Verified Allergy, Severe, AFFECTED KIDNEYS, 01/09/18) ALL NSAIDS etodolac (Verified Allergy, Severe, AFFECTED KIDNEYS, 01/09/18) flurbiprofen (Verified Allergy, Severe, AFFECTED KIDNEYS, 01/09/18) ibuprofen (Verified Allergy, Severe, AFFECTED KIDNEYS, 01/09/18) indomethacin (Verified Allergy, Severe, AFFECTED KIDNEYS, 01/09/18) ketoprofen (Verified Allergy, Severe, AFFECTED KIDNEYS, 01/09/18) ketorolac (Verified Allergy, Severe, AFFECTED KIDNEYS, 01/09/18) morphine (Verified Allergy, Severe, NAUSEA/VOMITING, 01/09/18) naproxen (Verified Allergy, Severe, AFFECTED KIDNEYS, 01/09/18) oxaprozin (Verified Allergy, Severe, AFFECTED KIDNEYS, 01/09/18) Sulfa (Sulfonamide Antibiotics) (Verified Allergy, Intermediate, Rash, 01/09) apixaban (Verified Allergy, Intermediate, Hives, 01/09/18) zolpidem (Verified Allergy, Unknown, 01/10/18) Reported Meds & Prescriptions Reported Meds & Active Scripts Active Oxycodone (Oxycodone HCl) 5 Mg Tab 10 Mg PO Q8H PRN Reported Lorazepam 0.5 Mg Tab 0.5 Mg PO Q8H PRN Zofran (Ondansetron HCl) 8 Mg Tab 8 Mg PO TID PRN Potassium Chloride ER (Potassium Chloride) 10 Meq Tab 10 Meq PO DAILY Coq10 (Coenzyme Q10 (Ubidecarenone)) 50 Mg Cap 100 Cap PO DAILY Vitamin D3 (Cholecalciferol) 1,000 Unit Tab 1,000 Units PO DAILY Vitamin C (Ascorbic Acid) 250 Mg Tab 250 Mg PO Simvastatin 20 Mg Tab 20 Mg PO HS Carvedilol 6.25 Mg Tab 6.25 Mg PO BID Prilosec (Omeprazole Magnesium) 20 Mg Tab 20 Mg PO DAILY PRN Review of Systems Except as stated in HPI: all other systems reviewed are Neg Physical Exam Narrative GENERAL: Well-developed, well-nourished, no apparent distress. SKIN: Focused skin assessment warm/dry. No rash. HEAD: Atraumatic. Normocephalic. EYES: Pupils equal and round. No scleral icterus. No injection or drainage. ENT: Mucous membranes pink and dry. NECK: Trachea midline. No JVD. No nuchal rigidity. CARDIOVASCULAR: Regular rate and rhythm. RESPIRATORY: No accessory muscle use. Clear to auscultation. Breath sounds equal bilaterally. GASTROINTESTINAL: Abdomen soft, non-tender, nondistended. MUSCULOSKELETAL: No obvious deformities. No clubbing. No cyanosis. No edema. NEUROLOGICAL: Awake and alert. No obvious cranial nerve deficits. Motor grossly within normal limits. Normal speech. PSYCHIATRIC: Appropriate mood and affect; insight and judgment normal. Data Data Last Documented VS Vital Signs Date Time Temp Pulse Resp B/P (MAP) Pulse Ox O2 Delivery O2 Flow Rate FiO2 01/10/18 01:10 96 Room Air 01/10/18 01:00 82 16 01/09/18 23:49 99.8 139/59 (85) Orders Orders Sepsis Workup Initiated (01/10/18 ) Complete Blood Count With Diff (01/10/18 00:10) Comprehensive Metabolic Panel (01/10/18 00:10) Lactic Acid Sepsis Protocol (01/10/18 00:10) Urinalysis - C+S If Indicated (01/10/18 00:10) Blood Culture (01/10/18 00:10) Chest, Single Ap (01/10/18 00:10) Ecg Monitoring (01/10/18 00:10) Iv Access Insert/Monitor (01/10/18 00:10) Oximetry (01/10/18 00:10) Acetaminophen (Tylenol) (01/10/18 00:15) Sodium Chlor 0.9% 1000 Ml Inj (Ns 1000 M (01/10/18 00:10) Cefepime Inj (Maxipime Inj) (01/10/18 00:15) Labs Laboratory Tests Test 01/10/18 00:50 01/10/18 00:55 White Blood Count 0.1 TH/MM3 Red Blood Count 2.79 MIL/MM3 Hemoglobin 8.5 GM/DL Hematocrit 24.7 % Mean Corpuscular Volume 88.4 FL Mean Corpuscular Hemoglobin 30.5 PG Mean Corpuscular Hemoglobin Concent 34.5 % Red Cell Distribution Width 15.8 % Platelet Count 29 TH/MM3 Mean Platelet Volume 9.2 FL CBC Comment AUTO DIFF MDM Medical Decision Making Medical Screen Exam Complete: Yes Emergency Medical Condition: Yes Differential Diagnosis Neutropenic fever, UTI, bacteremia, pneumonia Narrative Course Vital signs reviewed. The patient had a UTI that grew out Pseudomonas in October of this year that was sensitive to cefepime. He will be started on this medication today and will be admitted for further treatment and evaluation of neutropenic fever. Case discussed with [facility] hospitalist Dr. Conte. The patient will be admitted to their service under Dr. Syed. Diagnosis Primary Impression: Neutropenic fever Additional Impression: UTI (urinary tract infection) Qualified Codes: N39.0 - Urinary tract infection, site not specified; R31.9 - Hematuria, unspecified Admitting Information Admitting Physician Requests: Admit Levy Cheung MD Jan 10, 2018 00:27
--- NOTE | 2018-01-10 01:09 | RADRPT ---
EXAM DATE/TIME: 01/10/2018 00:15 [place] COMPARISON: CHEST SINGLE AP, October 16, 2017, 19:56. INDICATIONS : Possible urinary tract infection. MEDICAL HISTORY : HTN, Left neck mass, Anemia, Chronic renal insufficiency, HLD, Prostate cancer,Liver cirrhosis, Throm bocytopenia, Kidney stones SURGICAL HISTORY : Left port placement, Colonoscopy, Lithotripsy. ENCOUNTER: Initial ACUITY: 1 day PAIN SCORE: 4/10 LOCATION: Bilateral chest FINDINGS: Single AP view of the chest. Left-sided Wfazet-f-Ryod in place. Lungs are clear. Cardiomediastinal si lhouette within normal limits. No evidence of pleural effusion or pneumothorax. CONCLUSION: No acute cardiopulmonary disease identified. Raul Strong MD on January 10, 2018 at 1:06 Board Certified Radiologist. This report was verified electronically.
[2018-01-10] MEDS ORDERED: LORA0.5T PO (01:10)
[2018-01-10 01:17] LABS: HEMATOCRIT 24.7 % (39.0-51.0); HEMOGLOBIN 8.5 GM/DL (13.0-17.0); MEAN CELL VOLUME 88.4 FL (80.0-100.0); MEAN CORPUSCULAR HEMOGLOBIN 30.5 PG (27.0-34.0); MEAN CORPUSCULAR HGB CONC 34.5 % (32.0-36.0); MEAN PLATELET VOLUME 9.2 FL (7.0-11.0); PLATELET COUNT 29 TH/MM3 (150-450); RED BLOOD COUNT 2.79 MIL/MM3 (4.50-5.90); RED CELL DISTRIBUTION WIDTH 15.8 % (11.6-17.2); WHITE BLOOD COUNT 0.1 TH/MM3 (4.0-11.0)
[2018-01-10 01:26] LABS: BACTERIA, URINE RARE /hpf; BILIRUBIN, URINE NEG (NEG); BLOOD, URINE TRACE (NEG); GLUCOSE,URINE NEG (NEG); KETONE, URINE NEG (NEG); NITRITE,URINE NEG (NEG); PH, URINE 7.5 (5.0-8.5); URINE COLOR YELLOW (YELLW/STRAW); URINE LEUKOCYTE ESTERASE LARGE (NEG)
[2018-01-10] MEDS ORDERED: VANCOMYCIN INJ 1,000 MG in SODIUM CHLOR 0.9% 250 ML INJ 250 ML IV ONE (01:30)
[2018-01-10] MEDS ORDERED: ONDANSETRON HCL 4 MG/2 ML VIAL IV PUSH PRN (01:45)
[2018-01-10] MEDS ORDERED: ACETAMINOPHEN 500 MG CPLT PO PRN (01:45)
[2018-01-10 01:55] LABS: ALBUMIN 2.6 GM/DL (3.4-5.0); ALT (GPT) 39 U/L (12-78); AST (GOT) 17 U/L (15-37); BICARBONATE 26.2 MEQ/L (21.0-32.0); BLOOD UREA NITROGEN 10 MG/DL (7-18); CALCIUM 9.6 MG/DL (8.5-10.1); CHLORIDE 103 MEQ/L (98-107); GLOMERULAR FILTRATION RATE 109 ML/MIN (>89); GLUCOSE,RANDOM 120 MG/DL (74-106); SODIUM (NA) 137 MEQ/L (136-145)
[2018-01-10 01:58] LABS: ALKALINE PHOSPHATASE 286 U/L (45-117); TOTAL BILIRUBIN ADULT 1.4 MG/DL (0.2-1.0); TOTAL PROTEIN 5.2 GM/DL (6.4-8.2)
[2018-01-10 02:00] LABS: BANDS 2 % (0-6); BASOPHILS 4 % (0-2); LYMPHOCYTES 62 % (9-44); METAMYELOCYTES 2 % (0-1); MONOCYTES 20 % (0-8); POLYS (SEG NEUTROPHILS) 8 % (16-70)
[2018-01-10 07:17] LABS: HEMATOCRIT 21.3 % (39.0-51.0); HEMOGLOBIN 7.2 GM/DL (13.0-17.0); MEAN CELL VOLUME 89.7 FL (80.0-100.0); MEAN CORPUSCULAR HEMOGLOBIN 30.4 PG (27.0-34.0); MEAN CORPUSCULAR HGB CONC 33.9 % (32.0-36.0); MEAN PLATELET VOLUME 8.9 FL (7.0-11.0); RED BLOOD COUNT 2.38 MIL/MM3 (4.50-5.90); RED CELL DISTRIBUTION WIDTH 15.3 % (11.6-17.2); WHITE BLOOD COUNT 0.1 TH/MM3 (4.0-11.0)
[2018-01-10 07:33] LABS: PLATELET COUNT 17 TH/MM3 (150-450)
--- NOTE | 2018-01-10 07:33 | HHI.HP ---
HPI Service [facility] Hospitalists Primary Care Physician Mateusz Teran MD Admission Diagnosis Neutropenic fever, UTI Chief Complaint: fever/urinary urgency Travel History International Travel<30 Days: No Contact w/Intl Traveler <30 Da: No Traveled to Known Affected Are: No History of Present Illness Patient is 77 yo with hx follicular lymphoma, pelletier transformation followed by dr Moe. He developed a left neck mass that ulcerated. He was started on bendamustine and rituxan with initial response. 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 He was treated with Rituxan 10/01/17 . He was admitted from 10/09 to 10/13/17 for EPOCH chemotherapy. He was then readmitted with neutropenic fever and had large tunneling left neck wound and pseudomonas uti. Also developed c.diff colitis. and prolonged hospital course in October from oct 16-. Has been getting r-epoch outpt with DR Moe and developing peripheral neuropathy. Now last chemo was 01/03 and presents with pancytopenia and neutropenic fever. Symptoms seem primarily of urinary frequency. Started on cefepime last night and admitted. Review of Systems Other fever urine frequency Past Family Social History Past Medical History large cell lymphoma left neck mass. 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 left total hip arthroplasty 2016 H/O prostate cancer (s/p XRT by Dr. Mraie. Dr. Sierra following- noted increasing PSA.) Hypertension Inflammatory arthritis Iron overload (HFE negative.) Liver cirrhosis in 2012 Follicular lymphoma (02/11/12. Mediastinal biopsy positive for Follicular lymphoma, grade I. CTPET show disease above and below diaphragm. Last bone marrow biopsy 2005 was negative for lymphoma. Back surgery 2003 sciatica cyst Colonoscopy 2004 Iron overl load Kidney stone removed 1974, lithotripsy 2010 right tka- 2001 -left tka 2016 Left shoulder rotator cuff 2010 Lipoma removed left leg 2010 Lipotripsy - March 01, 2011 and April 19, 2011 Xrt prostate - [address] biopsy in 2011 Reported Medications Lorazepam 0.5 Mg Tab 0.5 Mg PO Q8H PRN Zofran (Ondansetron HCl) 8 Mg Tab 8 Mg PO TID PRN Potassium Chloride ER (Potassium Chloride) 10 Meq Tab 10 Meq PO DAILY Coq10 (Coenzyme Q10 (Ubidecarenone)) 50 Mg Cap 100 Cap PO DAILY Vitamin D3 (Cholecalciferol) 1,000 Unit Tab 1,000 Units PO DAILY Vitamin C (Ascorbic Acid) 250 Mg Tab 250 Mg PO Simvastatin 20 Mg Tab 20 Mg PO HS Carvedilol 6.25 Mg Tab 6.25 Mg PO BID Prilosec (Omeprazole Magnesium) 20 Mg Tab 20 Mg PO DAILY PRN Allergies: Coded Allergies: diclofenac (Verified Allergy, Severe, AFFECTED KIDNEYS, 01/09/18) ALL NSAIDS etodolac (Verified Allergy, Severe, AFFECTED KIDNEYS, 01/09/18) flurbiprofen (Verified Allergy, Severe, AFFECTED KIDNEYS, 01/09/18) ibuprofen (Verified Allergy, Severe, AFFECTED KIDNEYS, 01/09/18) indomethacin (Verified Allergy, Severe, AFFECTED KIDNEYS, 01/09/18) ketoprofen (Verified Allergy, Severe, AFFECTED KIDNEYS, 01/09/18) ketorolac (Verified Allergy, Severe, AFFECTED KIDNEYS, 01/09/18) morphine (Verified Allergy, Severe, NAUSEA/VOMITING, 01/09/18) naproxen (Verified Allergy, Severe, AFFECTED KIDNEYS, 01/09/18) oxaprozin (Verified Allergy, Severe, AFFECTED KIDNEYS, 01/09/18) Sulfa (Sulfonamide Antibiotics) (Verified Allergy, Intermediate, Rash, 01/09) apixaban (Verified Allergy, Intermediate, Hives, 01/09/18) zolpidem (Verified Allergy, Unknown, 01/10/18) Family History nc Social History no etoh/tob Physical Exam Vital Signs lying in bed oriented heart reg lung cta abd s/nt ext no edema left chest port accessed. Vital Signs Date Time Temp Pulse Resp B/P (MAP) Pulse Ox O2 Delivery O2 Flow Rate FiO2 01/10/18 01:10 96 Room Air 01/10/18 01:00 82 16 96 Room Air 01/09/18 23:49 99.8 94 20 139/59 (85) 96 Laboratory Laboratory Tests Test 01/10/18 00:50 01/10/18 00:55 01/10/18 06:30 Urine Color YELLOW Urine Turbidity HAZY Urine pH 7.5 Urine Specific [place] 1.013 Urine Protein TRACE Urine Glucose (UA) NEG Urine Ketones NEG Urine Occult Blood TRACE Urine Nitrite NEG Urine Bilirubin NEG Urine Urobilinogen LESS THAN 2.0 Urine Leukocyte Esterase LARGE Urine RBC 5 Urine WBC 22 Urine Bacteria RARE Microscopic Urinalysis Comment CATH-CULTURE IND White Blood Count 0.1 Red Blood Count 2.79 Hemoglobin 8.5 Hematocrit 24.7 Mean Corpuscular Volume 88.4 Mean Corpuscular Hemoglobin 30.5 Mean Corpuscular Hemoglobin Concent 34.5 Red Cell Distribution Width 15.8 Platelet Count 29 Mean Platelet Volume 9.2 CBC Comment AUTO DIFF Differential Total Cells Counted 50 Neutrophils % (Manual) 8 Band Neutrophils % 2 Lymphocytes % 62 Monocytes % 20 Eosinophils % 2 Basophils % 4 Neutrophils # (Manual) 0.0 Metamyelocytes 2 Differential Comment FINAL DIFF MANUAL Platelet Estimate LOW Platelet Morphology Comment NORMAL Red Cell Morphology Comment NORMAL Blood Urea Nitrogen 10 Creatinine 0.70 Random Glucose 120 Total Protein 5.2 Albumin 2.6 Calcium Level 9.6 Alkaline Phosphatase 286 Aspartate Amino Transf (AST/SGOT) 17 Alanine Aminotransferase (ALT/SGPT) 39 Total Bilirubin 1.4 Sodium Level 137 Potassium Level 3.9 Chloride Level 103 Carbon Dioxide Level 26.2 Anion Gap 8 Estimat Glomerular Filtration Rate 109 Lactic Acid Level 1.2 Date/Time Source Procedure Growth Status 01/10/18 00:55 Blood Peripheral Aerobic Blood Culture Pending Received 01/10/18 00:55 Blood Peripheral Anaerobic Blood Culture Pending Received 01/10/18 00:50 Urine Catheterized Urine Urine Culture Pending Received Result Diagram: 01/10/185401/10/1854 Caprini VTE Risk Assessment Caprini VTE Risk Assessment: Mod/High Risk (score >= 2) Caprini Risk Assessment Model Point Value = 1 Point Value = 2 Point Value = 3 Point Value = 5 Age 41-60 Minor surgery BMI > 25 kg/m2 Swollen legs Varicose veins or History of unexplained or recurrent spontaneous Oral contraceptives or hormone replacement Sepsis (< 1 month) Serious lung disease, including pneumonia (< 1 month) Abnormal pulmonary function Acute myocardial infarction Congestive heart failure (< 1 month) History of inflammatory bowel disease Medical patient at bed rest Age 61-74 Arthroscopic surgery Major open surgery (> 45 min) Laparoscopic surgery (> 45 min) Malignancy Confined to bed (> 72 hours) Immobilizing plaster cast Central venous access Age >= 75 History of VTE Family history of VTE Factor V Leiden Prothrombin [id number] Lupus anticoagulant Anticardiolipin antibodies Elevated serum homocysteine Heparin-induced thrombocytopenia Other congenital or acquired thrombophilia Stroke (< 1 month) Elective arthroplasty Hip, pelvis, or leg fracture Acute spinal cord injury (< 1 month) Prophylaxis Regimen Total Risk Factor Score Risk Level Prophylaxis Regimen 0-1 Low Early ambulation 2 Moderate Order ONE of the following: *Sequential Compression Device (SCD) *Heparin 5000 units SQ BID 3-4 Higher Order ONE of the following medications: *Heparin 5000 units SQ TID *Enoxaparin/Lovenox 40 mg SQ daily (WT < 150 kg, CrCl > 30 mL/min) *Enoxaparin/Lovenox 30 mg SQ daily (WT < 150 kg, CrCl > 10-29 mL/min) *Enoxaparin/Lovenox 30 mg SQ BID (WT < 150 kg, CrCl > 30 mL/min) AND/OR *Sequential Compression Device (SCD) 5 or more Highest Order ONE of the following medications: *Heparin 5000 units SQ TID (Preferred with Epidurals) *Enoxaparin/Lovenox 40 mg SQ daily (WT < 150 kg, CrCl > 30 mL/min) *Enoxaparin/Lovenox 30 mg SQ daily (WT < 150 kg, CrCl > 10-29 mL/min) *Enoxaparin/Lovenox 30 mg SQ BID (WT < 150 kg, CrCl > 30 mL/min) AND *Sequential Compression Device (SCD) Assessment and Plan Problem List: (1) Large cell lymphoma ICD Codes: C85.80 - Other specified types of non-Hodgkin lymphoma, unspecified site Status: Acute Plan: 1. hx follicular lymphoma, pelletier transformation and now large cell lymphoma has been getting r-epoch. last rx 01/03. port placed 11/26 has been admitted in past for neutropenic fevers from uti and ulcerating mass complications. He is having alot of problems with chemo side effects and peripheral neuropathy. Of note has also had c.diff colitis in 10/24 Again presents with pancytopenia and neutropenia with fever from chemotherapy. complaints of uti sx's and he has abnormal u/a consistent with uti. plan oncology consulted neutropenic dose cefepime initiated f/u cultures dvt prophylaxis pain control consult PT. resume home meds. (2) Neutropenic fever ICD Codes: D70.9 - Neutropenia, unspecified; R50.81 - Fever presenting with conditions classified elsewhere Status: Acute (3) UTI (urinary tract infection) ICD Codes: N39.0 - Urinary tract infection, site not specified Status: Acute Physician Certification 2 Midnight Certification Type: Admission for Inpatient Services Order for Inpatient Services 3The services are ordered in accordance with Medicare regulations or non- Medicare payer requirements, as applicable. In the case of services not specified as inpatient-only, they are appropriately provided as inpatient services in accordance with the 2-midnight benchmark. Estimated LOS (days): 3 3 days is the estimated time the patient will need to remain in the hospital, assuming treatment plan goals are met and no additional complications. Post-Hospital Plan: Home Problem Qualifiers (1) UTI (urinary tract infection): Qualified Codes: N39.0 - Urinary tract infection, site not specified; R31.9 - Hematuria, unspecified Rogerio Syed MD Jan 10, 2018 07:33
[2018-01-10 08:36] LABS: BANDS 10 % (0-6); LYMPHOCYTES 60 % (9-44); POLYS (SEG NEUTROPHILS) 20 % (16-70)
[2018-01-10 08:39] LABS: OVALOCYTES 1+ (NORMAL)
[2018-01-10] MEDS ORDERED: COENZYME Q10 PO SCH (09:00)
[2018-01-10] MEDS: CHOLECALCIFEROL (VIT D3) 1000 UNIT TAB PO SCH (09:47)
[2018-01-10] MEDS: CARVEDILOL 6.25 MG TAB PO SCH ×2 (09:47→19:40)
[2018-01-10] MEDS: PANTOPRAZOLE SOD 40 MG DELAYED RELEASE TAB PO SCH (09:48)
[2018-01-10] MEDS: POTASSIUM CHLORIDE 10 MEQ CONTROLLED RELEASE TAB PO SCH (09:48)
[2018-01-10] MEDS: CEFEPIME INJ 2,000 MG in SODIUM CHLORIDE 0.9% INJ 100 ML IV SCH ×2 (12:16→21:12)
[2018-01-10] MEDS ORDERED: CEFEPIME INJ 2,000 MG in SODIUM CHLORIDE 0.9% INJ 100 ML IV SCH (13:00)
--- NOTE | 2018-01-10 19:29 | MB ---
cc: Marie Moe MD,Rogerio Ibanez MD DATE: 01/10/2018 REFERRING PHYSICIAN: Dr. Rogerio Syed. CHIEF COMPLAINT: Dr. Syed requests consultation for Mr. Tijerina regarding admission for neutropenic fever after chemo for transformed large cell lymphoma. HISTORY OF PRESENT ILLNESS: Mr. 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 He has a history of a low-grade follicular lymphoma. He is currently on dose adjusted rituximab and EPOCH. His last cycle finished on 01/03/2018. An on-body injector/Neulasta was administered. He denies any problem related on-body injector. He developed symptoms of frequency of urination 2 days prior to his presentation. He was seen in our oncology clinic afternoon. He was offered Cipro for his urinary symptoms. However, that evening, his symptoms became progressively worse. He developed an elevated temperature. He called other n-call physician, Dr. Barney, who prompted him to come into the hospital. On admission, he was febrile. His ANC is 0. His hemoglobin is 8.5 and platelet count 29,000. He was started promptly on antibiotic therapy. He has been afebrile throughout the day. He feels better. He is no longer as tachycardic as when he came in. He continues to have urgency and frequency. Denies any burning. He has some myalgias and arthralgias residual related to the Neulasta injection. He is eager to get out of the hospital. He has trouble falling asleep and is anxious. He would like to continue his protocol of oxycodone and lorazepam at night. This helps him sleep and alleviate his pain symptoms. There is the issue of his history of Clostridium difficile colitis and ileus. We discussed being careful about narcotic pain medication. He is using pain medications sparingly. He feels better today. Denies any bleeding, despite the thrombocytopenia. The rest of his review of systems is negative. PAST MEDICAL HISTORY: Follicular lymphoma, Almodovar's transformation large cell lymphoma, history of prostate cancer, hypertension, inflammatory arthritis, anemia, thrombocytopenia secondary to chemotherapy. PAST SURGICAL HISTORY: Back surgery, colonoscopy, lithotripsy, knee surgery, left rotator cuff surgery, lipoma removal, radiation to the prostate, lymph node biopsy. ALLERGIES: MORPHINE. FAMILY HISTORY: No significant family history of cancer. SOCIAL HISTORY: He is , lives with his . 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 He denies any tobacco or illicit drug use. He drinks occasionally. CURRENT MEDICATIONS: 1. Pravachol. 2. Colace. 3. Lactinex. 4. Cefepime 5. Roxicodone. 6. Coreg. 7. Vitamin D3. 8. Potassium chloride. 9. Protonix. PHYSICAL EXAMINATION: VITAL SIGNS: Temperature 89.9, heart rate 80, respiratory rate 18, blood pressure 107/60, saturation 96%. GENERAL: Mr. Tijerina is a well-developed man who has generalized pallor with alopecia. He looks tired. HEENT: His pupils are round, reactive to light and accommodation. Conjunctivae are pale. Oropharynx is dry. NECK: Supple. LUNGS: Clear. CARDIOVASCULAR: Reveals normal rate and rhythm. ABDOMEN: Soft, benign. MUSCULOSKELETAL: Lower extremities with no edema. NEUROLOGIC: Nonfocal. LABORATORY DATA: ANC of 0. White blood cell count of 0.1; hemoglobin 7.2; platelet count 17,000. ASSESSMENT AND PLAN: Mr. Tijerina is a 77-year-old man with multiple medical problems, history of follicular lymphoma, transformation to large cell lymphoma in the left supraclavicular area. He has responded well to chemotherapy with rituximab and EPOCH. His course was complicated by cytopenias and development of urosepsis. He is no longer febrile. His cultures are negative so far. He is tolerating antibiotic therapy well. We discussed monitoring closely for ileus as well as a Clostridium difficile, which complicated previous admission. Mr. Tijerina is eager to go home. He is afebrile. Antibiotic therapy will continue. I recommend continuing antibiotic support intravenously until his white count recovers. Unfortunately, we are not yet at the [place]. He typically nadirs the second week and takes some time to recover. We will monitor closely for recovery. He will be offered transfusion for a hemoglobin less than 7.1 and platelet count less than 15,000. Transfusion will also be offered for symptoms. We will monitor closely for other toxicity associated to his lymphoma treatment or to the current antibiotic regimen for his infection. He is encouraged to drink and have good urine output. He is encouraged to ambulate and walk to prevent being deconditioned and prevent deep vein thromboses. Pharmacologic prophylaxis is deferred at the moment as I anticipate his platelet count continues to go down. Mr. Tijerina's questions were answered to his satisfaction. MD KASI Restrepo/LASHANDA , 06:53 PM , 07:27 PM
[2018-01-10] MEDS: PRAVASTATIN SOD 40 MG TAB PO SCH (19:40)
[2018-01-10] MEDS: DOCUSATE SODIUM 100 MG CAP PO SCH (19:41)
[2018-01-10] MEDS: LACTOBACILLUS ACIDOPHILUS TAB PO SCH (21:11)
[2018-01-10] MEDS: LORazepam 0.5 MG TAB PO PRN (21:12)
[2018-01-11] VITALS (12 sets, daily range): BP systolic 109–144; BP diastolic 57–85; PULSE 72–87; RESP 16–18; TEMP 97.9–98.9; O2SAT 95–98
[2018-01-11 05:02] LABS: BICARBONATE 26.4 MEQ/L (21.0-32.0); CALCIUM 9.4 MG/DL (8.5-10.1); CREATININE 0.55 MG/DL (0.60-1.30)
[2018-01-11 05:16] LABS: MEAN CELL VOLUME 88.3 FL (80.0-100.0); MEAN CORPUSCULAR HEMOGLOBIN 30.5 PG (27.0-34.0); MEAN CORPUSCULAR HGB CONC 34.5 % (32.0-36.0); MEAN PLATELET VOLUME 9.7 FL (7.0-11.0); PLATELET COUNT 22 TH/MM3 (150-450); RED BLOOD COUNT 2.29 MIL/MM3 (4.50-5.90); RED CELL DISTRIBUTION WIDTH 15.3 % (11.6-17.2); WHITE BLOOD COUNT 0.2 TH/MM3 (4.0-11.0)
[2018-01-11] MEDS: CEFEPIME INJ 2,000 MG in SODIUM CHLORIDE 0.9% INJ 100 ML IV SCH ×3 (05:18→22:02)
[2018-01-11 05:24] LABS: HEMATOCRIT 20.2 % (39.0-51.0)
[2018-01-11] MEDS ORDERED: SODIUM CHLOR 0.9% 250 ML INJ 250 ML IV ONE (06:00)
[2018-01-11] MEDS ORDERED: ACETAMINOPHEN 325 MG TAB PO PRN (06:00)
[2018-01-11] MEDS ORDERED: diphenhydrAMINE HCL 25 MG CAP PO PRN (06:00)
[2018-01-11] MEDS ORDERED: POTASSIUM CHLORIDE 20 MEQ CONTROLLED RELEASE TAB PO ONE (08:00)
[2018-01-11 08:50] LABS: BANDS 30 % (0-6); LYMPHOCYTES 30 % (9-44); MONOCYTES 10 % (0-8); NEUTROPHIL # MANUAL DIFF 0.1 TH/MM3 (1.8-7.7); POLYS (SEG NEUTROPHILS) 30 % (16-70)
--- NOTE | 2018-01-11 09:49 | HHI.PR ---
Subjective Remarks eager to go home Objective Vitals heart reg lung cta abd s/nt ext no edema left port Vital Signs Date Time Temp Pulse Resp B/P (MAP) Pulse Ox O2 Delivery O2 Flow Rate FiO2 01/11/18 08:04 77 01/11/18 08:00 98.7 80 18 136/79 (98) 96 01/11/18 04:03 78 01/11/18 04:03 98.8 72 18 136/66 (89) 97 01/11/18 00:33 98.3 82 18 141/64 (89) 96 01/11/18 00:00 80 01/10/18 20:09 90 01/10/18 20:00 101.0 87 18 123/64 (83) 97 01/10/18 19:04 100.5 01/10/18 16:00 98.9 80 18 107/60 (76) 96 01/10/18 16:00 82 01/10/18 15:00 80 01/10/18 14:00 80 01/10/18 13:00 80 01/10/18 12:17 99.8 77 18 126/68 (87) 96 01/10/18 12:17 98.9 01/10/18 12:00 77 01/10/18 11:00 76 01/10/18 10:00 84 Result Diagram: 01/11/18 0400 01/11/18 0400 A/P Problem List: (1) Large cell lymphoma ICD Codes: C85.80 - Other specified types of non-Hodgkin lymphoma, unspecified site Status: Acute Plan: 1. hx follicular lymphoma, pelletier transformation and now large cell lymphoma has been getting r-epoch. last rx 01/03. port placed 11/26 has been admitted in past for neutropenic fevers from uti and ulcerating mass complications. He is having alot of problems with chemo side effects and peripheral neuropathy. Of note has also had c.diff colitis in 10/24 Again presents with pancytopenia and neutropenia with fever from chemotherapy. complaints of uti sx's and he has abnormal u/a consistent with uti. plan oncology consulted neutropenic dose cefepime initiated f/u cultures prbc transfusion today. dvt prophylaxis pain control consult PT. resume home meds. (2) Neutropenic fever ICD Codes: D70.9 - Neutropenia, unspecified; R50.81 - Fever presenting with conditions classified elsewhere Status: Acute (3) UTI (urinary tract infection) ICD Codes: N39.0 - Urinary tract infection, site not specified Status: Acute Problem Qualifiers (1) UTI (urinary tract infection): Qualified Codes: N39.0 - Urinary tract infection, site not specified; R31.9 - Hematuria, unspecified Rogerio Syed MD Jan 11, 2018 09:49
[2018-01-11] MEDS: DOCUSATE SODIUM 100 MG CAP PO SCH ×2 (09:51→22:01)
[2018-01-11] MEDS: CARVEDILOL 6.25 MG TAB PO SCH ×2 (09:51→22:10)
[2018-01-11] MEDS: POTASSIUM CHLORIDE 10 MEQ CONTROLLED RELEASE TAB PO SCH (09:51)
[2018-01-11] MEDS: CHOLECALCIFEROL (VIT D3) 1000 UNIT TAB PO SCH (09:51)
[2018-01-11] MEDS: PANTOPRAZOLE SOD 40 MG DELAYED RELEASE TAB PO SCH (09:51)
[2018-01-11] MEDS: LACTOBACILLUS ACIDOPHILUS TAB PO SCH ×3 (09:51→16:53)
--- NOTE | 2018-01-11 10:08 | PD.ONC.PN ---
Subjective Subjective Remarks T-max 101 around 8 PM last night Patient reports he is thirsty He states his pain is well controlled at present Asking for Sprite Objective Data Date Time Temp Pulse Resp B/P (MAP) Pulse Ox O2 Delivery O2 Flow Rate FiO2 01/11/18 08:04 77 01/11/18 08:00 98.7 80 18 136/79 (98) 96 01/11/18 04:03 78 01/11/18 04:03 98.8 72 18 136/66 (89) 97 01/11/18 00:33 98.3 82 18 141/64 (89) 96 01/11/18 00:00 80 01/10/18 20:09 90 01/10/18 20:00 101.0 87 18 123/64 (83) 97 01/10/18 19:04 100.5 01/10/18 16:00 98.9 80 18 107/60 (76) 96 01/10/18 16:00 82 01/10/18 15:00 80 01/10/18 14:00 80 01/10/18 13:00 80 01/10/18 12:17 99.8 77 18 126/68 (87) 96 01/10/18 12:17 98.9 01/10/18 12:00 77 01/10/18 11:00 76 01/10/18 10:00 84 01/11/18 01/11/18 01/11/18 07:00 15:00 23:00 Intake Total 480 ml Output Total 1000 ml Balance -520 ml Result Diagram: 01/11/18 0400 01/11/18 0400 Laboratory Results Laboratory Tests Test 01/11/18 04:00 White Blood Count 0.2 TH/MM3 Red Blood Count 2.29 MIL/MM3 Hemoglobin 7.0 GM/DL Hematocrit 20.2 % Mean Corpuscular Volume 88.3 FL Mean Corpuscular Hemoglobin 30.5 PG Mean Corpuscular Hemoglobin Concent 34.5 % Red Cell Distribution Width 15.3 % Platelet Count 22 TH/MM3 Mean Platelet Volume 9.7 FL CBC Comment AUTO DIFF Differential Total Cells Counted 10 Neutrophils % (Manual) 30 % Band Neutrophils % 30 % Lymphocytes % 30 % Monocytes % 10 % Neutrophils # (Manual) 0.1 TH/MM3 Differential Comment FINAL DIFF MANUAL Platelet Estimate LOW Platelet Morphology Comment NORMAL Blood Urea Nitrogen 8 MG/DL Creatinine 0.55 MG/DL Random Glucose 84 MG/DL Calcium Level 9.4 MG/DL Sodium Level 140 MEQ/L Potassium Level 3.4 MEQ/L Chloride Level 107 MEQ/L Carbon Dioxide Level 26.4 MEQ/L Anion Gap 7 MEQ/L Estimat Glomerular Filtration Rate 144 ML/MIN Culture Results Microbiology Date/Time Source Procedure Growth Status 01/10/18 00:55 Blood Peripheral Aerobic Blood Culture Pending Received 01/10/18 00:55 Blood Peripheral Anaerobic Blood Culture Pending Received 01/10/18 00:50 Blood Peripheral Aerobic Blood Culture Pending Received 01/10/18 00:50 Blood Peripheral Anaerobic Blood Culture Pending Received 01/10/18 00:50 Urine Catheterized Urine Urine Culture Pending Received Administered Medications Medications (Trade) Dose Ordered Sig/Jeremi Route PRN Reason Start Time Stop Time Status Last Admin Dose Admin Acetaminophen (Tylenol) 500 mg Q6H PRN PO temp >100.5 01/10/18 01:45 01/10/18 19:41 Carvedilol (Coreg) 6.25 mg BID PO 01/10/18 09:00 01/10/18 19:40 Cholecalciferol (Vitamin D3) 1,000 units DAILY PO 01/10/18 09:00 01/10/18 09:47 Lorazepam (Ativan) 0.5 mg Q8H PRN PO ANXIETY 01/10/18 07:30 01/10/18 21:12 Potassium Chloride (KCl) 10 meq DAILY PO 01/10/18 09:00 01/10/18 09:48 Pravastatin Sodium (Pravachol) 40 mg HS PO 01/10/18 21:00 01/10/18 19:40 Pantoprazole Sodium (Protonix) 40 mg DAILY PO 01/10/18 09:00 01/10/18 09:48 Cefepime HCl 2000 mg/Sodium Chloride 100 ml @ 200 mls/hr Q8HR IV 01/10/18 11:00 01/11/18 05:18 Oxycodone HCl (Roxicodone) 10 mg Q6H PRN PO pain 7-10 01/10/18 10:15 01/10/18 21:12 Lactobacillus Acidophilus (Lactinex) 1 tab TID PO 01/10/18 18:00 01/10/18 21:11 Objective Remarks GENERAL: Elderly male resting in bed in no obvious distress SKIN: Warm and dry. HEAD: Normocephalic. EYES: No injection or drainage. NECK: Scar left neck. CARDIOVASCULAR: Regular rate and rhythm without murmurs. RESPIRATORY: Clear anteriorly. Breathing unlabored at rest. GASTROINTESTINAL: Abdomen soft, non-tender, nondistended. EXTREMITIES: No cyanosis, or edema. MUSCULOSKELETAL: Adequate muscle tone. NEUROLOGICAL: No obvious focal deficit. Awake, alert, and oriented x3. Assessment/Plan Problem List: (1) Large cell lymphoma ICD Codes: C85.80 - Other specified types of non-Hodgkin lymphoma, unspecified site Status: Acute Plan: --Patient was seen in clinic by myself earlier this week where he had UTI symptoms. He was started preemptively on Cipro and given IV hydration in the clinic. 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 He has a history of low-grade follicular lymphoma. He is currently on dose adjusted rituximab and EPOCH with his last cycle finished on 01/03/18. He did receive Neulasta support. (2) Neutropenic fever ICD Codes: D70.9 - Neutropenia, unspecified; R50.81 - Fever presenting with conditions classified elsewhere Status: Acute Plan: --Micro from UA done on 01/09 shows gram-negative carol ann --On cefepime --Blood cultures pending from 01/10/18 Assessment 77-year-old male with large cell lymphoma admitted for neutropenic fever Plan 1. Continue cefepime 2. Follow blood cultures 3. Transfuse 1 unit packed red blood cells today 4. Monitor CBC Attending Statement The exam, history, and the medical decision-making described in the above note were completed with the assistance of the mid-level provider. I reviewed and agree with the findings presented. I attest that I had a ohzo-in-sult encounter with the patient on the same day, and personally performed and documented my assessment and findings in the medical record. Fever resolved. Plan second set of cultures, first set still negative. Transfusion on going for anemia, hgb 7.0. Platelet count and WBC appear to be trending up. Feels better today although sleepy from bendaryl premed. Encourage to ambulate in afternoon. Natalie Haynes Jan 11, 2018 10:08 Marie Moe MD Jan 11, 2018 11:37
[2018-01-11] MEDS ORDERED: MELATONIN 5 MG TAB PO PRN (14:00)
[2018-01-11] MEDS: LORazepam 0.5 MG TAB PO PRN (16:53)
[2018-01-11] MEDS: PRAVASTATIN SOD 40 MG TAB PO SCH (22:02)
[2018-01-12] VITALS (11 sets, daily range): BP systolic 136–149; BP diastolic 72–97; PULSE 73–94; RESP 16–18; TEMP 98.4–99.1; O2SAT 93–98
[2018-01-12] MEDS: LORazepam 0.5 MG TAB PO PRN ×3 (01:18→21:57)
[2018-01-12] MEDS: CEFEPIME INJ 2,000 MG in SODIUM CHLORIDE 0.9% INJ 100 ML IV SCH (05:32)
[2018-01-12 06:08] LABS: AUTOMATED NEUTROPHIL # 1.5 TH/MM3 (1.8-7.7); BASOPHIL % 0.6 % (0.0-2.0); EOSINOPHIL % 0.8 % (0.0-4.0); HEMATOCRIT 26.1 % (39.0-51.0); LYMPH % 4.4 % (9.0-44.0); LYMPHOCYTE # 0.1 TH/MM3 (1.0-4.8); MEAN CELL VOLUME 88.8 FL (80.0-100.0); MEAN CORPUSCULAR HEMOGLOBIN 30.6 PG (27.0-34.0); MEAN CORPUSCULAR HGB CONC 34.5 % (32.0-36.0); MEAN PLATELET VOLUME 8.8 FL (7.0-11.0); MONO % 9.4 % (0.0-8.0); MONOCYTE # 0.2 TH/MM3 (0-0.9); NEUT % 84.8 % (16.0-70.0); PLATELET COUNT 39 TH/MM3 (150-450); RED BLOOD COUNT 2.94 MIL/MM3 (4.50-5.90); RED CELL DISTRIBUTION WIDTH 14.9 % (11.6-17.2); WHITE BLOOD COUNT 1.8 TH/MM3 (4.0-11.0)
[2018-01-12 07:09] LABS: BICARBONATE 24.8 MEQ/L (21.0-32.0); CALCIUM 9.9 MG/DL (8.5-10.1); CREATININE 0.69 MG/DL (0.60-1.30)
[2018-01-12 07:28] LABS: BANDS 30 % (0-6); BASOPHILS 1 % (0-2); LYMPHOCYTES 5 % (9-44); METAMYELOCYTES 2 % (0-1); MONOCYTES 2 % (0-8); MYELOCYTES 1 % (0-0); NEUTROPHIL # MANUAL DIFF 1.7 TH/MM3 (1.8-7.7); POLYS (SEG NEUTROPHILS) 59 % (16-70)
[2018-01-12] MEDS: CHOLECALCIFEROL (VIT D3) 1000 UNIT TAB PO SCH (08:55)
[2018-01-12] MEDS: DOCUSATE SODIUM 100 MG CAP PO SCH (08:55)
[2018-01-12] MEDS: LACTOBACILLUS ACIDOPHILUS TAB PO SCH ×3 (08:55→18:00)
[2018-01-12] MEDS: CARVEDILOL 6.25 MG TAB PO SCH ×2 (08:55→21:57)
[2018-01-12] MEDS: PANTOPRAZOLE SOD 40 MG DELAYED RELEASE TAB PO SCH (08:55)
[2018-01-12] MEDS: POTASSIUM CHLORIDE 10 MEQ CONTROLLED RELEASE TAB PO SCH (08:55)
--- NOTE | 2018-01-12 09:21 | HHI.PR ---
Subjective Remarks feeling stronger. says he could go home later today Objective Vitals heart reg lung cta abd s/nt ext no edema Vital Signs Date Time Temp Pulse Resp B/P (MAP) Pulse Ox O2 Delivery O2 Flow Rate FiO2 01/12/18 08:13 98.5 82 18 139/76 (97) 98 01/12/18 05:36 98.8 81 16 136/72 (93) 96 01/12/18 04:00 80 01/12/18 01:16 99.1 94 17 149/97 (114) 95 01/12/18 00:00 83 01/11/18 21:53 98.9 87 16 144/74 (97) 95 01/11/18 20:00 82 01/11/18 16:40 97.9 79 16 142/85 (104) 98 01/11/18 16:00 80 01/11/18 12:00 75 01/11/18 11:36 98.2 76 16 115/76 98 01/11/18 11:09 98.4 75 18 109/57 96 Result Diagram: 01/12/18 0517 01/12/18 0517 A/P Problem List: (1) Large cell lymphoma ICD Codes: C85.80 - Other specified types of non-Hodgkin lymphoma, unspecified site Status: Acute Plan: 1. hx follicular lymphoma, pelletier transformation and now large cell lymphoma has been getting r-epoch. last rx 01/03. port placed 11/26 has been admitted in past for neutropenic fevers from uti and ulcerating mass complications. He is having alot of problems with chemo side effects and peripheral neuropathy. Of note has also had c.diff colitis in 10/24 Again presents with pancytopenia and neutropenia with fever from chemotherapy. complaints of uti sx's and he has abnormal u/a consistent with uti. ecoli growing from urine cx. blood cx ngtd s/p 1 unit prbc on 01/11 plan oncology consulted pancytopenia and neutropenia improving ecoli is sens to flouroquinolones d/c home later today vs in AM when ok with oncology ADDENDUM: MORE DIARRHEA. STARTED FLAGYL. THEN CDIFF POSITIVE. STOP CEFEPIME. . ECOLI UTI SENS TO FQ. (2) Neutropenic fever ICD Codes: D70.9 - Neutropenia, unspecified; R50.81 - Fever presenting with conditions classified elsewhere Status: Acute (3) UTI (urinary tract infection) ICD Codes: N39.0 - Urinary tract infection, site not specified Status: Acute Problem Qualifiers (1) UTI (urinary tract infection): Qualified Codes: N39.0 - Urinary tract infection, site not specified; R31.9 - Hematuria, unspecified Rogerio Syed MD Jan 12, 2018 09:21
--- NOTE | 2018-01-12 10:20 | PD.ONC.PN ---
Subjective Subjective Remarks Afebrile Patient anxious to go home States he had a hard time sleeping last night Objective Data Date Time Temp Pulse Resp B/P (MAP) Pulse Ox O2 Delivery O2 Flow Rate FiO2 01/12/18 09:45 84 01/12/18 08:13 98.5 82 18 139/76 (97) 98 01/12/18 05:36 98.8 81 16 136/72 (93) 96 01/12/18 04:00 80 01/12/18 01:16 99.1 94 17 149/97 (114) 95 01/12/18 00:00 83 01/11/18 21:53 98.9 87 16 144/74 (97) 95 01/11/18 20:00 82 01/11/18 16:40 97.9 79 16 142/85 (104) 98 01/11/18 16:00 80 01/11/18 12:00 75 01/11/18 11:36 98.2 76 16 115/76 98 01/11/18 11:09 98.4 75 18 109/57 96 01/12/18 01/12/18 01/12/18 07:00 15:00 23:00 Intake Total 580 ml Output Total 1100 ml Balance -520 ml Result Diagram: 01/12/1851601/12/1817 Laboratory Results Laboratory Tests Test 01/12/18 05:17 White Blood Count 1.8 TH/MM3 Red Blood Count 2.94 MIL/MM3 Hemoglobin 9.0 GM/DL Hematocrit 26.1 % Mean Corpuscular Volume 88.8 FL Mean Corpuscular Hemoglobin 30.6 PG Mean Corpuscular Hemoglobin Concent 34.5 % Red Cell Distribution Width 14.9 % Platelet Count 39 TH/MM3 Mean Platelet Volume 8.8 FL Neutrophils (%) (Auto) 84.8 % Lymphocytes (%) (Auto) 4.4 % Monocytes (%) (Auto) 9.4 % Eosinophils (%) (Auto) 0.8 % Basophils (%) (Auto) 0.6 % Neutrophils # (Auto) 1.5 TH/MM3 Lymphocytes # (Auto) 0.1 TH/MM3 Monocytes # (Auto) 0.2 TH/MM3 Eosinophils # (Auto) 0.0 TH/MM3 Basophils # (Auto) 0.0 TH/MM3 CBC Comment AUTO DIFF Differential Total Cells Counted 100 Neutrophils % (Manual) 59 % Band Neutrophils % 30 % Lymphocytes % 5 % Monocytes % 2 % Basophils % 1 % Neutrophils # (Manual) 1.7 TH/MM3 Metamyelocytes 2 % Myelocytes 1 % Differential Comment FINAL DIFF MANUAL Platelet Estimate LOW Platelet Morphology Comment NORMAL Blood Urea Nitrogen 8 MG/DL Creatinine 0.69 MG/DL Random Glucose 94 MG/DL Calcium Level 9.9 MG/DL Sodium Level 141 MEQ/L Potassium Level 3.5 MEQ/L Chloride Level 106 MEQ/L Carbon Dioxide Level 24.8 MEQ/L Anion Gap 10 MEQ/L Estimat Glomerular Filtration Rate 111 ML/MIN Culture Results Microbiology Date/Time Source Procedure Growth Status 01/10/18 00:55 Blood Peripheral Aerobic Blood Culture - Preliminary NO GROWTH IN 1 DAY Resulted 01/10/18 00:55 Blood Peripheral Anaerobic Blood Culture - Preliminary NO GROWTH IN 1 DAY Resulted 01/10/18 00:50 Blood Peripheral Aerobic Blood Culture - Preliminary NO GROWTH IN 1 DAY Resulted 01/10/18 00:50 Blood Peripheral Anaerobic Blood Culture - Preliminary NO GROWTH IN 1 DAY Resulted 01/10/18 00:50 Urine Catheterized Urine Urine Culture - Preliminary Gram Negative Clarence Resulted Administered Medications Medications (Trade) Dose Ordered Sig/Jeremi Route PRN Reason Start Time Stop Time Status Last Admin Dose Admin Acetaminophen (Tylenol) 500 mg Q6H PRN PO temp >100.5 01/10/18 01:45 01/10/18 19:41 Carvedilol (Coreg) 6.25 mg BID PO 01/10/18 09:00 01/12/18 08:55 Cholecalciferol (Vitamin D3) 1,000 units DAILY PO 01/10/18 09:00 01/12/18 08:55 Lorazepam (Ativan) 0.5 mg Q8H PRN PO ANXIETY 01/10/18 07:30 01/12/18 01:18 Potassium Chloride (KCl) 10 meq DAILY PO 01/10/18 09:00 01/12/18 08:55 Pravastatin Sodium (Pravachol) 40 mg HS PO 01/10/18 21:00 01/11/18 22:02 Pantoprazole Sodium (Protonix) 40 mg DAILY PO 01/10/18 09:00 01/12/18 08:55 Cefepime HCl 2000 mg/Sodium Chloride 100 ml @ 200 mls/hr Q8HR IV 01/10/18 11:00 01/12/18 05:32 Oxycodone HCl (Roxicodone) 5 mg Q6H PRN PO pain 3-6 01/10/18 11:00 01/11/18 15:31 Oxycodone HCl (Roxicodone) 10 mg Q6H PRN PO pain 7-10 01/10/18 10:15 01/10/18 21:12 Docusate Sodium (Colace) 100 mg BID PO 01/10/18 21:00 01/12/18 08:55 Lactobacillus Acidophilus (Lactinex) 1 tab TID PO 01/10/18 18:00 01/12/18 08:55 Acetaminophen (Tylenol) 650 mg Q4H PRN PO SEE LABEL COMMENTS 01/11/18 06:00 01/11/18 09:54 Diphenhydramine HCl (Benadryl) 25 mg Q4H PRN PO SEE LABEL COMMENTS 01/11/18 06:00 01/11/18 09:54 Melatonin (Melatonin) 5 mg HS PRN PO insomnia 01/11/18 14:00 01/11/18 22:01 Objective Remarks GENERAL: Elderly male resting in bed in no obvious distress SKIN: Warm and dry. HEAD: Normocephalic. EYES: No injection or drainage. NECK: Scar left neck. CARDIOVASCULAR: Regular rate and rhythm without murmurs. RESPIRATORY: Clear anteriorly. Breathing unlabored at rest. GASTROINTESTINAL: Abdomen soft, non-tender, nondistended. EXTREMITIES: No cyanosis, or edema. MUSCULOSKELETAL: Adequate muscle tone. NEUROLOGICAL: No obvious focal deficit. Awake, alert, and oriented x3. Assessment/Plan Problem List: (1) Large cell lymphoma ICD Codes: C85.80 - Other specified types of non-Hodgkin lymphoma, unspecified site Status: Acute Plan: --Patient was seen in clinic by myself on 01/09 where he had UTI symptoms. He was started preemptively on Cipro and given IV hydration in the clinic. 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 He has a history of low-grade follicular lymphoma. He is currently on dose adjusted rituximab and EPOCH with his last cycle finished on 01/03/18. He did receive Neulasta support. (2) Neutropenic fever ICD Codes: D70.9 - Neutropenia, unspecified; R50.81 - Fever presenting with conditions classified elsewhere Status: Acute Plan: --Micro from UA done on 01/10 shows gram-negative clarence --On cefepime --Blood cultures show no growth 1 day Assessment 77-year-old male with large cell lymphoma admitted for neutropenic fever Plan 1. Monitor blood cultures 2. Noted counts improving 3. Monitor CBC 4. Supportive care Attending Statement The exam, history, and the medical decision-making described in the above note were completed with the assistance of the mid-level provider. I reviewed and agree with the findings presented. I attest that I had a [id number] encounter with the patient on the same day, and personally performed and documented my assessment and findings in the medical record. Pt seen and examined in evening. Eager to go home, claim he cannot rest here. Stool soft, small volume. Noted C-diff, Ecoli sensitive to Levoquin, Cefepime stopped, afebrile and no longer neutropenic. MOnitor over night. Anticipate to DC home on Flagyl and Levoquin to complete 1 week therapy. Natalie Haynes Jan 12, 2018 10:20 Marie Moe MD Jan 12, 2018 17:57
[2018-01-12] MEDS: metroNIDAZOLE 500 MG TAB PO SCH ×2 (13:53→21:57)
[2018-01-12] MEDS: PRAVASTATIN SOD 40 MG TAB PO SCH (21:57)
[2018-01-13] VITALS: PULSE 86
[2018-01-13 01:20] VITALS: BP 132/73; PULSE 80; RESP 17; TEMP 98; O2SAT 93
[2018-01-13 04:00] VITALS: PULSE 79
[2018-01-13 05:24] VITALS: BP 133/68; PULSE 75; RESP 16; TEMP 98.3; O2SAT 94
[2018-01-13] MEDS: metroNIDAZOLE 500 MG TAB PO SCH (05:31)
[2018-01-13 06:22] LABS: AUTOMATED NEUTROPHIL # 2.7 TH/MM3 (1.8-7.7); BASOPHIL % 0.2 % (0.0-2.0); EOSINOPHIL % 0.6 % (0.0-4.0); HEMATOCRIT 25.5 % (39.0-51.0); HEMOGLOBIN 8.7 GM/DL (13.0-17.0); LYMPH % 3.3 % (9.0-44.0); LYMPHOCYTE # 0.1 TH/MM3 (1.0-4.8); MEAN CELL VOLUME 88.6 FL (80.0-100.0); MEAN CORPUSCULAR HEMOGLOBIN 30.2 PG (27.0-34.0); MEAN CORPUSCULAR HGB CONC 34.1 % (32.0-36.0); MEAN PLATELET VOLUME 9.2 FL (7.0-11.0); MONOCYTE # 0.2 TH/MM3 (0-0.9); NEUT % 87.9 % (16.0-70.0); PLATELET COUNT 58 TH/MM3 (150-450); RED BLOOD COUNT 2.88 MIL/MM3 (4.50-5.90); RED CELL DISTRIBUTION WIDTH 15.4 % (11.6-17.2); WHITE BLOOD COUNT 3.1 TH/MM3 (4.0-11.0)
[2018-01-13 06:46] LABS: CREATININE 0.6 MG/DL (0.60-1.30)
[2018-01-13 06:47] LABS: BICARBONATE 26.4 MEQ/L (21.0-32.0); CALCIUM 9.8 MG/DL (8.5-10.1)
--- NOTE | 2018-01-13 09:04 | PD.ONC.PN ---
Subjective Subjective Remarks Afebrile overnight. Patient resting in bed. Eager to go home. Feeling much improved. Objective Data Date Time Temp Pulse Resp B/P (MAP) Pulse Ox O2 Delivery O2 Flow Rate FiO2 01/13/18 05:24 98.3 75 16 133/68 (89) 94 01/13/18 04:00 79 01/13/18 01:20 98.0 80 17 132/73 (92) 93 01/13/18 00:00 86 01/12/18 21:49 98.4 86 16 148/72 (97) 93 01/12/18 20:00 82 01/12/18 16:20 98.5 77 18 143/77 (99) 95 01/12/18 16:00 80 01/12/18 12:00 73 01/12/18 09:45 84 01/13/18 01/13/18 01/13/18 07:00 15:00 23:00 Intake Total 580 ml Output Total 425 ml Balance 155 ml Result Diagram: 01/13/1851901/13/18519 Laboratory Results Laboratory Tests Test 01/12/18 11:05 01/13/18 05:20 Stool C. difficile Toxin (PCR) POSITIVE Stl C. difficile Toxin Epiderm 027 PRESUMPTIVE NEGATIVE White Blood Count 3.1 TH/MM3 Red Blood Count 2.88 MIL/MM3 Hemoglobin 8.7 GM/DL Hematocrit 25.5 % Mean Corpuscular Volume 88.6 FL Mean Corpuscular Hemoglobin 30.2 PG Mean Corpuscular Hemoglobin Concent 34.1 % Red Cell Distribution Width 15.4 % Platelet Count 58 TH/MM3 Mean Platelet Volume 9.2 FL Neutrophils (%) (Auto) 87.9 % Lymphocytes (%) (Auto) 3.3 % Monocytes (%) (Auto) 8.0 % Eosinophils (%) (Auto) 0.6 % Basophils (%) (Auto) 0.2 % Neutrophils # (Auto) 2.7 TH/MM3 Lymphocytes # (Auto) 0.1 TH/MM3 Monocytes # (Auto) 0.2 TH/MM3 Eosinophils # (Auto) 0.0 TH/MM3 Basophils # (Auto) 0.0 TH/MM3 CBC Comment AUTO DIFF Blood Urea Nitrogen 6 MG/DL Creatinine 0.60 MG/DL Random Glucose 95 MG/DL Calcium Level 9.8 MG/DL Sodium Level 141 MEQ/L Potassium Level 3.1 MEQ/L Chloride Level 106 MEQ/L Carbon Dioxide Level 26.4 MEQ/L Anion Gap 9 MEQ/L Estimat Glomerular Filtration Rate 130 ML/MIN Administered Medications Medications (Trade) Dose Ordered Sig/Jeremi Route PRN Reason Start Time Stop Time Status Last Admin Dose Admin Acetaminophen (Tylenol) 500 mg Q6H PRN PO temp >100.5 01/10/18 01:45 01/10/18 19:41 Carvedilol (Coreg) 6.25 mg BID PO 01/10/18 09:00 01/12/18 21:57 Cholecalciferol (Vitamin D3) 1,000 units DAILY PO 01/10/18 09:00 01/12/18 08:55 Lorazepam (Ativan) 0.5 mg Q8H PRN PO ANXIETY 01/10/18 07:30 01/12/18 21:57 Potassium Chloride (KCl) 10 meq DAILY PO 01/10/18 09:00 01/12/18 08:55 Pravastatin Sodium (Pravachol) 40 mg HS PO 01/10/18 21:00 01/12/18 21:57 Pantoprazole Sodium (Protonix) 40 mg DAILY PO 01/10/18 09:00 01/12/18 08:55 Oxycodone HCl (Roxicodone) 5 mg Q6H PRN PO pain 3-6 01/10/18 11:00 01/11/18 15:31 Oxycodone HCl (Roxicodone) 10 mg Q6H PRN PO pain 7-10 01/10/18 10:15 01/10/18 21:12 Lactobacillus Acidophilus (Lactinex) 1 tab TID PO 01/10/18 18:00 01/12/18 18:00 Acetaminophen (Tylenol) 650 mg Q4H PRN PO SEE LABEL COMMENTS 01/11/18 06:00 01/11/18 09:54 Diphenhydramine HCl (Benadryl) 25 mg Q4H PRN PO SEE LABEL COMMENTS 01/11/18 06:00 01/11/18 09:54 Melatonin (Melatonin) 5 mg HS PRN PO insomnia 01/11/18 14:00 01/11/18 22:01 Metronidazole (Flagyl) 500 mg Q8HR PO 01/12/18 14:00 01/13/18 05:31 Objective Remarks GENERAL: Elderly male, lying supine in bed resting. SKIN: Warm and dry. HEAD: Normocephalic. EYES: No injection or drainage. NECK: Supple, trachea midline. CARDIOVASCULAR: Regular rate and rhythm RESPIRATORY: Breath sounds equal bilaterally. No accessory muscle use. GASTROINTESTINAL: Abdomen soft, non-tender, nondistended. EXTREMITIES: No cyanosis NEUROLOGICAL: awake and alert. normal speech. moving extremities. 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 He is currently on dose adjusted rituximab and EPOCH with his last cycle finished on 01/03/18. He did receive Neulasta support. (2) Neutropenic fever ICD Codes: D70.9 - Neutropenia, unspecified; R50.81 - Fever presenting with conditions classified elsewhere Status: Acute Plan: --Micro from UA done on 01/10 shows e. coli --On PO Levaquin --Blood cultures show no growth 2 days (3) C. difficile diarrhea ICD Codes: A04.72 - Enterocolitis due to Clostridium difficile, not specified as recurrent Status: Acute Plan: --on PO Flagyl Assessment 77-year-old male with large cell lymphoma admitted for neutropenic fever Plan 1. oncology clear for discharge. 2. replace potassium 3. follow up in clinic in 3-5 days. Attending Statement The exam, history, and the medical decision-making described in the above note were completed with the assistance of the mid-level provider. I reviewed and agree with the findings presented. I attest that I had a [id number] encounter with the patient on the same day, and personally performed and documented my assessment and findings in the medical record. Discussed w/ pt and at bedside plan for DC. Cont Abx levoquin for sensitive Ecoli. Flagyl cont for C diff. Tolerating PO well, BM frequent (x3 in AM) but small amounts. Encourage to call clinic if dehydrated. Move appt for CT/PET to next week after recovery. Carmen Russo Jan 13, 2018 09:04 Marie Moe MD Jan 13, 2018 18:07
[2018-01-13 09:15] LABS: BANDS 19 % (0-6); LYMPHOCYTES 7 % (9-44); METAMYELOCYTES 6 % (0-1); MONOCYTES 8 % (0-8); NEUTROPHIL # MANUAL DIFF 2.6 TH/MM3 (1.8-7.7); POLYS (SEG NEUTROPHILS) 60 % (16-70); TOXIC GRANULATION 2+ (NORMAL)
[2018-01-13] MEDS ORDERED: POTASSIUM CHLORIDE 10 MEQ CONTROLLED RELEASE TAB PO SCH (09:15)
[2018-01-13 09:33] VITALS: BP 140/77; PULSE 80; RESP 20; TEMP 98.9; O2SAT 96
[2018-01-13] MEDS: CARVEDILOL 6.25 MG TAB PO SCH (09:42)
[2018-01-13] MEDS: PANTOPRAZOLE SOD 40 MG DELAYED RELEASE TAB PO SCH (09:42)
[2018-01-13] MEDS: CHOLECALCIFEROL (VIT D3) 1000 UNIT TAB PO SCH (09:42)
[2018-01-13] MEDS: LACTOBACILLUS ACIDOPHILUS TAB PO SCH ×2 (09:42→12:50)
[2018-01-13] MEDS ORDERED: LEVOFLOXACIN 250 MG TAB PO SCH (11:00)
[2018-01-13 12:52] VITALS: BP 131/74; PULSE 75; RESP 18; TEMP 97.9; O2SAT 93
[2018-01-13] MEDS ORDERED: VANC125C3 PO ×2 (12:56→12:57)
[2018-01-13] MEDS ORDERED: LEVA250T14 PO (12:56)
--- NOTE | 2018-01-13 12:59 | HHI.FF ---
Face to Face Verification Diagnosis: (1) Neutropenic fever (2) C. difficile diarrhea (3) Large cell lymphoma (4) UTI (urinary tract infection) (5) Hypertension (6) Anemia Physical Therapy Order: Evaluate and Treat, Improve ambulation, Strength and gait training Home Health Nursing Order: Signs/symptoms of disease process Nursing assessment with vital signs I have seen patient Jl Adorno on 01/13/18. My clinical findings support the need for the requested home health care services because: Deconditioned w/ increased weakness I certify that my clinical findings support that this patient is homebound because: Unsteady gait/balance Camila Troncoso Jan 13, 2018 12:59 Shlomo León DO Jan 14, 2018 09:37
--- NOTE | 2018-01-13 13:21 | HHI.DS ---
Discharge Summary Admission Date Jan 10, 2018 at 01:28 Discharge Date: Jan 13, 2018 Admitting Diagnosis Neutropenic fever, UTI (1) Large cell lymphoma Diagnosis: Principal ICD Codes: C85.80 - Other specified types of non-Hodgkin lymphoma, unspecified site Status: Chronic (2) Neutropenic fever Diagnosis: Principal ICD Codes: D70.9 - Neutropenia, unspecified; R50.81 - Fever presenting with conditions classified elsewhere Status: Acute (3) UTI (urinary tract infection) Diagnosis: Secondary ICD Codes: N39.0 - Urinary tract infection, site not specified Status: Acute (4) C. difficile diarrhea Diagnosis: Secondary ICD Codes: A04.72 - Enterocolitis due to Clostridium difficile, not specified as recurrent Status: Acute Consultants Dr. Marie Moe - Oncology Brief History Patient is 77 yo with hx follicular lymphoma, pelletier transformation followed by dr Moe. He developed a left neck mass that ulcerated. He was started on bendamustine and rituxan with initial response. 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 He was treated with Rituxan 10/01/17 . He was admitted from 10/09 to 10/13/17 for EPOCH chemotherapy. He was then readmitted with neutropenic fever and had large tunneling left neck wound and pseudomonas uti. Also developed c.diff colitis. and prolonged hospital course in October from oct 16-. Has been getting r-epoch outpt with DR Moe and developing peripheral neuropathy. Now last chemo was 01/03 and presents with pancytopenia and neutropenic fever. Symptoms seem primarily of urinary frequency. Started on cefepime last night and admitted. CBC/BMP: 01/13/18 0520 01/13/18 0520 Significant Findings Laboratory Tests Test 01/11/18 04:00 01/12/18 05:17 01/12/18 11:05 01/13/18 05:20 White Blood Count 0.2 TH/MM3 (4.0-11.0) 1.8 TH/MM3 (4.0-11.0) 3.1 TH/MM3 (4.0-11.0) Red Blood Count 2.29 MIL/MM3 (4.50-5.90) 2.94 MIL/MM3 (4.50-5.90) 2.88 MIL/MM3 (4.50-5.90) Hemoglobin 7.0 GM/DL (13.0-17.0) 9.0 GM/DL (13.0-17.0) 8.7 GM/DL (13.0-17.0) Hematocrit 20.2 % (39.0-51.0) 26.1 % (39.0-51.0) 25.5 % (39.0-51.0) Platelet Count 22 TH/MM3 (150-450) 39 TH/MM3 (150-450) 58 TH/MM3 (150-450) Band Neutrophils % 30 % (0-6) 30 % (0-6) 19 % (0-6) Monocytes % 10 % (0-8) Neutrophils # (Manual) 0.1 TH/MM3 (1.8-7.7) 1.7 TH/MM3 (1.8-7.7) Platelet Estimate LOW (NORMAL) LOW (NORMAL) LOW (NORMAL) Creatinine 0.55 MG/DL (0.60-1.30) Potassium Level 3.4 MEQ/L (3.5-5.1) 3.1 MEQ/L (3.5-5.1) Neutrophils (%) (Auto) 84.8 % (16.0-70.0) 87.9 % (16.0-70.0) Lymphocytes (%) (Auto) 4.4 % (9.0-44.0) 3.3 % (9.0-44.0) Monocytes (%) (Auto) 9.4 % (0.0-8.0) Neutrophils # (Auto) 1.5 TH/MM3 (1.8-7.7) Lymphocytes # (Auto) 0.1 TH/MM3 (1.0-4.8) 0.1 TH/MM3 (1.0-4.8) Lymphocytes % 5 % (9-44) 7 % (9-44) Metamyelocytes 2 % (0-1) 6 % (0-1) Myelocytes 1 % (0-0) Stool C. difficile Toxin (PCR) POSITIVE (NEGATIVE) Toxic Granulation 2+ (NORMAL) Blood Urea Nitrogen 6 MG/DL (7-18) Imaging Last Impressions Chest X-Ray 01/10/18 0010 Signed Impressions: Service Date/Time: Wednesday, January 10, 2018 00:15 - CONCLUSION: No acute cardiopulmonary disease identified. Raul Strong MD Hospital Course Large cell lymphoma E. coli UTI C. 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 He has a history of low-grade follicular lymphoma. He is currently on dose adjusted rituximab and EPOCH with his last cycle finished on 01/03/18. He did receive Neulasta support. Last treatment on 01/03/18. Pt had port placed on 11/26/17. He has been admitted in past for neutropenic fevers from UTI and ulcerating mass complications. He is having a lot of problems with chemo side effects and peripheral neuropathy. Of note has also had C.diff colitis in 10/24. Pt presented to the ED on 01/10/18 with pancytopenia and neutropenia with fever from chemotherapy. He complained of UTI symptoms and he has abnormal u/a consistent with UTI. He was started preemptively on Cipro and given IV hydration in the outpt clinic prior to this hospitalization. Following admission pt was started on Cefepime. Oncology was consulted. Urine culture grew out E. coli growing from urine cx. Pts antibiotics were changed to Levaquin on 01/12/18. During admission pt was noted be be pancytopenic and neutropenic. Pt was given 1 units of PRBCs during admission. Blood culture with NGTD. On 01/12/18 pt had increased loose stools. Stools were check and pt found to be positive for C. diff. Pt was initially started on Flagyl po but due to this being his first re-occurrence with C. diff we will discharge the pt on Vancomycin 125mg QID x 14 days. The case was discussed with Oncology prior to discharge. Pt is planned for a followup with Dr. Moe's office later this week for IVF and re-evaluation Pt will need to followup with his PCP, Dr. Teran, in 1 week We will arrange for HHC/PT upon discharge as well. Pt Condition on Discharge: Stable Discharge Disposition: Disch w/ Home Health Serv Discharge Instructions DIET: Follow Instructions for: Heart Healthy Diet Activities you can perform: Regular-No Restrictions Follow up Referrals: Oncology - 3-[address] Moe PCP Follow-up - [address] Teran New Medications: Vancomycin (Vancomycin) 125 Mg Cap 125 MG PO QID for Infection for 14 Days, CAP 0 Refills Levofloxacin (Levaquin) 250 Mg Tablet 250 MG PO DAILY@1100 for uti for 5 Days, TAB Continued Medications: Ascorbic Acid (Vitamin C) 250 Mg Tab 250 MG PO for Nutritional Supplement, TAB 0 Refills Carvedilol (Carvedilol) 6.25 Mg Tab 6.25 MG PO BID, #60 TAB 0 Refills Cholecalciferol (Vitamin D3) 1,000 Unit Tab 1000 UNITS PO DAILY for Nutritional Supplement, #1 BOTTLE 0 Refills Coenzyme Q10 (Ubidecarenone) (Coq10) 50 Mg Cap 100 CAP PO DAILY Lorazepam (Lorazepam) 0.5 Mg Tab 0.5 MG PO Q8H PRN for ANXIETY, TAB 0 Refills Omeprazole Magnesium (Prilosec) 20 Mg Tab 20 MG PO DAILY PRN for acid Ondansetron (Zofran) 8 Mg Tab 8 MG PO TID PRN for NAUSEA OR VOMITING, TAB 0 Refills Oxycodone (Oxycodone) 5 Mg Tab 10 MG PO Q8H PRN for PAIN, #60 TAB 0 Refills Potassium Chloride ER (Potassium Chloride ER) 10 Meq Tab 10 MEQ PO DAILY for Electrolyte Replacement, #30 TAB 0 Refills Simvastatin (Simvastatin) 20 Mg Tab 20 MG PO HS for Cholesterol Management, #30 TAB 0 Refills Additional Information Patient examined. Assessment and plan formulated with Camila Troncoso PA-C. I agree with the above. Camila Troncoso Jan 13, 2018 13:21 Shlomo León DO Jan 17, 2018 22:55
[2018-01-13] MEDS ORDERED: VANCOMYCIN 500 MG VIAL (FOR ORAL USE ONLY) PO SCH (13:30)
== END 2018-01-13 15:28 | disposition home health service (06) | DRG 840 ==
LOC: NEPC 23:26 → NEDA 01-10 01:28 → HCIN 01-10 04:45
PROVIDERS: ADMIT Hospitalist; ATTEND Hospitalist
PROC: 30233N1 Transfusion of Nonautologous Red Blood Cells into Peripheral Vein, Percutaneous Approach (ICD-10-PCS; principal; 2018-01-11)
DX: C83.30 Diffuse large B-cell lymphoma, unspecified site (principal); D61.810 Antineoplastic chemotherapy induced pancytopenia; A04.72 Enterocolitis due to Clostridium difficile, not specified as recurrent; N39.0 Urinary tract infection, site not specified; N18.3 Chronic kidney disease, stage 3 (moderate); B96.20 Unspecified Escherichia coli [E. coli] as the cause of diseases classified elsewhere; R31.9 Hematuria, unspecified; R50.81 Fever presenting with conditions classified elsewhere; T45.1X5A Adverse effect of antineoplastic and immunosuppressive drugs, initial encounter; G62.0 Drug-induced polyneuropathy; I12.9 Hypertensive chronic kidney disease with stage 1 through stage 4 chronic kidney disease, or unspecified chronic kidney disease; K21.9 Gastro-esophageal reflux disease without esophagitis; H91.90 Unspecified hearing loss, unspecified ear; Z96.642 Presence of left artificial hip joint; M19.90 Unspecified osteoarthritis, unspecified site; R00.0 Tachycardia, unspecified; Z92.3 Personal history of irradiation; Z85.46 Personal history of malignant neoplasm of prostate; Z87.440 Personal history of urinary (tract) infections
CPT/HCPCS: 36430; 71045; 80048; 80053; 81001; 83605; 85007; 85027; 86850; 86900; 86901; 86920; 87040; 87077; 87086; 87186; 87493; 96365; 99285; J0692; J1642; J3370; J7030; J7050; P9040

== ENCOUNTER 2018-09-06 08:05 | Inpatient (IN) ==
[2018-09-06] MEDS ORDERED: Cathflo Activase Inj 2 MG Vial I-CATHETER PRN (08:44)
[2018-09-06] MEDS ORDERED: Aluminum/Magnesium/Simethacone Susp 30 ML UDC PO PRN (08:44)
[2018-09-06] MEDS ORDERED: LORazepam 0.5 MG Tablet PO PRN (08:44)
[2018-09-06] MEDS ORDERED: Loperamide 2 MG Capsule PO PRN (08:44)
[2018-09-06] MEDS: Sod Chloride 0.9% Inj 1,000 ML IV.SIG SCH ×2 (10:00→20:38)
[2018-09-06 10:47] LABS: Glomerular Filtration Rate Greater Than 89 mL/min (>89)
[2018-09-06 13:09] LABS: Baso % (Auto) 0.3 % (0.0-2.0); Eos # (Auto) 0.1 th/mm3 (0.0-0.4); Eos % (Auto) 8.3 % (0.0-4.0); Hematocrit 25.3 % (39.0-51.0); Hemoglobin 8.7 gm/dL (13.0-17.0); Lymph # (Auto) 0.1 th/mm3 (1.0-4.8); Lymph % (Auto) 10.6 % (9.0-44.0); Mean Corpuscular HGB Conc 34.4 % (32.0-36.0); Mean Corpuscular Hemoglobin 32.9 pg (27.0-34.0); Mean Corpuscular Volume 95.7 fL (80.0-100.0); Mono # (Auto) 0.2 th/mm3 (0.0-0.9); Mono % (Auto) 13.5 % (0.0-8.0); Neut # (Auto) 0.8 th/mm3 (1.8-7.7); Neut % (Auto) 67.3 % (16.0-70.0); Platelet Count 68 th/mm3 (150-450); Red Blood Count 2.64 mil/mm3 (4.50-5.90); Red Cell Distribution Width 15.3 % (11.6-17.2); White Blood Count 1.2 th/mm3 (4.0-11.0)
[2018-09-06 13:33] LABS: Alanine Aminotransferase 42 U/L (12-78); Albumin 2.6 g/dL (3.4-5.0); Anion Gap 5 meq/L (5-15); Aspartate Aminotransferase 32 U/L (15-37); Blood Urea Nitrogen 11 mg/dL (7-18); Calcium 8.8 mg/dL (8.5-10.1); Chloride 106 meq/L (98-107); Glomerular Filtration Rate Greater Than 89 mL/min (>89); Glucose,Random 113 mg/dL (74-106); Potassium 4.1 meq/L (3.5-5.1); Sodium 140 meq/L (136-145)
[2018-09-06 13:35] LABS: Alkaline Phosphatase 194 U/L (45-117); Total Protein 5.5 g/dL (6.4-8.2)
[2018-09-06 13:53] LABS: Eosinophils 15 % (0-4); Lymphocytes 10 % (9-44); Monocytes 7 % (0-8)
[2018-09-06 13:56] LABS: Platelet Morphology Normal (Normal)
[2018-09-06 13:57] LABS: Ovalocytes 1+
[2018-09-06] MEDS ORDERED: SODIUM CHLOR 0.9% IV.SIG SCH (16:00)
[2018-09-06] MEDS ORDERED: ETOPOSIDE IV.SIG SCH (16:00)
[2018-09-06] MEDS: Dexamethasone Inj 20 MG in Sodium Chlor 0.9% Inj 50 ML IV.SIG SCH (16:22)
[2018-09-06] MEDS: Granisetron 1 MG/ML Vial IV.PUSH SCH (16:22)
[2018-09-06] MEDS ORDERED: SODIUM CHLOR 0.9% IV.SIG ONE (17:00)
[2018-09-06] MEDS ORDERED: CARBOPLATIN IV.SIG ONE (17:00)
[2018-09-06] MEDS ORDERED: MESNA IV.SIG SCH (18:00)
[2018-09-06] MEDS ORDERED: SOD CHLORIDE 0.9% IV.SIG SCH (18:00)
[2018-09-06] MEDS ORDERED: IFOSFAMIDE IV.SIG SCH (18:00)
--- NOTE | 2018-09-06 19:00 | MH ---
cc: Delgado Encinas MD DATE OF ADMISSION: 09/06/2018 ADMITTING DIAGNOSES: Transformed large B-cell lymphoma, admitted for ICE chemotherapy. HISTORY OF PRESENT ILLNESS: The patient is a very pleasant 78-year-old male, first diagnosed with follicular lymphoma in 2011. He was observed until the end of 2016 when he developed progression of disease. He was treated with 3 cycles of Rituxan and bendamustine without any response. Reportedly he developed a transformed large B-cell lymphoma. He then received 4 cycles of Rituxan and EPOCH. He had a good response, but had a constellation of side effects. He then received consolidation radiation to the left neck and developed radiation dermatitis. He just completed radiation around May. In July, he had a PET CT scan, which unfortunately showed progression of disease with new right supraclavicular, subcarinal and right hilar lymphadenopathy. He was started on day 1 of Rituxan ICE chemotherapy yesterday. He is admitted to finish up the chemotherapy. He tolerated the first day of chemotherapy well. He denies any fever or chills. He has no chest pain or palpitation. He has no nausea or vomiting. He denies abdominal pain or diarrhea. Denies any dysuria or hematuria. PAST MEDICAL HISTORY: 1. Follicular lymphoma, subsequently transformed to a large B-cell lymphoma. 2. Anemia. 3. Basal cell carcinoma. 4. Cataracts. 5. Chronic kidney disease. 6. Hypertension. 7. Lipoma. 8. Prostate cancer. 9. Kidney stone. 10. Hemochromatosis. 11. Neuropathy. PAST SURGICAL HISTORY: 1. Shoulder surgery. 2. Back surgery. 3. Knee surgery. 4. Ankle surgery. 5. Excision lipoma. 6 . Lithotripsy. 7. Hip surgery. 8. Liver biopsy. SOCIAL HISTORY: Denies tobacco use. He drinks occasionally. FAMILY HISTORY: No lymphoma. ALLERGIES: MULTIPLE DRUG ALLERGIES DOCUMENTED IN HIS CHART WERE REVIEWED. CURRENT MEDICATIONS: 1. Vitamin C. 2. Ativan. 3. Vitamin D3. 4. Oxycodone p.r.n. REVIEW OF SYSTEMS: CONSTITUTIONAL: Negative. EYES: Negative. ENT: Negative. CARDIOVASCULAR: No chest pressure or palpitation. RESPIRATORY: Denies shortness of breath, cough. GASTROINTESTINAL: Negative. GENITOURINARY: Negative. MUSCULOSKELETAL: As above. HEMATOLOGY: As above. ENDOCRINE: Negative. DERMATOLOGY: Negative. PSYCHIATRIC: Negative. NEUROLOGIC: Negative. PHYSICAL EXAMINATION: VITAL SIGNS: Temperature 98.7, blood pressure 160/80, O2 saturation 97%. GENERAL: He is alert, oriented x 3, in no acute distress. He IS overweight. HEENT: Atraumatic, normocephalic. Pupils are equal, round, reactive. Extraocular movements intact. No scleral icterus. Oropharynx dry mucosa. No lesion, no thrush. No mucositis. NECK: No thyromegaly. No palpable mass. LYMPHATIC: No palpable cervical, clavicular, axillary, or inguinal lymphadenopathy. CARDIOVASCULAR: Regular S1, S2. No murmur. LUNGS: Clear to auscultation bilaterally. No wheeze, or rhonchi. ABDOMEN: Soft, nontender. I cannot palpate liver or spleen. EXTREMITIES: No cyanosis, clubbing or edema. BACK: No paravertebral tenderness. SKIN: No rash. NEUROLOGIC: Nonfocal. LABORATORY DATA: WBC 1.2, hemoglobin 8.7, platelet count 68,000. Creatinine 0.7, alkaline phosphatase 194. Liver transaminases normal. ASSESSMENT: 1. Transformed large B cell lymphoma. This was diagnosed follicular lymphoma in 2011, stage I. He was observed until end of 2016 when he developed progression of disease. He was given 3 cycles of Rituxan and bendamustine without any response. Reportedly, a biopsy showed a transformed large B-cell lymphoma. He then received 4 cycles of Rituxan and EPOCH chemotherapy with good response. He subsequently received consolidation radiation to the left neck, which he completed in 05/2018. PET scan 07/2018 showed new right supraclavicular lymphadenopathy with subcarinal and right hilar lymphadenopathy. He started on Rituxan and ICE. He received the first day of chemotherapy in clinic yesterday. He tolerated it very well. He is admitted to complete day 2 and day 3 of chemotherapy. The patient, his and his son have some questions today which were answered. He stated that he had significant pain with Neulasta injection last time and he wonders if there is any alternative. We talked about trying Neupogen, but he will discuss with Dr. Moe further. 2. Chronic kidney disease. His kidney function is stable. 3. Pancytopenia due to lymphoma and chemotherapy. Continue to monitor him and give him transfusion as needed. 4. History of prostate cancer, status post radiation. 5. Peripheral neuropathy due to previous chemotherapy. It is stable. PLAN: 1. Continue day 2 and day 3 of ICE chemotherapy per protocol. The chemotherapy will be dose reduced by 20% due to his frailty. 2. Monitor CBC and will give him transfusion to keep hemoglobin around 8 and platelet count of 20,000. MD LYNN Calderon/juliet , 05:03 PM , 05:18 PM JENNIFER
[2018-09-06] MEDS: Carvedilol 6.25 MG Tablet PO SCH (20:39)
[2018-09-06] MEDS ORDERED: Temazepam 15 MG Capsule PO PRN (21:00)
[2018-09-06] MEDS: LORazepam 0.5 MG Tablet PO SCH (22:08)
[2018-09-07] MEDS: Sod Chloride 0.9% Inj 1,000 ML IV.SIG SCH ×3 (03:20→21:30)
[2018-09-07 06:11] LABS: Baso % (Auto) 0.2 % (0.0-2.0); Eos % (Auto) 0.1 % (0.0-4.0); Hemoglobin 9.8 gm/dL (13.0-17.0); Lymph # (Auto) 0.1 th/mm3 (1.0-4.8); Lymph % (Auto) 7.7 % (9.0-44.0); Mean Corpuscular HGB Conc 33.9 % (32.0-36.0); Mean Corpuscular Hemoglobin 32.5 pg (27.0-34.0); Mean Corpuscular Volume 95.7 fL (80.0-100.0); Mean Platelet Volume 7.3 fL (7.0-11.0); Neut # (Auto) 1.1 th/mm3 (1.8-7.7); Platelet Count 71 th/mm3 (150-450); Red Blood Count 3.03 mil/mm3 (4.50-5.90); Red Cell Distribution Width 14.9 % (11.6-17.2); White Blood Count 1.2 th/mm3 (4.0-11.0)
[2018-09-07 06:39] LABS: Alanine Aminotransferase 49 U/L (12-78); Albumin 2.5 g/dL (3.4-5.0); Anion Gap 6 meq/L (5-15); Aspartate Aminotransferase 40 U/L (15-37); Blood Urea Nitrogen 10 mg/dL (7-18); Calcium 8.6 mg/dL (8.5-10.1); Carbon Dioxide 26.2 meq/L (21.0-32.0); Chloride 108 meq/L (98-107); Glomerular Filtration Rate Greater Than 89 mL/min (>89); Glucose,Random 140 mg/dL (74-106); Sodium 140 meq/L (136-145)
[2018-09-07 06:42] LABS: Alkaline Phosphatase 206 U/L (45-117); Total Protein 5.7 g/dL (6.4-8.2)
[2018-09-07 07:32] LABS: Lymphocytes 8 % (9-44); Monocytes 1 % (0-8); Platelet Morphology Normal (Normal)
[2018-09-07 07:33] LABS: Ovalocytes 1+
[2018-09-07] MEDS ORDERED: ASCORBIC ACID 1000 MG PO SCH (09:00)
--- NOTE | 2018-09-07 09:15 | P.PNONC ---
Subjective Interval history: Afebrile Patient reports he feels pretty good Not having any pain Objective Vital Signs/Intake & Output: Vital Signs 09/06/18 12:59 09/06/18 16:23 09/06/18 19:04 Temperature 98.7 F 98.7 F Pulse Rate 91 H 77 71 Respiratory Rate 20 20 Blood Pressure 123/67 161/80 H Pulse Oximetry 97 97 09/06/18 19:47 09/06/18 22:38 09/06/18 23:17 Temperature 98.7 F 98.2 F Pulse Rate 70 69 Respiratory Rate 20 18 18 Blood Pressure 168/84 H 153/77 H Pulse Oximetry 97 95 09/07/18 04:00 09/07/18 04:01 09/07/18 07:48 Temperature 98.1 F Pulse Rate 73 66 75 Respiratory Rate 19 Blood Pressure 154/78 H Pulse Oximetry 95 Intake & Output 09/06/18 09/07/18 09/07/18 18:59 06:59 18:59 Intake Total 55 / 55 3196.8 / 3196.8 Output Total 2009 Balance 55 / 55 1186.8 / 1186.8 Weight 227 lb 4.745 oz Intake: IV 55 / 55 2716.8 / 2716.8 Paraplatin Inj 588 MG In NS Inj 308.8 / 308.8 250 ML @ 617.6 mls/hr IV.SIG ONCE ONE Rx#:[id number] Decadron Inj 20 MG In NS Inj 50 55 / 55 ML @ 330 mls/hr IV.SIG Q24H GUDELIA Rx#:[id number] Vepesid Inj 160 MG In NS Inj 508 / 508 500 ML @ 508 mls/hr IV.SIG Q24H GUDELIA Rx#:[id number] NS Inj 1,000 ML @ 150 mls/hr IV 1900 / 1900 .SIG .Q6H40M GUDELIA Rx#:[id number] Oral 480 / 480 Output: Urine 2009 Result Diagrams: 09/07/18 05:40 09/07/18 05:40 Laboratory Results: Laboratory Results - last 24 hr 09/06/18 09/06/18 09/06/18 10:15 12:49 12:58 WBC 1.2 L RBC 2.64 L Hgb 8.7 L Hct 25.3 L MCV 95.7 MCH 32.9 MCHC 34.4 RDW 15.3 Plt Count 68 L D MPV 7.0 Prelim Diff (Auto) Slide review pending Neut % (Auto) 67.3 Lymph % (Auto) 10.6 [place] % (Auto) 13.5 H Eos % (Auto) 8.3 H Baso % (Auto) 0.3 Neut # (Auto) 0.8 L Lymph # (Auto) 0.1 L [place] # (Auto) 0.2 Eos # (Auto) 0.1 Baso # (Auto) 0.0 WBC Differential Manual diff final Seg Neuts % (Manual) 52 Band Neuts % (Manual) 16 H Lymphocytes % (Manual) 10 Monocytes % (Manual) 7 Eosinophils % (Manual) 15 H Abs Neuts (Manual) 0.8 L Differential Comment . Platelet Estimate Low L Platelet Morphology Normal Ovalocytes 1+ H Sodium 140 Potassium 4.1 Chloride 106 Carbon Dioxide 29.0 Anion Gap 5 BUN 11 Creatinine 0.71 0.70 Estimated GFR Greater than 89 Greater than 89 Random Glucose 113 H Calcium 8.8 Total Bilirubin 0.7 AST 32 ALT 42 Alkaline Phosphatase 194 H Total Protein 5.5 L D Albumin 2.6 L 09/07/18 09/07/18 05:40 05:40 WBC 1.2 L RBC 3.03 L Hgb 9.8 L Hct 29.0 L MCV 95.7 MCH 32.5 MCHC 33.9 RDW 14.9 Plt Count 71 L MPV 7.3 Prelim Diff (Auto) Slide review pending Neut % (Auto) 90.0 H Lymph % (Auto) 7.7 L [place] % (Auto) 2.0 Eos % (Auto) 0.1 Baso % (Auto) 0.2 Neut # (Auto) 1.1 L Lymph # (Auto) 0.1 L [place] # (Auto) 0.0 Eos # (Auto) 0.0 Baso # (Auto) 0.0 WBC Differential Manual diff final Seg Neuts % (Manual) 75 H Band Neuts % (Manual) 16 H Lymphocytes % (Manual) 8 L Monocytes % (Manual) 1 Eosinophils % (Manual) Abs Neuts (Manual) 1.1 L Differential Comment . Platelet Estimate Low L Platelet Morphology Normal Ovalocytes 1+ H Sodium 140 Potassium 4.0 Chloride 108 H Carbon Dioxide 26.2 Anion Gap 6 BUN 10 Creatinine 0.64 Estimated GFR Greater than 89 Random Glucose 140 H Calcium 8.6 Total Bilirubin 0.6 AST 40 H ALT 49 Alkaline Phosphatase 206 H Total Protein 5.7 L Albumin 2.5 L Medications: Active Medications Generic Name Dose Route Start Last Admin Trade Name Freq PRN Reason Stop Dose Admin Carvedilol 6.25 mg 09/06/18 21:00 09/06/18 20:39 Coreg PO 6.25 mg BID GUDELIA Administration Granisetron HCl 1 mg 09/06/18 15:30 09/06/18 16:22 Kytril Inj IV.PUSH 09/08/18 15:31 1 mg Q24H GUDELIA Administration Ifosfamide 8,000 mg/ [place] 8, 1,080 mls @ 45 mls/hr 09/06/18 18:00 09/06/18 20:14 000 mg/ Sodium Chloride IV.SIG 45 mls/hr Q24H GUDELIA Administration Sodium Chloride 1,000 mls @ 150 mls/hr 09/06/18 14:00 09/07/18 03:20 Ns Inj IV.SIG 150 mls/hr .Q6H40M GUDELIA Administration Dexamethasone Sodium Phosphate 55 mls @ 330 mls/hr 09/06/18 15:30 09/06/18 17 :04 20 mg/ Sodium Chloride IV.SIG 09/08/18 15:39 Infused Q24H GUDELIA Infusion Lorazepam 0.5 mg 09/06/18 21:00 09/06/18 22:08 Ativan PO 0.5 mg HS GUDELIA Administration Oxycodone HCl 10 mg 09/06/18 16:50 09/06/18 22:08 Roxicodone PO 10 mg Q4H PRN Administration PAIN 1 TO 10 Objective Remarks: GENERAL: Chronically ill-appearing older gentleman sitting up in bed in no acute distress SKIN: Warm and dry. HEAD: Normocephalic. EYES: No scleral icterus. No injection or drainage. NECK: Supple, trachea midline. No JVD or lymphadenopathy. CARDIOVASCULAR: Regular rate and rhythm without murmurs. RESPIRATORY: Breath sounds equal bilaterally. No accessory muscle use. GASTROINTESTINAL: Abdomen protuberant but nontender. EXTREMITIES: No cyanosis, or edema. MUSCULOSKELETAL: Adequate muscle tone. NEUROLOGICAL: No obvious focal deficit. Awake, alert, and oriented x3. Assessment/Plan - Plan 78-year-old male admitted for chemotherapy with ICE. He was first diagnosed with follicular lymphoma in 2011 but developed progression of disease the end of 2017 and was given 3 cycles of Rituxan and bendamustine with no response. He developed transformed large B-cell lymphoma. He received 4 cycles of Rituxan and EPOCH. Recent PET scan showed progression of disease with new right supraclavicular, subcarinal and right hilar lymphadenopathy and the patient started on chemotherapy with ICE. 1. Patient received day 1 of chemotherapy in clinic and has been admitted to the hospital to continue the regimen. So far he is tolerating very well and this will be continued. 2. We reviewed his blood counts that show pancytopenia. He does not need any transfusion today. He is not having any fevers. We will continue to monitor. 3. Anticipate that the chemotherapy will continue through this evening and he can be discharged tomorrow with close follow-up in clinic. He will need growth factor support which can be delivered on an outpatient basis. - Attending Statement The exam, history, and the medical decision-making described in the above note were completed with the assistance of the mid-level provider. I reviewed and agree with the findings presented. I attest that I had a [id number] encounter with the patient on the same day, and personally performed and documented my assessment and findings in the medical record. Patient is tolerating chemotherapy well. He denies any nausea or vomiting. He is afebrile. He has no chest pain or shortness of breath. He will continue day 3 of ICE chemotherapy per protocol. Anticipate discharging in the morning if he is stable. Dr. Moe will see him tomorrow. He can receive the growth factor at the clinic.
[2018-09-07] MEDS: Carvedilol 6.25 MG Tablet PO SCH ×2 (09:16→20:46)
[2018-09-07] MEDS: Ascorbic Acid 500 MG Tablet PO SCH (09:16)
[2018-09-07] MEDS ORDERED: ETOPOSIDE IV.SIG SCH (18:00)
[2018-09-07] MEDS ORDERED: SODIUM CHLOR 0.9% IV.SIG SCH (18:00)
[2018-09-07] MEDS: Granisetron 1 MG/ML Vial IV.PUSH SCH (21:16)
[2018-09-07] MEDS: Dexamethasone Inj 20 MG in Sodium Chlor 0.9% Inj 50 ML IV.SIG SCH (21:22)
[2018-09-07] MEDS: LORazepam 0.5 MG Tablet PO SCH (22:40)
[2018-09-08] MEDS: Sod Chloride 0.9% Inj 1,000 ML IV.SIG SCH ×2 (03:10→06:03)
[2018-09-08 05:18] LABS: Baso % (Auto) 0.1 % (0.0-2.0); Hemoglobin 9.2 gm/dL (13.0-17.0); Lymph # (Auto) 0.1 th/mm3 (1.0-4.8); Lymph % (Auto) 4.7 % (9.0-44.0); Mean Corpuscular HGB Conc 34.1 % (32.0-36.0); Mean Corpuscular Hemoglobin 32.7 pg (27.0-34.0); Mean Corpuscular Volume 95.8 fL (80.0-100.0); Mean Platelet Volume 6.9 fL (7.0-11.0); Mono % (Auto) 2.1 % (0.0-8.0); Neut # (Auto) 1.3 th/mm3 (1.8-7.7); Neut % (Auto) 93.1 % (16.0-70.0); Platelet Count 73 th/mm3 (150-450); Red Blood Count 2.82 mil/mm3 (4.50-5.90); Red Cell Distribution Width 15.1 % (11.6-17.2); White Blood Count 1.4 th/mm3 (4.0-11.0)
[2018-09-08 05:41] LABS: Albumin 2.6 g/dL (3.4-5.0); Anion Gap 6 meq/L (5-15); Aspartate Aminotransferase 32 U/L (15-37); Blood Urea Nitrogen 14 mg/dL (7-18); Calcium 9.2 mg/dL (8.5-10.1); Carbon Dioxide 25.3 meq/L (21.0-32.0); Chloride 112 meq/L (98-107); Glomerular Filtration Rate Greater Than 89 mL/min (>89); Glucose,Random 130 mg/dL (74-106); Potassium 4.3 meq/L (3.5-5.1); Sodium 143 meq/L (136-145)
[2018-09-08 05:43] LABS: Alanine Aminotransferase 46 U/L (12-78); Alkaline Phosphatase 188 U/L (45-117); Total Protein 5.6 g/dL (6.4-8.2)
[2018-09-08 07:47] LABS: Lymphocytes 3 % (9-44); Monocytes 2 % (0-8); Platelet Morphology Normal (Normal)
[2018-09-08] MEDS: Ascorbic Acid 500 MG Tablet PO SCH (08:34)
[2018-09-08] MEDS: Carvedilol 6.25 MG Tablet PO SCH (08:34)
--- NOTE | 2018-09-08 09:47 | P.PNONC ---
Subjective Interval history: Afebrile. Patient with no complaints at this time. He tolerated chemotherapy well. He will call the clinic this afternoon to schedule his Neulasta injection. Objective Vital Signs/Intake & Output: Vital Signs 09/07/18 10:00 09/07/18 12:00 09/07/18 16:00 Temperature 97.2 F L 98.2 F 98.1 F Pulse Rate 66 66 87 Respiratory Rate 18 18 16 Blood Pressure 158/81 H 142/79 H 143/74 H Pulse Oximetry 97 96 94 L 09/07/18 16:31 09/07/18 19:57 09/07/18 21:44 Temperature 97.9 F Pulse Rate 74 68 66 Respiratory Rate 20 Blood Pressure 153/81 H Pulse Oximetry 96 09/07/18 23:33 09/08/18 00:13 09/08/18 04:00 Temperature 97.4 F L Pulse Rate 63 65 59 L Respiratory Rate 16 Blood Pressure 155/79 H Pulse Oximetry 97 09/08/18 04:45 09/08/18 08:00 Temperature 98 F Pulse Rate 60 69 Respiratory Rate 16 Blood Pressure 150/75 H Pulse Oximetry 96 Intake & Output 09/07/18 09/08/18 09/08/18 18:59 06:59 18:59 Intake Total 1800 / 1800 2380 / 2380 Output Total 950 / 950 1225 / 1225 Balance 850 / 850 1155 / 1155 Weight 103 kg Intake: IV 1800 / 1800 2140 / 2140 Decadron Inj 20 MG In NS Inj 50 55 / 55 ML @ 330 mls/hr IV.SIG Q24H GUDELIA Rx#:[id number] Vepesid Inj 160 MG In NS Inj 535 / 535 500 ML @ 508 mls/hr IV.SIG Q24H GUDELIA Rx#:[id number] Ifex Inj 8,000 MG Mesnex Inj 8, 1100 / 1100 000 MG In NS Inj 1,000 ML @ 45 mls/hr IV.SIG Q24H GUDELIA Rx#: [id number] NS Inj 1,000 ML @ 75 mls/hr IV. 1800 / 1800 450 / 450 SIG .[id number] GUDELIA Rx#:[id number] Oral 240 / 240 Output: Urine 950 / 950 1225 / 1225 Other: Date of Last Bowel Movement 09/06/18 Weight On Admission 102.2 kg Result Diagrams: 09/08/18 04:50 09/08/18 04:50 Laboratory Results: Laboratory Results - last 24 hr 09/08/18 09/08/18 04:50 04:50 WBC 1.4 L RBC 2.82 L Hgb 9.2 L Hct 27.0 L MCV 95.8 MCH 32.7 MCHC 34.1 RDW 15.1 Plt Count 73 L MPV 6.9 L Prelim Diff (Auto) Slide review pending Neut % (Auto) 93.1 H Lymph % (Auto) 4.7 L [place] % (Auto) 2.1 Eos % (Auto) 0.0 Baso % (Auto) 0.1 Neut # (Auto) 1.3 L Lymph # (Auto) 0.1 L [place] # (Auto) 0.0 Eos # (Auto) 0.0 Baso # (Auto) 0.0 WBC Differential Manual diff final Seg Neuts % (Manual) 75 H Band Neuts % (Manual) 20 H Lymphocytes % (Manual) 3 L Monocytes % (Manual) 2 Abs Neuts (Manual) 1.3 L Differential Comment . Platelet Estimate Low L Platelet Morphology Normal Sodium 143 Potassium 4.3 Chloride 112 H Carbon Dioxide 25.3 Anion Gap 6 BUN 14 Creatinine 0.69 Estimated GFR Greater than 89 Random Glucose 130 H Calcium 9.2 Total Bilirubin 0.7 AST 32 ALT 46 Alkaline Phosphatase 188 H Total Protein 5.6 L Albumin 2.6 L Medications: Active Medications Generic Name Dose Route Start Last Admin Trade Name Freq PRN Reason Stop Dose Admin Ascorbic Acid 1,000 mg 09/07/18 09:00 09/08/18 08:34 Vitamin C PO 1,000 mg DAILY GUDELIA Administration Carvedilol 6.25 mg 09/06/18 21:00 09/08/18 08:34 Coreg PO 6.25 mg BID GUDELIA Administration Granisetron HCl 1 mg 09/06/18 15:30 09/07/18 21:16 Kytril Inj IV.PUSH 09/08/18 15:31 1 mg Q24H GUDELIA Administration Sodium Chloride 1,000 mls @ 75 mls/hr 09/06/18 14:00 09/08/18 06:03 Ns Inj IV.SIG 75 mls/hr .[id number] GUDELIA Administration Dexamethasone Sodium Phosphate 55 mls @ 330 mls/hr 09/06/18 15:30 09/07/18 22 :00 20 mg/ Sodium Chloride IV.SIG 09/08/18 15:39 Infused Q24H GUDELIA Infusion Lorazepam 0.5 mg 09/06/18 21:00 09/07/18 22:40 Ativan PO 0.5 mg HS GUDELIA Administration Padimate O 0 applicatio 09/08/18 01:26 09/08/18 02:05 Chapstick TOPICAL 45 applicatio UNSCH PRN Administration FOR DRY LIPS Tramadol HCl 50 mg 09/07/18 09:19 09/08/18 08:34 Ultram PO 50 mg Q6H PRN Administration Pain 1-10 Vitamin D 2,000 unit 09/07/18 09:00 09/08/18 08:34 Vitamin D3 PO 2,000 unit DAILY GUDELIA Administration Objective Remarks: GENERAL: Chronically ill-appearing elderly male patient, in no acute distress. SKIN: Warm and dry. Poor access to left chest wall. Dressing dry/intact. HEAD: Normocephalic. EYES: No scleral icterus. No injection or drainage. NECK: Supple, trachea midline. CARDIOVASCULAR: Regular rate and rhythm without murmurs. RESPIRATORY: Breath sounds equal bilaterally. No accessory muscle use. GASTROINTESTINAL: Abdomen protuberant but nontender. EXTREMITIES: No cyanosis, or edema. MUSCULOSKELETAL: Adequate muscle tone. NEUROLOGICAL: No obvious focal deficit. Awake, alert, and oriented x3. Assessment/Plan - Plan 78-year-old male admitted for chemotherapy with ICE. He was first diagnosed with follicular lymphoma in 2011 but developed progression of disease the end of 2016 and was given 3 cycles of Rituxan and bendamustine with no response. He developed transformed large B-cell lymphoma. He received 4 cycles of Rituxan and EPOCH. Recent PET scan showed progression of disease with new right supraclavicular, subcarinal and right hilar lymphadenopathy and the patient started on chemotherapy with ICE. 1. Patient completed chemotherapy. Tolerated well. 2. Pancytopenia, BBC 1.4, hemoglobin 9.2, platelet count 73K, ANC 1300. He does not need any transfusion today. 3. Patient will be discharged home today. He has been instructed to call the clinic for his growth factor support injection tomorrow. He will follow-up with Dr Moe and labs will be monitored accordingly.
--- NOTE | 2018-09-08 09:52 | P.DS ---
Date of admission: 09/06/18 08:05 Primary care physician: Mateusz Teran MD Brief History from admission: Mr. Tijerina is a pleasant 78-year-old male patient with large B-cell lymphoma, admitted for ice chemotherapy. Patient received day 1 in the outpatient clinic and he received day #2 and 3 of ICE chemotherapy as an inpatient. He tolerated well. No adverse reactions noted. DS: Summary Hospital Course: Mr. Tijerina is a pleasant 78-year-old male patient with large B-cell lymphoma, admitted for ice chemotherapy. Patient received day 1 in the outpatient clinic and he received day #2 and 3 of ICE chemotherapy as an inpatient. He tolerated well. No adverse reactions noted. - Time Spent with Patient Total time spent providing and/or coordinating discharge services: Less than 30 minutes - Quality: VTE Deep Vein Thrombosis/Pulmonary Embolism Present on Admission: No Exam Vital signs: Vital Signs 09/07/18 10:00 09/07/18 12:00 09/07/18 16:00 Temperature 97.2 F L 98.2 F 98.1 F Pulse Rate 66 66 87 Respiratory Rate 18 18 16 Blood Pressure 158/81 H 142/79 H 143/74 H Pulse Oximetry 97 96 94 L 09/07/18 16:31 09/07/18 19:57 09/07/18 21:44 Temperature 97.9 F Pulse Rate 74 68 66 Respiratory Rate 20 Blood Pressure 153/81 H Pulse Oximetry 96 09/07/18 23:33 09/08/18 00:13 09/08/18 04:00 Temperature 97.4 F L Pulse Rate 63 65 59 L Respiratory Rate 16 Blood Pressure 155/79 H Pulse Oximetry 97 09/08/18 04:45 09/08/18 08:00 Temperature 98 F Pulse Rate 60 69 Respiratory Rate 16 Blood Pressure 150/75 H Pulse Oximetry 96 Intake & Output 09/07/18 09/08/18 09/08/18 18:59 06:59 18:59 Intake Total 1800 / 1800 2380 / 2380 Output Total 950 / 950 1225 / 1225 Balance 850 / 850 1155 / 1155 Weight 103 kg Intake: IV 1800 / 1800 2140 / 2140 Decadron Inj 20 MG In NS Inj 50 55 / 55 ML @ 330 mls/hr IV.SIG Q24H GUDELIA Rx#:[id number] Vepesid Inj 160 MG In NS Inj 535 / 535 500 ML @ 508 mls/hr IV.SIG Q24H GUDELIA Rx#:[id number] Ifex Inj 8,000 MG Mesnex Inj 8, 1100 / 1100 000 MG In NS Inj 1,000 ML @ 45 mls/hr IV.SIG Q24H GUDELIA Rx#: [id number] NS Inj 1,000 ML @ 75 mls/hr IV. 1800 / 1800 450 / 450 SIG .[id number] GUDELIA Rx#:[id number] Oral 240 / 240 Output: Urine 950 / 950 1225 / 1225 Other: Date of Last Bowel Movement 09/06/18 Weight On Admission 102.2 kg Narrative: See progress note dated 09/08/2018 Results Procedures completed during hospitalization: No procedures. Labs on day of discharge: Labs from last 24 hours 09/08/18 09/08/18 04:50 04:50 WBC 1.4 L RBC 2.82 L Hgb 9.2 L Hct 27.0 L MCV 95.8 MCH 32.7 MCHC 34.1 RDW 15.1 Plt Count 73 L MPV 6.9 L Prelim Diff (Auto) Slide review pending Neut % (Auto) 93.1 H Lymph % (Auto) 4.7 L [place] % (Auto) 2.1 Eos % (Auto) 0.0 Baso % (Auto) 0.1 Neut # (Auto) 1.3 L Lymph # (Auto) 0.1 L [place] # (Auto) 0.0 Eos # (Auto) 0.0 Baso # (Auto) 0.0 WBC Differential Manual diff final Seg Neuts % (Manual) 75 H Band Neuts % (Manual) 20 H Lymphocytes % (Manual) 3 L Monocytes % (Manual) 2 Abs Neuts (Manual) 1.3 L Differential Comment . Platelet Estimate Low L Platelet Morphology Normal Sodium 143 Potassium 4.3 Chloride 112 H Carbon Dioxide 25.3 Anion Gap 6 BUN 14 Creatinine 0.69 Estimated GFR Greater than 89 Random Glucose 130 H Calcium 9.2 Total Bilirubin 0.7 AST 32 ALT 46 Alkaline Phosphatase 188 H Total Protein 5.6 L Albumin 2.6 L Discharge Plan - Discharge Disposition Patient Disposition: 01 Discharge Home - Discharge Condition Condition: Good - Discharge Order Discharge Orders: Discharge Order (Routine); Ordered 09/08/18 Ordered By: Emily Lilly - Discharge Details Anticipated Discharge Date: 09/08/18 Discharge Comment: Patient to follow-up in oncology outpatient clinic on 2017 for growth factor support. Follow-up with Dr. Moe this week and clinic to continue to monitor labs. - Physicians Team Primary Care Provider: Mateusz Teran Attending Provider: Marie Moe - Rxs /Orders / Referrals /Forms Prescriptions: Continue ascorbic acid (vitamin C) [Vitamin C] 1,000 mg Tablet 1,000 mg PO DAILY carvedilol 6.25 mg Tablet 6.25 mg PO BID cholecalciferol (vitamin D3) [Vitamin D3] 2,000 unit Tablet 2,000 unit PO DAILY lorazepam 0.5 mg Tablet 0.5 mg PO HS omeprazole magnesium [Prilosec OTC] 20 mg Tablet,Delayed Release (Dr/Ec) 20 mg PO DAILY PRN (Reason: gerd) oxycodone 10 mg Tablet 10 mg PO Q4-6H PRN (Reason: Pain) tramadol 50 mg Tablet 50 mg PO BID PRN (Reason: Pain) Referrals: Mateusz Teran MD [Primary Care Provider] - See Instructions
[2018-09-08] MEDS ORDERED: Heparin Central Flush 100 UNIT/ML 5 ML Vial IV.FLUSH PRN ×2 (12:34)
== END 2018-09-08 15:30 | disposition home or self-care (01) ==
LOC: HCIN 08:05 → OBSVTOIN 08:05 → INTOOBSV 08:05
PROVIDERS: ADMIT Internal Medicine Hematology & Oncology; ATTEND Internal Medicine Hematology & Oncology

== ENCOUNTER 2018-09-15 10:38 | Inpatient (IN) ==
[2018-09-16] MEDS ORDERED: Heparin Central Flush 100 UNIT/ML 5 ML Vial IV.FLUSH PRN ×2 (13:46)
[2018-09-16] MEDS ORDERED: Acetaminophen 325 MG Tablet PO PRN ×3 (13:47→16:45)
--- NOTE | 2018-09-16 13:59 | P.HPIM ---
History of Present Illness Primary Care Physician: Mateusz Teran MD Chief Complaint: anemia and bacteremia History of Present Illness: This is a 77 yo with hx follicular lymphoma, pelletier transformation followed by Dr Moe. Patient directly admitted from Dr. Nava's clinic due to anemia and bacteremia. Blood culture were drawn 07/24 now growing E coli 1/4 bottles and gram neg rods in the remaining 3/4 bottles. UA from 09/15 reviewed and reveals: negative protein, neg ketones, neg nitrates, negative Leukocyte esterase. Patient did receive cefepime today in the outpatient clinic. Patient has been coughing for approximately 1 month after a bronchoscopy. Cough unrelieved by OTC cough suppression. Chemotherapy approximately one week ago and since then he has been weak. Patient continues to have nonproductive cough. Patient also endorses increase in urinary frequency. Patient denies abd pain, N/V/C/C, chest pain or SOB. Past Medical/Sx History: large cell lymphoma left neck mass. 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 left total hip arthroplasty 2016 H/O prostate cancer (s/p XRT by Dr. Marie. Dr. Sierra following- noted increasing PSA.) Hypertension Inflammatory arthritis Iron overload (HFE negative.) Liver cirrhosis in 2012 Follicular lymphoma (02/11/12. Mediastinal biopsy positive for Follicular lymphoma, grade I. CTPET show disease above and below diaphragm. Last bone marrow biopsy 2005 was negative for lymphoma. Back surgery 2002 sciatica cyst Colonoscopy 2003 Iron overl load Kidney stone removed 1974, lithotripsy 2010 right tka- 2001 -left tka 2016 Left shoulder rotator cuff 2010 Lipoma removed left leg 2011 Lipotripsy - March 01, 2011 and April 19, 2011 Xrt prostate - [address] biopsy in 2011 SOCIAL HISTORY:Denies tobacco use. He drinks occasionally. FAMILY HISTORY:No lymphoma. Inpatient Certification Inpatient Certification: I certify that the inpatient services were ordered in accordance with Medicare regulations governing the order. This includes certification that hospital inpatient services are reasonable and necessary and in the case of services not specified as inpatient-only under 42 CFR 419.22(n), that they are appropriately provided as inpatient services in accordance to with the 2-midnight benchmark under 43 CFR 412.3(e) Medications and Allergies Allergies Allergy/AdvReac Type Severity Reaction Status Date / Time diclofenac Allergy Severe AFFECTED Verified 08/19/18 12:46 KIDNEYS etodolac Allergy Severe AFFECTED Verified 08/19/18 12:46 KIDNEYS flurbiprofen Allergy Severe AFFECTED Verified 08/19/18 12:46 KIDNEYS ibuprofen Allergy Severe AFFECTED Verified 08/19/18 12:46 KIDNEYS indomethacin Allergy Severe AFFECTED Verified 08/19/18 12:46 KIDNEYS ketoprofen Allergy Severe AFFECTED Verified 08/19/18 12:46 KIDNEYS ketorolac Allergy Severe AFFECTED Verified 08/19/18 12:46 KIDNEYS morphine Allergy Severe NAUSEA/VOMI Verified 08/19/18 12:46 TING naproxen Allergy Severe AFFECTED Verified 08/19/18 12:46 KIDNEYS oxaprozin Allergy Severe AFFECTED Verified 08/19/18 12:46 KIDNEYS apixaban Allergy Intermediate Hives Verified 08/19/18 12:46 Sulfa (Sulfonamide Allergy Intermediate Rash Verified 08/19/18 12:46 Antibiotics) zolpidem Allergy Unknown unknown Verified 08/19/18 12:46 Home Medications Medication Instructions Recorded Confirmed Type ascorbic acid (vitamin C) [Vitamin 1,000 mg PO DAILY 08/15/18 09/16/18 History C] carvedilol 6.25 mg PO BID 08/15/18 09/16/18 History cholecalciferol (vitamin D3) 2,000 unit PO DAILY 08/15/18 09/16/18 History [Vitamin D3] lorazepam 0.5 mg PO HS 08/15/18 09/16/18 History omeprazole magnesium [Prilosec OTC] 20 mg PO DAILY PRN 08/15/18 09/16/18 History oxycodone 10 mg PO Q4-6H PRN 08/15/18 09/16/18 History tramadol 50 mg PO BID PRN 08/15/18 09/16/18 History gabapentin 300 mg PO BID 09/17/18 09/17/18 History Active Medications: Active Medications Acetaminophen (Tylenol) 650 mg PO Q4H PRN PRN Reason: fever >100.4 Guaifenesin (Robitussin Liq) 10 mg PO Q4HR PRN PRN Reason: COUGH Heparin Sodium (Porcine) (Heparin Central Flush) 500 unit IV.FLUSH PRN PRN PRN Reason: Flush infusaport Heparin Sodium (Porcine) (Heparin Central Flush) 250 unit IV.FLUSH PRN PRN PRN Reason: Flush Infusapot Cefepime HCl 2,000 mg/ Sodium (Chloride) 100 mls @ 200 mls/hr IV.SIG Q8H GUDELIA Sodium Chloride (Ns Flush) 5 ml IV.FLUSH PRN PRN PRN Reason: Flush Infusaport Physical Exam Vital signs: Last Vital Signs Temp 95.1 F L 09/16/18 13:15 Pulse 68 09/16/18 13:15 Resp 20 09/16/18 13:15 BP 101/57 L 09/16/18 13:15 Pulse Ox 100 09/16/18 13:15 Narrative: GENERAL: This is a thin, well-developed patient, ill appearing. CARDIOVASCULAR: Regular rate and rhythm RESPIRATORY: wheezing through out GASTROINTESTINAL: Abdomen soft, non-tender, nondistended. Normal active bowel sounds MUSCULOSKELETAL: Extremities without clubbing, cyanosis, or edema. NEURO: Alert & Oriented x4 to person, place, time, situation. Moves all ext x4 Results Labs CBC & Chem 7: 09/17/18 02:50 09/17/18 02:50 Caprini VTE Risk Assessment Caprini VTE Risk Assessment: Moderate/High Risk (score >= 2) Caprini Risk Assessment Model: Point Value = 1 Point Value = 2 Point Value = 3 Point Value = 5 Age 41-60 Minor surgery BMI > 25 kg/m2 Swollen legs Varicose veins or History of unexplained or recurrent spontaneous Oral contraceptives or hormone replacement Sepsis (< 1 month) Serious lung disease, including pneumonia (< 1 month) Abnormal pulmonary function Acute myocardial infarction Congestive heart failure (< 1 month) History of inflammatory bowel disease Medical patient at bed rest Age 61-74 Arthroscopic surgery Major open surgery (> 45 min) Laparoscopic surgery (> 45 min) Malignancy Confined to bed (> 72 hours) Immobilizing plaster cast Central venous access Age >= 75 History of VTE Family history of VTE Factor V Leiden Prothrombin [id number] Lupus anticoagulant Anticardiolipin antibodies Elevated serum homocysteine Heparin-induced thrombocytopenia Other congenital or acquired thrombophilia Stroke (< 1 month) Elective arthroplasty Hip, pelvis, or leg fracture Acute spinal cord injury (< 1 month) Prophylaxis Regimen: Total Risk Factor Score Risk Level Prophylaxis Regimen 0-1 Low Early ambulation 2 Moderate Order ONE of the following: *Sequential Compression Device (SCD) *Heparin 5000 units SQ BID 3-4 Higher Order ONE of the following medications: *Heparin 5000 units SQ TID *Enoxaparin/Lovenox 40 mg SQ daily (WT < 150 kg, CrCl > 30 mL/min) *Enoxaparin/Lovenox 30 mg SQ daily (WT < 150 kg, CrCl > 10-29 mL/min) *Enoxaparin/Lovenox 30 mg SQ BID (WT < 150 kg, CrCl > 30 mL/min) AND/OR *Sequential Compression Device (SCD) 5 or more Highest Order ONE of the following medications: *Heparin 5000 units SQ TID (Preferred with Epidurals) *Enoxaparin/Lovenox 40 mg SQ daily (WT < 150 kg, CrCl > 30 mL/min) *Enoxaparin/Lovenox 30 mg SQ daily (WT < 150 kg, CrCl > 10-29 mL/min) *Enoxaparin/Lovenox 30 mg SQ BID (WT < 150 kg, CrCl > 30 mL/min) AND *Sequential Compression Device (SCD) Assessment and Plan Plan This is a 77 yo with hx follicular lymphoma, pelletier transformation followed by Dr Moe. Patient directly admitted from Dr. Nava's clinic due to anemia and bacteremia. Blood culture were drawn 09/15/18 now growing E coli 1/4 bottles and gram neg rods in the remaining 3/4 bottles. UA from 09/15 reviewed and reveals: negative protein, neg ketones, neg nitrates, negative Leukocyte esterase. Patient did receive cefepime today in the outpatient clinic. Patient has been coughing for approximately 1 month after a bronchoscopy. Cough unrelieved by OTC cough suppression. Chemotherapy approximately one week ago and since then he has been weak. Patient continues to have nonproductive cough. Patient also endorses increase in urinary frequency. Patient denies abd pain, N/V/C/C, chest pain or SOB. Bacteremia Neutropenic fever This is a 77 yo with hx follicular lymphoma, pelletier transformation followed by Dr Moe. Patient directly admitted from Dr. Nava's clinic due to anemia and bacteremia. Blood culture were drawn 09/15/18 now growing E coli 1/4 bottles and gram neg rods in the remaining 3/4 bottles. UA from 09/15 reviewed and reveals: negative protein, neg ketones, neg nitrates, negative Leukocyte esterase. Patient did receive cefepime today in the outpatient clinic. Continue cefepime Patient does have a Port in place IVF supportive care Reactive airway Cough wheezing through out lungs Solu medrol 125 x 1 Tessalon Perles Anemia hgb 7.3 09/15 recheck pending Thrombocytopenia Plt 2,000 patient did receive 1 unit FFP outpatient recheck pending CBC and BMP pending DVT prophylaxis with SCDs H&P: Quality VTE Deep Vein Thrombosis/Pulmonary Embolism Present on Admission: No
[2018-09-16] MEDS ORDERED: Sod Chloride 0.9% Inj 1,000 ML IV.CONT SCH (14:15)
[2018-09-16] MEDS ORDERED: MethylPREDNISolone Sod Succinate Inj 125 MG/2 ML Vial IV.PUSH ONE (14:32)
[2018-09-16] MEDS: Lactobacillus Acidophilus/L. Spores Tablet PO SCH ×2 (15:22→21:16)
[2018-09-16] MEDS: Benzonatate 100 MG Capsule PO SCH ×2 (15:22→22:00)
[2018-09-16 15:31] LABS: Mean Corpuscular HGB Conc 34.9 % (32.0-36.0); Mean Corpuscular Hemoglobin 33.1 pg (27.0-34.0); Mean Corpuscular Volume 94.7 fL (80.0-100.0); Mean Platelet Volume 7.3 fL (7.0-11.0); Red Blood Count 1.87 mil/mm3 (4.50-5.90); Red Cell Distribution Width 14.6 % (11.6-17.2); White Blood Count 0.1 th/mm3 (4.0-11.0)
[2018-09-16 15:36] LABS: Hematocrit 17.7 % (39.0-51.0); Hemoglobin 6.2 gm/dL (13.0-17.0)
[2018-09-16 15:37] LABS: Platelet Count 5 th/mm3 (150-450)
[2018-09-16 16:06] LABS: Albumin 2.3 g/dL (3.4-5.0); Anion Gap 8 meq/L (5-15); Aspartate Aminotransferase 18 U/L (15-37); Blood Urea Nitrogen 49 mg/dL (7-18); Calcium 8.9 mg/dL (8.5-10.1); Carbon Dioxide 22.7 meq/L (21.0-32.0); Chloride 105 meq/L (98-107); Glomerular Filtration Rate 27 mL/min (>89); Glucose,Random 103 mg/dL (74-106); Potassium 3.1 meq/L (3.5-5.1); Sodium 136 meq/L (136-145)
[2018-09-16 16:07] LABS: Alanine Aminotransferase 37 U/L (12-78)
--- NOTE | 2018-09-16 16:07 | XR ---
EXAM DATE: 09/16/2018 4:04 PM EST AGE/SEX: 78 years / Male INDICATIONS: . Cough. CLINICAL DATA: This is the patient's initial encounter. Patient reports that signs and symptoms have been present for 3 days and indicates a pain score of 0/10. MEDICAL/SURGICAL HISTORY: . HTN, Left neck mass, Anemia, Chronic renal insufficiency, HLD, Pros [place] cancer,Liver cirrhosis, Thrombocytopenia, Kidney stones. . Left port placement, Colonoscopy, Li thotripsy. Right total shoulder. COMPARISON: No prior exams available for comparison. FINDINGS: AP and lateral views of the chest demonstrate the lungs to be symmetrically aerated without evidence of mass, infiltrate or effusion. Slight interstitial prominence. Left-sided port with tip in the SVC. The cardiomediastinal contours are unremarkable. Osseous structures are intact. Degenerative change s thoracic spine. Right humeral/shoulder prosthesis. CONCLUSION: Slight interstitial prominence, likely chronic. Electronically signed by: Oscar Simeon MD 09/16/2018 4:06 PM EST
[2018-09-16 16:10] LABS: Alkaline Phosphatase 194 U/L (45-117); Lymphocytes 100 % (9-44); Ovalocytes 1+; Platelet Estimate Rare (Normal); Platelet Morphology Normal (Normal); Total Protein 5.4 g/dL (6.4-8.2)
[2018-09-16] MEDS ORDERED: Sodium Chlor 0.9% Inj 250 ML IV.SIG SCH (17:00)
[2018-09-16] MEDS ORDERED: LORazepam 0.5 MG Tablet PO SCH (21:00)
[2018-09-16] MEDS: Senna/Docusate Sodium 8.6/50 MG Tablet PO SCH (21:16)
--- NOTE | 2018-09-16 21:48 | MB ---
cc: Marie Moe MD,Rogerio Ibanez MD DATE: 09/16/2018 REFERRING PHYSICIAN: Rogerio Syed MD CHIEF COMPLAINT: Dr. Syed requests a consultation for Mr. Tijerina regarding pancytopenia post chemotherapy for diffuse large B-cell lymphoma. HISTORY OF PRESENT ILLNESS: Mr. 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 He was treated with bendamustine initially and progressed. He was switched to R-EPOCH. He did well with residual peripheral neuropathy and shrinkage of the left neck mass, which was subsequently radiated by Dr. Mcdowell. A 3-month followup CT PET scan showed a recurrence of disease in the left neck as well as in the subcarinal area. A biopsy coordinated by Dr. Catalan showed again lymphoma consistent with his previous lymphoma from the left neck. Mr. Tijerina was started on salvage chemotherapy with rituximab and ICE. He had a 20% dose reduction, but despite this, he developed significant cytopenia. He was pancytopenic yesterday. Blood cultures were obtained. He was transfused platelets. He was advised to come into the hospital for admission but declined. He was placed on Cipro overnight until the morning blood cultures came back positive 4/4 bottles with gram-negative rods. One out of 4 is now growing E. coli. He did not decline admission today. He was given a dose of cefepime in the clinic prior to admitting directly to room 242. He was hypotensive and lightheaded. He did not respond to IV fluid hydration. By the time he was in the hospital and admitted, his blood pressure had recovered with a systolic at least 100. He denies any nausea or vomiting. He denies any diarrhea. He has had a history of C. diff and is worried about developing that again with the antibiotic therapy. He denies any problems associated with the port. He does have increased urinary frequency and has to wear a diaper for leakage. He felt extremely weak starting over the weekend and developed fevers over the weekend. PAST MEDICAL HISTORY: Iron deficiency anemia, basal cell cancer, cataracts, chronic renal insufficiency, hypertension, inflammatory arthritis, lipoma of the left leg, follicular lymphoma, liver cirrhosis, right ankle fracture, sciatica, nephrolithiasis. PAST SURGICAL HISTORY: Back surgery, sciatica, cataract surgery, cholecystectomy, lithotripsy, right knee replacement, left shoulder rotator cuff, lipoma removal from left leg, right total knee replacement, left hip replacement, left knee replacement, right total shoulder replacement, liver biopsy, colonoscopy, lymph node biopsy, mediastinoscopy and lymph node biopsy. ALLERGIES: AMBIEN, MORPHINE, NSAIDS, SULFASALAZINE. HE HAS SOME CONFUSION WITH LORAZEPAM, BUT TAKES IT AT NIGHT. FAMILY HISTORY: No significant family history of cancer. SOCIAL HISTORY: He is and lives with his . 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 He denies any tobacco, alcohol or illicit drug use. CURRENT MEDICATIONS: 1. Tylenol p.r.n. 2. Tessalon Perles. 3. Cefepime. 4. Benadryl. 5. Robitussin. 6. Lactinex 7. Lorazepam. 8. Zofran. 9. Roxicodone. 10. Protonix. 11. K-Dur. 12. Tramadol. PHYSICAL EXAMINATION: VITAL SIGNS: Temperature 97.5, heart rate 71, respiratory rate 19, blood pressure 114/74, saturation 99%. GENERAL: Mr. Tijerina is a well-developed, well-nourished, elderly man. HEENT: His pupils are round and reactive to light and accommodation. His voice is hoarse. His oropharynx is dry. NECK: Supple. He has improvement of his submental edema. There are a chronic radiation changes in the left neck. LUNGS: Clear anteriorly. CARDIOVASCULAR: Reveals normal rate and rhythm. ABDOMEN: Benign and large. EXTREMITIES: Lower extremities with no edema. NEUROLOGIC: Nonfocal. LABORATORY DATA: Significant for pancytopenia. ANC is zero. WBC 0.1, hemoglobin 6.2, platelet count 5000. ASSESSMENT AND PLAN: Mr. Tijerina is a 78-year-old man with primary refractory diffuse large B-cell lymphoma. He had an aggressive presentation with a response R-EPOCH but recurrence shortly after completion of his therapy. Endoscopic ultrasound biopsy of the subcarinal lymph node shows lymphoma consistent with his previous diffuse large B-cell. He was started on salvage chemotherapy with rituximab and ICE. His course is complicated by pancytopenia, hypotension, weakness and fever. He is admitted for neutropenic fever and findings of gram-negative bacteremia. He was started on antibiotic therapy. We discussed plans to continue to transfuse to keep a hemoglobin closer to 8. Our goal is to have the platelet count above 15,000. He has no overt bleeding. He received Neulasta support. His neutropenia persists despite this. He is at the [place]. I anticipate that his neutrophils would recover in time. It is a delayed recovery in light of his acute infection. We will continue antibiotic therapy as prescribed. Cultures and sensitivities are pending. We will monitor closely for Clostridium difficile recurrence. He has had a history of Clostridium difficile in the past. Mr. Tijerina describes himself as a fighter and will continue fighting to treat his lymphoma. He has significant neuropathy and performance status is decreased after his last chemotherapy. We will be mindful of his physical activity during his hospitalization. Once stable, physical therapy will be consulted to assist the patient with range of motion exercises to keep him from being deconditioned. His questions were answered to his satisfaction. MD KASI Restrepo/leonel , 08:35 PM , 08:49 PM
[2018-09-17 03:04] LABS: Hematocrit 23.8 % (39.0-51.0); Hemoglobin 8.3 gm/dL (13.0-17.0); Mean Corpuscular HGB Conc 34.9 % (32.0-36.0); Mean Corpuscular Volume 91.6 fL (80.0-100.0); Mean Platelet Volume 7.9 fL (7.0-11.0); Red Cell Distribution Width 14.1 % (11.6-17.2); White Blood Count 0.1 th/mm3 (4.0-11.0)
[2018-09-17 03:11] LABS: Platelet Count 10 th/mm3 (150-450)
[2018-09-17 03:18] LABS: Carbon Dioxide 23.9 meq/L (21.0-32.0); Potassium 3.4 meq/L (3.5-5.1)
[2018-09-17 03:39] LABS: Lymphocytes 40 % (9-44); Metamyelocytes 5 % (0-1); Monocytes 15 % (0-8)
[2018-09-17 03:43] LABS: Dohle Bodies Present; Platelet Estimate Rare (Normal); Platelet Morphology Normal (Normal); Toxic Granulation 1+
[2018-09-17] MEDS: Benzonatate 100 MG Capsule PO SCH ×3 (06:00→22:34)
[2018-09-17] MEDS: Senna/Docusate Sodium 8.6/50 MG Tablet PO SCH (08:17)
[2018-09-17] MEDS: Lactobacillus Acidophilus/L. Spores Tablet PO SCH ×2 (08:17→20:19)
[2018-09-17] MEDS ORDERED: MethylPREDNISolone Sod Succinate Inj 125 MG/2 ML Vial IV.PUSH ONE (09:45)
--- NOTE | 2018-09-17 09:53 | P.PNIM ---
Subjective Interval history: less cough feels a little stronger. Physical Exam Vital signs: Last Vital Signs Temp 97.1 F L 09/17/18 08:00 Pulse 70 09/17/18 08:00 Resp 20 09/17/18 08:00 BP 153/84 H 09/17/18 08:00 Pulse Ox 95 09/17/18 08:00 Narrative: nad heart reg lung improved air entry. few scattered wheezes abd s/nt ext no edema port. Results Labs CBC & Chem 7: 09/17/18 02:50 09/17/18 02:50 Assessment and Plan Plan This is a 77 yo with hx follicular lymphoma, pelletier transformation followed by Dr Moe. Patient directly admitted from Dr. Nava's clinic due to anemia and bacteremia. Blood culture were drawn 09/15/18 now growing E coli 1/4 bottles and gram neg rods in the remaining 3/4 bottles. UA from 09/15 reviewed and reveals: negative protein, neg ketones, neg nitrates, negative Leukocyte esterase. Patient did receive cefepime today in the outpatient clinic. Patient has been coughing for approximately 1 month after a bronchoscopy. Cough unrelieved by OTC cough suppression. Chemotherapy approximately one week ago and since then he has been weak. Patient continues to have nonproductive cough. Patient also endorses increase in urinary frequency. Patient denies abd pain, N/V/C/C, chest pain or SOB. Recurrent B cell lymphoma. undergoing chemotherapy s/p R-Epoch. now R-ICE. pancytopenia related to chemo neutropenia ecoli bacteremia kirk/ckd 3 volume depletion. hx c. diff colitis. cough/reactive airways. ?pneumonitis from aspiration general weakness. continue gentle NS and stop when kirk resolved s/p 2 units prbc 09/16 cont cefepime. f/u cx result. repeat cx taken. duonebs. cough med. few doses solumedrol with improved respiratory sx's. PT daily dvt prophylaxis Oncology following. replace kcl. Progress Note: Quality VTE Deep Vein Thrombosis/Pulmonary Embolism Present on Admission: No
[2018-09-17] MEDS ORDERED: Sodium Chlor 0.9% Inj 250 ML IV.SIG SCH (12:02)
[2018-09-17] MEDS: Acetaminophen 325 MG Tablet PO PRN (13:18)
--- NOTE | 2018-09-17 15:48 | P.PNONC ---
Subjective Interval history: Afebrile. 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 He has no complaints at this time. He denies any bleeding. He reports that he did not sleep well last night, he takes Neurontin and lorazepam nightly. Will assure his home medications are ordered. Objective Vital Signs/Intake & Output: Vital Signs 09/16/18 17:02 09/16/18 18:18 09/16/18 19:14 Temperature 97.6 F 97.5 F L Pulse Rate 73 73 71 Respiratory Rate 18 20 19 Blood Pressure 123/62 114/74 Pulse Oximetry 97 99 99 09/16/18 20:00 09/16/18 21:01 09/16/18 21:02 Temperature Pulse Rate 79 Respiratory Rate 20 Blood Pressure Pulse Oximetry 99 95 09/16/18 21:19 09/16/18 21:34 09/16/18 21:51 Temperature 97.5 F L 98 F 97.8 F Pulse Rate 71 71 70 Respiratory Rate 16 16 18 Blood Pressure 114/74 121/67 126/68 Pulse Oximetry 97 96 09/16/18 22:43 09/17/18 00:00 09/17/18 04:00 Temperature 98 F 97.8 F 97.5 F L Pulse Rate 71 71 70 Respiratory Rate 18 20 18 Blood Pressure 128/71 131/72 136/75 Pulse Oximetry 96 98 98 09/17/18 07:09 09/17/18 07:28 09/17/18 08:00 Temperature 97.1 F L Pulse Rate 75 70 Respiratory Rate 16 20 Blood Pressure 153/84 H Pulse Oximetry 96 95 95 09/17/18 13:28 09/17/18 14:03 09/17/18 15:33 Temperature 98.1 F Pulse Rate 77 69 66 Respiratory Rate 20 16 18 Blood Pressure 153/88 H 164/89 H Pulse Oximetry 94 L 96 Intake & Output 09/16/18 09/17/18 09/17/18 18:59 06:59 18:59 Intake Total 730 / 730 1861 / 1861 328 / 328 Output Total 500 / 500 1200 / 1200 Balance 230 / 230 661 / 661 328 / 328 Weight 99.2 kg 99.2 kg Intake: IV 100 / 100 400 / 400 100 / 100 NS Inj 1,000 ML @ 75 mls/hr IV. 50 / 50 CONT .[id number] JEREMI Rx#:[id number] Maxipime Inj 2,000 MG In NS Inj 100 / 100 100 / 100 100 / 100 100 ML @ 200 mls/hr IV.SIG Q8H JEREMI Rx#:[id number] NS Inj 250 ML @ 15 mls/hr IV. 250 / 250 SIG ONCE JEREMI Rx#:[id number] Oral 630 / 630 480 / 480 Intake (Blood Product) Amt 0 / 0 981 / 981 228 / 228 Plt Pheresis C Leukred Irr Pas 181 / 181 Unit [id number] Prepooled Plts Leuko/Irr 5d 228 / 228 Unit [id number] Rbc As-3 Leukoreduced Irrad 400 / 400 Unit [id number] Rbc As-3 Leukoreduced Irrad 0 / 0 400 / 400 Unit [id number] Output: Urine 500 / 500 1200 / 1200 Other: # Voids 2 # Urine Diapers 1 Date of Last Bowel Movement 09/16/18 09/15/18 09/15/18 Result Diagrams: 09/17/18 02:50 09/17/18 02:50 Laboratory Results: Laboratory Results - last 24 hr 09/15/18 09/16/18 09/16/18 14:24 00:00 00:00 WBC RBC Hgb Hct MCV MCH MCHC RDW Plt Count MPV Prelim Diff (Auto) WBC Differential Seg Neuts % (Manual) Band Neuts % (Manual) Lymphocytes % (Manual) Monocytes % (Manual) Metamyelocytes % (Man) Abs Neuts (Manual) Differential Comment Toxic Granulation Dohle Bodies Platelet Estimate Platelet Morphology Ovalocytes Sodium Potassium Chloride Carbon Dioxide Anion Gap BUN Creatinine Estimated GFR Random Glucose Calcium Magnesium Total Bilirubin AST ALT Alkaline Phosphatase Total Protein Albumin MTS Gel Crossmatch See Detail See Detail See Detail Bld Prod Order Comment Cancelled 09/16/18 09/16/18 09/17/18 14:35 14:35 02:50 WBC 0.1 L RBC 2.60 L Hgb 8.3 L D Hct 23.8 L MCV 91.6 MCH 32.0 MCHC 34.9 RDW 14.1 Plt Count 10 L* D MPV 7.9 Prelim Diff (Auto) Manual diff required WBC Differential Manual diff final Manual diff final Seg Neuts % (Manual) 25 Band Neuts % (Manual) 15 H Lymphocytes % (Manual) 100 H 40 Monocytes % (Manual) 15 H Metamyelocytes % (Man) 5 H Abs Neuts (Manual) 0.0 L* Differential Comment . Toxic Granulation 1+ H Dohle Bodies Present H Platelet Estimate Rare L Rare L Platelet Morphology Normal Normal Ovalocytes 1+ H Sodium 136 Potassium 3.1 L Chloride 105 Carbon Dioxide 22.7 Anion Gap 8 BUN 49 H Creatinine 2.36 H Estimated GFR 27 L Random Glucose 103 Calcium 8.9 Magnesium Total Bilirubin 2.5 H AST 18 ALT 37 Alkaline Phosphatase 194 H Total Protein 5.4 L Albumin 2.3 L MTS Gel Crossmatch Bld Prod Order Comment 09/17/18 09/17/18 02:50 11:19 WBC RBC Hgb Hct MCV MCH MCHC RDW Plt Count MPV Prelim Diff (Auto) WBC Differential Seg Neuts % (Manual) Band Neuts % (Manual) Lymphocytes % (Manual) Monocytes % (Manual) Metamyelocytes % (Man) Abs Neuts (Manual) Differential Comment Toxic Granulation Dohle Bodies Platelet Estimate Platelet Morphology Ovalocytes Sodium 141 Potassium 3.4 L Chloride 109 H Carbon Dioxide 23.9 Anion Gap 8 BUN 41 H Creatinine 1.56 H Estimated GFR 43 L Random Glucose 141 H Calcium 9.0 Magnesium 2.0 Total Bilirubin AST ALT Alkaline Phosphatase Total Protein Albumin MTS Gel Crossmatch Bld Prod Order Comment Culture Results: Microbiology 09/16/18 15:31 Urine Culture - Preliminary Clean Catch Urine Immature growth - reincubate 09/16/18 17:45 Gram Stain - Final Sputum - Expectorated Sputum Sputum Culture - Preliminary Immature growth - reincubate 09/16/18 14:35 Aerobic Blood Culture - Preliminary Blood - Peripheral No growth in 1 day Anaerobic Blood Culture - Preliminary No growth in 1 day 09/16/18 14:45 Aerobic Blood Culture - Preliminary Blood - Line No growth in 1 day Anaerobic Blood Culture - Preliminary No growth in 1 day Imaging Studies: Impressions Chest X-Ray 09/16/18 00:00 CONCLUSION: Slight interstitial prominence, likely chronic. Medications: Active Medications Generic Name Dose Route Start Last Admin Trade Name Freq PRN Reason Stop Dose Admin Acetaminophen 650 mg 09/16/18 14:12 09/16/18 17:32 Tylenol PO 650 mg Q4H PRN Administration Temp > 100.4 Acetaminophen 650 mg 09/17/18 10:56 09/17/18 13:18 Tylenol PO 650 mg Q4H PRN Administration SEE LABEL COMMENTS Albuterol 1 ampul 09/16/18 20:00 09/17/18 14:02 Duoneb Neb (Jeremi) NEB 1 ampul Q6HR WHILE AWAKE NEB JEREMI Administration Benzonatate 100 mg 09/16/18 15:00 09/17/18 15:31 Tessalon Perles PO 09/18/18 14:59 100 mg Q8H JEREMI Administration Diphenhydramine HCl 25 mg 09/17/18 10:56 09/17/18 13:19 Benadryl PO 25 mg Q4H PRN Administration SEE LABEL COMMENTS Cefepime HCl 2,000 mg/ Sodium 100 mls @ 200 mls/hr 09/16/18 18:00 09/17/18 10 :19 Chloride IV.SIG Infused Q8H JEREMI Infusion Sodium Chloride 250 mls @ 15 mls/hr 09/17/18 12:02 09/17/18 13:25 Ns Inj IV.SIG 09/18/18 04:41 15 mls/hr ONCE JEREMI Administration Lactobacillus Acidophilus 1 tab 09/16/18 14:15 09/17/18 08:17 Lactinex PO 1 tab BID JEREMI Administration Potassium Chloride 20 meq 09/16/18 17:00 09/17/18 08:17 K-Dur PO 20 meq DAILY JEREMI Administration Sodium Chloride 2 ml 09/16/18 21:00 09/17/18 08:17 Ns Flush IV.FLUSH 2 ml BID JEREMI Administration Tramadol HCl 50 mg 09/16/18 14:11 09/17/18 05:28 Ultram PO 50 mg BID PRN Administration PAIN SCALE 1 TO 5 Vitamin D 2,000 unit 09/16/18 14:15 09/17/18 08:17 Vitamin D3 PO 2,000 unit DAILY JEREMI Administration Objective Remarks: GENERAL: Elderly male patient, no acute distress. SKIN: Warm and dry. Port access to left chest wall, dressing dry/intact. HEAD: Normocephalic. EYES: No scleral icterus. No injection or drainage. MOUTH: [place] moist mucous membranes, no lesions, ulcers or petechiae noted. NECK: Supple, trachea midline. CARDIOVASCULAR: Regular rate and rhythm without murmurs. RESPIRATORY: Posterior breath sounds clear, equal bilaterally. No accessory muscle use. GASTROINTESTINAL: Abdomen soft, non-tender, nondistended. EXTREMITIES: No cyanosis, or edema. MUSCULOSKELETAL: Adequate muscle tone. NEUROLOGICAL: No obvious focal deficit. Awake, alert, and oriented x3. PSYCHIATRIC: Appropriate mood and affect; insight and judgment normal. Assessment/Plan - Plan Mr. Tijerina is a pleasant 78-year-old gentleman with primary refractory diffuse large B-cell lymphoma, currently undergoing salvage chemotherapy with rituximab and ICE chemotherapy. He is hospitalized for pancytopenia, neutropenic fever and bacteremia. Recommendations: 1. Bacteremia, blood cultures prior to admission were growing gram-negative rods. Blood cultures here are with no growth times 1 day. Sputum and urine culture are being reincubated for immature growth. Continues on cefepime. 2. Neutropenic fever, afebrile, ANC 0. Continue neutropenic precautions. 3. Pancytopenia, platelet count 10,000 patient received 1 unit platelets today. Hemoglobin stable at 8.3. Repeat CBC in the a.m. Goal is to maintain hemoglobin above 8 and platelet count above 15,000. - Attending Statement The exam, history, and the medical decision-making described in the above note were completed with the assistance of the mid-level provider. I reviewed and agree with the findings presented. I attest that I had a [id number] encounter with the patient on the same day, and personally performed and documented my assessment and findings in the medical record. Feeling better. Eager to get home. No fevers overnight. Second set of blood culture still negative. GM neg carol ann bacteremia 4/4 E coli, pending sensitivity. No bleeding. He had some insomnia. Gabapentin is restarted for the evening for his peripheral neuropathy. Second lorazepam is made available in case he wakes in the middle the night. He still has significant pancytopenia. Blood pressure is recovered. Antibiotic continues. Continue current treatment until recovery of blood counts. Discussed with Dr. Barron.
[2018-09-17] MEDS: LORazepam 0.5 MG Tablet PO PRN (20:19)
[2018-09-17] MEDS: Carvedilol 6.25 MG Tablet PO SCH (20:19)
[2018-09-17] MEDS: Gabapentin 300 MG Capsule PO SCH (20:19)
[2018-09-18] MEDS: HYDROcodone 5 MG/Homatropine 1.5 MG Syrup 5 ML UDC PO PRN ×2 (01:06→21:24)
[2018-09-18] MEDS: LORazepam 0.5 MG Tablet PO PRN ×2 (04:07→21:25)
[2018-09-18 05:28] LABS: Hematocrit 22.7 % (39.0-51.0); Hemoglobin 7.9 gm/dL (13.0-17.0); Mean Corpuscular HGB Conc 34.8 % (32.0-36.0); Mean Corpuscular Hemoglobin 32.1 pg (27.0-34.0); Mean Corpuscular Volume 92.1 fL (80.0-100.0); Mean Platelet Volume 8.3 fL (7.0-11.0); Red Blood Count 2.46 mil/mm3 (4.50-5.90); Red Cell Distribution Width 14.3 % (11.6-17.2); White Blood Count 0.2 th/mm3 (4.0-11.0)
[2018-09-18 05:48] LABS: Platelet Count 13 th/mm3 (150-450)
[2018-09-18 06:00] LABS: Calcium 9.5 mg/dL (8.5-10.1); Carbon Dioxide 21.4 meq/L (21.0-32.0); Potassium 3.4 meq/L (3.5-5.1)
[2018-09-18] MEDS ORDERED: Sodium Chlor 0.9% Inj 250 ML IV.SIG SCH (06:00)
[2018-09-18] MEDS: Benzonatate 100 MG Capsule PO SCH (06:05)
[2018-09-18] MEDS: Acetaminophen 325 MG Tablet PO PRN (06:05)
[2018-09-18 07:08] LABS: Dohle Bodies Present; Lymphocytes 28 % (9-44); Monocytes 12 % (0-8); Platelet Estimate Rare (Normal); Platelet Morphology Normal (Normal); Toxic Granulation 1+
[2018-09-18] MEDS: Lactobacillus Acidophilus/L. Spores Tablet PO SCH ×2 (09:09→21:25)
[2018-09-18] MEDS: Gabapentin 300 MG Capsule PO SCH (09:09)
[2018-09-18] MEDS: Carvedilol 6.25 MG Tablet PO SCH ×2 (09:10→21:25)
--- NOTE | 2018-09-18 09:15 | P.PNONC ---
Subjective Interval history: Patient seen and evaluated alongside Dr. Moe. Afebrile. No complaints at this time. Currently receiving PRBC transfusion. No signs of bleeding. external urine catheter draining nikolas colored urine. Reports up in chair with physical therapy yesterday, encouraged early ambulation and out of bed as tolerated. Objective Vital Signs/Intake & Output: Vital Signs 09/17/18 13:28 09/17/18 14:03 09/17/18 15:33 Temperature 98.1 F Pulse Rate 77 69 66 Respiratory Rate 20 16 18 Blood Pressure 153/88 H 164/89 H Pulse Oximetry 94 L 96 09/17/18 19:36 09/17/18 20:00 09/17/18 21:08 Temperature 97.7 F Pulse Rate 70 73 Respiratory Rate 16 16 Blood Pressure 139/82 Pulse Oximetry 98 96 97 09/18/18 00:00 09/18/18 04:00 09/18/18 06:22 Temperature 97.7 F 97.7 F 97.8 F Pulse Rate 66 67 60 Respiratory Rate 19 17 18 Blood Pressure 143/83 H 145/77 H 140/75 Pulse Oximetry 97 96 97 09/18/18 06:38 09/18/18 07:39 09/18/18 07:48 Temperature 97.7 F 98.4 F Pulse Rate 67 64 67 Respiratory Rate 16 14 Blood Pressure 151/79 H 138/77 Pulse Oximetry 97 96 97 09/18/18 07:57 Temperature 98.3 F Pulse Rate 60 Respiratory Rate 18 Blood Pressure 157/82 H Pulse Oximetry 97 Intake & Output 09/17/18 09/18/18 09/18/18 18:59 06:59 18:59 Intake Total 2548 / 2548 926 / 926 0 / 0 Output Total 900 / 900 600 / 600 Balance 1648 / 1648 326 / 326 0 / 0 Weight 100 kg Intake: IV 1200 / 1200 100 / 100 Maxipime Inj 2,000 MG In NS Inj 200 / 200 100 / 100 100 ML @ 200 mls/hr IV.SIG Q8H JEREMI Rx#:[id number] NS Inj 250 ML @ 15 mls/hr IV. 0 / 0 SIG ONCE JEREMI Rx#:[id number] Oral 1120 / 1120 550 / 550 Intake (Blood Product) Amt 228 / 228 276 / 276 0 / 0 Plt Pheresis A Lr/Irr Pas Unit 276 / 276 [id number] Prepooled Plts Leuko/Irr 5d 228 / 228 Unit [id number] Rbc As-3 Leukoreduced Irrad 0 / 0 Unit [id number] Output: Urine 900 / 900 600 / 600 Other: # Voids 1 Date of Last Bowel Movement 09/15/18 09/15/18 09/15/18 Result Diagrams: 09/18/18 05:00 09/18/18 05:00 Laboratory Results: Laboratory Results - last 24 hr 09/15/18 09/17/18 09/18/18 14:24 11:19 00:48 WBC RBC Hgb Hct MCV MCH MCHC RDW Plt Count MPV Prelim Diff (Auto) WBC Differential Seg Neuts % (Manual) Band Neuts % (Manual) Lymphocytes % (Manual) Monocytes % (Manual) Abs Neuts (Manual) Differential Comment Toxic Granulation Dohle Bodies Platelet Estimate Platelet Morphology Sodium Potassium Chloride Carbon Dioxide Anion Gap BUN Creatinine Estimated GFR Random Glucose Calcium Blood Type A Positive Antibody Screen Negative MTS Gel Crossmatch See Detail See Detail Bld Prod Order Comment 09/18/18 09/18/18 05:00 05:00 WBC 0.2 L RBC 2.46 L Hgb 7.9 L Hct 22.7 L MCV 92.1 MCH 32.1 MCHC 34.8 RDW 14.3 Plt Count 13 L* MPV 8.3 Prelim Diff (Auto) Manual diff required WBC Differential Manual diff final Seg Neuts % (Manual) 44 Band Neuts % (Manual) 16 H Lymphocytes % (Manual) 28 Monocytes % (Manual) 12 H Abs Neuts (Manual) 0.1 L* Differential Comment . Toxic Granulation 1+ H Dohle Bodies Present H Platelet Estimate Rare L Platelet Morphology Normal Sodium 143 Potassium 3.4 L Chloride 113 H Carbon Dioxide 21.4 Anion Gap 9 BUN 33 H Creatinine 1.07 Estimated GFR 67 L Random Glucose 137 H Calcium 9.5 Blood Type Antibody Screen MTS Gel Crossmatch Bld Prod Order Comment Culture Results: Microbiology 09/16/18 15:31 Urine Culture - Preliminary Clean Catch Urine Immature growth - reincubate 09/16/18 17:45 Gram Stain - Final Sputum - Expectorated Sputum Sputum Culture - Preliminary Immature growth - reincubate 09/16/18 14:35 Aerobic Blood Culture - Preliminary Blood - Peripheral No growth in 1 day Anaerobic Blood Culture - Preliminary No growth in 1 day 09/16/18 14:45 Aerobic Blood Culture - Preliminary Blood - Line No growth in 1 day Anaerobic Blood Culture - Preliminary No growth in 1 day Medications: Active Medications Generic Name Dose Route Start Last Admin Trade Name Freq PRN Reason Stop Dose Admin Acetaminophen 650 mg 09/16/18 14:12 09/16/18 17:32 Tylenol PO 650 mg Q4H PRN Administration Temp > 100.4 Albuterol 1 ampul 09/16/18 20:00 09/18/18 07:46 Duoneb Neb (Jeremi) NEB 1 ampul Q6HR WHILE AWAKE NEB JEREMI Administration Benzonatate 100 mg 09/16/18 15:00 09/18/18 06:05 Tessalon Perles PO 09/18/18 14:59 100 mg Q8H JEREMI Administration Carvedilol 6.25 mg 09/17/18 21:00 09/17/18 20:19 Coreg PO 6.25 mg BID JEREMI Administration Gabapentin 300 mg 09/17/18 21:00 09/17/18 20:19 Neurontin PO 300 mg BID JEREMI Administration Hydrocodone Bit/Homatropine Methylb 5 ml 09/16/18 20:36 09/18/18 01:06 Hycodan Liq PO 5 ml HS PRN Administration COUGH Cefepime HCl 2,000 mg/ Sodium 100 mls @ 200 mls/hr 09/16/18 18:00 09/18/18 01 :39 Chloride IV.SIG Infused Q8H JEREMI Infusion Sodium Chloride 250 mls @ 15 mls/hr 09/18/18 06:00 09/18/18 06:13 Ns Inj IV.SIG 09/18/18 22:39 Not Given ONCE JEREMI Lactobacillus Acidophilus 1 tab 09/16/18 14:15 09/17/18 20:19 Lactinex PO 1 tab BID JEREMI Administration Lorazepam 0.5 mg 09/17/18 14:19 09/18/18 04:07 Ativan PO 0.5 mg Q6HR PRN Administration INSOMNIA Potassium Chloride 20 meq 09/16/18 17:00 09/17/18 08:17 K-Dur PO 20 meq DAILY JEREMI Administration Sodium Chloride 2 ml 09/16/18 21:00 09/17/18 20:19 Ns Flush IV.FLUSH 2 ml BID JEREMI Administration Tramadol HCl 50 mg 09/16/18 14:11 09/17/18 05:28 Ultram PO 50 mg BID PRN Administration PAIN SCALE 1 TO 5 Vitamin D 2,000 unit 09/16/18 14:15 09/17/18 08:17 Vitamin D3 PO 2,000 unit DAILY JEREMI Administration Objective Remarks: GENERAL: Elderly male patient, no acute distress. SKIN: Warm and dry. Port access to left chest wall, dressing dry/intact. HEAD: Normocephalic. EYES: No scleral icterus. No injection or drainage. NECK: Supple, trachea midline. CARDIOVASCULAR: Regular rate and rhythm without murmurs. RESPIRATORY: Posterior breath sounds clear, equal bilaterally. Nonlabored at rest. GASTROINTESTINAL: Abdomen soft, non-tender, nondistended. EXTREMITIES: No cyanosis, or edema. MUSCULOSKELETAL: Adequate muscle tone. NEUROLOGICAL: No obvious focal deficit. Awake, alert, and oriented x3. PSYCHIATRIC: Appropriate mood and affect; insight and judgment normal. Assessment/Plan - Plan Mr. Tijerina is a pleasant 78-year-old gentleman with primary refractory diffuse large B-cell lymphoma, currently undergoing salvage chemotherapy with rituximab and ICE chemotherapy. He is hospitalized for pancytopenia, neutropenic fever and bacteremia. Recommendations: 1. Bacteremia, blood cultures prior to admission were growing gram-negative rods. Blood cultures here are with no growth times 1 day. Sputum and urine culture are being reincubated for immature growth. Continues on cefepime. 2. Neutropenic fever, afebrile, ANC 100. Continue neutropenic precautions. 3. Pancytopenia, platelet count 13,000 patient received 1 unit platelets yesterday. Hemoglobin 7.9, currently receiving 1 unit pRBC. Repeat CBC in the a.m. Goal is to maintain hemoglobin above 8 and platelet count above 15,000. 4. Await blood culture findings. Plan to discharge home in 1 to 2 days if the blood cultures remain negative and he remains afebrile with stable vital signs. He will likely be pancytopenic and we have discussed close clinical outpatient follow-up with labs and transfusions as needed. Once course of antibiotics is complete repeat cultures will be drawn from port to determine if bacteria persist. If bacteremia persists, the port will have to be removed. If he continues to improve and repeat cultures have no growth we will consider port sparing. - Attending Statement The exam, history, and the medical decision-making described in the above note were completed with the assistance of the mid-level provider. I reviewed and agree with the findings presented. I attest that I had a [id number] encounter with the patient on the same day, and personally performed and documented my assessment and findings in the medical record. Pt seen and examined, discussed w/ primary team. Signs of bone marrow recovery but still need blood, still thrombocytopenic and neutropenic. Fortunately afebrile. Continue current tx. Await sensitivity from blood culture. Attempt to clear central line with abx.
--- NOTE | 2018-09-18 11:45 | P.PNIM ---
Subjective Interval history: pt doing better. Physical Exam Vital signs: Last Vital Signs Temp 97.4 F L 09/18/18 07:59 Pulse 61 09/18/18 07:59 Resp 18 09/18/18 07:59 BP 163/85 H 09/18/18 07:59 Pulse Ox 99 09/18/18 07:59 Narrative: nad heart reg lung improved air entry. few scattered wheezes abd s/nt ext no edema port. 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 Patient directly admitted from Dr. Nava's clinic due to anemia and bacteremia. Blood culture were drawn 09/15/18 now growing E coli 1/4 bottles and gram neg rods in the remaining 3/4 bottles. UA from 09/15 reviewed and reveals: negative protein, neg ketones, neg nitrates, negative Leukocyte esterase. Patient did receive cefepime today in the outpatient clinic. Patient has been coughing for approximately 1 month after a bronchoscopy. Cough unrelieved by OTC cough suppression. Chemotherapy approximately one week ago and since then he has been weak. Patient continues to have nonproductive cough. Patient also endorses increase in urinary frequency. Patient denies abd pain, N/V/C/C, chest pain or SOB. Recurrent B cell lymphoma. undergoing chemotherapy s/p R-Epoch. now R-ICE. pancytopenia related to chemo neutropenia ecoli bacteremia kirk/ckd 3 volume depletion. hx c. diff colitis. cough/reactive airways. ?pneumonitis from aspiration general weakness. stop ivf s/p 2 units prbc 09/16. 1 unit plt s/p 1 unit plt 09/17 s/p 1 unit prbc and 1 unit plt 09/18 repeat blood cx ngtd. convert to po. f/u sensitivity duonebs. cough med. few doses solumedrol with improved respiratory sx's. PT daily dvt prophylaxis plan for dc tomorrow. Progress Note: Quality VTE Deep Vein Thrombosis/Pulmonary Embolism Present on Admission: No
[2018-09-18] MEDS ORDERED: Benzonatate 100 MG Capsule PO PRN (13:41)
[2018-09-18] MEDS ORDERED: Gabapentin 300 MG Capsule PO ONE (21:00)
[2018-09-18] MEDS: Pantoprazole Sodium 20 MG DR Tablet PO PRN (23:02)
[2018-09-19 05:43] VITALS: O2SAT 97
--- NOTE | 2018-09-19 09:11 | P.PNIM ---
Subjective Interval history: EAGER FOR DC FEELS STRONGER. Physical Exam Vital signs: Last Vital Signs Temp 98.3 F 09/19/18 04:00 Pulse 65 09/19/18 04:00 Resp 20 09/19/18 04:00 BP 132/80 09/19/18 04:00 Pulse Ox 97 09/19/18 04:00 Narrative: nad heart reg lung improved air entry. few scattered wheezes abd s/nt ext no edema port. 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 Patient directly admitted from Dr. Nava's clinic due to anemia and bacteremia. Blood culture were drawn 09/15/18 now growing E coli 1/4 bottles and gram neg rods in the remaining 3/4 bottles. UA from 09/15 reviewed and reveals: negative protein, neg ketones, neg nitrates, negative Leukocyte esterase. Patient did receive cefepime today in the outpatient clinic. Patient has been coughing for approximately 1 month after a bronchoscopy. Cough unrelieved by OTC cough suppression. Chemotherapy approximately one week ago and since then he has been weak. Patient continues to have nonproductive cough. Patient also endorses increase in urinary frequency. Patient denies abd pain, N/V/C/C, chest pain or SOB. Recurrent B cell lymphoma. undergoing chemotherapy s/p R-Epoch. now R-ICE. pancytopenia related to chemo neutropenia ecoli/enterobacter/klebsiella bacteremia kikr/ckd 3 volume depletion. hx c. diff colitis. cough/reactive airways. ?pneumonitis from aspiration general weakness. stopped ivf s/p 2 units prbc 09/16. 1 unit plt s/p 1 unit plt 09/17 s/p 1 unit prbc and 1 unit plt 09/18 repeat blood cx ngtd x 2 days. convert to po. duonebs. cough med. few doses solumedrol with improved respiratory sx's. PT daily dvt prophylaxis discussed wit pt. If repeat blood cx neg x 72hrs today then dc home with 10more days of abx. Repeat blood cx with oncology after completion and if recurrent bacteremia then will need to remove the port. he agrees with plan and hoping to salvage the port. ...await the cx result and cbc/bmp. [facility]/pt. Progress Note: Quality VTE Deep Vein Thrombosis/Pulmonary Embolism Present on Admission: No
[2018-09-19 09:23] VITALS: RESP 18
--- NOTE | 2018-09-19 09:26 | P.DCO ---
Physical Therapy Order: Evaluate and treat and Improve ambulation Home Health Nursing Order: Medical education, Signs/symptoms of disease process, Medication education-adverse effect and Nursing assessment with vital signs Instructions: nebulizer instruction. Case Management Consult Case Management Consult-Home Health: Yes I have seen patient Jl Adorno on 09/19/18. My clinical findings support the need for the requested home health care services because: I certify that my clinical findings support that this patient is homebound because:
[2018-09-19] MEDS ORDERED: levoFLOXacin 500 MG Tablet PO ONE (09:45)
[2018-09-19] MEDS ORDERED: MethylPREDNISolone Sod Succinate Inj 125 MG/2 ML Vial IV.PUSH ONE (09:45)
[2018-09-19] MEDS: Pantoprazole Sodium 20 MG DR Tablet PO PRN (11:15)
[2018-09-19 11:32] LABS: Hematocrit 27.5 % (39.0-51.0); Hemoglobin 9.5 gm/dL (13.0-17.0); Mean Corpuscular HGB Conc 34.7 % (32.0-36.0); Mean Corpuscular Hemoglobin 32.2 pg (27.0-34.0); Mean Platelet Volume 7.8 fL (7.0-11.0); Red Blood Count 2.95 mil/mm3 (4.50-5.90); Red Cell Distribution Width 14.6 % (11.6-17.2); White Blood Count 0.6 th/mm3 (4.0-11.0)
[2018-09-19 11:51] LABS: Carbon Dioxide 22.2 meq/L (21.0-32.0); Potassium 3.3 meq/L (3.5-5.1)
[2018-09-19 11:57] LABS: Platelet Count 16 th/mm3 (150-450)
--- NOTE | 2018-09-19 12:39 | P.PNONC ---
Subjective Interval history: Patient seen in the morning with at bedside. Feels well. Denies any fevers. No chest pain. Denies any bleeding. Eager to go home. Objective Vital Signs/Intake & Output: Vital Signs 09/18/18 13:27 09/18/18 15:14 09/18/18 19:28 Temperature 97.1 F L Pulse Rate 62 65 64 Respiratory Rate 18 18 15 Blood Pressure 163/93 H Pulse Oximetry 97 09/18/18 19:29 09/18/18 20:00 09/19/18 00:00 Temperature 98.3 F 97.6 F Pulse Rate 64 63 Respiratory Rate 20 20 Blood Pressure 149/83 H 163/94 H Pulse Oximetry 98 100 96 09/19/18 04:00 09/19/18 08:00 09/19/18 09:22 Temperature 98.3 F 98 F Pulse Rate 65 69 69 Respiratory Rate 20 18 18 Blood Pressure 132/80 156/94 H Pulse Oximetry 97 98 09/19/18 09:24 Temperature Pulse Rate Respiratory Rate Blood Pressure Pulse Oximetry 97 Intake & Output 09/18/18 09/19/18 09/19/18 18:59 06:59 18:59 Intake Total 800 / 800 1300 / 1300 Output Total 700 / 700 800 / 800 Balance 100 / 100 500 / 500 Weight 101.9 kg Intake: IV 200 / 200 100 / 100 Maxipime Inj 2,000 MG In NS Inj 200 / 200 100 / 100 100 ML @ 200 mls/hr IV.SIG Q8H JEREMI Rx#:[id number] Oral 600 / 600 1200 / 1200 Intake (Blood Product) Amt 0 / 0 Rbc As-3 Leukoreduced Irrad 0 / 0 Unit [id number] Output: Urine 700 / 700 800 / 800 Other: # Incontinent Voids 1 Date of Last Bowel Movement 09/18/18 09/18/18 09/18/18 Result Diagrams: 09/19/18 11:00 09/19/18 11:00 Laboratory Results: Laboratory Results - last 24 hr 09/19/18 09/19/18 11:00 11:00 WBC 0.6 L RBC 2.95 L Hgb 9.5 L Hct 27.5 L MCV 93.0 MCH 32.2 MCHC 34.7 RDW 14.6 Plt Count 16 L* MPV 7.8 Prelim Diff (Auto) Manual diff required Differential Comment . Sodium 143 Potassium 3.3 L Chloride 114 H Carbon Dioxide 22.2 Anion Gap 7 BUN 30 H Creatinine 0.88 Estimated GFR 84 L Random Glucose 86 Calcium 9.0 Culture Results: Microbiology 09/16/18 14:35 Aerobic Blood Culture - Preliminary Blood - Peripheral No growth in 3 days Anaerobic Blood Culture - Preliminary No growth in 3 days 09/16/18 14:45 Aerobic Blood Culture - Preliminary Blood - Line No growth in 3 days Anaerobic Blood Culture - Preliminary No growth in 3 days 09/16/18 15:31 Urine Culture - Final Clean Catch Urine <10,000 cfu/mL gram positive carolyn - no further workup 09/16/18 17:45 Gram Stain - Final Sputum - Expectorated Sputum Sputum Culture - Final Heavy growth normal respiratory carolyn Medications: Active Medications Generic Name Dose Route Start Last Admin Trade Name Freq PRN Reason Stop Dose Admin Acetaminophen 650 mg 09/16/18 14:12 09/16/18 17:32 Tylenol PO 650 mg Q4H PRN Administration Temp > 100.4 Albuterol 1 ampul 09/16/18 20:00 09/19/18 09:16 Duoneb Neb (Jeremi) NEB 1 ampul Q6HR WHILE AWAKE NEB JEREMI Administration Benzonatate 100 mg 09/18/18 13:41 09/18/18 14:21 Tessalon Perles PO 100 mg Q8H PRN Administration COUGH Carvedilol 6.25 mg 09/17/18 21:00 09/18/18 21:25 Coreg PO 6.25 mg BID JEREMI Administration Hydrocodone Bit/Homatropine Methylb 5 ml 09/16/18 20:36 09/18/18 21:24 Hycodan Liq PO 5 ml HS PRN Administration COUGH Lactobacillus Acidophilus 1 tab 09/16/18 14:15 09/18/18 21:25 Lactinex PO 1 tab BID JEREMI Administration Lorazepam 0.5 mg 09/17/18 14:19 09/18/18 21:25 Ativan PO 0.5 mg Q6HR PRN Administration INSOMNIA Pantoprazole Sodium 20 mg 09/16/18 15:03 09/18/18 23:02 Protonix PO 20 mg DAILY PRN Administration GERD Potassium Chloride 20 meq 09/16/18 17:00 09/18/18 09:10 K-Dur PO 20 meq DAILY JEREMI Administration Sodium Chloride 2 ml 09/16/18 21:00 09/18/18 21:25 Ns Flush IV.FLUSH 2 ml BID JEREMI Administration Tramadol HCl 50 mg 09/16/18 14:11 09/17/18 05:28 Ultram PO 50 mg BID PRN Administration PAIN SCALE 1 TO 5 Vitamin D 2,000 unit 09/16/18 14:15 09/18/18 09:10 Vitamin D3 PO 2,000 unit DAILY JEREMI Administration Objective Remarks: GENERAL: Elderly man, well-developed patient. SKIN: Warm and dry.No rash.Chronic changes left neck. HEAD: Normocephalic. EYES: No scleral icterus. No injection or drainage. NECK: Supple, trachea midline. No JVD or lymphadenopathy. LYMPHATIC: No adenopathy. CARDIOVASCULAR: Regular rate and rhythm without murmurs. RESPIRATORY: Breath sounds equal bilaterally. No accessory muscle use. Hoarseness. GASTROINTESTINAL: Abdomen soft, non-tender, nondistended. EXTREMITIES: No cyanosis, or edema. MUSCULOSKELETAL: Adequate muscle tone. NEUROLOGICAL: No obvious focal deficit. Awake, alert, and oriented x3. PSYCHIATRIC: Appropriate mood and affect; insight and judgment normal. Assessment/Plan - Plan Mr. Tijerina is a pleasant 78-year-old gentleman with primary refractory diffuse large B-cell lymphoma, currently undergoing salvage chemotherapy with rituximab and ICE chemotherapy. He is hospitalized for pancytopenia, neutropenic fever and bacteremia. Pancytopenia. Platelets and hemoglobin and WBC appear to be recovering. No transfusions needed today. Gram-negative carol ann bacteremia, E. coli, sensitivity to Levaquin. Blood culture on the day of admission continued to be negative. Initial blood cultures show 2 organisms. Plan to discharge on Levaquin. Which is also good coverage for neutropenia. Blood cultures will need to be repeated on the Levaquin to confirm resolution of the bacteremia. Discussed with Dr. Barron. Anticipate discharge home today. Plan to check a CBC and transfuse as needed on Saturday. Neulasta was administered.
[2018-09-19 12:44] LABS: Lymphocytes 16 % (9-44); Monocytes 7 % (0-8); Platelet Estimate Rare (Normal); Platelet Morphology Normal (Normal); RBC Morphology Normal (Normal)
[2018-09-19 13:11] VITALS: BP 146/80; TEMP 97.6
[2018-09-19] MEDS: Lactobacillus Acidophilus/L. Spores Tablet PO SCH (13:13)
[2018-09-19] MEDS: Carvedilol 6.25 MG Tablet PO SCH (13:13)
[2018-09-19 14:07] VITALS: PULSE 70
== END 2018-09-19 16:43 | disposition home health service (06) | DRG 867 ==
LOC: HCIN 09-16 12:27
PROVIDERS: ADMIT Hospitalist; ATTEND Hospitalist
CPT/HCPCS: 36430; 71020; 71046; 80048; 80053; 81001; 83605; 83735; 85025; 86850; 86900; 86901; 86923; 87040; 87070; 87077; 87086; 87149; 87186; 87205; 94640; 94664; 94665; 97110; 97116; 97162; C1018; J0692; J1642; J2930; J7030; J7050; P9031; P9037; P9040